=== PATIENT | male | born 1950 | race Caucasian/White ===

== ENCOUNTER 2024-05-03 15:00 | Emergency (ER) | payer OTHER, SELFPAY ==
[2024-05-03 15:08] VITALS: BP 155/96; PULSE 68; RESP 16; O2SAT 96
--- NOTE | 2024-05-03 15:15 | DI.RAD_ITS ---
Exam(s) XR WRIST LT COMP NAVICULAR EXAM: XR WRIST LT COMP NAVICULAR CLINICAL HISTORY: L wrist pain. TECHNIQUE: 2D digital imaging was performed. COMPARISON: No exams were available for comparison FINDINGS: Four views No evidence of fracture or dislocation nor significant ulnar variance. Scaphoid and scapholunate dis tance normal. Small round calcific density distal to the ulnar styloid does not have the appearance of an acute fracture fragment. No osseous lesions. IMPRESSION: No fractures evident. DATA REPOSITORY: RADIATION DOSE DELIVERED:
--- NOTE | 2024-05-03 15:29 | W.ED.GENAD ---
Discharge Plan Disposition Patient Disposition: Home Condition: Stable Discharge Details Clinical Impression: Left carpal tunnel syndrome Primary Care Provider: [place] ED Provider: Brendan Ho Home Meds and New Rx's Prescriptions: Continued acetaminophen 500 mg capsule 1,000 mg PO Q6H PRN amlodipine 10 mg tablet 10 mg PO DAILY ibuprofen [IBU] 800 mg tablet 800 mg PO Q8H PRN oxycodone-acetaminophen 5-325 mg tablet 1 tab PO Q6H atorvastatin 10 mg tablet 10 mg PO DAILY losartan 50 mg tablet 50 mg PO DAILY tizanidine 2 mg tablet 2 mg PO BID PRN tamsulosin 0.4 mg capsule 0.8 mg PO DAILY omeprazole 20 mg capsule,delayed release(DR/EC) 20 mg PO DAILY levothyroxine PO Discharge Instructions Instructions: Carpal tunnel syndrome Additional Instructions: You were seen in the emergency department for your left wrist pain and tingling, you have a physical exam that is suspicious for carpal tunnel syndrome. Please use the wrist brace to keep the wrist immobilized including during sleep to see if this improves symptoms, you may elevate and take Tylenol and ibuprofen as tolerated for pain, please seek a referral to orthopedics from your primary care provider, sometimes they perform surgery to release the carpal tunnel ligament but usually can get relief in 2 to 4 weeks of significant immobilization and [id number] pain and anti-inflammatory regimen. Referrals: [facility] [Primary Care Provider] - Discharge Data Discharge Date/Time-TO BE ENTERED AT DEPARTURE: 05/03/24 16:46 HPI General Date/Time Provider Initiated Documentation: 05/03/24 15:21. HPI Narrative: 73 year-old male presents to ED today by POV/ambulating with a chief complaint of L wrist/finger/hand pain, tingling, swelling without erythema with onset over the past few days. Quality described as tingling in fingers, pain traveling through the wrist, no radiation to injury, recent lacerations, redness, warmth to touch. Severity is described as moderate. Palliating factors include nothing specific attempted. Provoking factors include movement. Events leading up to the incident/Associated Symptoms: Patient denies history of clots, denies history of gout. Patient not anticoagulated. Related Data Home Medications ?Medication ?Instructions ?Recorded ?Confirmed acetaminophen 500 mg capsule 1,000 mg PO Q6H PRN 05/03/24 05/03/24 amlodipine 10 mg tablet 10 mg PO DAILY 05/03/24 05/03/24 atorvastatin 10 mg tablet 10 mg PO DAILY 05/03/24 05/03/24 ibuprofen 800 mg tablet (IBU) 800 mg PO Q8H PRN 05/03/24 05/03/24 levothyroxine PO 05/03/24 losartan 50 mg tablet 50 mg PO DAILY 05/03/24 05/03/24 omeprazole 20 mg capsule,delayed 20 mg PO DAILY 05/03/24 05/03/24 release oxycodone-acetaminophen 5 mg-325 1 tab PO Q6H 05/03/24 05/03/24 mg tablet tamsulosin 0.4 mg capsule 0.8 mg PO DAILY 05/03/24 05/03/24 tizanidine 2 mg tablet 2 mg PO BID PRN 05/03/24 05/03/24 Allergies Allergy/AdvReac Type Severity Reaction Status Date / Time No Known Allergies Allergy Verified 05/03/24 15:14 General Stated Complaint: Orthopedic JAYDE: 3 Review of Systems All systems reviewed & are unremarkable except as noted in HPI and below Exam Narrative Exam Narrative: GENERAL APPEARANCE: Well-nourished, non-toxic, awake and alert, atraumatic, no acute distress. SKIN: Warm, pink, dry, intact, without rashes/lesions/ulcerations. HEAD: Normocephalic, atraumatic, normal hair distribution for gender/age. EYES: Normal conjunctiva, no exudates on lids/lashes. ENT: Nares patent, no circumoral cyanosis, no facial swelling NECK: Supple, trachea midline, painless cervical ROM. LUNGS/CHEST: Non-labored respirations, normal A/P diameter, symmetrical expansion, no chest wall deformity HEART (CV/PV): Regular rate, L radial pulse 2+, no peripheral edema, no JVD. ABDOMEN: Soft, non-distended, no guarding. MSK: Normal ROM, no swelling/deformity to bilateral UEs or LEs, moving all extremities without weakness, no cyanosis, spine midline without tenderness, normal curvature, neurovascularly intact in left hand with mild swelling without any erythema or warmth to touch, left radial pulse 2+, limited range of motion to pain, Tinel's and Phalen's positive for carpal tunnel NEURO: Mental Status AAOx4 - alert to person, place, time, events No facial droop, no forehead involvement. Motor: No focal weakness - strength 5/5 in bilateral UEs and LEs, proximal and distal, symmetric. Sensory: sensation intact to light touch globally. Gait normal: patient ambulated without ataxia into ED room. PSYCH: euthymic, cooperative, pleasant, appropriate speech Course Vital Signs Vital signs: Vital Signs Pulse 68 05/03/24 15:08 Respiratory Rate 16 05/03/24 15:08 Blood Pressure 155/96 H 05/03/24 15:08 Pulse Oximetry 96 05/03/24 15:08 Temperature Source Temporal Artery Scan 05/03/24 15:08 Pulse 68 05/03/24 15:08 Respiratory Rate 16 05/03/24 15:08 Respiratory Effort Normal, Non-Labored 05/03/24 15:15 Blood Pressure 155/96 H 05/03/24 15:08 Blood Pressure Position Sitting 05/03/24 15:08 Pulse Oximetry 96 05/03/24 15:08 Oxygen Delivery Method Room Air 05/03/24 15:08 Oxygen Flow Rate 0 05/03/24 15:08 Pain Level 5 05/03/24 15:26 Comment Pt states pain = 7 or 8 w/ movement 05/03/24 15:08 Medical Decision Making This dictation utilizes [id number] dictation software and may contain unedited grammatical errors. 73 year-old male presents to ED today by POV/ambulating with a chief complaint of L wrist/finger/hand pain, tingling, swelling without erythema with onset over the past few days. Quality described as tingling in fingers, pain traveling through the wrist, no radiation to injury, recent lacerations, redness, warmth to touch. Severity is described as moderate. Palliating factors include nothing specific attempted. Provoking factors include movement. Events leading up to the incident/Associated Symptoms: Patient denies history of clots, denies history of gout. Patients' medical history: Hypertension, hyperlipidemia, arthritis. Family and social history: Noncontributory. Pertinent exam findings / vital signs include neurovascularly intact in left hand with mild swelling without any erythema or warmth to touch, left radial pulse 2+, limited range of motion to pain, Tinel's and Phalen's positive for carpal tunnel. Differential / pathologies of concern include carpal tunnel syndrome, inflammatory arthritis, gout. Diagnostic studies of: -CBC, CMP, CRP/ESR, Uric Acid, XR L wrist. -bloodwork benign, neg inflammatory markers, uric acid WNL -XR benign Interventions of: -thumb spica brace. ED Course/Assessment/Plan: 73-year-old male presents with intermittent swelling of his left fingers with numbness and tingling to the first 3 fingers, Tinel's and Phalen's are positive, laboratory workup is benign for any inflammatory markers or elevated uric acid level is x-rays negative I do believe he has carpal tunnel syndrome. He is a [place] patient and I recommend that he follow-up with [place] [facility], he was provided a thumb spica brace and recommended to perform RICE therapy and therapeutic dosing of Tylenol and ibuprofen with strict return criteria for any increasing redness, warmth to touch, signs of neurovascular compromise. Findings not consistent with fracture, inflammatory arthritis, gout, and infection. Disposition of Left Carpal Tunnel Syndorme. Patient verbalized understanding of the plan and return to ED criteria and engaged in shared decision making. Medical Records Medical records reviewed: Yes I reviewed the patient's medical records. Imaging Data Radiologic Study: Attestation: I personally reviewed and interpreted this imaging study as follows: Imaging: X-Ray Radiologist's impression: EXAM: XR WRIST LT COMP NAVICULAR CLINICAL HISTORY: L wrist pain. TECHNIQUE: 2D digital imaging was performed. COMPARISON: No exams were available for comparison FINDINGS: Four views No evidence of fracture or dislocation nor significant ulnar variance. Scaphoid and scapholunate distance normal. Small round calcific density distal to the ulnar styloid does not have the appearance of an acute fracture fragment. No osseous lesions. IMPRESSION: No fractures evident. Lab Data Lab results reviewed: Yes I reviewed the patient's lab results. Labs: Laboratory Tests Range/Units 05/03/ 15:40 WBC (4.4-10.8) 10^3/uL 6.20 RBC (4.36-5.78) 10^6/uL 4.41 Hgb (13.5-17.5) g/dL 14.1 Hct (40.0-50.0) % 40.2 MCV (80-95) fL 91 MCH (27.0-33.0) pg 32.0 MCHC (32.0-36.0) % 35.1 RDW (11.8-14.1) % 12.8 Plt Count (130-400) 10^3/uL 185 MPV (8.0-11.0) fL 9.3 Immature Gran % % 0.2 Neutrophils % % 68.7 Lymphocytes % % 22.4 Monocytes % % 5.5 Eosinophils % % 2.7 Basophils % % 0.5 Nucleated RBC % (0.0-0.3) % 0.0 Absolute Neutrophils (1.2-6.7) 10^3/uL 4.26 Absolute Lymphocytes (1.2-3.4) 10^3/uL 1.39 Absolute Monocytes (0.1-0.8) 10^3/uL 0.34 Absolute Eosinophils (0.0-0.7) 10^3/uL 0.17 Absolute Basophils (0.0-0.2) 10^3/uL 0.03 ESR (0-20) mm/hr 2 Sodium (136-145) mmol/L 141 Potassium (3.5-5.1) mmol/L 4.3 Chloride (98-107) mmol/L 105 Carbon Dioxide (21.0-32.0) mmol/L 28.6 Anion Gap (3-11) mmol/L 7.4 BUN (7-18) mg/dL 18 Creatinine (0.70-1.30) mg/dL 1.4 H Est GFR (CKD-EPI 2020) (mL/min/1.73m2) 52.41 Glucose (74-106) mg/dL 184 H Uric Acid (3.5-7.2) mg/dL 6.4 Calcium (8.5-10.1) mg/dL 8.7 Total Bilirubin (0.2-1.0) mg/dL 0.60 AST (15-37) U/L 20 ALT (16-63) U/L 25 Alkaline Phosphatase (46-116) U/L 107 C-Reactive Protein (<or=0.5) mg/dL 0.54 H Total Protein (6.4-8.2) g/dL 7.1 Albumin (3.4-5.0) g/dL 4.0 Quality:SDOH Health Related Social Needs: No Data to Display PFSH All Active Problems (Updated 05/03/24 @ 16:25 by CAMILLE Mckeon) Left carpal tunnel syndrome (Acute) Social History Smoking/Tobacco Use Status: Former Tobacco Use Quit Date: 07/18/11 Smoking risk assessment performed?: Yes Alcohol Intake: former Drug use: Never Substance use type: does not use Do you feel safe at home: Yes Do you feel safe in your relationship?: Yes
[2024-05-03 15:48] LABS: Abs Immature Grans 0.01 10^3/uL (0.0-0.06); Absolute Basophil Count 0.03 10^3/uL (0.0-0.2); Absolute Eosinophil Count 0.17 10^3/uL (0.0-0.7); Absolute Lymphocyte Count 1.39 10^3/uL (1.2-3.4); Absolute Monocyte Count 0.34 10^3/uL (0.1-0.8); Absolute Neutrophil Count 4.26 10^3/uL (1.2-6.7); Basophils % 0.5 %; Eosinophils % 2.7 %; HCT 40.2 % (40.0-50.0); HGB 14.1 g/dL (13.5-17.5); Immature Grans % 0.2 %; Lymphocytes % 22.4 %; MCHC 35.1 % (32.0-36.0); MCV 91 fL (80-95); MPV 9.3 fL (8.0-11.0); Monocytes % 5.5 %; Neutrophils % 68.7 %; Platelet Count 185 10^3/uL (130-400); RBC 4.41 10^6/uL (4.36-5.78); RDW 12.8 % (11.8-14.1); RDW-SD 42.7 fL
[2024-05-03 15:49] LABS: ESR 2 mm/hr (0-20)
[2024-05-03 16:06] LABS: C-Reactive Protein 0.54 mg/dL (<or=0.5); Uric Acid 6.4 mg/dL (3.5-7.2)
[2024-05-03 16:07] LABS: ALT 25 U/L (16-63); AST 20 U/L (15-37); Alkaline Phosphatase 107 U/L (46-116); Anion Gap 7.4 mmol/L (3-11); BUN 18 mg/dL (7-18); CO2 28.6 mmol/L (21.0-32.0); CREATININE 1.4 mg/dL (0.70-1.30); Calcium 8.7 mg/dL (8.5-10.1); Chloride 105 mmol/L (98-107); Estimated GFR 52.41 (mL/min/1.73m2); Glucose 184 mg/dL (74-106); Potassium 4.3 mmol/L (3.5-5.1); Sodium 141 mmol/L (136-145); Total Protein 7.1 g/dL (6.4-8.2)
--- OUTSIDE RECORDS SUMMARY | 2024-05-03 16:10 | XMS_ITS | Encounter Summary ---
Author Organization [facility] [place] [address] Care Team Providers Care Template Storage Clerk Name Role Phone Josué Huff MD Primary Care Provider [phone] Reason for Visit * Reason Comments Radiation Follow-up Encounter Details Date Type Department Care Team (Late st Contact Info) Description 11/06/2013 3:30 PM EDT Follow-Up Radiation Oncology at [address] [address] Jacoby Gaines MD [facility] [place] [address] Squamous cell carcinoma of tonsil (Primary Dx) Discharge Disposition: Home Social History Tobacco Use Types Packs/Day Years Used Date Smoking Tobacco: Former Cigarettes 2 40 0 07/18/1971 - 07/18/2011 Smokeless Tobacco: Never Comments:started smoking at age 16 Alcohol Use Standard Drinks/Week Comments No 0 (1 standard drink = 0.6 oz pur e alcohol) Quite in July 1998 Sex and Gender Information Value Date Recorded Sex Assigned at Not on file Gender Identity Not on file Sexual Orientation Not on file documented as of this encounter Last Filed Vital Signs Vital Sign Reading Time Taken Comments Blood Pressure 130/71 11/06/2013 1:46 PM EDT Pulse 49 11/06/2013 1:46 PM EDT Temperature - - Respiratory Rate 20 11/06/2013 1:46 PM EDT Oxygen Saturation 98% 11/06/2013 1:46 PM EDT Inhaled Oxygen Concentration - - Weight 101.6 kg (224 lb) 11/06/2013 1:46 PM EDT Height - - Body Mass Index 33.18 01/26/2013 12:53 PM EDT documented in this encounter Progress Notes * Jacoby Gaines MD - 11/06/2013 1:46 PM EDT Radiation Oncology Follow Up Note Primary MD: JOSUÉ HUFF MD Referring MD: Josué Huff Other Involved Physicians: Gorge Lee MD Focused Problem List: ?? Squamous cell carcinoma of the tonsil, [id number] ?? Presentation: ?? Onset neck stiffness 04/2011 which subsequently resolved, noted a lump on R neck which progressively increased in size ?? Staging: ?? 07/04/11 FNA of right neck mass ([place]): squamous cell carcinoma with basaloid features ?? 07/08/11 CT neck soft tissue with contrast ([place]): 2.8 x 2.3 cm heterogeneous node R level II. Adjacent node with low attenuation center @ 1.6 cm max. Abnormal thickening of the R tonsillar pillar with enlargement and loss of normal contours. Unerupted central incisor maxilla on left. ?? 07/19/11 EUA with bilateral tonsillectomy (and gross resection of the right tonsillar mass) and directed biopsy ([place]): ?? Findings: right base of tongue with small friable area, biopsied. R tonsil larger than the left.Right tonsillar mass extended through the capsule and adherent to underlying constrictors. Left tonsil small with some scarring. ?? Path: ?? R base of tongue: benign lymphoid hyperplasia/tonsillar tissue ?? L tonsil: no neoplasm identified ?? R tonsil: squamous cell carcinoma, basaloid type. Tumor infiltrates full thickness of tonsil, and focally invades underlying skeletal muscle. ?? 08/07/11 CT chest with contrast ([place]): 1.5 cm left pretracheal node at thoracic inlet. T9 sclerotic lesion concerning for metastatic disease. ?? Bronchoscopy with EBUS guided biopsy: ?? Findings: FNA of 1L lymph node x 5 passes ?? Path: The sample appears to consist essentially of respiratory epithelial cells and blood. Thereis no definite evidence of lymph node sampling. ?? Therapy: ?? Chemoradiotherapy completed 11/10/11, 70 Gy. Treatment was complicated by hospitalization secondary to difficulty tolerating tube feeds. Interval History: Oliverio E Salazar Jr. returns for routine follow up having completed PSYCHIATRIC ARNP approximately 2 years prior. Currently he notes the following symptoms: Symptom Description Ongoing Intervention Odynophagia Denies Dysphagia Difficulty with dry foods, unchanged Trismus Denies Otalgia/ Hearing changes Denies Xerostomia Still significant, drinking water a couple of times/hour. Water Skin changes Denies Neck fibrosis Denies. Dysgeusia Dysgeusia still significant, but can tolerate many foods. A few foods still taste good. Weight Loss Weight increasing he denies new onset DE LA O, n/v, unilateral changes in strength/sensation or cognitive changes. . Allergies Allergen Reactions ??? Tegaderm (Transparent Dressings) Current Outpatient Prescriptions on File Prior to Visit Medication Sig Dispense Refill ??? levothyroxine (SYNTHROID) 25 mcg tablet Take 25 mcg by mouth daily. ??? ibuprofen (ADVIL;MOTRIN) 800 mg tablet Take 800 mg by mouth every 8 hours as needed. ??? OXYcodone-acetaminophen (PERCOCET) 5-325 mg per tablet Take 1 tablet by mouth every 6 hours as needed. ??? omeprazole (PRILOSEC) 20 mg capsule Take 20 mg by mouth daily. ??? melatonin 3 mg Tab Take by mouth. ??? OXYBUTYNIN CHLORIDE ORAL Take 10 mg by mouth daily. ??? Terazosin 10 mg Tab Take 10 mg by mouth daily. Past Medical History Diagnosis Date ??? Cancer of head, face, and neck ??? Arthritis ??? Depression PTSD ??? Claustrophobia Past Surgical History Procedure Date ??? Spine surgery Disc ??? Tonsillectomy 2011 ??? Back surgery ??? Endobronchial u/s add-on 08/24/2011 ENDOBRONCHIAL ULTRASOUND (EBUS) performed by VERÓNICA KELLOGG at [facility] ENDOS[facility] Physical Examination: There were no vitals filed for this visit. Physical Exam Constitutional: He is oriented to person, place, and time and well-developed, well-nourished, and in no distress. HENT: Head: Normocephalic and atraumatic. Visual inspection of OC and OP revealed no evidence of suspicious masses or lesions. Palpation revealed no suspicious masses and no induration along the posterior tongue. Moisture modest. Extant teeth in good repair. Eyes: EOM are normal. Pupils are equal, round, and reactive to light. Neck: No tracheal deviation present. Palpation reveals mild significant fibrosis on the right and mild fibrosis on the left. He has a deep area in the right low neck, inferior to the larynx, that is rounded and firm, likely fibrosis butpossible deep adenopathy. No other suspicious adenopathy in cervical, SCLV, ICLV lashanda basins. Minimal submental edema/fibrosis. Neurological: He is alert and oriented to person, place, and time. No cranial nerve deficit. Skin: Skin is warm and dry. Psychiatric: Affect and judgment normal. Procedure: Not performed today as DL prior today with Dr. Robledo Interval Imaging: CT H&N and chest report available from [place], 10/27/13, demonstrating KAIDEN. Assessment: Oliverio Nava Martin García is now 2 years out from definitive PSYCHIATRIC ARNP: ?? Tonsillar Malignancy ?? Clinically: clinically he has no evidence of malignancy within the oropharynx, overall he is doing very well. ?? Radiographically: interval imaging 10/27/13 reveals KAIDEN. ?? Radiation toxicity: ?? Xerostomia: moderate, tolerating with water ?? Dysgeusia: still prominent, tolerating and weight increasing ?? Dysphagia: denies ?? Fibrosis/Edema: clinically insignificant ?? FU: follow up per NCC algorithm documented in this encounter Plan of Treatment Not on file documented as of this encounter Visit Diagnoses Diagnosis Squamous cell carcinoma of tonsil- Primary Malignant neoplasm of tonsil documented in this encounter Care Teams Template Storage Clerk Relationship Specialty Start Date End Date Josué Huff MD [address] [place] [id number] PCP - General 08/02/11 documented as of this encounter
--- OUTSIDE RECORDS SUMMARY | 2024-05-03 16:10 | XMS_ITS | Encounter Summary ---
Author Organization [facility] [address] Care Team Providers Care Scheduling Representative Name Role Phone Josué Huff MD Primary Care Provider [phone] Encounter Details Date Type Department Care Team (Late st Contact Info) Description 08/08/2012 Orders Only Hematology [place] [address] Trinity Chopra, FLAT SCREEN WORKER [address] [facility] [place] [address] Head and neck cancer (Primary Dx); Hypothyroidism Social History Tobacco Use Types Packs/Day Years [...] on file documented as of this encounter Plan of Treatment Not on file documented as of this encounter Visit Diagnoses Diagnosis Head and neck cancer- Primary Malignant neoplasm of head, face, and neck Hypothyroidism Unspecified hypothyroidism documented in this encounter Care Teams Scheduling Representative Relationship Specialty Start Date End Date Josué Huff MD [address] [place] [address] PCP - General 08/02/11 documented as of this encounter
--- OUTSIDE RECORDS SUMMARY | 2024-05-03 16:10 | XMS_ITS | Encounter Summary ---
Author Organization [facility] [place] [address] Care Team Providers Care Prepared Foods Associate Name Role Phone Josué Huff MD Primary Care Provider [phone] Encounter Details Date Type Department Care Team (Late st Contact Info) Description 09/12/2012 2:30 PM EDT Ancillary Appointment Hematology Oncology at [address] [phone] William Petit, JAYDEN [facility] [place] [address] Social History Tobacco Use Types Packs/Day Years [...] on file documented as of this encounter Progress Notes * William Petit, JAYDEN - 09/12/2012 12:22 PM EDT [facility] Dietitian Follow Up Assessment Patient and diagnosis: Oliverio Salazar is a 61 YO M with 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 Was hospitalized Saturday 10/28 - 10/31/11. Completed RT onOctober,. Returns to clinic for 10 mos follow up. Current Wt: 224 lbs on clinic scale on 09/12/12: increase BMI: Previous Wt: 204 lbs on 07/11/12, per pt 92.25 kg on 02/08/12; Increase 29604 kg on 02/06/12 90.26 k pablo 01/02/12; 1% DECREASE in < 1 week; Moderate Initial Wt: 104.781 kg in September 2011 Calorie needs: 25 -30 @ 80 k - 2400 kcals Protein needs: 1.5 @ 80 k kg Food Intake: Taste buds have changed and are changing. Able to taste some foods,but he doesn't carefor them now. Able to eat some broccoli and cauliflower with butter. Parsnips, which he loved, he doesn't care for now. Eating a lot of eggs. Togolese toast and maple syrup (but doesn't taste like either) . Can't do tomatoes in any form: soup, salsa, etc...Tries beef twice/wk. Ate a ham sandwich, wasn't able to eat it with mustard, vásquez, or ketchup but it didn't taste like ham. Ate it with buttered bread. Farnsworth Be Alex and Raphael's Ice cream tastes good. Is back to drinking milk. Chocolate tastes bad. Foods that are roasted (coffee, pb) taste burnt and like charcoal. Does make sure his mouth is clean before food trials. TF was pulled July 2012. Intake: AM: 2 pieces of japanese toast with scr. Eggs and milk. (Late in the morning) Noon: Typically the meal he tries a new food. 1/2 of ham sandwich with butter PM: Daja Lr- full pint - eats one pint/night for dinner. Fluid: Boost Plus - 3 or 4/d. Average kcal intake: < 2500 kcals/d. A/P: Denies pain with swallowing or in throat. Some thing will get stuck (i.e. toast and sometimes eggs,but will wash down). No cigarettes. No ETOH since 1998. Will wake up 1-2 times during the night to go to the bathroom. Xerostomia worse at night. We reviewed ACS' survivorship guidelines on how to reduce risk of recurrence which are: adopting a plant-based diet, obtaining and maintaining a healthy weight, and getting adequate (150 min/week, 2 days light strength training) physical activity. His current weight is up, but less than his initialweight and he feels comfortable at it. Suggested decreaseing kcal intake within the day. He was agreeable to decrease Boost Plus consumption. Will follow up as he returns to clinic per grid. documented in this encounter Plan of Treatment Not on file documented as of this encounter Visit Diagnoses Not on filedocumented in this encounter Care Teams Prepared Foods Associate Relationship Specialty Start Date End Date Josué Huff MD [address] [place] [id number] PCP - General 08/02/11 documented as of this encounter
--- OUTSIDE RECORDS SUMMARY | 2024-05-03 16:10 | XMS_ITS | Encounter Summary ---
Author Organization [facility] [place] [address] Care Team Providers Care Internet Programmer Name Role Phone Josué Huff MD Primary Care Provider [phone] Encounter Details Date Type Department Care Team (Late st Contact Info) Description 08/31/2013 Orders [place] [address] Jacoby Gaines MD [facility] DR [place] [address] Squamous cell carcinoma of tonsil (Primary Dx) Social History Tobacco Use Types Packs/Day Years [...] tonsil documented in this encounter Care Teams Internet Programmer Relationship Specialty Start Date End Date Josué Huff MD [address] [place] [address] PCP - General 08/02/11 documented as of this encounter
--- OUTSIDE RECORDS SUMMARY | 2024-05-03 16:10 | XMS_ITS | Encounter Summary ---
Author Organization [facility] [place] [address] Care Team Providers Care Frame Table Operator Name Role Phone Josué Huff MD Primary Care Provider [phone] Encounter Details Date Type Department Care Team (Latest Contact Info) Description 11/27/2013 10:44 AM EDT - 11/27/2013 11:59 PM EDT Hospital Encounter Hematology [place] [address] CLINIC, DR LOLY Lee, Gorge Scales MD [address] [place] [address] [place] [address] Squamous cell carcinoma of tongue; Hypothyroidism (acquired) Discharge Disposition: Home Social History Tobacco Use [...] on file documented as of this encounter Medications at Time of Discharge Medication Sig Dispensed Refills Start Date End Date levothyroxine (SYNTHROID) 25 mcg tablet Take 25 mcg by mouth daily. ibuprofen (ADVIL;MOTRIN) 800 mg tablet Take 800 mg by mouth every 8 hours as needed. OXYcodone-acetaminophen (PERCOCET) 5-325 mg per tablet Take 1 tablet by mouth every 6 hours as needed. omeprazole (PRILOSEC) 20 mg capsule Take 20 mg by mouth daily. melatonin 3 mg Tab Take by mouth. OXYBUTYNIN CHLORIDE ORAL Take 10 mg by mouth daily. Terazosin 10 mg Tab Take 10 mg by mouth daily. documented as of this encounter Plan of Treatment Not on file documented as of this encounter Procedures Procedure Name Priority Date/Time Associated Diagnosis Comments TSH STAT 11/27/2013 11:01 AM EDT Squamous cell carcinoma of tongue Hypothyroidism (acquired) documented in this encounter Results * (ABNORMAL) TSH (11/27/2013 11:01 AM EDT) Thyroid Stimulating Hormone 4.29(H) 0.27 - 4.20 mcIU/mL ARIELLA MILLENNIUM Blood specimen (specimen) 11/27/2013 11:01 AM EDT 11/27/2013 11:07 AM EDT Narrative Resulting Agency Comment Spec In Lab Gorge Lee MD CHEMISTRY ORDERABLES [employer] documented in this encounter Visit Diagnoses Diagnosis Squamous cell carcinoma of tongue Malignant neoplasm of tongue, unspecified site Hypothyroidism (acquired) Unspecified hypothyroidism documented in this encounter Care Teams Frame Table Operator Relationship Specialty Start Date End Date Josué Huff MD [address] [place] [id number] PCP - General 08/02/11 documented as of this encounter
--- OUTSIDE RECORDS SUMMARY | 2024-05-03 16:10 | XMS_ITS | Encounter Summary ---
Author Organization [facility] Address [facility] [place] [address] Care Team Providers Care Bunch Breaker Name Role Phone Josué Huff MD Primary Care Provider [phone] Encounter Details Date Type Department Care Team (Latest Contact Info) Description 02/27/2016 - 02/27/2016 11:59 PM EDT Hospital Encounter Radiology Library at [facility] [place] [id number] Maribell Smith MD [facility] [place] [address] Pain Discharge Disposition: Home Social History Tobacco Use [...] Procedure Name Priority Date/Time Associated Diagnosis Comments FILM LIBRARY STORAGE ONLY DX CHEST Routine 02/27/2016 12:00 AM EDT Pain documented in this encounter Results * Film Library- Storage Only DX Chest (02/27/2016 12:00 AM EDT) Narrative CLEMENT - 02/27/2016 7:44 PM EDT This exam is for storage only and is auto-finalizing. Maribell Smith MD IMG FILM LIBRARY ORD ERABLES [place], [place] documented in this encounter Visit Diagnoses Diagnosis Pain Generalized pain documented in this encounter Care Teams Bunch Breaker Relationship Specialty Start Date End Date Josué Huff MD [address] [place] [id number] PCP - General 08/02/11 documented as of this encounter
--- OUTSIDE RECORDS SUMMARY | 2024-05-03 16:10 | XMS_ITS | Encounter Summary ---
Author Organization [facility] [place] [address] Care Team Providers Care Command Post Craftsman Name Role Phone Josué Huff MD Primary Care Provider [phone] Reason for Visit * Reason Comments Tonsil Cancer Encounter Details Date Type Department Care Team (Late st Contact Info) Description 07/10/2012 2:30 PM EST Follow-Up Hematology Oncology at [address] [phone] Trinity Chopra, DRYING ROOM ATTENDANT [address] [facility] [place] [address] Rotator cuff tear; Squamous cell carcinoma of tonsil; S/P radiation therapy Discharge Disposition: Home Social History Tobacco Use [...] Sign Reading Time Taken Comments Blood Pressure 126/57 07/10/2012 2:11 PM EST Pulse 54 07/10/2012 2:11 PM EST Temperature 36.9 ??C (98.4 ??F) 07/10/2012 2:11 PM ES T Respiratory Rate 18 07/10/2012 2:11 PM EST Oxygen Saturation 98% 07/10/2012 2:11 PM EST Inhaled Oxygen Concentration - - Weight 93.4 kg (206 lb) 07/10/2012 2:11 PM EST Height 177 cm (5' 9.69) 07/10/2012 2:11 PM EST Body Mass Index 29.83 07/10/2012 2:11 PM EST documented in this encounter Progress Notes * Trinity Chopra, DRYING ROOM ATTENDANT - 07/10/2012 2:28 PM EST Subjective: Patient ID: Oliverio Salazar Jr. is a 62 y.o. male. HPI Patient Active Problem List Diagnoses ??? Rotator cuff tear ??? Squamous cell carcinoma of tonsil ?? Squamous cell carcinoma of the tonsil, [id number]; tobacco-associated ?? Presentation: ?? Onset neck stiffness 04/2011, noted a lump on R neck which [...] maxilla on left. ?? 07/19/11 EUA with biopsy ([facility]): ?? Findings: ?? Path: ?? R base of tongue: benign lymphoid hyperplasia/tonsillar tissue ?? L tonsil: no neoplasm identified ?? R tonsil: squamous cell carcinoma, basaloid type. Tumor infiltrates full thickness of tonsil, and focally invades underlying skeletal muscle. ?? Therapy: concurrent chemo/XRT: 70cGy completed 11/12/11 and 2 cycles of cisplat - 3rd held due tomyelosuppression. Dysphagia: none presently Odynophagia: none Weight loss/ nutrition: he is still transitioning from his G-tube to oral feeding due to the fact that his taste changes have been so severe ; they are very very slowly improving Xerostomia: moderate Diet modifications : He eats about 2-3 dozen eggs per week; Does oatmeal ; toast and butter , and can do limited other items Neck symptoms: none Pain: none (with respect to his cancer) Metastatic symptoms: none Functional problems: none Coping/emotional issues: he is doing exceptionally well at this time Dental care: he has gone to the dentist today; he has 2 fillings that are required for his lower teeth ; he continues to do fluoride trays Medical issues: none Neuropathy: none Hearing problems: none Geographic issues: none G-tube in place Mediport continues to have his MediPort; his surgeon would like to leave it in for one year before it is removed Speech-language pathology he is not under their care at this time Review of Systems Genitourinary: Positive for frequency ( usually at night related to increased fluid intake). [all other systems reviewed and are negative Filed Vitals: 07/10/12 1411 BP: 126/57 Pulse: 54 Temp: 36.9 ??C (98.4 ??F) Resp: 18 Current outpatient prescriptions:ibuprofen (ADVIL;MOTRIN) 800 mg tablet, Take 800 mg by mouth every8 hours as needed., Disp: , Rfl: ; OXYcodone-acetaminophen (PERCOCET) 5-325 mg per tablet, Take 1 tablet by mouth every 4 hours as needed., Disp: , Rfl: ; omeprazole (PRILOSEC) 20 mg capsule, Take 20mg by mouth daily., Disp: , Rfl: ; melatonin 3 mg Tab, Take by mouth., Disp: , Rfl: benzonatate (TESSALON) 100 mg capsule, Take 2 capsules by mouth 3 times daily as needed for Cough.,Disp: 30 tablet, Rfl: 0; OXYBUTYNIN CHLORIDE ORAL, Take 10 mg by mouth daily., Disp: , Rfl: ; Terazosin 10 mg Tab, Take 10 mg by mouth daily., Disp: , Rfl: labs for today: white blood cell count 3.88 hemoglobin 12.6 platelets 113 ; calcium 8.5 glucose 81 BUN 32 creatinine 1.0 total protein 7.1 albumin 3.8 sodium 139 potassium 4.2AST 20 ALT 37 Objective: Physical Exam Constitutional: He is oriented to person, place, and time. He appears well- developed and well-nourished. HENT: Mouth/Throat: Oropharynx is clear and moist. No oropharyngeal exudate. Eyes: Conjunctivae and EOM are normal. Pupils are equal, round, and reactive to light. No scleral icterus. Neck: Normal range of motion. Neck supple. Cardiovascular: Normal rate and regular rhythm. Pulmonary/Chest: Effort normal and breath sounds normal. Abdominal: He exhibits no distension. There is no tenderness. Musculoskeletal: He exhibits no edema. Lymphadenopathy: He has no cervical adenopathy. Neurological: He is alert and oriented to person, place, and time. He displays abnormal reflex ( this is not new for him). Skin: Skin is warm and dry. Psychiatric: He has a normal mood and affect. His behavior is normal. Judgment and thought content normal. Assessment and Plan: 1. Squamous cell carcinoma of the tonsil; he has no evidence of disease at this time. He is 8 months out from completion of his treatment. He should return to clinic to see Dr. Gaines for a scope when Dr. Gaines is next in [facility]. In the meantime he can see me in August , and should be set up at [facility] for his one-year evaluation in October/November, [facility] Athis one year followup he will need a CT of his neck and chest as well as his CBC CMP and TSH. 2. I have encouraged him to continue trying as many different foods as possible as I think that histaste will very slowly improve over time. documented in this encounter Plan of Treatment Not on file documented as of this encounter Visit Diagnoses Diagnosis Rotator cuff tear Complete rupture of rotator cuff Squamous cell carcinoma of tonsil Malignant neoplasm of tonsil S/P radiation therapy Convalescence following radiotherapy documented in this encounter Care Teams Command Post Craftsman Relationship Specialty Start Date End Date Josué Huff MD [address] [place] [id number] PCP - General 08/02/11 documented as of this encounter
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
--- OUTSIDE RECORDS SUMMARY | 2024-05-03 16:10 | XMS_ITS | Encounter Summary ---
Author Organization [facility] [place] [address] Care Team Providers Care Video Machines Mechanic Name Role Phone Josué Huff MD Primary Care Provider [phone] Encounter Details Date Type Department Care Team (Late st Contact Info) Description 04/23/2013 2:30 PM EST Ancillary Appointment Hematology Oncology at [address] [phone] Daphnie Jones, JAYDEN Social History Tobacco Use Types Packs/Day Years [...] on filedocumented in this encounter Care Teams Video Machines Mechanic Relationship Specialty Start Date End Date Josué Huff MD [address] [place] [id number] PCP - General 08/02/11 documented as of this encounter
--- OUTSIDE RECORDS SUMMARY | 2024-05-03 16:10 | XMS_ITS | Encounter Summary ---
Author Organization Formerly [facility] [place] [address] Care Team Providers Care Production Illustrator Name Role Phone Josué Huff MD Primary Care Provider [phone] Encounter Details Date Type Department Care Team (Late st Contact Info) Description 09/09/2012 Orders Only Hematology [place] [address] Trinity Chopra, ENTERPRISE INFRASTRUCTURE ARCHITECT [address] [facility] [place] [address] Social History Tobacco Use Types Packs/Day Years [...] Associated Diagnosis Comments FILM LIBRARY STORAGE ONLY CT CHEST Routine 09/09/2012 8:05 AM EDT documented in this encounter Results * Film Library- Storage only CT Chest (09/09/2012 8:05 AM EDT) 09/09/2012 8:05 AM EDT Narrative [facility] - 12/01/2013 10:37 AM EDT This is a non-reportable exam. Procedure Note Jesús Muñoz - 12/01/2013 This is a non-reportable exam. Trinity Chopra APRN [facility] FILM LIBRARY ORD ERABLES RAD [address] [employer] [place] [address] documented in this encounter Visit Diagnoses Not on filedocumented in this encounter Care Teams Production Illustrator Relationship Specialty Start Date End Date Josué Huff MD [address] [place] [address] PCP - General 08/02/11 documented as of this encounter
--- OUTSIDE RECORDS SUMMARY | 2024-05-03 16:10 | XMS_ITS | Encounter Summary ---
Author Organization Formerly [facility] [place] [address] Care Team Providers Care Cake Decorator Name Role Phone Josué Huff MD Primary Care Provider [phone] Encounter Details Date Type Department Care Team (Late st Contact Info) Description 11/24/2014 Orders Only Hematology [place] [address] Trinity Chopra, LOGGING CREW SUPERVISOR [address] [facility] [place] [address] Social History Tobacco Use Types Packs/Day Years [...] on filedocumented in this encounter Care Teams Cake Decorator Relationship Specialty Start Date End Date Josué Huff MD [address] [place] [address] PCP - General 08/02/11 documented as of this encounter
--- OUTSIDE RECORDS SUMMARY | 2024-05-03 16:10 | XMS_ITS | Encounter Summary ---
Author Organization [facility] [place] [address] Care Team Providers Care Home Agent Name Role Phone Josué Huff MD Primary Care Provider [phone] Encounter Details Date Type Department Care Team (Latest Contact Info) Description 01/26/2013 9:24 AM EDT - 01/26/2013 11:59 PM EDT Hospital Encounter Hematology [place] [address] CLINIC, DR LOLY Lee, Gorge Scales MD [address] [place] [address] [place] [address] Squamous cell carcinoma of tonsil; Hypothyroidism Discharge Disposition: Home Social History Tobacco Use [...] Sig Dispensed Refills Start Date End Date ibuprofen (ADVIL;MOTRIN) 800 mg tablet Take 800 [...] Tab Take 10 mg by mouth daily. levothyroxine (SYNTHROID) 50 mcg tabletIndications:Squamo us cell carcinoma of tonsil,Hypothyroidism (acquired) Take 1 tablet by mouth daily. 30 tablet 12 01/26/2013 08/07/2013 documented as of this encounter Plan of Treatment Not on file documented as of this encounter Procedures Procedure Name Priority Date/Time Associated Diagnosis Comments DIFFERENTIAL, AUTOMATED STAT 01/26/2013 9:32 AM EDT CBC (WITH DIFF) STAT 01/26/2013 9:32 AM EDT Squamous cell carcinoma of tonsil TSH STAT 01/26/2013 9:32 AM EDT Squamous cell carcinoma of tonsil Hypothyroidism COMPREHENSIVE METABOLIC PANEL Routine 01/26/2013 9:32 AM EDT Squamous cell carcinoma of tonsil documented in this encounter Results * Differential, Automated (01/26/2013 9:32 AM EDT) Neutrophil % 59.6 34.0 - 71.0 % CERNER MILLENNIUM Neutrophil Absolute 2.37 1.50 - 6.30 x10(3)/mcL CERNER MILLENNIUM Lymph % 30.0 19.0 - 53.0 % CERNER MILLENNIUM Lymphocytes Abs 1.2 1.0 - 3.6 x10(3)/mcL CERNER MILLENNIUM Monocyte % 7.6 4.0 - 13.0 % CERNER MILLENNIUM Monocyte Abs 0.3 0.2 - 1.0 x10(3)/mcL CERNER MILLENNIUM Eos % 2.5 0.0 - 7.0 % CERNER MILLENNIUM Eosinophils Abs 0.1 0.0 - 0.5 x10(3)/mcL CERNER MILLENNIUM Basophil % 0.3 0.0 - 2.0 % CERNER MILLENNIUM Baso Absolute 0.0 0.0 - 0.2 x10(3)/mcL CERNER MILLENNIUM Immature Gran % 0.00 0.00 - 0.66 % CERNER MILLENNIUM Comment: Immature granulocytes(IG's)percentage and absolute count will include metamyelocytes, myelocytes, and promyelocytes. Blood smears from CBCs yielding IG's will be scanned manually for concordance. If this scan disagrees with the automated IG or if promyelocytes are noted, a manual differential will be performed. Immature Gran Absolute 0.00 0.00 - 0.05 x10(3)/mcL CERNER MILLENNIUM Blood specimen (specimen) 01/26/2013 9:32 AM EDT 01/26/2013 9:43 AM EDT Gorge Lee MD HEMATOLOGY ORDERABLE S Performing Organization Address City/[facility]/ZIP Co de Phone Number ARIELLA FAROOQENNIUM * (ABNORMAL) TSH (01/26/2013 9:32 AM EDT) Thyroid Stimulating Hormone 6.17(H) 0.27 - 4.20 mcIU/mL CERNER MILLENNIUM Blood specimen (specimen) 01/26/2013 9:32 AM EDT 01/26/2013 9:43 AM EDT Narrative Resulting Agency Comment Spec In Lab Gorge Lee MD CHEMISTRY ORDERABLES Performing Organization Address [facility] Co de Phone Number CERLUKE GREENBERGIUM * (ABNORMAL) Comprehensive metabolic panel (non-fasting) (01/26/2013 9:32 AM EDT) Glucose 103 60 - 199 mg/dL CERNER MILLENNIUM Comment:Diabetes: >=200 mg/d L plus symptoms Blood Urea Nitrogen 21(H) 10 - 20 mg/dL CERNER MILLENNIUM Creatinine 1.01 0.80 - 1.50 mg/dL CERNER MILLENNIUM Comment: Please note that the pediatric reference intervals supplied above were not validated at [facility]. Results from pediatric patients should be interpreted in conjunction to the patient's age, height and muscle mass. Sodium 141 135 - 145 mmol/L CERNER MILLENNIUM Potassium 4.7 3.5 - 5.0 mmol/L CERNER MILLENNIUM Comment: Please note: ??Patients with WBC >100,000 may have falsely elevated Potassium levels. ??For accurate Potassium quantification in these patients send serum separator tube (gold top) for subsequent determinations. ??Contact the Clinical Chemistry Laboratory if there are any questions. Chloride 104 98 - 107 mmol/L CERNER MILLENNIUM Carbon Dioxide 26 22 - 31 mmol/L CERNER MILLENNIUM Anion Gap 11 5 - 15 mmol/L CERNER MILLENNIUM Calcium 9.6 8.5 - 10.5 mg/dL CERNER MILLENNIUM Protein, Total 6.6 6.4 - 8.3 gm/dL CERNER MILLENNIUM Albumin 4.3 3.2 - 5.2 gm/dL CERNER MILLENNIUM Aspartate Aminotransferase 22 0 - 39 unit/L CERNER MILLENNIUM Alanine Aminotransferase 21 0 - 55 unit/L CERNER MILLENNIUM Alkaline Phosphatase 74 40 - 120 unit/L CERNER MILLENNIUM Bilirubin, Total 0.3 0.2 - 1.3 mg/dL CERNER MILLENNIUM Bilirubin, Direct 0.1 0.0 - 0.3 mg/dL CERNER MILLENNIUM Est Glomerular Filtration Rate >60 >=60 CERNER MILLENNIUM Comment: This estimated GFR (eGFR) value was calculated using the MDRD equation which has been validated on patients between the ages of 18 and 70. The MDRD should not be used to assess kidney function in patients < 18 years of age or in patients with extremes of body mass, or in patients with acute kidney failure. This value should be multiplied by 1.2 for patients. For further information please copy and paste the following links into your internet browser. http://www.nkdep.nih.gov/lab-evaluation.shtml http://www.kidney.org/professionals/ Blood specimen (specimen) 01/26/2013 9:32 AM EDT 01/26/2013 9:43 AM EDT Narrative Resulting Agency Comment Spec In Lab Gorge Lee MD CHEMISTRY ORDERABLES CERLUKE GREENBERGIUM * (ABNORMAL) CBC (with Diff) (01/26/2013 9:32 AM EDT) White Blood Cell 4.0 4.0 - 10.0 x10(3)/mc L CERNER MILLENNIUM Red Blood Cell 4.08(L) 4.63 - 6.08 x10(6)/mc L CERNER MILLENNIUM Hemoglobin 13.2(L) 13.7 - 17.5 gm/dL CERNER MILLENNIUM Hematocrit 37.5(L) 40.0 - 51.0 % CERNER MILLENNIUM Mean Cell Volume 91.9 79.0 - 92.0 fL CERNER MILLENNIUM Mean Cell Hemoglobin 32.4(H) 25.6 - 32.2 pg CERNER MILLENNIUM Mean Cell Hemoglobin Concentration 35.2 32.0 - 36.5 gm/dL CERNER MILLENNIUM Platelet 126(L) 145 - 370 x10(3)/mc L CERNER MILLENNIUM RDW Standard Deviation 44.1 35.0 - 46.0 fL CERNER MILLENNIUM RDW coefficient of variation 13.3 10.9 - 14.4 % CERNER MILLENNIUM Mean Platelet Volume 9.7 9.0 - 12.0 fL CERNER MILLENNIUM Blood specimen (specimen) 01/26/2013 9:32 AM EDT 01/26/2013 9:43 AM EDT Narrative Resulting Agency Comment Spec In Lab Gorge Lee MD HEMATOLOGY ORDERABLE S CERLUKE GREENBERGIUM documented in this encounter Visit Diagnoses Diagnosis Squamous cell carcinoma of tonsil Malignant neoplasm of tonsil Hypothyroidism Unspecified hypothyroidism documented in this encounter Care Teams Home Agent Relationship Specialty Start Date End Date Josué Huff MD [address] [place] [address] PCP - General 08/02/11 documented as of this encounter
--- OUTSIDE RECORDS SUMMARY | 2024-05-03 16:10 | XMS_ITS | Encounter Summary ---
Author Organization [facility] [place] [address] Care Team Providers Care Rivet Passer Name Role Phone Josué Huff MD Primary Care Provider [phone] Encounter Details Date Type Department Care Team (Late st Contact Info) Description 03/06/2016 11:00 AM EDT Office Visit Hematology/Oncology at [address] [address] Lisa Gonzales APRN Tonsillar cancer Social History Tobacco Use Types Packs/Day Years [...] Sign Reading Time Taken Comments Blood Pressure 139/69 03/06/2016 10:52 AM EDT Pulse 53 03/06/2016 10:52 AM EDT Temperature 36.4 ??C (97.5 ??F) 03/06/2016 10:52 AM E DT Respiratory Rate 18 03/06/2016 10:52 AM EDT Oxygen Saturation 99% 03/06/2016 10:52 AM EDT Inhaled Oxygen Concentration - - Weight 105.2 kg (232 lb) 03/06/2016 10:52 AM EDT Height - - Body Mass Index 33.97 11/23/2015 11:38 AM EDT documented in this encounter Patient Instructions * Patient Instructions* Lisa Gonzales APRN - 03/06/2016 11:00 AM EDT He will return in one year with chest xray prior. documented in this encounter Progress Notes * Lisa Gonzales APRN - 03/06/2016 11:00 AM EDT Patient ID: Oliverio Salazar Jr. is a 65 y.o. 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 He completed treatment 11/12/2011 and is in clinic for scheduled followup. He was last seen by Dr Lee in November of this year. HPI Focused Problem List: ?? Squamous cell carcinoma of the tonsil, [id number] ? Presentation: ? Onset neck stiffness 04/2011 [...] ULTRASOUND (EBUS) performed by VERÓNICA KELLOGG at [facility] Allergies Allergen Reactions ??? Tegaderm [Transparent [...] No Other Topics Concern ??? Service [place] ??? Blood Transfusions No ??? Caffeine Concern [...] the area. He enjoys nature and the outdoors Advance Directive: not on file Interim History: Interval History: Mr Salazar is in clinic for scheduled followup. He reports that overall he is doing fairly well. He continues with regular follow up at the [facility] as well. Time from completion of treatment 3 years and 10 months Problems at primary site Occ cramps/tightness involving the right side of his neck otherwise doing well. Metastatic symptoms: none Pain [...] Has no top teeth--sees dentist here through [facility]-- needs to have all lower teeth pulled and dentures No jaw pain. ROM restriction none Skin changes none Diet restriction Limited by taste and need to keep bolus small No weight loss Functional status No change Smoking no ETOH use No Misc TSH checked at [facility]-- No cough, no SOB, no chest wall [...] followup with local dentist and will have lower teeth pulled. Respiratory: Negative. Negative for cough, chest tightness and shortness of breath. Cardiovascular: Negative. Negative for chest pain and leg swelling. Gastrointestinal: Negative. Negative for abdominal pain and abdominal distention. Had screening colonoscopy last year Genitourinary: Negative. PSA is monitored at [facility] Nocturia --twice a night Musculoskeletal: Positive for [...] to leg pain or to go to [place] Mood positive Temp: [36.4 ??C (97.5 ??F)] Heart Rate: [53] Resp: [18] BP: (139)/(69) SpO2: [99 %] Heart Rate from SPO2: -- Objective: Physical Exam Constitutional: He is oriented [...] time. He exhibits normal muscle tone. Coordination abnormal. Skin: Skin is warm and dry. No rash noted. He is not diaphoretic. No erythema. No pallor. Psychiatric: He has a normal mood and affect. His behavior is normal. Judgment and thought content normal. Vitals reviewed. Imaging: Chest xray done No evidence of acute disease. 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 He completed treatment with 70 Gy of radiation therapy 11/12/2011. He is more than 4 yrs from the completion of treatment. ?? Tonsillar Malignancy ?? Clinically: clinically he has no evidence of malignancy within the oropharynx, overall he is doing very well. ? Radiographically: He is to have a repeat chest XR 02/2017 ?? Radiation toxicity: ? Xerostomia: moderate, tolerating with water/biotene ?? Dysgeusia: still prominent, tolerating and weight increasing ?? Dysphagia: denies ?? Dental caries- he will have all his lower teeth removed next week and then be fitted for dentures. ?? Fibrosis/Edema: clinically tolerable, intermediate fibrosis of right neck. ?? Hypothy[facility]--[facility] and he continues on levothyroxine 25 mcg a day. His level is 4.41. [facility]. ? FU: follow up per NCC algorithm documented in this encounter Plan of Treatment Not on file documented as of this encounter Visit Diagnoses Diagnosis Tonsillar cancer Malignant neoplasm of tonsil documented in this encounter Care Teams Rivet Passer Relationship Specialty Start Date End Date Josué Huff MD [address] [place] [address] PCP - General 08/02/11 documented as of this encounter
--- OUTSIDE RECORDS SUMMARY | 2024-05-03 16:10 | XMS_ITS | Encounter Summary ---
Author Organization [facility] [place] [address] Care Team Providers Care Delivery Sales Worker Name Role Phone Josué Huff MD Primary Care Provider [phone] Reason for Visit * Reason Onset Date Comments Nutrition Counseling 07/11/2012 Encounter Details Date Type Department Care Team (Late st Contact Info) Description 07/11/2012 Telephone Hematology Oncology at [address] [address] [facility] [place] [address] Nutrition Counseling Social History Tobacco Use Types Packs/Day Years [...] on file documented as of this encounter Miscellaneous Notes * Telephone Encounter - William Petit RD - 07/11/2012 9:09 AM EST TC to Dionisio Salazar for nutrition follow up. He is now ~ 8 mos out of RT. States he is dealing with what I got. PO: Eating 2-3 dozen eggs/wk. Can have them scrambled with onions, mushrooms, and potatoes. Eating toast with butter, oatmeal, honey nut cheeiros. Trying other foods, but claim they still taste bad. Everyday I try something different. I've got things I can tolerate and get down, but I haven't found anything that tastes 'good'. No tomato products; horrible taste. Has found less seasoning food has, the better he tolerates. Drinking 4 Vanilla Boost/d with one scoop of protein powder, TID. He spoke with Guanako Garrido RD at [facility]. Started PEG-tube weaning. Currently drinking 4 Boost p.o. And running one can Jevity 1.5 via pump, nocturnally. Plan is staring Saturday, 07/13 to consume 5 Boost p.o. And no longer running Jevity 1.5 via pump at night. Wt is stable:204 lbs on home scale. This is a 4-8 lbs increase. Last recorded wt: 93.441 kg on 07/10/12 ; increase Per [facility] RD if wt is maintained at next appointment (07/30), tube may be pulled. Will request follow up in August. documented in this encounter Plan of Treatment Not on file documented as of this encounter Visit Diagnoses Not on filedocumented in this encounter Care Teams Delivery Sales Worker Relationship Specialty Start Date End Date Josué Huff MD [address] [place] [id number] PCP - General 08/02/11 documented as of this encounter
--- OUTSIDE RECORDS SUMMARY | 2024-05-03 16:10 | XMS_ITS | Encounter Summary ---
Author Organization [facility] [place] [address] Care Team Providers Care Data Reporting Analyst Name Role Phone Josué Huff MD Primary Care Provider [phone] Reason for Visit * Reason Comments Tonsil Cancer Encounter Details Date Type Department Care Team (Late st Contact Info) Description 04/23/2013 1:45 PM EST Follow-Up Hematology Oncology at [address] [address] Trinity Chopra, HANDBAG FRAMER [address] [facility] [place] [address] Squamous cell carcinoma of tonsil; Claustrophobia; Hypothyroidism (acquired); Hypothyroidism Discharge Disposition: Home Social History Tobacco [...] Sign Reading Time Taken Comments Blood Pressure 123/65 04/23/2013 1:37 PM EST Pulse 60 04/23/2013 1:37 PM EST Temperature 36.7 ??C (98 ??F) 04/23/2013 1:37 PM EST Respiratory Rate 22 04/23/2013 1:37 PM EST Oxygen Saturation 98% 04/23/2013 1:37 PM EST Inhaled Oxygen Concentration - - Weight 98.9 kg (218 lb) 04/23/2013 1:37 PM EST Height - - Body Mass Index 32.29 01/26/2013 12:53 PM EDT documented in this encounter Progress Notes * ErickaTrintiy conrad, HANDBAG FRAMER - 04/23/2013 1:49 PM EST Subjective: Patient ID: Oliverio Salazar Jr. is a 62 y.o. male. HPI Patient Active Problem List Diagnosis ??? Hypothyroidism (acquired) Elevated TSH 01/26/2013; thyroid replacement Rx ??? Claustrophobia ??? Rotator cuff tear ??? Squamous cell carcinoma of tonsil ?? Squamous cell carcinoma of the tonsil, [id number]; tobacco-associated ?? Presentation: ?? Onset neck stiffness [...] of cisplat - 3rd held due tomyelosuppression. ?? Residual thickening R neck, ametabolic, confirmed by followup PET/CT 01/2013 Dysphagia: none presently Odynophagia: none Weight loss/ nutrition: none Xerostomia: moderate Diet modifications : none Neck symptoms: none Pain: none Metastatic symptoms: none Functional problems: none Coping/emotional issues: he is doing exceptionally well at this time Dental care: he continues to do fluoride trays Medical issues: none Neuropathy: none Hearing problems: none Geographic issues: none G-tube in place Mediport removed Speech-language pathology he is not under their care at this time Review of Systems Constitutional: Negative. HENT: Positive for hearing loss (decreased hearing in the right ear which is normal for him and unchanged). Eyes: Negative. Respiratory: Negative. Cardiovascular: Negative. Gastrointestinal: Negative. Genitourinary: Positive for frequency ( usually at night related to increased fluid intake). Musculoskeletal: Negative. Skin: Negative. Neurological: Negative. Psychiatric/Behavioral: Negative. All other systems reviewed and are negative. Filed Vitals: 04/23/13 1337 BP: 123/65 Pulse: 60 Temp: 36.7 ??C (98 ??F) Resp: 22 Current outpatient prescriptions:levothyroxine (SYNTHROID) 50 mcg tablet, Take 1 tablet by mouth daily., Disp: 30 tablet, Rfl: 12; ibuprofen (ADVIL;MOTRIN) 800 mg tablet, Take 800 mg by mouth every 8hours as needed., Disp: , Rfl: ; OXYcodone-acetaminophen (PERCOCET) 5-325 mg per tablet, Take 1 tablet by mouth every 6 hours as needed., Disp: , Rfl: ; omeprazole (PRILOSEC) 20 mg capsule, Take 20 mg by mouth daily., Disp: , Rfl: melatonin 3 mg Tab, Take by mouth., Disp: , Rfl: ; OXYBUTYNIN CHLORIDE ORAL, Take 10 mg by mouth daily., Disp: , Rfl: ; Terazosin 10 mg Tab, Take 10 mg by mouth daily., Disp: , Rfl: Objective: Physical Exam Constitutional: He is oriented to person, place, and time. He appears well- developed and well-nourished. HENT: Mouth/Throat: Oropharynx is clear and moist. No oropharyngeal exudate. Eyes: Conjunctivae normal and EOM are normal. Pupils are equal, [...] reflex ( this is not new for him; Hypoactive). Skin: Skin is warm and dry. Psychiatric: He has a normal mood and affect. His behavior is normal. Judgment and thought content normal. Assessment and Plan: 1. Squamous cell carcinoma of the tonsil; he has no evidence of disease at this time. I have encouraged him to continue trying as many different foods as possible as I think that his taste will very slowly improve over time. Overall he is satisfied with his quality of life and is active at home. Celio an appointment scheduled with Dr. Lee on January 26 the PET scan for one-year followup. Darienwill be scheduled according to the grid following that visit. Therefore I will plan to see him in 6months with a TSH- he should see Dr. Gianes with a scope in 3mo in [facility]. Trinity Chopra, MSN, QC MANAGER, AOCN Hematology/Oncology Nurse Practitioner [place], [place] [phone] documented in this encounter Plan of Treatment Not on file documented as of this encounter Visit Diagnoses Diagnosis Squamous cell carcinoma of tonsil Malignant neoplasm of tonsil Claustrophobia Other isolated or specific phobias Hypothyroidism (acquired) Unspecified hypothyroidism Hypothyroidism Unspecified hypothyroidism documented in this encounter Care Teams Data Reporting Analyst Relationship Specialty Start Date End Date Josué Huff MD [address] [place] [address] PCP - General 08/02/11 documented as of this encounter
--- OUTSIDE RECORDS SUMMARY | 2024-05-03 16:10 | XMS_ITS | Encounter Summary ---
[place] [address] Care Team Providers Care Architectural Sales Consultant Name Role Phone Josué Huff MD Primary Care Provider [phone] Encounter Details Date Type Department Care Team (Latest Contact Info) Description 01/26/2013 9:38 AM EDT - 01/26/2013 11:59 PM EDT Hospital Encounter [place] [id number] Squamous cell carcinoma of tonsil Social History Tobacco Use Types Packs/Day Years [...] Procedure Name Priority Date/Time Associated Diagnosis Comments NM PET CT SKULL BASE TO MID-THIGH ([facility]) Routine 01/26/2013 11:54 AM EDT Squamous cell carcinoma of tonsil documented in this encounter Results * PET/CT STANDARD (Skull base to Mid-thigh) (01/26/2013 11:54 AM EDT) Anatomical Region Laterality Modality Other 01/26/2013 11:5 4 AM EDT Narrative 01/26/2013 12:51 PM EDT Examination PET/CT STANDARD (Skull base to Mid-thigh) Technique Procedure: Following IV injection of 52-irqopm-6-deoxyglucose (FDG) and a standard uptake period, a non-contrast CT scan followed by a PET scan were acquired from the top of head to mid-thighs. The non-contrast CT was used for anatomic localization and photon attenuation correction of the PET scan. Blood Glucose Level (mg/dL):104 FDG Dose(mCi):13.5(0.15 mCi/kg to maximum of 18 mCi). Pre-medication: Alprazolam 0.5 mg PO Clinical History Neoplasm of tonsil Patient has completed XRT and chemo for H&N cancer; clinical abnormality found in the right cervical chain, One year post treatment Comparison January 31, 2012 Head/Neck No abnormal FDG activity is seen. Chest No abnormal FDG activity is seen. The central venous catheter is present and extends to the right atrium. There is calcification of the coronary arteries. A calcified granuloma is present at the base of the right lung. ?? Abdomen/Pelvis No abnormal FDG activity is seen. The previously seen gastrostomy tube has been removed. Right-sided nonobstructing renal stones are unchanged. ?? Skeleton/Extremities No abnormal FDG activity is seen. Incidental toward the small metallic focus at the posterior aspect of the upper sacrum ?? Impression No evidence of recurrent or metastatic malignancy. Thank you for referring this patient to the [facility] Procedure Note Rikc Russell MD - 01/26/2013 Examination PET/CT STANDARD (Skull base to Mid-thigh) Technique Procedure: Following IV injection of 42-ieennz-5-deoxyglucose (FDG) and a standard uptake period, a non-contrast CT scan followed by a PET scan were acquired from the top of head to mid-thighs. The non-contrast CT was usedfor anatomic localization and photon attenuation correction of the PET scan. Blood Glucose Level (mg/dL):104 FDG Dose(mCi):13.5(0.15 mCi/kg to maximum of 18 mCi). Pre-medication: Alprazolam 0.5 mg PO Clinical History Neoplasm of tonsil Patient has completed XRT and chemo for H&N cancer; clinical abnormalityfound in the right cervical chain, One year post treatment Comparison January 31, 2012 Head/Neck No abnormal FDG activity is seen. Chest No abnormal FDG activity is seen. The central venous catheter is present and extends to the right atrium.There is calcification of the coronary arteries. A calcified granuloma ispresent at the base of the right lung. Abdomen/Pelvis No abnormal FDG activity is seen. The previously seen gastrostomy tube has been removed. Right-sided nonobstructing renal stones are unchanged. Skeleton/Extremities No abnormal FDG activity is seen. Incidental toward the small metallic focus at the posterior aspect of theupper sacrum Impression No evidence of recurrent or metastatic malignancy. Thank you for referring this patient to the [facility] Gorge Lee MD IMG PET ORDERABLES documented in this encounter Visit Diagnoses Diagnosis Squamous cell carcinoma of tonsil Malignant neoplasm of tonsil documented in this encounter Administered Medications Inactive Administered Medications - up to 3 most recent administrations Medication Order MAR Action Action Date Dose Rate Site ALPRAZolam (XANAX) 0.25 mg tablet 1 dose, Starting on Sat01/26/13 at 1030, Until Sat01/26/13 at 1039, YENIFER SCHUMACHER: cabinet override ALPRAZolam (XANAX) tablet 0.5 mg 0.5 mg, Oral, ONCE, 1 dose, On Sat01/26/13 at 0845, Routine Given 01/26/2013 10:39 AM EDT 0.5 mg documented in this encounter Care Teams Architectural Sales Consultant Relationship Specialty Start Date End Date Josué Huff MD [address] [place] [address] PCP - General 08/02/11 documented as of this encounter
--- OUTSIDE RECORDS SUMMARY | 2024-05-03 16:10 | XMS_ITS | Encounter Summary ---
Author Organization [facility] Address [facility] [place] [address] Care Team Providers Care Hydro Excavation Operator Name Role Phone Josué Huff MD Primary Care Provider [phone] Encounter Details Date Type Department Care Team (Latest Contact Info) Description 11/17/2014 12:15 PM EDT - 11/17/2014 11:59 PM EDT Hospital Encounter XRay at [address] [place] [address] Squamous cell carcinoma of tonsil; Lung nodule, solitary Social History Tobacco Use Types Packs/Day Years [...] Procedure Name Priority Date/Time Associated Diagnosis Comments XR CHEST PA AND LATERAL Routine 11/17/2014 12:37 PM EDT Squamous cell carcinoma of tonsil Lung nodule, solitary documented in this encounter Results * XR chest routine PA & lateral (11/17/2014 12:37 PM EDT) Anatomical Region Laterality Modality Chest N/A Radiographic [place] 11/17/2014 12:3 7 PM EDT Impressions 11/17/2014 2:04 PM EDT IMPRESSION: 1. ??No radiographic evidence of pulmonary metastasis. 2. ??Stable 9 mm calcified granuloma at the right lung base. This report was reviewed by Edgardo Powell at 11/17/2014 1:59 PM Film and interpretation reviewed by the attending Narrative 11/17/2014 2:04 PM EDT EXAMINATION: CHEST ROUTINE PA+LAT CLINICAL HISTORY: History of h/n cancer, eval for lung mets or new lung primary TECHNIQUE: PA and lateral chest radiographs, standing upright. COMPARISON: Chest radiographs on 11/27/[address] 01/31/2012. FINDINGS: There is a stable 9 mm right lower lung calcified granuloma. Otherwise, the lungs are clear. The cardiomediastinal and pulmonary vessel markings are within normal limits. There is no pneumothorax or pleural effusion. Degenerative changes seen in the bilateral shoulders. Procedure Note Edgardo Powell MD - 11/17/2014 EXAMINATION: CHEST ROUTINE PA+LAT CLINICAL HISTORY: History of h/n cancer, eval for lung mets or new lungprimary TECHNIQUE: PA and lateral chest radiographs, standing upright. COMPARISON: Chest radiographs on 11/27/[address] 01/31/2012. FINDINGS: There is a stable 9 mm right lower lung calcified granuloma. Otherwise,the lungs are clear. The cardiomediastinal and pulmonary vessel markings arewithin normal limits. There is no pneumothorax or pleural effusion.Degenerative changes seen in the bilateral shoulders. IMPRESSION IMPRESSION: 1. No radiographic evidence of pulmonary metastasis. 2. Stable 9 mm calcified granuloma at the right lung base. This report was reviewed by Edgardo Powell at 11/17/2014 1:59 PM Film and interpretation reviewed by the attending Gorge Lee MD IMG DX ORDERABLES documented in this encounter Visit Diagnoses Diagnosis Squamous cell carcinoma of tonsil Malignant neoplasm of tonsil Lung nodule, solitary Solitary pulmonary nodule documented in this encounter Care Teams Hydro Excavation Operator Relationship Specialty Start Date End Date Josué Huff MD [address] [place] [id number] PCP - General 08/02/11 documented as of this encounter
--- OUTSIDE RECORDS SUMMARY | 2024-05-03 16:10 | XMS_ITS | Encounter Summary ---
Author Organization [facility] [place] [address] Care Team Providers Care Manager Welding Name Role Phone Josué Huff MD Primary Care Provider [phone] Reason for Visit * Reason Comments Radiation Follow-up Encounter Details Date Type Department Care Team (Late st Contact Info) Description 08/07/2013 2:00 PM EDT Follow-Up Radiation Oncology at [address] [phone] [facility] [place] [address] Squamous cell carcinoma of tonsil (Primary Dx) [...] Sign Reading Time Taken Comments Blood Pressure 126/65 08/07/2013 2:08 PM EDT Pulse 52 08/07/2013 2:08 PM EDT Temperature 36.6 ??C (97.8 ??F) 08/07/2013 2:08 PM ED T Respiratory Rate 20 08/07/2013 2:08 PM EDT Oxygen Saturation 98% 08/07/2013 2:08 PM EDT Inhaled Oxygen Concentration - - Weight 105.5 kg (232 lb 8 oz) 08/07/2013 2:08 PM EDT Height - - Body Mass Index 34.44 01/26/2013 12:53 PM EDT documented in this encounter Progress Notes * Jacoby Gaines MD - 08/07/2013 2:16 PM EDT Radiation Oncology Follow Up Note Primary MD: JOSUÉ HUFF MD Referring MD: Josué Huff Other Involved Physicians: Gorge Lee MD Focused Problem List: ?? Squamous cell carcinoma of the tonsil, [id number] ?? Presentation: ?? Onset neck stiffness 04/2011 [...] right tonsillar mass) and directed biopsy (Meena): ?? Findings: right base of tongue with [...] difficulty tolerating tube feeds. Interval History: Oliverio Salazar Jr. 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 Currently he notes the following symptoms: Symptom Description Ongoing Intervention Odynophagia Denies Dysphagia Difficulty with dry foods Trismus Denies Otalgia/ Hearing changes Denies Xerostomia Still significant, drinking water a couple of times/hour. Water Skin changes Denies Neck fibrosis Denies. Dysgeusia Dysgeusia still significant, but can tolerate many foods. Weight Loss Weight increasing he denies new onset DE LA O, n/v, unilateral changes in strength/sensation or cognitive changes. . Allergies Allergen Reactions ??? Tegaderm (Transparent Dressings) Current Outpatient Prescriptions on File Prior to Visit Medication Sig Dispense Refill ??? ibuprofen (ADVIL;MOTRIN) 800 mg tablet Take [...] facility-administered medications on file prior to visit. Past Medical History Diagnosis Date ??? Cancer of head, face, and neck ??? Arthritis ??? Depression PTSD ??? Claustrophobia Past Surgical History Procedure Date ??? Spine surgery Disc ??? Tonsillectomy 2011 ??? Back surgery ??? Endobronchial u/s add-on 08/24/2011 ENDOBRONCHIAL ULTRASOUND (EBUS) performed by VERÓNICA KELLOGG at [facility] Physical Examination: Filed Vitals: 08/07/13 1408 BP: 126/65 Pulse: 52 Temp: 36.6 ??C (97.8 ??F) TempSrc: Oral Resp: 20 Weight: 105.461 kg (232 lb 8 oz) SpO2: 98% Physical Exam Constitutional: He is oriented to [...] dry. Psychiatric: Affect and judgment normal. Procedure: Flexible laryngoscopy: Flexible laryngoscopy was performed. The LEFT naris was anesthetized with aerosolized lidocaine, and the laryngoscope was passed without difficulty. The nasopharynx was visualized and was without masses or lesions. The oropharynx, larynx, and piriform sinuses were visualized and were without masses or lesions. The vocal cords apposed without difficulty. Minimal overall edema. Interval Imagin01/26/13 PET/CT STANDARD (Skull base to Mid-thigh) Technique Procedure: Following IV injection of 48-ereajy-4-deoxyglucose (FDG) and a standard uptake period, a [...] the posterior aspect of the upper sacrum Impression No evidence of recurrent or metastatic malignancy. Assessment: Oliverio Salazar Jr. is now 1 year 9 months out from definitive GLOBAL PROGRAM MANAGER: ?? Tonsillar Malignancy ?? Clinically: clinically he has no evidence of malignancy within the oropharynx, overall he is doing very well. He does have a firm, rounded area in the deep right supraclavicular area, not very discrete, that is likely fibrosis but has the possibility of being adenopathy. His recent PET-CT shows no evidence of FDG-avidity in that area and no evidence of even small lymph nodes in that area; these findings are very reassuring. We will get another CT H&N at his 2 year follow up. ?? Radiographically: interval imaging 01/26/13 reveals KAIDEN. ?? Radiation toxicity: ?? Xerostomia: moderate, tolerating with water ?? Dysgeusia: still prominent, slightly improved, tolerating and weight increasing ?? Dysphagia: denies ?? Fibrosis/Edema: clinically insignificant ?? FU: follow up per NCC algorithm documented in this encounter Miscellaneous Notes * Miscellaneous - Provider, Scanning - 08/07/2013 5:17 PM EDT documented in this encounter Plan of Treatment Not on file documented as of this encounter Visit Diagnoses Diagnosis Squamous cell carcinoma of tonsil- Primary Malignant neoplasm of tonsil documented in this encounter Care Teams Manager Welding Relationship Specialty Start Date End Date Josué Huff MD [address] [place] [id number] PCP - General 08/02/11 documented as of this encounter
--- OUTSIDE RECORDS SUMMARY | 2024-05-03 16:10 | XMS_ITS | Encounter Summary ---
[place] [address] Care Team Providers Care Front Desk Lead Name Role Phone Josué Huff MD Primary Care Provider [phone] Reason for Visit * Reason Comments Head And Neck Cancer Encounter Details Date Type Department Care Team (Late st Contact Info) Description 11/17/2014 1:00 PM EDT Follow-Up Hematology [place] [address] Trinity Chopra, AUTO DISMANTLER [address] [facility] [place] [address] Squamous cell carcinoma of tonsil; Hypothyroidism (acquired) Discharge Disposition: Home Social History [...] Sign Reading Time Taken Comments Blood Pressure 125/64 11/17/2014 12:44 PM EDT Pulse 54 11/17/2014 12:44 PM EDT Temperature 36.6 ??C (97.9 ??F) 11/17/2014 1 2:44 PM EDT Respiratory Rate 18 11/17/2014 12:4 4 PM EDT Oxygen Saturation 98% 11/17/2014 12: 44 PM EDT Inhaled Oxygen Concentration - - Weight 102.6 kg (226 lb 3.1 oz) 11/17/2014 12:44 PM EDT with shoes on Height 176 cm (5' 9.29) 11/17/2014 12: 44 PM EDT reported Body Mass Index 33.12 11/17/2014 12:44 PM EDT documented in this encounter Progress Notes * Trinity Chopra, AUTO DISMANTLER - 11/17/2014 1:09 PM EDT Subjective: Patient ID: Oliverio Salazar Jr. is a 64 y.o. male. HPI Comments: Here for followup now 3yrs out from completion of treatment. Patient Active Problem List Diagnosis ??? Hypothyroidism (acquired) Elevated TSH 01/26/2013; thyroid replacement Rx ??? Claustrophobia ??? Rotator cuff tear ??? Squamous cell carcinoma of tonsil ?? Squamous cell carcinoma of the tonsil, [id number]; tobacco-associated ?? Presentation: ?? Onset neck stiffness [...] none presently Odynophagia: none Weight loss/ nutrition: None - no issues with weight but still with loss of taste making eating a chore. Xerostomia: moderate Diet modifications : none Neck symptoms: none Pain: none Metastatic symptoms: none Functional problems: none Coping/emotional issues: he is doing exceptionally well at this time Dental care: he continues to do fluoride trays Medical issues: none Neuropathy: none Hearing problems: none Geographic issues: none G-tube removed Mediport removed Speech-language pathology he is not [...] systems reviewed and are negative. Filed Vitals: 11/17/14 1244 BP: 125/64 Pulse: 54 Temp: 36.6 ??C (97.9 ??F) Resp: 18 Current outpatient prescriptions:levothyroxine (SYNTHROID) 25 mcg tablet, Take 25 mcg by mouth daily., Disp: , Rfl: ; ibuprofen (ADVIL;MOTRIN) 800 mg tablet, Take 800 mg by mouth every 8 hours as needed., Disp: , Rfl: ; OXYcodone- acetaminophen (PERCOCET) 5-325 mg per tablet, Take 1 [...] is clear and moist. No oropharyngeal exudate. ? Thrush to tongue Eyes: Conjunctivae and EOM are normal. Pupils [...] is normal. Judgment and thought content normal. Labs done last month at [facility] as well as scope were normal according to patient. CXR: IMPRESSION: 1. No radiographic evidence of pulmonary metastasis. 2. Stable 9 mm calcified granuloma at the right lung base. Assessment and Plan: 1. Squamous cell carcinoma of the tonsil; he has no evidence of disease at this time and is now 3 years out from completion of treatment. Overall he is satisfied with his quality of life and is active at home. I will plan to see him according to the H/N fwup grid. He is being followed also at the [facility] and will continue to have labs done there. 2. ? Thrush- culture done today. Will treat if positive. Trinity Chopra, MSN, HARVEST WORKER [employer]UIT, AOCN Hematology/Oncology Nurse Practitioner [place], [place] [phone] documented in this encounter Plan of Treatment Not on file documented as of this encounter Procedures Procedure Name Priority Date/Time Associated Diagnosis Comments YEAST CULTURE Routine 11/17/2014 1:40 PM EDT Squamous cell carcinoma of tonsil documented in this encounter Results * (ABNORMAL) Yeast culture Mouth (11/17/2014 1:40 PM EDT) Yeast Culture Moderate Erin (Torulopsis) glabrata Few Erin parapsilosis (A) CERNER MILLENNIUM Organism Erin (Torulopsis) glabrata(A) CERNER MILLENNIUM Organism Erin parapsilosis(A) CERNER MILLENNIUM Oral tissue specimen (specimen) 11/17/2014 1:40 PM EDT 11/18/2014 9:31 AM EDT Narrative Resulting Agency Comment Spec In Lab Gorge Lee MD MICROBIOLOGY - GENER AL ORDERABLES [facility] documented in this encounter Visit Diagnoses Diagnosis Squamous cell carcinoma of tonsil Malignant neoplasm of tonsil Hypothyroidism (acquired) Unspecified hypothyroidism documented in this encounter Care Teams Front Desk Lead Relationship Specialty Start Date End Date Josué Huff MD [address] [place] [id number] PCP - General 08/02/11 documented as of this encounter
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
--- OUTSIDE RECORDS SUMMARY | 2024-05-03 16:10 | XMS_ITS | Encounter Summary ---
Author Organization [facility] Address [facility] [place] [address] Care Team Providers Care Assessment Nurse Practitioner Name Role Phone Josué Huff MD Primary Care Provider [phone] Encounter Details Date Type Department Care Team (Late st Contact Info) Description 02/21/2015 - 02/21/2015 11:59 PM EDT Hospital Encounter Radiology Library at [facility] [place] [place] [phone] Jacoby Gaines MD [facility] [place] [address] Pain Social History Tobacco Use Types Packs/Day Years [...] FILM LIBRARY STORAGE ONLY DX CHEST Routine 02/21/2015 12:00 AM EDT Pain documented in this encounter Results * Film Library- Storage only DX Chest (02/21/2015 12:00 AM EDT) Narrative [facility] - 02/22/2015 12:54 AM EDT See PACS for result report. Procedure Note Matthew Lema - 02/22/2015 See PACS for result report. Jacoby Gaines MD IMG FILM LIBRARY ORD ERABLES [place], [place] documented in this encounter Visit Diagnoses Diagnosis Pain Generalized pain documented in this encounter Care Teams Assessment Nurse Practitioner Relationship Specialty Start Date End Date Josué Huff MD [address] [place] [address] PCP - General 08/02/11 documented as of this encounter
--- OUTSIDE RECORDS SUMMARY | 2024-05-03 16:10 | XMS_ITS | Encounter Summary ---
Author Organization [facility] [place] [address] Care Team Providers Care Shank Burnisher Name Role Phone Josué Huff MD Primary Care Provider [phone] Reason for Visit * Reason Comments Radiation Follow-up Encounter Details Date Type Department Care Team (Late st Contact Info) Description 10/24/2012 10:00 AM EDT Follow-Up Radiation Oncology at [address] [phone] Jacoby Gaines MD [facility] [place] [address] Squamous cell carcinoma of tonsil (Primary Dx) [...] Sign Reading Time Taken Comments Blood Pressure 128/60 10/24/2012 9:48 AM EDT Pulse 57 10/24/2012 9:48 AM EDT Temperature 36.8 ??C (98.2 ??F) 10/24/2012 9:48 AM ED T Respiratory Rate 18 10/24/2012 9:48 AM EDT Oxygen Saturation 97% 10/24/2012 9:48 AM EDT Inhaled Oxygen Concentration - - Weight 99.3 kg (219 lb) 10/24/2012 9:48 AM EDT Height - - Body Mass Index 31.71 07/10/2012 2:11 PM EST documented in this encounter Progress Notes * Jacoby Gaines MD - 10/24/2012 10:24 AM EDT Radiation Oncology Follow Up Note Primary MD: JOSUÉ HUFF MD Referring MD: Josué Huff Other Involved Physicians: Gorge Lee MD Focused Problem List: ?? Squamous cell carcinoma of the tonsil, [id number] ?? Presentation: ?? Onset neck stiffness 04/2011 [...] and directed biopsy ([place]): ?? Findings: right rosina of tongue with small friable area, biopsied. 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 Currently he notes the following symptoms: Symptom Description Ongoing Intervention Odynophagia Denies Dysphagia Occasional coughing with dry foods. Trismus Denies Otalgia/ Hearing changes Denies Xerostomia Still significant, drinking water a couple of times/hour. Water Skin changes Denies Neck fibrosis Denies. Dysgeusia Dysgeusia prominent, but improved some. Still quite limited in terms of enjoyable foods. Weight Loss Weight stable he denies new onset DE [place] O, [...] tablet Take 1 tablet by mouth every 4 hours as needed. ??? omeprazole (PRILOSEC) 20 [...] ULTRASOUND (EBUS) performed by VERÓNICA KELLOGG at [facility] Physical Examination: Filed Vitals: 10/24/12 0948 BP: 128/60 Pulse: 57 Temp: 36.8 ??C (98.2 ??F) TempSrc: Oral Resp: 18 Weight: 99.338 kg (219 lb) SpO2: 97% Physical Exam Constitutional: He is oriented to [...] No tracheal deviation present. Palpation reveals mild fibrosis bilaterally. No suspicious adenopathy in cervical, SCLV, ICLV nodalbasins. Minimal submental edema/fibrosis. Neurological: He is alert [...] apposed without difficulty. Minimal overall edema. 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 Tonsillar Malignancy ?? Clinically: clinically he has no evidence of malignancy within the oropharynx or neck, overall he is doing very well. ?? Radiographically: no interval imaging ?? Radiation toxicity: ?? Xerostomia: moderate, tolerating with water ?? Dysgeusia: still prominent, slightly improved, tolerating and weight increasing ?? Dysphagia: denies ?? Fibrosis/Edema: clinically insignificant Plan: ?? FU: follow up per NCC algorithm documented in this encounter Plan of Treatment Not on file documented as of this encounter Visit Diagnoses Diagnosis Squamous cell carcinoma of tonsil- Primary Malignant neoplasm of tonsil documented in this encounter Care Teams Shank Burnisher Relationship Specialty Start Date End Date Josué Huff MD [address] [place] [address] PCP - General 08/02/11 documented as of this encounter
--- OUTSIDE RECORDS SUMMARY | 2024-05-03 16:10 | XMS_ITS | Encounter Summary ---
Author Organization [facility] [place] [address] Care Team Providers Care Cold Storage Supervisor Name Role Phone Josué Huff MD Primary Care Provider [phone] Reason for Visit * Reason Comments Follow-up Encounter Details Date Type Department Care Team (Late st Contact Info) Description 09/12/2012 2:30 PM EDT Follow-Up Hematology Oncology at [address] [phone] Trinity Chopra, SYSTEM MANAGER 67 [facility] INTERNAL MEDICINE [place] [id number] Squamous cell carcinoma of tonsil (Primary Dx) [...] Sign Reading Time Taken Comments Blood Pressure 124/69 09/12/2012 3:23 PM EDT Pulse 54 09/12/2012 3:23 PM EDT Temperature 36.7 ??C (98.1 ??F) 09/12/2012 3:23 PM ED T Respiratory Rate 18 09/12/2012 3:23 PM EDT Oxygen Saturation 98% 09/12/2012 3:23 PM EDT Inhaled Oxygen Concentration - - Weight 101.6 kg (224 lb) 09/12/2012 3:23 PM EDT Height - - Body Mass Index 32.43 07/10/2012 2:11 PM EST documented in this encounter Progress Notes * ErickaTrinity conrad, SYSTEM MANAGER - 09/12/2012 3:43 PM EDT Subjective: Patient ID: Oliverio Salazar Jr. is a 62 y.o. male. HPI Patient Active Problem List Diagnoses ??? Rotator cuff tear ??? Squamous cell carcinoma of tonsil ?? Squamous cell carcinoma of the tonsil, [id number]; tobacco-associated ?? Presentation: ?? Onset neck stiffness [...] Odynophagia: none Weight loss/ nutrition: he is actually gaining too much weight and today he has been counseled to decrease his caloric intake; his taste changes still remain his major challenge Xerostomia: moderate Diet modifications : He eats about 2-3 dozen eggs per week; Does oatmeal ; toast and butter , and can do limited other items Neck symptoms: he is concerned about a new lump on the right side of his neck Pain: the lump on the side of his neck is mildly tender to palpation Metastatic symptoms: concern for cervical node Functional problems: none Coping/emotional issues: he is [...] care at this time Review of Systems HENT: Positive for hearing loss (decreased hearing in the right ear which is normal for him and unchanged). Genitourinary: Positive for frequency ( usually at night related to increased fluid intake). [all other systems reviewed and are negative Filed Vitals: 09/12/12 1523 BP: 124/69 Pulse: 54 Temp: 36.7 ??C (98.1 ??F) Resp: 18 Current outpatient prescriptions:ibuprofen (ADVIL;MOTRIN) [...] Tab, Take by mouth., Disp: , Rfl: OXYBUTYNIN CHLORIDE ORAL, Take 10 mg by mouth daily., Disp: , Rfl: ; Terazosin 10 mg Tab, Take 10 mg by mouth daily., Disp: , Rfl: Today's labs: 09/08/12 WBC 3.99 hemoglobin 12.9 platelets 94 CMP: Calcium 8.4 glucose 133 BUN 25 creatinine 1.0 total protein 6.8 albumin 3.7 on phosphatase 101sodium 138 potassium 4.0 AST 30 ALT 47 Objective: Physical Exam Constitutional: He is oriented [...] He exhibits no edema. Lymphadenopathy: He has cervical adenopathy (he has a right level III cervical node approximately 1.5 cm in diameter). Neurological: He is alert and oriented to person, place, and time. He displays abnormal reflex ( this is not new for him; Hypoactive). Skin: Skin is warm and dry. Psychiatric: He has a normal mood and affect. His behavior is normal. Judgment and thought content normal. CT evaluation is pending Assessment and Plan: 1. Squamous cell carcinoma of the tonsil; he has no evidence of disease at this time. He is 10 months out from completion of his treatment. He has a new ? Right neck node and he has undergone CT evaluation. The final report is pending due to trying to get records from the [place] to compare his current CT with his past CTs. He is not quite one year out at this point, and should there be any questions he will be sent back to [facility] for evaluation. I will continue to pursue a final result on Saturday. With respect to his long-term issues, I am hopeful that his taste sensation will continue to improve although it is likely that he will not regain his previous normal. I have encouraged him to continuetrying as many different foods as possible as I think that his taste will very slowly improve over time. Overall he is satisfied with his quality of life and is active at home. His followup appointments will be scheduled as follows: [facility] Gaines [facility] October. Pending today's CT results, we may need to make this appointment sooner. At that time he will have a CBC, CMP and TSH. Since a CT was done early, we will need to evaluate whether or not this needs to be repeated. documented in this encounter Plan of Treatment Not on file documented as of this encounter Visit Diagnoses Diagnosis Squamous cell carcinoma of tonsil- Primary Malignant neoplasm of tonsil documented in this encounter Care Teams Cold Storage Supervisor Relationship Specialty Start Date End Date Josué Huff MD [address] [place] [id number] PCP - General 08/02/11 documented as of this encounter
--- OUTSIDE RECORDS SUMMARY | 2024-05-03 16:10 | XMS_ITS | Encounter Summary ---
Author Organization [facility] Address [facility] [place] [address] Care Team Providers Care Air Director Name Role Phone Josué Huff MD Primary Care Provider [phone] Encounter Details Date Type Department Care Team (Latest Contact Info) Description 01/14/2017 - 01/14/2017 11:59 PM EDT Hospital Encounter Radiology Library at [facility] [place] [phone] Trinity Chopra, COMMISSIONER PUBLIC WORKS [address] [place] [address] Pain Discharge Disposition: Home Social History Tobacco [...] FILM LIBRARY STORAGE ONLY DX CHEST Routine 01/14/2017 12:00 AM EDT Pain documented in this encounter Results * Film Library- Storage Only DX Chest (01/14/2017 12:00 AM EDT) Narrative [facility] - 01/15/2017 10:37 AM EDT This exam is for storage only and is auto-finalizing. Trinity Chopar APRN IMG FILM LIBRARY ORD ERABLES [place], [place] documented in this encounter Visit Diagnoses Diagnosis Pain Generalized pain documented in this encounter Care Teams Air Director Relationship Specialty Start Date End Date Josué Huff MD [address] [place] [id number] PCP - General 08/02/11 documented as of this encounter
--- OUTSIDE RECORDS SUMMARY | 2024-05-03 16:10 | XMS_ITS | Encounter Summary ---
Author Organization [facility] [place] [address] Care Team Providers Care Plasterer Rough Name Role Phone Josué Huff MD Primary Care Provider Encounter Details Date Type Department Care Team (Late st Contact Info) Description 12/12/2012 Orders Only Hematology Oncology at [address] [phone] Trinity Chopra, PIANO MAKER [address] [facility] [place] [address] Social History Tobacco Use Types Packs/Day Years [...] on filedocumented in this encounter Care Teams Plasterer Rough Relationship Specialty Start Date End Date Josué Huff MD [address] [place] [address] PCP - General 08/02/11 documented as of this encounter
--- OUTSIDE RECORDS SUMMARY | 2024-05-03 16:10 | XMS_ITS | Encounter Summary ---
Author Organization [facility] [place] [address] Care Team Providers Care Oven Technician Name Role Phone Josué Huff MD Primary Care Provider [phone] Reason for Visit * Reason Comments Follow-up Encounter Details Date Type Department Care Team (Late st Contact Info) Description 01/09/2013 1:45 PM EDT Follow-Up Hematology Oncology at [address] [phone] Trinity Chopra, OCEAN EXPORT COORDINATOR 67 [facility] INTERNAL MEDICINE [place] [id number] Squamous cell carcinoma of tonsil (Primary Dx) [...] Sign Reading Time Taken Comments Blood Pressure 113/52 01/09/2013 1:47 PM EDT Pulse 53 01/09/2013 1:47 PM EDT Temperature 36.5 ??C (97.7 ??F) 01/09/2013 1:47 PM ED T Respiratory Rate 20 01/09/2013 1:47 PM EDT Oxygen Saturation 97% 01/09/2013 1:47 PM EDT Inhaled Oxygen Concentration - - Weight 98.4 kg (217 lb) 01/09/2013 1:47 PM EDT Height - - Body Mass Index 31.42 07/10/2012 2:11 PM EST documented in this encounter Progress Notes * Trinity Chopra, OCEAN EXPORT COORDINATOR - 01/09/2013 1:58 PM EDT Subjective: Patient ID: Oliverio Salazar Jr. is a 62 y.o. male. HPI Patient Active Problem List Diagnosis ??? Claustrophobia ??? Rotator cuff tear ??? Squamous cell carcinoma of tonsil ?? Squamous cell carcinoma of the tonsil, [id number]; tobacco-associated ?? Presentation: ?? Onset neck stiffness [...] systems reviewed and are negative. Filed Vitals: 01/09/13 1347 BP: 113/52 Pulse: 53 Temp: 36.5 ??C (97.7 ??F) Resp: 20 Current outpatient prescriptions:ibuprofen (ADVIL;MOTRIN) 800 mg tablet, Active, Take 800 mg by mouth every 8 hours as needed., Disp: , Rfl: ; OXYcodone- acetaminophen (PERCOCET) 5-325 mg per tablet, Active, Take 1 tablet by mouth every 4 hours as needed., Disp: , Rfl: ; omeprazole (PRILOSEC) 20 mg capsule, Active, Take 20 mg by mouth daily., Disp: , Rfl: ; melatonin 3 mg Tab, Active, Take by mouth., Disp: , Rfl: OXYBUTYNIN CHLORIDE ORAL, Active, Take 10 mg by mouth daily., Disp: , Rfl: ; Terazosin 10 mg Tab, Active, Take 10 mg by mouth daily., Disp: [...] of life and is active at home. Hehas an appointment scheduled with Dr. Lee on January 26 the PET scan for one-year followup. Hewill be scheduled according to the grid following that visit. Therefore I will plan to see him in 9months; No labs needed. Trinity Chopra, MSN, GEOTHERMAL POWERPLANT MECHANIC, AOCN Hematology/Oncology Nurse Practitioner [place], [place] [phone] documented in this encounter Plan of Treatment Not on file documented as of this encounter Visit Diagnoses Diagnosis Squamous cell carcinoma of tonsil- Primary Malignant neoplasm of tonsil documented in this encounter Care Teams Oven Technician Relationship Specialty Start Date End Date Josué Huff MD [address] [place] [id number] PCP - General 08/02/11 documented as of this encounter
--- OUTSIDE RECORDS SUMMARY | 2024-05-03 16:10 | XMS_ITS | Encounter Summary ---
Author Organization [facility] [place] [address] Care Team Providers Care Ticket Manager Name Role Phone Josué Huff MD Primary Care Provider [phone] Encounter Details Date Type Department Care Team (Late st Contact Info) Description 07/09/2014 10:00 AM EST Follow-Up Radiation Oncology at [address] [phone] Jacoby Gaines MD [facility] [place] [address] Squamous cell carcinoma of tonsil Discharge Disposition: Home Social History Tobacco Use [...] Sign Reading Time Taken Comments Blood Pressure 113/75 07/09/2014 9:51 AM EST Pulse 54 07/09/2014 9:51 AM EST Temperature 36.6 ??C (97.9 ??F) 07/09/2014 9:51 AM ES T Respiratory Rate 16 07/09/2014 9:51 AM EST Oxygen Saturation 97% 07/09/2014 9:51 AM EST Inhaled Oxygen Concentration - - Weight 103 kg (227 lb) 07/09/2014 9:51 AM EST Height 175.5 cm (5' 9.09) 07/09/2014 9:51 AM ES T Body Mass Index 33.43 07/09/2014 9:51 AM EST documented in this encounter Progress Notes * Jacoby Gaines MD - 07/09/2014 10:09 AM EST Radiation Oncology Follow Up Note Primary MD: JOSUÉ HUFF MD Referring MD: Josué Huff Other Involved Physicians: Gorge Lee MD Focused Problem List: ?? Squamous cell carcinoma of the tonsil, [id number] ?? Presentation: ?? 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 Currently he notes the following symptoms: Symptom Description Ongoing Intervention Odynophagia Denies Dysphagia Difficulty with dry foods, unchanged Trismus Denies Otalgia/ Hearing changes Denies Xerostomia Still significant, stable Water Skin changes Denies Neck fibrosis He notes stable cramps when he is resting, occurs intermittently. Responds to physical exercises. Stretching exercises Dysgeusia Dysgeusia still significant, but can tolerate many foods. A few foods still taste good. Most foods bland. Weight Loss Weight stable he denies new onset DE LA O, n/v, unilateral changes in strength/sensation or cognitive changes. . Allergies Allergen Reactions ??? Tegaderm [Transparent Dressings] [...] PTSD ??? Claustrophobia Past Surgical History Procedure Laterality Date ??? Spine surgery Disc ??? Tonsillectomy 2011 ??? Back surgery ??? Endobronchial u/s add-on 08/24/2011 ENDOBRONCHIAL ULTRASOUND (EBUS) performed by VERÓNICA KELLOGG at [facility] ENDOSCOPY Physical Examination: Filed Vitals: 07/09/14 0951 BP: 113/75 Pulse: 54 Temp: 36.6 ??C (97.9 ??F) TempSrc: Oral Resp: 16 Height: 175.5 cm (5' 9.09) Weight: 102.967 kg (227 lb) SpO2: 97% Physical Exam Constitutional: He [...] the larynx, that is rounded and firm, stable. Overall no suspicious adenopathy in cervical, SCLV, ICLV lashanda basins. Minimal submental edema/fibrosis. Neurological: He is alert and oriented to person, place, and time. No cranial nerve deficit. Skin: Skin is warm and dry. Psychiatric: Affect and judgment normal. Procedure: Flexible laryngoscopy was performed. The right naris was anesthetized with aerosolized lidocaine, and the laryngoscope was passed without difficulty. The nasopharynx was visualized and was without masses or lesions. The oropharynx, larynx, and piriform sinuses were visualized and were without masses or lesions. Mild edema of the epiglottis. The vocal cords apposed without difficulty. 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 Tonsillar Malignancy ?? Clinically: clinically he has no evidence of malignancy within the oropharynx, overall he is doing very well. ?? Radiographically: no interval imaging ?? Radiation toxicity: ?? Xerostomia: moderate, tolerating with water ?? Dysgeusia: still prominent, tolerating and weight increasing ?? Dysphagia: denies ?? Fibrosis/Edema: clinically tolerable, intermediate fibrosis of right neck. ?? FU: follow up per NCC algorithm documented in this encounter Plan of Treatment Not on file documented as of this encounter Visit Diagnoses Diagnosis Squamous cell carcinoma of tonsil Malignant neoplasm of tonsil documented in this encounter Care Teams Ticket Manager Relationship Specialty Start Date End Date Josué Huff MD [address] [place] [id number] PCP - General 08/02/11 documented as of this encounter
--- OUTSIDE RECORDS SUMMARY | 2024-05-03 16:10 | XMS_ITS | Encounter Summary ---
Author Organization [facility] [place] [address] Care Team Providers Care Lime Kiln Tender Name Role Phone Josué Huff MD Primary Care Provider [phone] Reason for Visit * Reason Comments Radiation Follow-up head and neck cancer Encounter Details Date Type Department Care Team (Late st Contact Info) Description 09/08/2015 9:45 AM EDT Office Visit Radiation Oncology at [address] [phone] [place] [address] Tonsil cancer; Acquired hypothyroidism Social History Tobacco Use Types Packs/Day Years [...] Sign Reading Time Taken Comments Blood Pressure 139/68 09/08/2015 9:00 AM EDT Pulse 64 09/08/2015 9:00 AM EDT Temperature 36.5 ??C (97.7 ??F) 09/08/2015 9 :00 AM EDT Respiratory Rate 18 09/08/2015 9:00 AM EDT Oxygen Saturation 100% 09/08/2015 9:0 0 AM EDT Inhaled Oxygen Concentration - - Weight 109.5 kg (241 lb 8 oz) 09/08/2015 9:00 AM EDT with shoes & coat Height - - Body Mass Index 35.36 11/17/2014 12:44 PM EDT documented in this encounter Progress Notes * Aylin Minaya, WIND TUNNEL TECHNICIAN - 09/08/2015 8:59 AM EDT Patient ID: Oliverio Salazar Jr. is a 65 y.o. 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 He completed treatment 11/12/2011 and is in clinic for scheduled followup. HPI Focused Problem List: ?? Squamous cell carcinoma of the tonsil, [id number] ? Presentation: ? Onset neck stiffness 04/2011 [...] ??? Claustrophobia F40.240 ??? Hypothyroidism (acquired) E03.9 Past Surgical History Procedure Laterality Date ??? Spine surgery Disc ??? Tonsillectomy 2011 ??? Back surgery ??? Pro endobronchial u/s add-on 08/24/2011 ENDOBRONCHIAL ULTRASOUND (EBUS) performed by VERÓNICA KELLOGG at [facility] ENDOSCOPY Allergies Allergen Reactions ??? Tegaderm [Transparent [...] facility-administered medications on file prior to visit. History Social History ??? Marital Status: Spouse Name: N/A Number of Children: 2 ??? 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 Smoking status: Former Smoker -- 2.00 packs/day for 40 years Types: Cigarettes Quit date: 07/18/2011 ??? Smokeless tobacco: Never Used Comment: started smoking at age 16 ??? Alcohol Use: No Comment: Quite in July 1998 ??? Drug Use: No ??? Sexual Activity: No Other Topics Concern ??? Service Yes [place] ??? Blood Transfusions No ??? Caffeine Concern [...] continues with regular follow up at the [facility] as well. Time from completion of treatment 3 years and 10 months Problems at primary site Occ cramps/tightness involving the right side of his neck otherwise doing well. Metastatic symptoms: none Pain Pain involving his legs--this is chronic and is due to [place] injuries Swallowing difficulty Trouble only if he is [...] Has no top teeth--sees dentist here through [facility]-- needs to have may fillings No jaw pain. ROM restriction none Skin changes none Diet restriction Limited by taste and need to keep bolus small No weight loss Functional status No change Smoking no ETOH use No Misc TSH checked at [facility]-- No cough, no SOB, no chest wall [...] teeth Has followup with local dentist and needs several cavities repaired Respiratory: Negative. Negative for cough, chest tightness and shortness of breath. Cardiovascular: Negative. Negative for chest pain and leg swelling. Gastrointestinal: Negative. Negative for abdominal pain and abdominal distention. Had screening colonoscopy last year Genitourinary: Negative. PSA is monitored at [facility] --twice a night Musculoskeletal: Positive for back [...] or to go to [place] Mood positive Vitals Office Visit from 09/08/2015 in [facility] Radiation Oncology Weight - Scale (!) 109.544 kg (241 lb 8 oz) [with shoes & coat] Temp 36.5 ??C (97.7 ??F) Temp Source Oral Heart Rate 64 Heart Rate Source NIBP Resp 18 BP 139/68 mmHg BP Location Left arm SpO2 100 % Objective: Physical Exam Constitutional: He is oriented to person, place, and time. He appears well- developed and well-nourished. No distress. HENT: Head: Normocephalic and atraumatic. Mouth/Throat: No oropharyngeal exudate. Mucus membranes dry No upper teeth Many missing teeth lower jaw Tongue midline, OP with no lesions, no masses-mild radiation changes No trismus Eyes: Conjunctivae and EOM are normal. Right eye exhibits no discharge. Left eye exhibits no discharge. No scleral icterus. Neck: Neck supple. Tissue fibrosis of right [...] Judgment and thought content normal. Vitals reviewed. Assessment and Plan: Oliverio Salazar Jr. is a 65 y.o. 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 He completed treatment with 70 Gy of radiation therapy 11/12/2011. ?? Tonsillar Malignancy ?? Clinically: clinically he has no evidence of malignancy within the oropharynx, overall he is doing very well. ? Radiographically: He is to have a repeat chest XR 02/2016 ?? Radiation toxicity: ? Xerostomia: moderate, tolerating with water ?? Dysgeusia: still prominent, tolerating and weight increasing ?? Dysphagia: denies ?? Fibrosis/Edema: clinically tolerable, intermediate fibrosis of right neck. ?? Hypothyroidism--[facility] is [facility] T[facility] and he continues on levothyroxine 25 mcg a day. ? FU: follow up per NCC algorithm documented in this encounter Plan of Treatment Not on file documented as of this encounter Procedures Procedure Name Priority Date/Time Associated Diagnosis Comments DIAGNOSTIC RADIOLOGY SCAN 02/27/2016 12:00 AM EDT documented in this encounter Results * SCAN DOC: DIAGNOSTIC RADIOLOGY (02/27/2016 12:00 AM EDT) Anatomical Region Laterality Modality Other Scanning Provider MEDIA MGR SCAN EXT O RDR/RSLT documented in this encounter Visit Diagnoses Diagnosis Tonsil cancer Malignant neoplasm of tonsil Acquired hypothyroidism Unspecified hypothyroidism documented in this encounter Care Teams Lime Kiln Tender Relationship Specialty Start Date End Date Josué Huff MD [address] [place] [address] PCP - General 08/02/11 documented as of this encounter
--- OUTSIDE RECORDS SUMMARY | 2024-05-03 16:10 | XMS_ITS | Encounter Summary ---
Author Organization [facility] [place] [address] Care Team Providers Care Car Carder Name Role Phone Josué Huff MD Primary Care Provider [phone] Reason for Visit * Reason Comments Radiation Follow-up Encounter Details Date Type Department Care Team (Late st Contact Info) Description 03/05/2014 10:00 AM EDT Follow-Up Radiation Oncology at [address] [phone] Jacoby Gaines MD [facility] [place] [address] Squamous cell carcinoma of tonsil (Primary Dx) [...] Sign Reading Time Taken Comments Blood Pressure 145/81 03/05/2014 10:19 AM EDT Pulse 56 03/05/2014 10:19 AM EDT Temperature 36.8 ??C (98.2 ??F) 03/05/2014 10:19 AM E DT Respiratory Rate 20 03/05/2014 10:19 AM EDT Oxygen Saturation 97% 03/05/2014 10:19 AM EDT Inhaled Oxygen Concentration - - Weight 103 kg (227 lb) 03/05/2014 10:19 AM EDT Height - - Body Mass Index 33.39 11/27/2013 11:55 AM EDT documented in this encounter Progress Notes * Jacoby Gaines MD - 03/05/2014 10:18 AM EDT Radiation Oncology Follow Up Note Primary MD: JOSUÉ HUFF MD Referring MD: Josué Huff Other Involved Physicians: Gorge Lee MD Focused Problem List: ?? Squamous cell carcinoma of the tonsil, [id number] ?? Presentation: ?? Onset neck stiffness 04/2011 [...] node sampling. ?? Therapy: ?? Chemoradiotherapy completed 6/23/12, 70 Gy. Treatment was complicated by hospitalization secondary to difficulty tolerating tube feeds. Interval History: Oliverio Salazar Jr. 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 Currently he notes the following symptoms: Symptom Description Ongoing Intervention Odynophagia Denies Dysphagia Difficulty with dry foods, unchanged Trismus Denies Otalgia/ Hearing changes Denies Xerostomia Still significant, perhaps slightly improved Water Skin changes Denies Neck fibrosis He notes cramps when he is resting, occurs intermittently. [...] ULTRASOUND (EBUS) performed by VERÓNICA KELLOGG at [facility] ENDOSCOPY Physical Examination: There were no vitals [...] vocal cords apposed without difficulty. Interval Imaging: CXR 11/2013: CHEST ROUTINE PA+LAT Clinical History History of h/n cancer, eval for lung mets or new lung primary Technique PA and lateral radiographs of the chest. Comparison No prior chest radiograph. 01/26/2013 PET-CT reviewed. Findings Calcified granuloma at the right lung base, as on PET-CT. Otherwise, the lungs appear clear. The cardiomediastinal silhouette, roosevelt, pulmonary vasculature, and pleura appear within normal limits. Moderate cervical and thoracic spine degenerative changes are present. Impression No pulmonary metastases identified. Right lung base granuloma as on 01/26/2013 PET-CT. Assessment: Oliverio Brandy Salazar Jr. 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 Tonsillar Malignancy ?? Clinically: clinically he has no evidence of malignancy within the oropharynx, overall he is doing very well. ?? Radiographically: CXR 11/2013 reveals KAIDEN ?? Radiation toxicity: ?? Xerostomia: moderate, tolerating with water ?? Dysgeusia: still prominent, tolerating and weight increasing ?? Dysphagia: denies ?? Fibrosis/Edema: clinically tolerable, intermediate fibrosis of right neck. ?? FU: follow up per NCC algorithm documented in this encounter Miscellaneous Notes * Miscellaneous - Provider, Scanning - 03/05/2014 11:57 AM EDT documented in this encounter Plan of Treatment Not on file documented as of this encounter Visit Diagnoses Diagnosis Squamous cell carcinoma of tonsil- Primary Malignant neoplasm of tonsil documented in this encounter Administered Medications Inactive Administered Medications - up to 3 most recent administrations Medication Order MAR Action Action Date Dose Rate Site lidocaine (XYLOCAINE) 2 % jelly Topical, ONCE, On Sat03/05/14 at 0930, 1 dose, Prior to flexible nasopharyngoscopy Given 03/05/2014 10:45 AM EDT lidocaine (XYLOCAINE) 4 % (40 mg/mL) external solution Topical, ONCE, On Sat03/05/14 at 0930, 1 dose, Prior to flexible nasopharyngoscopy Given 03/05/2014 10:45 AM EDT documented in this encounter Care Teams Car Carder Relationship Specialty Start Date End Date Josué Huff MD [address] [place] [address] PCP - General 08/02/11 documented as of this encounter
--- OUTSIDE RECORDS SUMMARY | 2024-05-03 16:10 | XMS_ITS | Encounter Summary ---
[facility] [place] [address] Care Team Providers Care Computer Publisher Name Role Phone Josué Huff MD Primary Care Provider [phone] Reason for Visit * Reason Comments Follow-up Head And Neck Cancer Encounter Details Date Type Department Care Team (Late st Contact Info) Description 11/23/2015 11:30 AM EDT Office Visit Hematology [place] [phone] Gorge Lee MD [address] [place] [address] [place] [address] Pain in both knees, unspecified chronicity; Squamous cell carcinoma of tonsil Social History [...] Sign Reading Time Taken Comments Blood Pressure 130/70 11/23/2015 11:38 AM EDT Pulse 55 11/23/2015 11:38 AM EDT Temperature 37 ??C (98.6 ??F) 11/23/2015 11: 38 AM EDT Respiratory Rate 18 11/23/2015 11:3 8 AM EDT Oxygen Saturation 97% 11/23/2015 11: 38 AM EDT Inhaled Oxygen Concentration - - Weight 105.8 kg (233 lb 3.2 oz) 016 11:38 AM EDT Height 176 cm (5' 9.29) 11/23/2015 11: 38 AM EDT Body Mass Index 34.15 11/23/2015 11:38 AM EDT documented in this encounter Progress Notes * Gorge Lee MD - 11/23/2015 11:42 AM EDT Head and Neck Cancer Medical Oncology Follow-Up Note Patient Active Problem List Diagnosis ??? Hypothyroidism (acquired) Elevated TSH 01/26/2013; thyroid replacement Rx ??? Claustrophobia ??? Rotator cuff tear ??? Squamous cell carcinoma of tonsil ?? Squamous cell carcinoma of the tonsil, [id number]; tobacco-associated ?? Presentation: ?? Onset neck stiffness [...] neck, ametabolic, confirmed by followup PET/CT 01/2013 Chief complaint: followup for head/neck cancer. Interval History: Time from treatment: 4 years from chemotherapy/RT Head/neck symptoms: none save chronic xerostomia Nutrition issues: Foods have no flavor, so food variety is limited. Rickey to eat eggs, taiwanese fries,but meats are unappealing. Alex [employer]hael[employer] ice cream is his mainstay. Functional status: arthritis in knees bilaterally and chronic back pain limit his mobility Coping/emotional issues: upbeat Dental issues: Having some fillings were placed. Using fluoride treatments daily. Checkups up-to-date. New medical issues:none new. PCP from [place], Dr. Huff, monitors labs and medications. Last chest x-rayat [facility] February,. Ongoing knee problems, bilat; effusion tapped from L without long-term control. Metastatic review: Negative in bone, GI, lung, skin, lashanda, SUMMER INTERN organ systems Outpatient Prescriptions Marked as Taking for the 11/23/15 encounter (Office Visit) with Gorge Lee MD Medication Sig Dispense Refill ??? levothyroxine (SYNTHROID) 25 mcg tablet Take 25 mcg by mouth daily. ??? OXYcodone-acetaminophen (PERCOCET) 5-325 mg per tablet Take 1 tablet by mouth every 6 hours as needed. ??? omeprazole (PRILOSEC) 20 mg capsule Take 20 mg by mouth daily. ??? melatonin 3 mg Tab Take by mouth. ??? OXYBUTYNIN CHLORIDE ORAL Take 10 mg by mouth daily. ??? Terazosin 10 mg Tab Take 10 mg by mouth daily. Social History: reviewed, no changes from last visit. Family History: reviewed; no new developments. Review of Systems: Review of systems is negative for other SUMMER INTERN, bone, pulmonary, cardiac, GI, , extremity, neurologic, endocrine, skin, constitutional, emotional, or functional problems. Vitals Office Visit from 11/23/2015 in [facility] Weight - Scale (!) 105.8 kg (233 lb 3.2 oz) Height 176 cm (5' 9.29) BSA (Calculated - sq m) 2.27 sq meters BMI (Calculated) 34.2 Temp 37 ??C (98.6 ??F) Temp Source Temporal Heart Rate 55 Heart Rate Source Right Resp 18 BP 130/70 BP Location Left arm Patient Position Sitting SpO2 97 % Exam: General: NAD Skin: Tanned, no worrisome lesions over the head and neck, arms, legs Oral: Postradiation changes in the mucosa of the palate, scarring in the left tonsil bed. Tongue mobile. No palpable masses in the tongue or floor of mouth. Edentulous; remaining teeth in the mandible are in good repair, no exposed bone. Mirror exam: Base of tongue, vallecula, epiglottis clear. No supraglottic masses. Vocal cords are not clearly seen due to gagging. Ear: Clear TMs bilaterally Neck: No lymphedema. Deep firm scarlike tissue in the right posterior zone 3 Chest: Clear to auscultation and percussion Heart: Regular rate and rhythm, normal heart tones Abdomen: Benign, no hepatosplenomegaly or masses. Mildly obese. Former G-tube site healed completely. Extremities: No clubbing cyanosis or edema. Extensive degenerative changes with subtle signs of joint effusions bilateral knees Neuro general: Normal Cranial nerves: Normal Reflexes: 1+ No results found for this or any previous visit (from the past 72 hour(s)). Radiographic images personally reviewed: Chest x-ray from the [facility] from February 2015: No signs of metastatic disease or new primary. 1 cm smooth and rounded nodule at the right base, unchangedover several years. Impression and Plans: 1. Squamous cell carcinoma of tonsil: Clinically KAIDEN at 4 years. Excellent functional recovery, with persistent taste changes and xerostomia. Treatment- related hypothyroidism, clinically euthyroid; his primary care team at the [facility] is managing this. Plan: ?? Continue surveillance; follow-up in 6 months with radiation oncology (in [facility]), and again with me in one year. We will then move to annual coordinated visits. ?? Given his smoking history, we should continue annual chest x-ray. Gorge Lee MD, FACP photo producer Hematology/[place] [address] documented in this encounter Plan of Treatment Not on file documented as of this encounter Visit Diagnoses Diagnosis Pain in both knees, unspecified chronicity Squamous cell carcinoma of tonsil Malignant neoplasm of tonsil documented in this encounter Care Teams Computer Publisher Relationship Specialty Start Date End Date Josué Huff MD [address] [place] [id number] PCP - General 08/02/11 documented as of this encounter
--- OUTSIDE RECORDS SUMMARY | 2024-05-03 16:10 | XMS_ITS | Encounter Summary ---
Author Organization [facility] [address] Care Team Providers Care Design Printing Machine Setter Name Role Phone Josué Huff MD Primary Care Provider [phone] Reason for Visit * Reason Comments Head And Neck Cancer Encounter Details Date Type Department Care Team (Late st Contact Info) Description 01/26/2013 1:00 PM EDT Follow-Up Hematology [place] [address] Gorge Lee MD [address] [place] [address] [place] [address] Squamous cell carcinoma of tonsil (Primary Dx); Hypothyroidism (acquired) Discharge Disposition: Home Social History [...] Sign Reading Time Taken Comments Blood Pressure 112/52 01/26/2013 12:53 PM EDT Pulse 50 01/26/2013 12:53 PM EDT Temperature 36.4 ??C (97.5 ??F) 01/26/2013 12:53 PM E DT Respiratory Rate 18 01/26/2013 12:53 PM EDT Oxygen Saturation 98% 01/26/2013 12:53 PM EDT Inhaled Oxygen Concentration - - Weight 94.4 kg (208 lb 1.8 oz) 01/26/2013 12:53 PM EDT Height 175 cm (5' 8.9) 01/26/2013 12:53 PM EDT Body Mass Index 30.82 01/26/2013 12:53 PM EDT documented in this encounter Patient Instructions * Patient Instructions* Guanako Lee RN - 01/26/2013 1:[address] Lee is going to have you start taking thyroid hormone. You may or may not notice a differencewith your energy level. Take on an empty stomach with water at least 1/2 hour before eating any food, or 2 hours after eating food. documented in this encounter Progress Notes * Gorge Lee MD - 01/26/2013 1:09 PM EDT Head and Neck Cancer Medical Oncology Patient Active Problem List Diagnosis ??? Claustrophobia ??? Rotator cuff tear ??? Squamous cell carcinoma of tonsil ?? Squamous cell carcinoma of the tonsil, [id number]; tobacco-associated ?? Presentation: ?? Onset neck stiffness [...] of cisplat - 3rd held due tomyelosuppression. Chief Complaint: scheduled followup, and repeat PET/CT Interval History: SYMPTOM STATUS ONGOING RX Therapy time point: 1 year, three months from concurrent chemo/RT for tonsillar cancer Tumor symptoms, treatment side effects, significant events and problems: Taste is still off, but improved over three months ago. Now can taste about 50 % of the food he eats. Needs to drinks water constantly, especially with food. Occasional post-swallow cough but no octavia aspiration Sx. Diet and Nutrition: Drinking 2 boosts a day, down from 5 a day. Weight down 4 kgs in past month Pain control: No pain related to head and neck treatment, using advil, percocet for long-standing back pain Functional problems: PFS 0 Psychosocial: Doing well Bowel function: normal Intercurrent medical events: Has noticed in the past three weeks, mild epigastric/lower chest wall pain that seems to be associated with coughing. Inconsistent, not predictable. Outpatient Prescriptions Marked as Taking for the 01/26/13 encounter (Follow-Up) with Gorge Lee MD Medication Status Sig Dispense Refill ??? ibuprofen (ADVIL;MOTRIN) 800 mg tablet Active Take 800 mg by mouth every 8 hours as needed. ??? OXYcodone-acetaminophen (PERCOCET) 5-325 mg per tablet Active Take 1 tablet by mouth every 6 hours as needed. ??? omeprazole (PRILOSEC) 20 mg capsule Active Take 20 mg by mouth daily. ??? melatonin 3 mg Tab Active Take by mouth. ??? OXYBUTYNIN CHLORIDE ORAL Active Take 10 mg by mouth daily. ??? Terazosin 10 mg Tab Active Take 10 mg by mouth daily. Social History: reviewed, no changes. Family History: reviewed, no changes. Review of Systems: Review of systems is negative for other [employer], bone, pulmonary, cardiac, GI, , extremity, neurologic, endocrine, skin, constitutional, emotional, or functional problems. Filed Vitals: 01/26/13 1253 BP: 112/52 Pulse: 50 Temp: 36.4 ??C (97.5 ??F) TempSrc: Oral Resp: 18 Height: 175 cm (5' 8.9) Weight: 94.4 kg (208 lb 1.8 oz) SpO2: 98% Body surface area is 2.14 meters squared. Wt Readings from Last 3 Encounters: 01/26/13 94.4 kg (208 lb 1.8 oz) 01/09/13 98.431 kg (217 lb) 10/24/12 99.338 kg (219 lb) Exam: General appearance: NAD Nutritional status: Stable Skin: clear Oral: Radiation scarring present oral cavity Mandible clear endentulous top, good dentition on bottom Neck: No lymphadema Right: Zone 2 thickening 2 cm ill defined area that feels like scar tissue Left: No palpable adenopathy Ears: clear Nose: clear Peripheral nodes: Nil Chest: Clear. No palpable sternal, rib, cartilage abnormalities; cannot elicit pain here. No cardiac or pleural rub, no crepitus. Mediport benign. Heart: RRR, normal tones Abdomen: Benign, no HSM Extremities: Normal, no clubbing or edema Neurologic: Cranial nerves: Normal Reflexes: trace + at patellae Recent Results (from the past 72 hour(s)) CBC (WITH DIFF) Component Value Range WBC 4.0 4.0 - 10.0 x10(3)/mcL RBC 4.08 (*) 4.63 - 6.08 x10(6)/mcL Hemoglobin 13.2 (*) 13.7 - 17.5 gm/dL Hematocrit 37.5 (*) 40.0 - 51.0 % MCV 91.9 79.0 - 92.0 fL MCH 32.4 (*) 25.6 - 32.2 pg MCHC 35.2 32.0 - 36.5 gm/dL Platelets 126 (*) 145 - 370 x10(3)/mcL RDWSD 44.1 35.0 - 46.0 fL RDWCV 13.3 10.9 - 14.4 % MPV 9.7 9.0 - 12.0 fL COMPREHENSIVE METABOLIC PANEL (NON-FASTING) Component Value Range Glucose Lvl 103 60 - 199 mg/dL BUN 21 (*) 10 - 20 mg/dL Creatinine 1.01 0.80 - 1.50 mg/dL Sodium 141 135 - 145 mmol/L Potassium 4.7 3.5 - 5.0 mmol/L Chloride 104 98 - 107 mmol/L CO2 26 22 - 31 mmol/L Anion Gap 11 5 - 15 mmol/L Calcium 9.6 8.5 - 10.5 mg/dL Total Protein 6.6 6.4 - 8.3 gm/dL Albumin 4.3 3.2 - 5.2 gm/dL AST 22 0 - 39 unit/L ALT 21 0 - 55 unit/L Alk Phos 74 40 - 120 unit/L Total Bilirubin 0.3 0.2 - 1.3 mg/dL Bili, Direct 0.1 0.0 - 0.3 mg/dL Estimated GFR >60 >=60 TSH Component Value Range TSH 6.17 (*) 0.27 - 4.20 mcIU/mL DIFFERENTIAL, AUTOMATED Component Value Range Neutrophils % 59.6 34.0 - 71.0 % Neutr Abs (ANC) 2.37 1.50 - 6.30 x10(3)/mcL Lymphocytes % 30.0 19.0 - 53.0 % Lymphocytes Abs 1.2 1.0 - 3.6 x10(3)/mcL Monocytes % 7.6 4.0 - 13.0 % Monocyte Abs 0.3 0.2 - 1.0 x10(3)/mcL Eosinophils % 2.5 0.0 - 7.0 % Eosinophils Abs 0.1 0.0 - 0.5 x10(3)/mcL Basophils % 0.3 0.0 - 2.0 % Basophils Abs 0.0 0.0 - 0.2 x10(3)/mcL Immature Gran % 0.00 0.00 - 0.66 % Promise Gran Abs 0.00 0.00 - 0.05 x10(3)/mcL POCT GLUCOSE Component Value Range POC Glucose 105 60 - 199 mg/dL Radiology: I personally reviewed images from today's PET/CT: no signs of persistent disease at primary, in neck, or in distant sites. Thickening of mid-R neck tissues c/w exam but no FDG-avid tissue here. I see no pathology in the anterior chest wall or ant abd wall to explain his local discomfort. Impression and Plans: 1. Squamous cell carcinoma of tonsil Clinically KAIDEN at 15 months from definitive chemoRT. Residual thickening at original lashanda disease but lack of FDG uptake strongly suggests that this is benign fibrosis. Excellent functional recovery. Plan: ?? Continue surveillance per [facility] standard. ?? [facility] 2. Hypothyroidism (acquired) Early serologic signs. This is common, seen in up to 50% of patients s/p neck irradiation. He does admit to some fatigue and cold intolerance, so he may have some slight hypothyroid Sx. Plan: ?? Recommend levothyroxine replacement to start at 50 mcg/day. Rx printed as a suggestion to his [facility], whom he'll contact for a [facility] Rx if they concur with my plan. ?? He was instructed in the proper administration of this medication by Guanako Lee RN, and he demonstrated good understanding. ?? Recheck TSH in ~2 months. Goal is a TSH within the normal limits. It would be very reasonable tohave his [facility] team manage this primarily. Gorge Lee MD, FACP plant tech Hematology/[place] [address] I assisted in today's visit. The physical examination and all medical decisions were performed by Dr. Jesus Lee RN, BSN Hematology/Oncology Section [facility] documented in this encounter Plan of Treatment Not on file documented as of this encounter Procedures Procedure Name Priority Date/Time Associated Diagnosis Comments POCT GLUCOSE Routine 01/26/2013 10:18 AM EDT Squamous cell carcinoma of tonsil Hypothyroidism (acquired) documented in this encounter Results * POCT Glucose (01/26/2013 10:18 AM EDT) Glucose, POC 105 60 - 199 mg/dL ARIELLA CHOU Comment: Supplemental ranges: <110 mg/dL before meals <200 mg/dL all other times of the day Blood specimen (specimen) 01/26/2013 10:18 AM EDT 01/26/2013 10:18 AM EDT Gorge Lee MD POINT OF CARE TEST O RDERABLES [facility] documented in this encounter Visit Diagnoses Diagnosis Squamous cell carcinoma of tonsil- Primary Malignant neoplasm of tonsil Hypothyroidism (acquired) Unspecified hypothyroidism documented in this encounter Care Teams Design Printing Machine Setter Relationship Specialty Start Date End Date Josué Huff MD [address] [place] [id number] PCP - General 08/02/11 documented as of this encounter
--- OUTSIDE RECORDS SUMMARY | 2024-05-03 16:10 | XMS_ITS | Encounter Summary ---
Author Organization [facility] [place] [address] Care Team Providers Care Jewelsmith Name Role Phone Josué Huff MD Primary Care Provider [phone] Reason for Visit * Reason Comments Radiation Follow-up Encounter Details Date Type Department Care Team (Late st Contact Info) Description 08/08/2012 11:30 AM EDT Follow-Up Radiation Oncology at [address] [address] Jacoby Gaines MD [facility] [place] [address] Squamous cell carcinoma of tonsil (Primary Dx) [...] Sign Reading Time Taken Comments Blood Pressure 125/68 08/08/2012 11:00 AM EDT Pulse 50 08/08/2012 11:00 AM EDT Temperature 37 ??C (98.6 ??F) 08/08/2012 11: 00 AM EDT Respiratory Rate 16 08/08/2012 11:0 0 AM EDT Oxygen Saturation 99% 08/08/2012 11: 00 AM EDT Inhaled Oxygen Concentration - - Weight 98 kg (216 lb) 08/08/2012 11:00 AM EDT with boots, did not ask him to remove due to back pain Height - - Body Mass Index 31.27 07/10/2012 2:11 PM EST documented in this encounter Progress Notes * Jacoby Gaines MD - 08/08/2012 11:52 AM EDT Radiation Oncology Follow Up Note Primary MD: JOSUÉ HUFF MD Referring MD: Josué Huff Other Involved Physicians: Gorge Lee MD Focused Problem List: ?? Squamous cell carcinoma of the tonsil, [id number] ?? Presentation: ?? Onset neck stiffness 04/2011 [...] returns for routine follow up having completed GEOCHEMIST approximately 9 months prior. In the interval since his last visit his G-tube has been pulled by Dr. Meena MCCOY. Direct laryngoscopy was performed by her two weeks prior and no evidence of malignancy was noted. Currently he notes the following symptoms: Symptom Description Ongoing Intervention Odynophagia Denies Dysphagia Occasional coughing with dry foods. Trismus Mild stiffness of jaw, notes diminishment of oral aperture. PT mouth exercises Otalgia/ Hearing changes Denies Xerostomia Still significant, drinking water a couple of times/hour. Skin changes Denies Neck fibrosis Very mild submental edema. Dysgeusia Still significant, only tasting a few things correctly. Weight Loss Denies he denies new onset DE LA O, n/v, unilateral changes in strength/sensation or cognitive changes. . Allergies Allergen Reactions ??? Tegaderm (Transparent Dressings) Patient's Medications New Prescriptions No medications on file Previous Medications BENZONATATE (TESSALON) 100 MG CAPSULE Take 2 capsules by mouth 3 times daily as needed for Cough. IBUPROFEN (ADVIL;MOTRIN) 100 MG/5 ML SUSPENSION Take 30 mLs by mouth every 6 hours as needed for Pain. MELATONIN 3 MG TAB Take by mouth. OXYBUTYNIN CHLORIDE ORAL Take 10 mg by mouth daily. OXYCODONE (ROXICODONE) 5 MG/5 ML SOLUTION Take 5-10 mLs by mouth every 4 hours as needed for Pain. TERAZOSIN 10 MG TAB Take 10 mg by mouth daily. Modified Medications No medications on file Discontinued Medications No medications on file Past Medical History Diagnosis Date ??? Cancer of head, face, and neck ??? Arthritis ??? Depression PTSD ??? Claustrophobia Past Surgical History Procedure Date ??? Spine surgery Disc ??? Tonsillectomy 2011 ??? Back surgery ??? Endobronchial u/s add-on 08/24/2011 ENDOBRONCHIAL ULTRASOUND (EBUS) performed by VERÓNICA KELLOGG at [facility] Physical Examination: Filed Vitals: 08/08/12 1100 BP: 125/68 Pulse: 50 Temp: 37 ??C (98.6 ??F) Resp: 16 Weight: 97.977 kg (216 lb) SpO2: 99% Physical Exam Constitutional: He is oriented to [...] Neck: No tracheal deviation present. Palpation reveals diffuse fibrosis bilaterally. There is fullness in the inferior aspect of right level V which has a rounded configuration. Otherwise no suspicion of adenopathy in cervical, SCLV, ICLV lashanda basins. Minimal submental edema/fibrosis. Neurological: He is alert and oriented to person, place, and time. No cranial nerve deficit. Procedure: Flexible laryngoscopy deferred today as it was performed two weeks prior by Dr. Robledo Interval Imaging: None Assessment: Oliverio Brandy Salazar Jr. is now 9 months out from definitive GEOCHEMIST: ?? Clinically: clinically he has no evidence of malignancy within the oropharynx. He has a deep area of fullness in the right posterior neck which is rounded in nature; it is difficult to tell if this is fibrosis or adenopathy. We discussed this finding and I would recommend proceeding with his planned CT of the H&N and chest in the near future. ?? Radiographically: no interval imaging ?? Radiation toxicity: ?? Xerostomia: moderate, tolerating with water ?? Dysgeusia: still very prominent. Now able to tolerate oral intake such that he can maintain his weight in the absence of a feeding tube, but he states that although he tolerates food nothing tastes good. We discussed returning to baking soda/salt rinses to see if that insists, and that it may beworthwhile to try an anti-fungal preparation as a sub-clinical fungal colonization may be playing a role in his significant and atypical continued severe dysgeusia. He was in agreement with this plan. Plan: ?? Dysgeusia: baking soda/salt x 1 week. We will have nursing re-assess by phone at that time, and if he has had no improvement try a course of nystatin. ?? Fullness in right neck, fibrosis vs adenopathy: CT-imaging at next follow up. ?? FU: follow up with radiation oncology per [facility] algorithm documented in this encounter Procedure Notes * Provider, Scanning - 09/08/2012 10:48 AM EDTAssociated Order(s): SCAN DOC: LAB documented in this encounter Plan of Treatment Not on file documented as of this encounter Procedures Procedure Name Priority Date/Time Associated Diagnosis Comments LAB SCAN 09/08/2012 10:48 AM EDT documented in this encounter Results * SCAN DOC: LAB (09/08/2012 10:48 AM EDT) Narrative 09/08/2012 10:48 AM EDT Procedure Note Provider, Scanning - 09/08/2012 10:48 AM EDT Scanning Provider MEDIA MGR SCAN EXT O RDR/RSLT documented in this encounter Visit Diagnoses Diagnosis Squamous cell carcinoma of tonsil- Primary Malignant neoplasm of tonsil documented in this encounter Care Teams Jewelsmith Relationship Specialty Start Date End Date Josué Huff MD [address] [place] [id number] PCP - General 08/02/11 documented as of this encounter
--- OUTSIDE RECORDS SUMMARY | 2024-05-03 16:10 | XMS_ITS | Encounter Summary ---
Author Organization [facility] [place] [address] Care Team Providers Care Director Of Archives Name Role Phone Josué Huff MD Primary Care Provider [phone] Encounter Details Date Type Department Care Team (Late st Contact Info) Description 10/12/2015 Orders Only Hematology and Oncology at [facility] [place] [address] Gorge Lee MD [address] [place] [address] [place] [address] Social History Tobacco Use Types Packs/Day Years [...] on filedocumented in this encounter Care Teams Director Of Archives Relationship Specialty Start Date End Date Josué Huff MD [address] [place] [id number] PCP - General 08/02/11 documented as of this encounter
--- OUTSIDE RECORDS SUMMARY | 2024-05-03 16:10 | XMS_ITS | Encounter Summary ---
Author Organization [facility] [place] [address] Care Team Providers Care Home Maker Name Role Phone Josué Huff MD Primary Care Provider + [phone] Encounter Details Date Type Department Care Team (Late st Contact Info) Description 05/06/2012 8:00 AM EST Ancillary Appointment Hematology Oncology at [address] [address] William Petit, JAYDEN [facility] [place] [address] Social History Tobacco Use Types Packs/Day Years [...] Progress Notes * William Petit, JAYDEN - 05/06/2012 8:21 AM EST TC to Dionisio Salazar for nutrition follow up. He is now 5+ mos out of RT. Asked him to di trials of baking soda/salt before p.o. And also during p.o. Trials to see if this helps tastes. He did do this and it did not help. He is having no issues with swallowing pain; however, tastes of foods ok at first bite then transitions to horrible. Sweet things tastes bad to him. He did talk to the RD at the [facility] and she suggested switching from hilda Boost to vanilla. He is scheduled to get more next week (05/12-16/05) Able to eat fried and poached eggs. Does eat p.o. Every day. Tolerates some, but the taste will eventually become off and he has to stop before he vomits. Late am: [place] and bowl of cereal Fluids: water and milk Continues to utilize PEG.3 cans Jevity 1.5 and 2 Boost Plus, via pump, nocturnally providin kcals, 73.5 g protein, 910 ccs free water. Flushing 60 ccs before and after feedings to provide an additional 120 ccs's free water. Also one scoop protein TID via syringe to provide and additional 18 gm protein and 75 kcals with 4 ounces of water. Total kcals: 1860. Total protein: 92. Total free water: ~ 1030 ccs. Wt is stable: ranges from 196 - [address] Robledo started him on ABX for ? Of infection in his nose which may help his sense of smell. This didn't help. His next [facility] appointments are in late May. A/P: We discussed options for trying to encourage TF weaning. He continues to have issues with hypoguesia/dysguesia after a couple of bites. He continues to meet with Guanako Garrido RD at [facility]. She also is hopeful to begin TF weaning soon. -- Try Vanilla Boost Plus p.o. (currently pushes hilda through tube, is not able to tolerate taste p.o.) -- Try [place] Instant B'fast via p.o. -- Protein powder, BID, p.o. Mixed with either milk or water Will follow up in 2-3 weeks via phone. documented in this encounter Plan of Treatment Not on file documented as of this encounter Visit Diagnoses Not on filedocumented in this encounter Care Teams Home Maker Relationship Specialty Start Date End Date Josué Huff MD [address] [place] [address] PCP - General 08/02/11 documented as of this encounter
--- OUTSIDE RECORDS SUMMARY | 2024-05-03 16:10 | XMS_ITS | Encounter Summary ---
Author Organization [facility] [place] [address] Care Team Providers Care Clay Mixer Name Role Phone Josué Huff MD Primary Care Provider + [phone] Encounter Details Date Type Department Care Team (Late st Contact Info) Description 06/06/2012 Telephone Hematology Oncology at [address] [address] [facility] [address] Social History Tobacco Use Types Packs/Day Years [...] Telephone Encounter - William Petit RD - 06/06/2012 9:55 AM EST TC to Dionisio Salazar for nutrition follow up. He is now ~ 6 mos out of RT. States he has given up on anything tasting good. PO: honey nut cheerios, Caodaism oats, and , eggs scrambled with home fries. These are tolerable. Notgood, but not bad tasting. Able to increase volume of p.o. Foods. No tomato products; horrible taste. Has found less seasoning food has, the better he tolerates. Continues to utilize PEG.3 cans Jevity 1.5 and 1-2 Boost Plus, via pump, nocturnally providin kcals, 73.5 g protein, 910 ccs free water. Flushing 60 ccs before and after feedings to provide anadditional 120 ccs's free water. Also one scoop protein TID via syringe to provide and additional 18 gm protein and 75 kcals with 4 ounces of water. Total kcals: 1860. Total protein: 92. Total free water: ~ 1030 ccs. If he is able to drink one can of Boost Plus, p.o. He decreases the volume of TF. Wt is stable: ranges from 196 - 200 lbs. Goals from previous visit: -- Try Vanilla Boost Plus p.o. (currently pushes hilda through tube, is not able to tolerate taste p.o.) Just received this on day of TC. Hasn't trialed it p.o. -- Try [place] Instant B'fast via p.o. This was unsuccessful. -- Protein powder, BID, p.o. Mixed with either milk or water. Tried this with milk and was able to tolerate this once/d. Goals for next visit: -- Continue with Vanilla Boost Plus p.o. (currently pushes hilda through tube, is not able to tolerate taste p.o.). Withdrawing the Boost from nocturnal feeding. -- Continue with protein powder mixed with milk via mouth. He will follow up with [facility] RD in 2 weeks. Will follow up via TC in June. documented in this encounter Plan of Treatment Not on file documented as of this encounter Visit Diagnoses Not on filedocumented in this encounter Care Teams Clay Mixer Relationship Specialty Start Date End Date Josué Huff MD [address] [place] [id number] PCP - General 08/02/11 documented as of this encounter
--- OUTSIDE RECORDS SUMMARY | 2024-05-03 16:10 | XMS_ITS | Encounter Summary ---
Author Organization [facility] [place] [address] Care Team Providers Care Lacquerer Name Role Phone Josué Huff MD Primary Care Provider + [phone] Encounter Details Date Type Department Care Team (Late st Contact Info) Description 11/24/2014 Telephone Hematology [place] [id number] Trinity Chopra APRN [address] [place] [address] [place] [address] Social History Tobacco Use Types Packs/Day Years [...] encounter Miscellaneous Notes * Telephone Encounter - Trinity Chopra APRN - 11/24/2014 3:49 PM EDT Called pt to let him know about thrush report- started fluconazole daily x 10d. Trinity Chopra, MSN, GEOPHYSICS SCIENTIST, AOCN Hematology/Oncology Nurse Practitioner [place], [place] [phone] documented in this encounter Plan of Treatment Not on file documented as of this encounter Visit Diagnoses Not on filedocumented in this encounter Care Teams Lacquerer Relationship Specialty Start Date End Date Josué Huff MD [address] [place] [address] PCP - General 08/02/11 documented as of this encounter
--- OUTSIDE RECORDS SUMMARY | 2024-05-03 16:10 | XMS_ITS | Encounter Summary ---
Author Organization [facility] [place] [address] Care Team Providers Care Java Designer Name Role Phone Josué Huff MD Primary Care Provider [phone] Encounter Details Date Type Department Care Team (Late st Contact Info) Description 09/09/2012 Orders Only Hematology [place] [address] Trinity Chopra, BOTTLE HOUSE QUALITY CONTROL TECHNICIAN [address] [facility] [place] [address] Social History Tobacco Use Types Packs/Day Years [...] Diagnosis Comments FILM LIBRARY STORAGE ONLY CT SPINE Routine 09/09/2012 8:10 AM EDT documented in this encounter Results * Film Library- Storage only CT Spine (09/09/2012 8:10 AM EDT) 09/09/2012 8:10 AM EDT Narrative [facility] - 12/01/2013 10:37 AM EDT This is a non-reportable exam. Procedure Note Jesús Muñoz - 12/01/2013 This is a non-reportable exam. Trinity Chopra APRN [facility] FILM LIBRARY ORD ERABLES RAD [address] [place] [address] documented in this encounter Visit Diagnoses Not on filedocumented in this encounter Care Teams Java Designer Relationship Specialty Start Date End Date Josué Huff MD [address] [place] [address] PCP - General 08/02/11 documented as of this encounter
--- OUTSIDE RECORDS SUMMARY | 2024-05-03 16:10 | XMS_ITS | Encounter Summary ---
Author Organization [facility] [place] [address] Care Team Providers Care Software Systems Engineer Name Role Phone Josué Huff MD Primary Care Provider [phone] Encounter Details Date Type Department Care Team (Late st Contact Info) Description 09/18/2012 Telephone Hematology [place] [phone] Trinity Chopra APRN [address] [place] [address] [place] [address] Social History Tobacco Use Types Packs/Day Years [...] Telephone Encounter - Trinity Chopra APRN - 09/18/2012 12:14 PM EDT I called the patient to let him know that no outer LE was identified on the CT scan. We talked about discontinuing and decided to redo a PET scan at his normal checkup in a role which would be in January. I will plan to repeat the PET scan at that time. documented in this encounter Plan of Treatment Not on file documented as of this encounter Visit Diagnoses Not on filedocumented in this encounter Care Teams Software Systems Engineer Relationship Specialty Start Date End Date Josué Huff MD [address] [place] [id number] PCP - General 08/02/11 documented as of this encounter
--- OUTSIDE RECORDS SUMMARY | 2024-05-03 16:10 | XMS_ITS | Clinical Summary ---
Author Organization [facility] Address [facility] [place] [address] Care Team Providers Care Media Consultant Name Role Phone Josué Huff MD Primary Care Provider [phone] Allergies Active Allergy Reactions Criticality Noted Date Comments Transparent Dressings 10/29/2011 Medications Medication Sig Dispensed Refills Start Date End Date Status Terazosin 10 mg Tab Take 10 mg by mouth daily. Active OXYBUTYNIN CHLORIDE ORAL Take 10 mg by mouth daily. Active melatonin 3 mg Tab Take by mouth. Ac tive ibuprofen (ADVIL;MOTRIN) 800 mg tablet Take 800 mg by mouth every 8 hours as needed. Active OXYcodone-acetaminophe n (PERCOCET) 5-325 mg per tablet Take 1 tablet by mouth every 6 hours as needed. Active omeprazole (PRILOSEC) 20 mg capsule Take 20 mg by mouth daily. Active levothyroxine (SYNTHROID) 25 mcg tablet Take 25 mcg by mouth daily. Active MULTIVIT-MIN/FA/LYCOPE N/LUTEIN (CENTRUM SILVER MEN ORAL) Take by mouth. Acti ve Active Problems Problem Noted Date Diagnosed Date Bilateral knee pain 11/23/2015 Overview (11/23/2015): Longstanding arthritic pain Hypothyroidism (acquired) 01/26/2013 Overview (01/26/2013): Elevated TSH 01/26/2013; thyroid replacement Rx Claustrophobia 09/18/2012 Rotator cuff tear 11/01/2011 Squamous cell carcinoma of tonsil 08/02/2011 Overview (01/26/2013): ?? Squamous cell carcinoma of the tonsil, [id number]; tobacco-associated ?? Presentation: ?? Onset neck stiffness [...] cycles of cisplat - 3rd held due to myelosuppression. ?? Residual thickening R neck, ametabolic, confirmed by followup PET/CT 01/2013 Resolved Problems Problem Noted Date Diagnosed Date Resolved Date Nausea with vomiting 10/29/2011 012 Immunizations Name Administration Dates Next Due Influenza Vaccine, Whole 03/27/2007 Family History Medical History Relation Comments Cancer Father Relation Status Comments Father Social History Tobacco Use Types Packs/Day Years [...] on file Sexual Orientation Not on file Last Filed Vital Signs Vital Sign Reading [...] 6.4 oz) 01/17/2017 11:06 AM EDT Height 176 cm (5' 9.29) 07/05/2016 12:54 PM EST Body Mass Index 31.4 07/05/2016 12:54 PM EST Plan of Treatment Health Maintenance Due Date Last Done Comments CT Colonography 1948 Colonoscopy 1948 Colorectal Cancer Screening 1948 FIT DNA 1948 FIT 1948 Sigmoidoscopy (10 year) with FIT yearly 1948 Sigmoidoscopy 1948 Hepatitis C Screening 1966 Lipid Screening 1966 Tetanus/Diphtheria/Pertussis Vaccines (1 - Tdap) 05/22 Zoster vaccine (1 of 2) 1998 Advance Directive 2003 AAA Screen 2013 Pneumoccocal Vaccine: 65+ (1 of 1 - PCV) 2013 RSV Vaccine (1 - 1-dose 75+ series) 2023 Covid-19 Vaccine (1 - 2023- season) 2024 Influenza (Flu) vaccine (1 o f 1 - Influenza standard series) 01/19/2024 03/27/2007 Advance Directives * Full Code (Latest Code Status on File) Date Activated Date Inactivated Comments 10/29/2011 7:28 PM 11/01/2011 3:16 PM Question Answer Comments Order Status: Initial Order Does patient have decision m aking capacity? Yes, Order is based on Patients wishes. Care Teams Media Consultant Relationship Specialty Start Date End Date Josué Huff MD [address] [place] [address] PCP - General 08/02/11
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
--- OUTSIDE RECORDS SUMMARY | 2024-05-03 16:10 | XMS_ITS | Encounter Summary ---
Author Organization [facility] [place] [address] Care Team Providers Care Pediatric Sports Medicine Specialist Name Role Phone Josué Huff MD Primary Care Provider [phone] Encounter Details Date Type Department Care Team (Late st Contact Info) Description 05/23/2012 Telephone Hematology Oncology at [address] [phone] [facility] [place] [address] Social History Tobacco Use Types Packs/Day Years [...] Telephone Encounter - William Petit RD - 05/23/2012 4:09 PM EST TC to Dionisio Salazar for nutrition follow up. He is now ~ 6 mos out of RT. Has gained a couple of pounds. Attempting to maintain p.o.; able to eat more varied things. Intake for weight stabilization/gain. PO: honey nut cheerios, corn chowder, eggs, baked shrimp. No tomato products; horrible taste. Has found less seasoning food has, the better he tolerates. He trailed a two nights with out nocturnal feeds and did lose weight. Has admitted to increasing poand finds he can graze throughout the course of the day. At that time weight had increased to over 200 lbs. Continues to utilize PEG.3 cans Jevity 1.5 [...] TC. Hasn't trialed it p.o. -- Try [place] Instant B'fast via p.o. This was unsuccessful. -- Protein powder, BID, p.o. Mixed with either milk or water. Tried this with milk and was able to tolerate this once/d. Goals for next visit: -- Try Vanilla Boost Plus p.o. (currently pushes hilda through tube, is not able to tolerate taste p.o.). Withdrawing the Boost from nocturnal feeding. -- Continue with protein powder via mouth. Will follow up via TC in 2 weeks. documented in this encounter Plan of Treatment Not on file documented as of this encounter Visit Diagnoses Not on filedocumented in this encounter Care Teams Pediatric Sports Medicine Specialist Relationship Specialty Start Date End Date Josué Huff MD [address] [place] [address] PCP - General 08/02/11 documented as of this encounter
--- OUTSIDE RECORDS SUMMARY | 2024-05-03 16:10 | XMS_ITS | Encounter Summary ---
Author Organization [facility] [place] [address] Care Team Providers Care Scallop Cutter Machine Name Role Phone Josué Huff MD Primary Care Provider [phone] Encounter Details Date Type Department Care Team (Late st Contact Info) Description 03/04/2015 9:30 AM EDT Office Visit Radiation Oncology at [address] [phone] Jacoby Gaines MD [facility] [place] [address] Squamous cell carcinoma of tonsil Social History [...] Sign Reading Time Taken Comments Blood Pressure 100/53 03/04/2015 9:31 AM EDT Pulse 61 03/04/2015 9:31 AM EDT Temperature 36.6 ??C (97.9 ??F) 03/04/2015 9:31 AM ED T Respiratory Rate 18 03/04/2015 9:31 AM EDT Oxygen Saturation 98% 03/04/2015 9:31 AM EDT Inhaled Oxygen Concentration - - Weight 101.4 kg (223 lb 8 oz) 03/04/2015 9:31 AM EDT Height - - Body Mass Index 32.73 11/17/2014 12:44 PM EDT documented in this encounter Progress Notes * Jacoby Gaines MD - 03/04/2015 9:41 AM EDT Radiation Oncology Follow Up Note Primary MD: JOSUÉ HUFF MD (General) Referring MD: Josué Huff Other Involved Physicians: Gorge Lee MD Focused Problem List: ?? Squamous cell carcinoma of the right tonsil, [id number] s/p definitive LPN CMA ?? Presentation: ?? Onset neck stiffness 04/2011 [...] returns for routine follow up having completed LPN CMA approximately 3 years 4 months prior. Currently he notes the following symptoms: Symptom Description Ongoing Intervention Odynophagia Denies Dysphagia Difficulty with dry foods, unchanged Trismus Denies Otalgia/ Hearing changes Denies Xerostomia Still significant xerostomia, stable. Water Skin changes Denies Neck fibrosis He [...] [facility] Physical Examination: Filed Vitals: 03/04/15 0931 BP: 100/53 Pulse: 61 Temp: 36.6 ??C (97.9 ??F) TempSrc: Oral Resp: 18 Weight: 101.379 kg (223 lb 8 oz) SpO2: 98% Physical Exam [...] cords apposed without difficulty. Interval Imaging: CXR was WNL Assessment: ?? Tonsillar Malignancy ?? Clinically: clinically he has no evidence of malignancy within the oropharynx, overall he is doing very well. ?? Radiographically: CXR WNL ?? Radiation toxicity: ?? Xerostomia: moderate, tolerating [...] Rate Site lidocaine (XYLOCAINE) 2 % jelly Topical (Top), ONCE, On Sat03/04/15 at 0930, 1 dose, Prior to flexible nasopharyngoscopy Given 03/04/2015 9:49 AM EDT lidocaine (XYLOCAINE) 4 % (40 mg/mL) external solution Nasal, ONCE, On Sat03/04/15 at 0930, 1 dose, INTRANASAL - Prior to flexible nasopharyngoscopy. Given 03/04/2015 9:48 AM EDT documented in this encounter Care Teams Scallop Cutter Machine Relationship Specialty Start Date End Date Josué Huff MD [address] [place] [id number] PCP - General 08/02/11 documented as of this encounter
--- OUTSIDE RECORDS SUMMARY | 2024-05-03 16:10 | XMS_ITS | Encounter Summary ---
Author Organization [facility] [place] [address] Care Team Providers Care Nuclear Powerplant Mechanic Name Role Phone Josué Huff MD Primary Care Provider [phone] Reason for Visit * Reason Comments Head And Neck Cancer port flush Encounter Details Date Type Department Care Team (Late st Contact Info) Description 05/09/2012 2:30 PM EST Office Visit Hematology Oncology at [address] [phone] Head and neck cancer (Primary Dx) Social History Tobacco Use Types [...] as of this encounter Progress Notes * Odalis Copeland RN - 05/09/2012 2:12 PM EST INFUSION THERAPY ADMINISTRATION NOTES TIME TREATMENT STARTED: 1355 TIME TREATMENT ENDED: 1410 DIAGNOSIS: head and neck cancer REASON FOR VISIT: MEDIPORT FLUSH ONLY IV ACCESS: Mediport GAUGE: 19G BLOOD RETURN: yes ANY S/S OF INFECTION/EXTRAVASATIONS: no signs of IV complications observed IV FLUSHED WITH: 20cc NS and 500 units Heparin IV DISCONTINUED: yes ASSESSMENT: Patient tolerated treatment well. PLAN: Return to clinic per routine. documented in this encounter Plan of Treatment Not on file documented as of this encounter Visit Diagnoses Diagnosis Head and neck cancer- Primary Malignant neoplasm of head, face, and neck documented in this encounter Care Teams Nuclear Powerplant Mechanic Relationship Specialty Start Date End Date Josué Huff MD [address] [place] [id number] PCP - General 08/02/11 documented as of this encounter
--- OUTSIDE RECORDS SUMMARY | 2024-05-03 16:10 | XMS_ITS | Encounter Summary ---
Author Organization [facility] [place] [address] Care Team Providers Care Technical Manager Name Role Phone Josué Huff MD Primary Care Provider Encounter Details Date Type Department Care Team (Late st Contact Info) Description 05/09/2012 1:30 PM EST Follow-Up Hematology Oncology at [address] [phone] Lisa Gonzales APRN Tonsillar cancer (Primary Dx) Discharge Disposition: Home Social History [...] Sign Reading Time Taken Comments Blood Pressure 136/54 05/09/2012 1:16 PM EST Pulse 58 05/09/2012 1:16 PM EST Temperature 36.6 ??C (97.9 ??F) 05/09/2012 1:16 PM ES T Respiratory Rate 18 05/09/2012 1:16 PM EST Oxygen Saturation 96% 05/09/2012 1:16 PM EST Inhaled Oxygen Concentration - - Weight 92.5 kg (204 lb) 05/09/2012 1:16 PM EST Height 177 cm (5' 9.69) 05/09/2012 1:16 PM EST Body Mass Index 29.54 05/09/2012 1:16 PM EST documented in this encounter Progress Notes * Lisa Gonzales P, BIOLOGICAL AIDE - 05/09/2012 3:20 PM [place] [address] FOLLOW-UP PATIENT EVALUATION CHIEF COMPLAINT: Oliverio Salazar Jr. is seen today for routine follow-up. He completed treatment the end of October. Patient Active Problem List Diagnoses ??? Rotator cuff tear ??? Squamous cell carcinoma of tonsil ?? Squamous cell carcinoma of the tonsil, [id number]; tobacco-associated ?? Presentation: ?? Onset neck stiffness [...] of cisplat - 3rd held due tomyelosuppression. INTERIM HISTORY: His main issue today is an altered sense of taste. He states that anything he puts in his mouth notonly doesn't taste normal, it actually tastes bad. He sometimes is able to get a few mouthfuls in however most things begin to taste bad shortly after ingestion. Dry mouth continues. He is taking very little by mouth.He was seen the end of March by Dr Boot[place] the [place]. He was started on an antibiotic for this bad taste in his mouth. He was also scoped and that was negative. Despite the antibiotics he has not been able to eat much by mouth.. Otherwise he is doing quite well and is completely asymptomatic at this time. Time from Rx completion: He is 6 months from completion of treatment. ROS Neuro: Denies dizziness, H/A, gait changes, numbness or tingling; vision or hearing changes Change in adenopathy or other masses: No C/V: Denies chest pain, palpitations or swelling of extremities Resp: No SOB, wheezing, or coughing GI: Bowels regular, denies abdominal pain Nutrition: [] oral [] feeding tube [x] combination Appetite: Stable on tube feeds. : Urinary pattern normal; denies pain, frequency, urgency, or incontinence Musculoskeletal complaints: None Skin: No changes, rashes, lumps INTERIM SOCIAL HISTORY Changes in job, home situation, tobacco or alcohol use: None Psychosocial/spiritual issues: CHANGES IN RELEVANT FAMILY HISTORY:None Filed Vitals: 05/09/12 1316 BP: 136/54 Pulse: 58 Temp: 36.6 ??C (97.9 ??F) Resp: 18 PHYSICAL EXAM General appearance: well-appearing in no acute distress Nutritional status: stable on tube feeds and some recreational eating Skin: Examination of the skin revealed no evidence of significant rashes, suspicious appearning nevi or other concerning lesions. Oral: oral mucosa with thick coating to the tongue which I believe is not hyperkeratosis; he also has evidence of thrush to the back of the soft palate Dentition: no changes Neck: neck is supple without clear adenopathy. He does however have a residual soft tissue swellingapproximately 2 cm to the right lateral portion of the scar line. It is fixed and immobile and I believe residual scarring from his tumor and treatment Peripheral nodes: no adenopathy Chest: Examination of the chest was unremarkable. There were no bony deformities, no asymmetry, or other abnormalities. Clear to auscultation bilaterally without wheezes or crackles. Heart: S1 S2 are normal without rubs or gallops. Regular rate and rhythm. Abdomen: Abdominal exam revealed normal bowel sounds. The abdomen was soft, non- tender, and withoutmasses or hepatosplenomegaly.PEG tube is in place without evidence of infection. Extremties: Examination of the extremities revealed no cyanosis, clubbing or edema. Neurologic: Neurologically, the patient was awake, alert, and oriented to person, place and time. There were no obvious focal neurologic abnormalities. Cranial nerves grossly intact. EOMs normal. Fiberoptic laryngoscopy: not performed today LABORATORY STUDIES Done at [place] CBC within limits CMP within limits. RADIOLOGY STUDIES REVIEWED: None today Impression: He has recovered well from his treatment and toxicities except for his taste changes. I believe this should have improved by now and suspect that he has thrush to his tongue and soft palate. He has had recurrent thrush over the course of his treatment; approximately 4-5 times. PLAN Thrush: No evidence of thrush seen. I've asked him to begin taking a multivitamin. Followup: per [facility] standard H/N followup schema. I will continue to work with him to wean him off the tube feedings. He will return in 2 months for followup. Lisa Gonzales MS, BIOLOGICAL AIDE, [facility] Hematology/Medical Oncology [phone] documented in this encounter Plan of Treatment Not on file documented as of this encounter Visit Diagnoses Diagnosis Tonsillar cancer- Primary Malignant neoplasm of tonsil documented in this encounter Care Teams Technical Manager Relationship Specialty Start Date End Date Josué Huff MD [address] [place] [address] PCP - General 08/02/11 documented as of this encounter
--- OUTSIDE RECORDS SUMMARY | 2024-05-03 16:10 | XMS_ITS | Encounter Summary ---
Author Organization [facility] [place] [address] Care Team Providers Care Epoxy Coatings Installer Name Role Phone Josué Huff MD Primary Care Provider [phone] Encounter Details Date Type Department Care Team (Late st Contact Info) Description 06/17/2012 Orders Only Hematology [place] [address] Trinity Chopra, MEDICAL SUPPLY TECHNICIAN [address] [facility] [place] [address] Tonsil cancer Social History Tobacco Use Types Packs/Day [...] as of this encounter Visit Diagnoses Diagnosis Tonsil cancer Malignant neoplasm of tonsil documented in this encounter Care Teams Epoxy Coatings Installer Relationship Specialty Start Date End Date Josué Huff MD [address] [place] [id number] PCP - General 08/02/11 documented as of this encounter
--- OUTSIDE RECORDS SUMMARY | 2024-05-03 16:10 | XMS_ITS | Encounter Summary ---
Author Organization [facility] [place] [address] Care Team Providers Care Auxiliary Operator Name Role Phone Josué Huff MD Primary Care Provider [phone] Encounter Details Date Type Department Care Team (Late st Contact Info) Description 11/27/2013 Orders Only Hematology [place] [id number] Gorge Lee MD [address] [place] [address] [place] [address] Squamous cell carcinoma of tongue (Primary Dx); Hypothyroidism (acquired) Social History Tobacco Use Types [...] documented as of this encounter Results * (ABNORMAL) TSH (11/27/2013 11:01 AM EDT) Thyroid Stimulating Hormone 4.29(H) 0.27 - 4.20 mcIU/mL [facility] Blood specimen (specimen) 11/27/2013 11:01 AM EDT 11/27/2013 11:07 AM EDT Narrative Resulting Agency Comment Spec In Lab Gorge Lee MD CHEMISTRY ORDERABLES [facility] documented in this encounter Visit Diagnoses Diagnosis Squamous cell carcinoma of tongue- Primary Malignant neoplasm of tongue, unspecified site Hypothyroidism (acquired) Unspecified hypothyroidism documented in this encounter Care Teams Auxiliary Operator Relationship Specialty Start Date End Date Josué Huff MD [address] [place] [id number] PCP - General 08/02/11 documented as of this encounter
--- OUTSIDE RECORDS SUMMARY | 2024-05-03 16:10 | XMS_ITS | Encounter Summary ---
Author Organization [facility] [place] [address] Care Team Providers Care Rip Sawyer Name Role Phone Josué Huff MD Primary Care Provider [phone] Encounter Details Date Type Department Care Team (Late st Contact Info) Description 09/18/2012 Orders Only Hematology [place] [address] Trinity Chopra, REINSURANCE CLAIM ANALYST [address] [facility] [place] [address] Squamous cell carcinoma of tonsil (Primary Dx); Hypothyroidism Social History Tobacco Use [...] documented as of this encounter Results * PET/CT STANDARD (Skull base to Mid-thigh) (01/26/2013 11:54 AM EDT) Anatomical Region Laterality Modality Other 01/26/2013 11:5 4 AM EDT Narrative 01/26/2013 12:51 PM EDT Examination PET/CT STANDARD (Skull base to Mid-thigh) Technique Procedure: Following IV injection of 53-ktplvp-0-deoxyglucose (FDG) and a standard uptake period, a [...] you for referring this patient to the [facility] Procedure Note Rick Russell MD - 01/26/2013 Examination PET/CT STANDARD (Skull base to Mid-thigh) Technique Procedure: Following IV injection of 70-eotphc-6-deoxyglucose (FDG) and a standard uptake period, a [...] you for referring this patient to the [facility] PET Center Gorge Lee MD IMG PET ORDERABLES * (ABNORMAL) TSH (01/26/2013 9:32 AM EDT) Thyroid Stimulating Hormone 6.17(H) 0.27 - 4.20 mcIU/mL CERNER MILLENNIUM Blood specimen (specimen) 01/26/2013 9:32 AM EDT 01/26/2013 9:43 AM EDT Narrative Resulting Agency Comment Spec In Lab Gorge Lee MD CHEMISTRY ORDERABLES CERNER MILLENNIUM * (ABNORMAL) Comprehensive metabolic panel (non-fasting) (01/26/2013 9:32 AM EDT) Glucose 103 60 - 199 mg/dL CERNER MILLENNIUM Comment:Diabetes: >=200 mg/d L plus symptoms Blood Urea Nitrogen 21(H) 10 - 20 mg/dL CERNER MILLENNIUM Creatinine 1.01 0.80 - 1.50 mg/dL CERNER MILLENNIUM Comment: Please note that the pediatric reference intervals supplied above were not validated at [facility]. Results from pediatric patients should be interpreted [...] In Lab Gorge Lee MD CHEMISTRY ORDERABLES CERNER MILLENNIUM * (ABNORMAL) CBC (with Diff) (01/26/2013 9:32 [...] Lab Gorge Lee MD HEMATOLOGY ORDERABLE S ARIELLA [facility] documented in this encounter Visit Diagnoses Diagnosis Squamous cell carcinoma of tonsil- Primary Malignant neoplasm of tonsil Hypothyroidism Unspecified hypothyroidism Squamous cell carcinoma of tonsil Malignant neoplasm of tonsil documented in this encounter Care Teams Rip Sawyer Relationship Specialty Start Date End Date Josué Huff MD [address] [place] [address] PCP - General 08/02/11 documented as of this encounter
--- OUTSIDE RECORDS SUMMARY | 2024-05-03 16:10 | XMS_ITS | Encounter Summary ---
Author Organization [facility] Address [facility] [place] [address] Care Team Providers Care Multi Purpose Machine Operator Name Role Phone Josué Huff MD Primary Care Provider [phone] Encounter Details Date Type Department Care Team (Latest Contact Info) Description 11/27/2013 11:23 AM EDT - 11/27/2013 11:59 PM EDT Hospital Encounter XRay at [address] [place] [address] Squamous cell carcinoma of tonsil Social History [...] Comments XR CHEST PA AND LATERAL Routine 11/27/2013 11:28 AM EDT Squamous cell carcinoma of tonsil documented in this encounter Results * XR [...] tonsil documented in this encounter Care Teams Multi Purpose Machine Operator Relationship Specialty Start Date End Date Josué Huff MD [address] [place] [address] PCP - General 08/02/11 documented as of this encounter
--- OUTSIDE RECORDS SUMMARY | 2024-05-03 16:11 | XMS_ITS | Encounter Summary ---
[facility] [place] [address] Care Team Providers Care Anesthesiologists' Assistant Name Role Phone Josué Huff MD Primary Care Provider [phone] Encounter Details Date Type Department Care Team (Latest Contact Info) Description 01/31/2012 8:53 AM EDT - 01/31/2012 11:28 AM EDT Hospital Encounter Nuclear [place] [address] Squamous cell carcinoma of tonsil Social History [...] Sig Dispensed Refills Start Date End Date melatonin 3 mg Tab Take by mouth. OXYBUTYNIN CHLORIDE ORAL Take 10 mg by mouth daily. Terazosin 10 mg Tab Take 10 mg by mouth daily. benzonatate (TESSALON) 100 mg capsule Take 2 capsules by mouth 3 times daily as needed for Cough. 30 tablet 0 10/12/2011 08/08/2012 documented as of this encounter Plan of Treatment Not on file documented as of this encounter Procedures Procedure Name Priority Date/Time Associated Diagnosis Comments NM PET CT SKULL BASE TO MID-THIGH ([facility]) Routine 01/31/2012 11:23 AM EDT Squamous cell carcinoma of tonsil POCT GLUCOSE Routine 01/31/2012 9:35 AM EDT documented in this encounter Results * PET-CT skull base to mid thigh (01/31/2012 11:23 AM EDT) Anatomical Region Laterality Modality Other 01/31/2012 11:2 3 AM EDT Narrative 02/11/2012 5:38 PM EDT PET/CT SCAN, 01/31/12 Procedure:Following IV injection of 97-octcaw-0-deoxyglucose (FDG) and a standard uptake period, a non-contrast CT scan followed by a PET scan were acquired along the length of the body from the top of the head to the mid thighs. The non-contrast CT was used for anatomic localization and photon attenuation correction of the PET scan. Blood glucose level (mg/dL): 97 FDG dose: 13.8 mCi (0.15 mCi/kg to maximum of 18 mCi) Pre-medication: Xanax 0.5 mg p.o. Clinical History Patient has completed XRT and chemo for H&N cancer; please restage, 3mo post treatment. Comparison Outside hospital CT of the chest August 07, 2011; and ??CT of the head and neck September 06, 2011. ?? Findings Head/neck: There is mild increased metabolic activity in the right floor of the mouth adjacent to the mandible. ??Small CT visualized right level 2 lymph nodes have decreased in anatomic size and do not have metabolic activity above and background. Chest Normal metabolic activity is present. ??There is a calcified right middle lobe pulmonary nodule seen on axial image 150 which is consistent with a granuloma. ?? A left anterior chest MediPort is in place with the distal tip terminating deep in the right atrium, not significantly changed from the 08/07/[address] ?? Abdomen/Pelvis: A gastrostomy tube is present which is associated with mildly increased metabolic activity. Normal metabolic activity in the remainder of the abdomen and pelvis. Incidental note made of multiple nonobstructing right renal calculi. ?? Skeleton: Decreased marrow activity is present in the cervical spine, consistent with post radiation therapy. Increased activity seen within both glenohumeral joints likely secondary to glenohumeral osteoarthritis. ??Normal marrow activity is present within the remainder of the axial and visualized appendicular skeleton. There is a CT-visualized metallic density structure within the thecal sac posterior to L5-S1 which may be a surgical clip. Impression Mild increased metabolic activity adjacent to the right mandible nearthe floor of the mouth favored to represent dental inflammatory disease. No specific evidence of residual/recurrent tumor or metastatic disease. Thank you for referring this patient to the [facility] PET Center. Film and interpretation reviewed by the attending Procedure Note Yolanda Izaugirre MD - 02/11/2012 PET/CT SCAN, 01/31/12 Procedure:Following IV injection of 89-jpiuxe-9-deoxyglucose (FDG) and a standard uptake period, a non-contrast CT scan followed by a PET scan were acquired along the length of the body from the top of the head to the mid thighs. The non-contrast CT was used for anatomic localization and photon attenuation correction of the PET scan. Blood glucose level (mg/dL): 97 FDG dose: 13.8 mCi (0.15 mCi/kg to maximum of 18 mCi) Pre-medication: Xanax 0.5 mg p.o. Clinical History Patient has completed XRT and chemo for H&N cancer; please restage, 3mopost treatment. Comparison Outside hospital CT of the chest August 07, 2011; and CT of the head andneck September 06, 2011. Findings Head/neck: There is mild increased metabolic activity in the right floor of the mouth adjacent to the mandible. Small CT visualized right level 2 lymph nodeshave decreased in anatomic size and do not have metabolic activity above and background. Chest Normal metabolic activity is present. 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 A left anterior chest MediPort is in place with the distal tip terminatingdeep in the right atrium, not significantly changed from the 08/07/11 [address]CT[address] Abdomen/Pelvis: A gastrostomy tube is present which is associated with mildly increased metabolic activity. Normal metabolic activity in the remainder of theabdomen and pelvis. Incidental note made of multiple nonobstructing right renal calculi. Skeleton: Decreased marrow activity is present in the cervical spine, consistentwith post radiation therapy. Increased activity seen within both glenohumeraljoints likely secondary to glenohumeral osteoarthritis. Normal marrow activityis present within the remainder of the axial and visualized appendicularskeleton. There is a CT-visualized metallic density structure within the thecal sac posterior to L5-S1 which may be a surgical clip. Impression Mild increased metabolic activity adjacent to the right mandible nearthefloor of the mouth favored to represent dental inflammatory disease. No specific evidence of residual/recurrent tumor or metastatic disease. Thank you for referring this patient to the [facility]. Film and interpretation reviewed by the attending Jacoby Gaines MD IMG PET ORDERABLES * POCT GLUCOSE (01/31/2012 9:35 AM EDT) [facility] Signature Glucose, POC 97 60 - 199 mg/dL ARIELLA [facility] Comment: Supplemental ranges: <110 mg/dL before meals <200 mg/dL all other times of the day Blood specimen (specimen) 01/31/2012 9:35 AM EDT 01/31/2012 9:35 AM EDT Jacoby Gaines MD POINT OF CARE TEST O RDERABLES ARI[facility]LLA [employer] documented in this encounter Visit Diagnoses Diagnosis Squamous cell carcinoma of tonsil Malignant neoplasm of tonsil documented in this encounter Administered Medications Inactive Administered Medications - up to 3 most recent administrations Medication Order MAR Action Action Date Dose Rate Site ALPRAZolam (XANAX) tablet 0.5 mg 0.5 mg, Oral, ONCE, 1 dose, On Maite 01/31/12 at 0830, Routine Given 01/31/2012 9:15 AM EDT 0.5 mg documented in this encounter Care Teams Anesthesiologists' Assistant Relationship Specialty Start Date End Date Josué Huff MD [address] [place] [address] PCP - General 08/02/11 documented as of this encounter
--- OUTSIDE RECORDS SUMMARY | 2024-05-03 16:11 | XMS_ITS | Encounter Summary ---
Author Organization [facility] [place] [address] Care Team Providers Care Liquefaction And Regasification Helper Name Role Phone Josué Huff MD Primary Care Provider [phone] Encounter Details Date Type Department Care Team (Late st Contact Info) Description 11/02/2011 11:00 AM EDT Ancillary Appointment Hematology Oncology at [address] [address] [facility] [place] [address] Social History Tobacco Use Types Packs/Day Years [...] of this encounter Progress Notes * William Petit RD - 11/02/2011 12:02 PM EDT [facility] Dietitian Follow Up Seen By: Monet Petit MS, RD, LD Referred by: H/N team, Guanako Garrido RD at [place] Reason for visit: Patient and diagnosis: 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 Recent in-pt from Saturday 10/28 - 10/31/11. Assessment: HPI: He is now completed the 4th week of 7 weeks of radiation. Weight continues to decrease. He hasnoted that his taste is off things taste metallic but he states that this started before he had radiation or chemotherapy, he attributes it to a yeast infection he had back in June. Currently on week 5 of chemo. Meds: reviewed Labs: NNL Ht: Oncology Vitals 09/20/2011 Height 177 cm Wt: 95.074 kg On 11/02/11 Previous Wt. : 96.3 kg on 10/25/11; 2.2% weight decrease in one week: Moderate Previous weight: 98.431 kg 1% weight decrease in one week, Minimal 99.38 kg Previous Wt: 223 lbs -> 227 lbs. Oncology Vitals 09/20/2011 Weight 103 kg Innitial Wt: 231 lbs Wt Hx: UBW: 220 lbs % UBW: IBW: 160 +/- 10 % ( 80 kg) % IBW: 128.75% BMI:32.9 ___ Edema ___ Ascites ___Muscle wasting Calorie needs: 25 -30 @ 80 k - 2400 kcals Protein needs: 1.5 @ 80 k kg Food Intake: Gags with every time he eats. Bringing up phlegm. PO: Water ~ 32 + ounces, sips water all day long. Meds, Attempted maypo and jello. G-tube: continues to flush daily with water, 7 cans Jevity 1.5/day to provide 2485 kcals, 106 gramsprotein and 1260 cc water. Flushing with 60 ccs before and after each feeding. Also one scoop protein TID with feedings. This makes total kcal at 2560 and protein at 124 g protein. Also hydrating with 1000 ccs BID. Has been supplementing [facility] up until a few days ago when he ran out. This provides 560 kcals and23 gm protein. Teas, vitamins, or other nutritional supplements: none Food allergies or avoidances: nkfa Appetite: 0/10 scale :no longer has appetite or urge to eat Nausea: denies Vomiting: denies Chewing: denies Dentition: upper dentures, bottom partial Swallowing: pain with swallowing, taking water P.O. Mouth sores: +, redness, Thrush, BML on board, that 's the only thing that doesn't gag me. Xerostomia: +, doin soda/salt rinses 10-12 times/day, has biotene and oasis spray on board Taste Changes: +, everything taste like krap Bowels: last BM on , 10/30. Food availability/purchasing, meal planning and preparation: Brother on board, Oliverio prepares meals. Says he won't eat brother's food. Social Support: Nathaniel, anjanaer is helping to take care of him during treatment cell [phone] Economic Issues: [place] Physical Activity: walks dog daily, gets out at least 3-4 times daily for walks, about 10-15 minutes/time. 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 Current g-tube intake is not meeting calorie demands as evidenced by continued weight loss, total of 8.3% of overall body weight. We've discussed adjusting his feeding routine for nocturnal, pump feedings. [facility] pump was received on11/01/11. [facility] services are expected later today (11/02/11) for pump orientation/med management. Recommended he purchase Benecal and have one/day. In lieu of this, suggested he add 1 tablespoon ofolive oil per feeding to substitute, as this should add an additional 300 kcals. Also, discussed these details with Nathaniel (brother). Also encouraged to increase his P.O. Water intake as he stated he is just taking sips throughout the day. This is a drastic decrease from what he was consuming before his inpatient stay. Isabella Garcia RN and I re-enforced importance of regularity with BMs and recommended starting OTC miralax, once/day in p.m. If no BM by noontime next day, take an additional dose. TF: 7 cans Jevity 1.5/day to provide 2485 kcals, 106 grams protein and 1260 cc water. Recommend 3 scoops protein powder a day to meet protein needs(one scoop provides 6 grams protein and 25 kcals). This regimen provides a total of 2560 and protein at 124 g protein. Recommend 1 Benecal/day to provide an additional 330 kcals and 7 gm protein. Total kcal: 2890 and protein 131 gm. He will need an additional 580 cc's of fluids either via tube or taken p.o. For Pump: 5 cans overnight via pump @ 100ml/hr x 12 hours (7pm-7am) And 2 cans at noon via gravity Provided pump bags until [facility] could provide them next week. Nutrition Intervention: Increase caloric And protein needs:see above. Increase frequency of meals and snacks: g-tube recommendations, as much p.o. 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 Educational Handouts provided: -- G-tube/J-tube feeding booklet Other Recommendations: None Monitoring and Evaluation: Will follow up with Mr. Salazar in on Saturday to check for pump feeding tolerance. Otherwise, follow up on Saturday. I have spent>45 minutes with him/her in discussion and nutrition counseling. I have provided himwith my card and contact information should he have any questions in the mean time. documented in this encounter Plan of Treatment Not on file documented as of this encounter Visit Diagnoses Not on filedocumented in this encounter Care Teams Liquefaction And Regasification Helper Relationship Specialty Start Date End Date Josué Huff MD [address] [place] [address] PCP - General 08/02/11 documented as of this encounter
--- OUTSIDE RECORDS SUMMARY | 2024-05-03 16:11 | XMS_ITS | Encounter Summary ---
Author Organization [facility] [place] [address] Care Team Providers Care Direct Marketing Executive Name Role Phone Josué Huff MD Primary Care Provider [phone] Reason for Visit * Reason Comments Follow-up Encounter Details Date Type Department Care Team (Late st Contact Info) Description 12/28/2011 10:00 AM EDT Follow-Up Hematology Oncology at [address] [phone] Trinity Chopra, RENEWALS MANAGER [address] [facility] [place] [address] Squamous cell carcinoma of tonsil (Primary Dx) [...] Sign Reading Time Taken Comments Blood Pressure 117/55 12/28/2011 10:00 AM EDT Pulse 59 12/28/2011 10:00 AM EDT Temperature 36.9 ??C (98.4 ??F) 12/28/2011 10:00 AM E DT Respiratory Rate 18 12/28/2011 10:00 AM EDT Oxygen Saturation 98% 12/28/2011 10:00 AM EDT Inhaled Oxygen Concentration - - Weight 91 kg (200 lb 9.9 oz) 12/28/2011 10:00 AM EDT Height 177 cm (5' 9.69) 12/28/2011 10:00 AM EDT Body Mass Index 29.05 12/28/2011 10:00 AM EDT documented in this encounter Progress Notes * Ce Fisher - 01/01/2012 4:02 PM EDT * Trinity Chopra APRN - 12/28/2011 10:28 AM EDT [place] [address] FOLLOW-UP PATIENT EVALUATION CHIEF COMPLAINT: Oliverio Salazar Jr. is seen today in the multidisciplinary clinic for Head and Neck Cancer follow-up. Patient Active Problem List Diagnoses ??? Rotator cuff tear ??? Squamous cell carcinoma of tonsil ?? Squamous cell carcinoma of the tonsil, [id number] ?? Presentation: ?? Onset neck stiffness 04/2011, [...] - 3rd held due tomyelosuppression. INTERIM HISTORY: Time from Rx completion: 8wks out. Top of mouth and throat continue to be painful but taking oxycodone 4x/d; before meals and at bedtime. neg pos comment Medical events: x none Major problems: x none Dysphagia: x Starting to eat more solids. Eating soft solids at this point. Odynophagia: x None Aspiration symptoms: x none Xerostomia: x Drinking water Taste sensation: x Limiting factor for eating. Diet restrictions: x still a soft diet; recovering taste and swallow ability. Functional status: x good Dental problems: x he has begun to use his dentures very carefully; he is aware that he needs to becareful not to get a sore in his mouth from rubbing ROS Neuro: Denies dizziness, H/A, gait changes, numbness or tingling; vision or hearing changes Change in adenopathy or other masses: No C/V: Denies chest pain, palpitations or swelling of extremities Resp: No SOB, wheezing, or coughing GI: Bowels regular, denies abdominal pain Nutrition: [] oral [] feeding tube [x] combination Appetite: Good; he is back of his tube feeds during the day so that he can eat orally instead : Urinary pattern normal; denies pain, frequency, urgency, or incontinence Musculoskeletal complaints: None Skin: No changes, rashes, lumps INTERIM SOCIAL HISTORY Changes in job, home situation, tobacco or alcohol use: None Psychosocial/spiritual issues: He has begun to spend time out in the garden and with friends. He ismuch more upbeat today and he is enjoying his warnings as he is more energy in the mornings than inthe afternoons. CHANGES IN RELEVANT FAMILY HISTORY:None Filed Vitals: 12/28/11 1000 BP: 117/55 Pulse: 59 Temp: 36.9 ??C (98.4 ??F) Resp: 18 PHYSICAL EXAM General appearance: well-appearing in no acute distress Nutritional status: good; he has been gaining weight Skin: skin the treatment area is nearly healed from his dry desquamation; he has some small areas of brown peeling skin otherwise completely normal Oral: oral mucosa is normal without evidence of infection; his tongue still appears with relativelysignificant hyperkeratosis however this is improved since I last saw him 2 weeks ago. Dentition: no changes Neck: The neck is supple without adenopathy noted bilaterally. Good ROM in all directions. Peripheral nodes: No lymphadenopathy noted. Chest: Examination of the chest was unremarkable. There were no bony deformities, no asymmetry, or other abnormalities. Clear to auscultation bilaterally without wheezes or crackles. Heart: S1 S2 are normal without rubs or gallops. Regular rate and rhythm. Abdomen: Abdominal exam revealed normal bowel sounds. The abdomen was soft, non- tender, and withoutmasses or hepatosplenomegaly.PEG tube is in place and functioning well without evidence of infection. Extremties: Examination of the extremities revealed no cyanosis, clubbing or edema. Neurologic: Neurologically, the patient was awake, alert, and oriented to person, place and time. There were no obvious focal neurologic abnormalities. Cranial nerves grossly intact. EOMs normal. Fiberoptic laryngoscopy: not performed today LABORATORY STUDIES Thrush culture done 3 weeks ago is negative RADIOLOGY STUDIES REVIEWED: None today Impression: Recovering well from treatment toxicities. Hyperkeratosis of the tongue PLAN - He has been brushing his tongue and the culture done 3 weeks ago has been negative so at this point I will not start Diflucan and assume that the remainder of the hyperkeratosis is indeed just thatand not thrush Followup: I will see him back in 2 weeks and at that time make a plan for removal of his PEG tube. Between now and then he is encouraged to increase his by mouth intake to the point where he could beindependent of his tube. He does not need any further pain prescriptions at this time. I believe by the time he runs out of his oxycodone liquid he will no longer need pain medications for his cancer pain. Therefore I will defer further pain medications to his primary care physician from this point onward as he has been onopioids for his back for quite a while, and prior to his cancer diagnosis. This note prepared with voice recognition software; minor business intelligence director errors may result. Trinity Chopra, MSN, RENEWALS MANAGER, [facility] Hematology/Medical Oncology [phone] documented in this encounter Procedure Notes * Provider, Scanning - 12/31/2011 10:49 AM EDTAssociated Order(s): SCAN DOC: LAB documented in this encounter Plan of Treatment Not on file documented as of this encounter Procedures Procedure Name Priority Date/Time Associated Diagnosis Comments LAB SCAN 12/31/2011 10:49 AM EDT documented in this encounter Results * (ABNORMAL) Comprehensive metabolic panel (non-fasting) (01/31/2012 11:50 AM EDT) Glucose 91 60 - 199 mg/dL CERNER MILLENNIUM Comment:Diabetes: >=200 mg/d L plus symptoms Blood Urea Nitrogen 24(H) 10 - 20 mg/dL CERNER MILLENNIUM Creatinine 0.93 0.80 - 1.50 mg/dL CERNER MILLENNIUM Comment: Please note that the pediatric reference intervals supplied above were not validated at [facility]. Results from pediatric patients should be interpreted in conjunction to the patient's age, height and muscle mass. Sodium 138 135 - 145 mmol/L CERNER MILLENNIUM Potassium 4.4 3.5 - 5.0 mmol/L CERNER MILLENNIUM Comment: Please note: ??Patients with WBC >100,000 may have falsely elevated Potassium levels. ??For accurate Potassium quantification in these patients send serum separator tube (gold top) for subsequent determinations. ??Contact the Clinical Chemistry Laboratory if there are any questions. Chloride 103 98 - 107 mmol/L CERNER MILLENNIUM Carbon Dioxide 26 22 - 31 mmol/L CERNER MILLENNIUM Anion Gap 9 5 - 15 mmol/L CERNER MILLENNIUM Calcium 9.3 8.5 - 10.5 mg/dL CERNER MILLENNIUM Protein, Total 7.0 6.4 - 8.3 gm/dL CERNER MILLENNIUM Albumin 4.3 3.2 - 5.2 gm/dL CERNER MILLENNIUM Aspartate Aminotransferase 19 0 - 39 unit/L CERNER MILLENNIUM Alanine Aminotransferase 26 0 - 55 unit/L CERNER MILLENNIUM Alkaline Phosphatase 82 40 - 120 unit/L CERNER MILLENNIUM Bilirubin, Total 0.3 0.2 - 1.3 mg/dL CERNER MILLENNIUM Bilirubin, Direct 0.1 0.0 - 0.3 mg/dL CERNER MILLENNIUM Est Glomerular Filtration Rate >60 >=60 CERNER MILLENNIUM Comment: The National Kidney Disease Education Program (NKDEP) has recommended all laboratories report estimated GFR (eGFR) along with plasma creatinine measurements to assist you with recognition of early kidney disease. Caveats: ??Plasma creatinine should be at steady-state (unchanged within the past week). For patients multiply eGFR by 1.2. The MDRD equation was developed using patients between the ages of 18 and 70 years. ?? The MDRD equation has not been validated for patients < 18 years of age and should not be used to assess renal function in the pediatric population. ??The MDRD eGFR equation will also overestimate the true GFR of patients above the age of 70. ??This overestimation is variable but increases with age. At present, NKDEP does NOT recommend using the MDRD equation for drug dosing purposes and pharmacists should continue to use their current dosing methods. In addition, numerical eGFR values greater than 60 ml/min/1.73 square meters should be treated as > 60, and not an exact number due to greater inaccuracies at these higher values. Per NKDEP, they classify normal renal function as any GFR >60ml/min/1.73 square meters; chronic kidney disease when GFR <60, and renal failure when GFR <15. ??This calculation may not be valid for patients with atypical muscle mass (very lean or obese), acute renal failure, and in patients with diabetic kidney disease. References: http://nkdep.nih.gov/resources/NKDEP_Suggestn4Labs_0606_508.pdf http://www.kidney.org/professionals/kls/pdf/faq_gfr.pdf Grace K, Stephanie NA, Ana M AK, Florencio TS, Lisa AD, Sharon ENID. Relative performance of the MDRD and CKD-EPI equations for estimating glomerular filtration rate among patients with varied clinical presentations. Clin J Am Soc Nephrol;6:1963-72. Blood specimen (specimen) 01/31/2012 11:50 AM EDT 01/31/2012 12:02 PM EDT Narrative Resulting Agency Comment Spec In Lab Jacoby Gaines MD CHEMISTRY ORDERABLES [facility] * TSH (01/31/2012 11:50 AM EDT) Thyroid Stimulating Hormone 1.56 0.27 - 4.20 mcIU/mL CERNER MILLENNIUM Blood specimen (specimen) 01/31/2012 11:50 AM EDT 01/31/2012 12:02 PM EDT Narrative Resulting Agency Comment Spec In Lab Jacoby Gaines MD CHEMISTRY ORDERABLES [facility] * (ABNORMAL) CBC (with Diff) (01/31/2012 11:50 AM EDT) White Blood Cell 3.4(L) 4.0 - 10.0 x10(3)/mc L CERNER MILLENNIUM Red Blood Cell 3.77(L) 4.63 - 6.08 x10(6)/mc L CERNER MILLENNIUM Hemoglobin 13.0(L) 13.7 - 17.5 gm/dL CERNER MILLENNIUM Hematocrit 35.9(L) 40.0 - 51.0 % CERNER MILLENNIUM Mean Cell Volume 95.2(H) 79.0 - 92.0 fL CERNER MILLENNIUM Mean Cell Hemoglobin 34.5(H) 25.6 - 32.2 pg CERNER MILLENNIUM Mean Cell Hemoglobin Concentration 36.2 32.0 - 36.5 gm/dL CERNER MILLENNIUM Platelet 148 145 - 370 x10(3)/mc L CERNER MILLENNIUM RDW Standard Deviation 42.8 35.0 - 46.0 fL CERNER MILLENNIUM RDW coefficient of variation 12.4 10.9 - 14.4 % CERNER MILLENNIUM Mean Platelet Volume 10.1 9.0 - 12.0 fL CERNER MILLENNIUM Blood specimen (specimen) 01/31/2012 11:50 AM EDT 01/31/2012 12:02 PM EDT Narrative Resulting Agency Comment Spec In Lab Jacoby Gaines MD HEMATOLOGY ORDERABLE S [facility] * PET-CT skull base to mid thigh (01/31/2012 11:23 AM EDT) Anatomical Region Laterality Modality Other 01/31/2012 11:2 3 AM EDT Narrative 02/11/2012 5:38 PM EDT PET/CT SCAN, 01/31/12 Procedure:Following IV injection of 08-sghqnf-6-deoxyglucose (FDG) and a standard uptake period, a [...] you for referring this patient to the [facility]. Film and interpretation reviewed by the attending Procedure Note Yolanda Izaguirre MD - 02/11/2012 PET/CT SCAN, 01/31/12 Procedure:Following IV injection of 64-laqmva-0-deoxyglucose (FDG) and a standard uptake period, a [...] you for referring this patient to the [facility]. Film and interpretation reviewed by the attending Jacoby Gaines MD IMG PET ORDERABLES * SCAN DOC: LAB (12/31/2011 10:49 AM EDT) Narrative 12/31/2011 10:49 AM EDT Procedure Note Provider, Scanning - 12/31/2011 10:49 AM EDT Scanning Provider MEDIA MGR SCAN EXT O RDR/RSLT documented in this encounter Visit Diagnoses Diagnosis Squamous cell carcinoma of tonsil- Primary Malignant neoplasm of tonsil Squamous cell carcinoma of tonsil Malignant neoplasm of tonsil documented in this encounter Care Teams Direct Marketing Executive Relationship Specialty Start Date End Date Josué Huff MD [address] [place] [address] PCP - General 08/02/11 documented as of this encounter
--- OUTSIDE RECORDS SUMMARY | 2024-05-03 16:11 | XMS_ITS | Encounter Summary ---
Author Organization [facility] [place] [address] Care Team Providers Care Socket Welder Helper Name Role Phone Josué Huff MD Primary Care Provider [phone] Reason for Visit * Reason Comments Follow-up Encounter Details Date Type Department Care Team (Late st Contact Info) Description 03/27/2012 2:00 PM EST Follow-Up Hematology Oncology at [address] [phone] Trinity Chopra, SENIOR LIBRARIAN [address] [facility] [place] [address] Squamous cell carcinoma of tonsil; Rotator cuff tear Discharge Disposition: Home Social History Tobacco Use [...] Sign Reading Time Taken Comments Blood Pressure 122/87 03/27/2012 1:53 PM EST Pulse 56 03/27/2012 1:53 PM EST Temperature 36.5 ??C (97.7 ??F) 03/27/2012 1:53 PM ES T Respiratory Rate 18 03/27/2012 1:53 PM EST Oxygen Saturation 96% 03/27/2012 1:53 PM EST Inhaled Oxygen Concentration - - Weight 90.6 kg (199 lb 11.8 oz) 03/27/2012 1:53 PM EST Height - - Body Mass Index 28.92 02/06/2012 12:53 PM EDT documented in this encounter Progress Notes * Trinity Chopra, SENIOR LIBRARIAN - 03/27/2012 3:01 PM EST Oncology Clinic [place] [phone] FOLLOW-UP PATIENT EVALUATION CHIEF COMPLAINT: Oliverio Nava Martin García is seen today in the multidisciplinary clinic for Head and Neck Cancer follow-up. Patient Active Problem List Diagnoses ??? Rotator cuff tear ??? Squamous cell carcinoma of tonsil ?? Squamous cell carcinoma of the tonsil, [id number]; tobacco-associated ?? Presentation: ?? Onset neck stiffness [...] bad shortly after ingestion. Dry mouth continues. The only foods at this time that he can eat R. noodles, post aches, oatmeal, and mashed potatoes with nothing on them. Sometimes corn is okay. No [place] or will go down. Foods which are spicy, sweet- meats or any other vegetables make him nauseated. Otherwise he is doing quite well and is completely asymptomatic at this time. Time from Rx completion: He is 5 months from completion of treatment. ROS Neuro: [...] CHANGES IN RELEVANT FAMILY HISTORY:None Filed Vitals: 03/27/12 1353 BP: 122/87 Pulse: 56 Temp: 36.5 ??C (97.7 ??F) Resp: 18 PHYSICAL EXAM General appearance: [...] Fiberoptic laryngoscopy: not performed today LABORATORY STUDIES None today RADIOLOGY STUDIES REVIEWED: None today Impression: He has recovered well from his treatment and toxicities except for his taste changes. I believe this should have improved by now and suspect that he has thrush to his tongue and soft palate. He has had recurrent thrush over the course of his treatment; approximately 4-5 times. PLAN Thrush: I have given him a prescription for fluconazole, to take for 21 days. This will cover him until he sees Dr. Robledo at the OR. At that time I last Dr. Robledo to get a culture to make sure thathe does not have residual resistant thrush, as I have seen some cases lately of thrush strains which have been resistant to fluconazole. I've asked him to begin taking a multivitamin. Followup: per [facility] standard H/N followup schema. He is seeing Dr. Robledo at the end of this month. So I will plan to see him back in April. I am very hopeful that during this time we can begin to aggressively get him off of his tube feeds. I think if we can fix his taste issue he will come off quite quickly, as his swallow seems entirely functional. This note prepared with voice recognition software; minor information security architect errors may result. Trinity Chopra, MSN, SENIOR LIBRARIAN, [facility] Hematology/Medical Oncology [phone] documented in this encounter Plan of Treatment Not on file documented as of this encounter Visit Diagnoses Diagnosis Squamous cell carcinoma of tonsil Malignant neoplasm of tonsil Rotator cuff tear Complete rupture of rotator cuff documented in this encounter Care Teams Socket Welder Helper Relationship Specialty Start Date End Date Josué Huff MD [address] [place] [id number] PCP - General 08/02/11 documented as of this encounter
--- OUTSIDE RECORDS SUMMARY | 2024-05-03 16:11 | XMS_ITS | Encounter Summary ---
Author Organization [facility] [place] [address] Care Team Providers Care Staff Auditor Name Role Phone Josué Huff MD Primary Care Provider [phone] Reason for Visit * Reason Comments Other Mediport deaccess - chemotherapy cancelled Injections B12 injection Injections Aranesp injection Encounter Details Date Type Department Care Team (Late st Contact Info) Description 11/07/2011 11:05 AM EDT Office Visit Hematology Oncology at [address] [phone] Squamous cell carcinoma of tonsil Social History [...] as of this encounter Progress Notes * Aster Hathaway, ANGELO - 11/07/2011 11:22 AM EDT Treatment Started:1045 Treatment Ended:1115 Diagnosis: Head and Neck Cancer Treatment: Deaccess medport - chemotherapy cancelled/B12 injection and aranesp injection for hgb 9.2 today documented in this encounter Plan of Treatment Not on file documented as of this encounter Visit Diagnoses Diagnosis Squamous cell carcinoma of tonsil Malignant neoplasm of tonsil documented in this encounter Administered Medications Inactive Administered Medications - up to 3 most recent administrations Medication Order MAR Action Action Date Dose Rate Site cyanocobalamin (vitamin B-12) injection 1,000 mcg 1,000 mcg, Intramuscular, ONCE, 1 dose, On Sat11/07/11 at 1100, Routine Given 11/07/2011 11:10 AM EDT 1,000 mcg Right Arm darbepoetin camila-polysorbate (ARANESP) injection Syrg 200 mcg 200 mcg, Subcutaneous, ONCE, 1 dose, On Sat11/07/11 at 1100, Routine, What is the indication of use? Chemotherapy-induced anemia / HgB = 9.2 Given 11/07/2011 11:05 AM EDT 200 mcg 20-Other (document in comment section) documented in this encounter Care Teams Staff Auditor Relationship Specialty Start Date End Date Josué Huff MD [address] [place] [address] PCP - General 08/02/11 documented as of this encounter
--- OUTSIDE RECORDS SUMMARY | 2024-05-03 16:11 | XMS_ITS | Encounter Summary ---
Author Organization [facility] [place] [address] Care Team Providers Care Production Cell Leader Name Role Phone Josué Huff MD Primary Care Provider [phone] Encounter Details Date Type Department Care Team (Late st Contact Info) Description 11/12/2011 11:45 AM EDT Ancillary Appointment Hematology Oncology at [address] [phone] [facility] [place] [address] Social History Tobacco Use Types Packs/Day Years [...] Progress Notes * William Petit RD - 11/12/2011 12:20 PM EDT [facility] Dietitian Follow Up Seen By: Monet Petit MS, RD, LD Referred by: H/N team, Guanako Garrido RD at [place] Reason for visit: Patient and diagnosis: 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 Recent in-pt from Saturday 10/28 - 10/31/11. Completed RT on October,. Assessment: HPI: Saturday11/12/11 is final day of RT. Weight continues to decrease. He has noted that his taste is off things taste metallic but he states that this started before he had radiation or chemotherapy,he attributes it to a yeast infection he had back in June. Completed week 5 of chemo. Returns on final day with c/o N/V loss of 1 kg over the weekend. Meds: reviewed Labs: reviewed Ht: Oncology Vitals 09/20/2011 Height 177 cm Wt: 92 kg on 11/09/11 Previous Wts: 93 kg on 11/09/11; 2.2% decrease in one week: moderate 95.074 kg On 11/02/11 96.3 kg on 10/25/11; 2.2% weight decrease in one week: Moderate 98.431 kg 1% weight decrease in one week, Minimal Innitial Wt: 231 lbs / 105 kg Wt Hx: UBW: 220 lbs % UBW: IBW: 160 +/- 10 % ( 80 kg) % IBW: 128.75% BMI:32.9 ___ Edema ___ Ascites ___Muscle wasting Calorie needs: 25 -30 @ 80 k - 2400 kcals Protein needs: 1.5 @ 80 k kg Food Intake: PO: Sips 2-3 pints of water/day. Takes compazine and another med p.o. G-tube: See below Teas, vitamins, or other nutritional supplements: none Food allergies or avoidances: nkfa Appetite: 0/10 scale :no longer has appetite or urge to eat Nausea: + Vomitin- 3 times on Saturday p.m, but says he spent the whole weekend trying not to vomit. Heartburn: + Mucositis: +, stringy and gacky phlegm. Uses BMX to perform baking soda/salt rinses Chewing: denies Dentition: upper dentures, bottom partial Swallowing: pain with swallowing, taking water P.O. Mouth sores: +, redness, Xerostomia: +, doin soda/salt rinses 10-12 times/day, has biotene and oasis spray on board Taste Changes: +, everything taste like krap and smells off Bowels: yesterday am, more regular than when he first was d/c'd. Taking miralax daily in pm. Food availability/purchasing, meal planning and preparation: Brother on board, Oliverio prepares meals. Says he won't eat brother's food. Social Support: Nathaniel brother is helping to take care of him during treatment cell [phone] Economic Issues: [place] Physical Activity: walks dog daily, gets out at least 3-4 times daily for walks, about 10-15 minutes/time. 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 Current g-tube intake is not meeting calorie demands as evidenced by continued weight loss, total of 8.3% of overall body weight. We've discussed adjusting his feeding routine for nocturnal, pump feedings. [facility]. [facility] services are expected later today (11/02/11) for pump orientation/med management. TF: 8 cans of Jevity 1.5 via pump (6 nocturnal, 2 at noon time) providin kcals, 83 g protein, 1440 ccs free water. Flushing 60 ccs before and after feedings to provide an additional 240 ccs's free water. Also one scoop protein TID via syringe to provide and additional 18 gm protein and 75 kcals. With at least 8 ounces water per time. Hydration via gravity bag BID with 1000 mls. Total kcals: 2915. Total protein: 101. Total free water: ~5140 ccs Recommend 2 Benecal/day to provide an additional 660 kcals and 14 gm protein to stabilize weight. Re - faxed orders into [facility] for script on 11/09/11. Suspect that Dionisio has been taking in too much liquid and this has led to his c/o nausea and vomitting. Recommended he reduce his free water consumption, as he could possibly be taking in up to 6000 mls/day through his tube and p.o. Re- iterated the beneprotein requires only 1/2 cup of liquid and benecalorie can be mixed into this amount, too. Also, the BID gravity bag hydration could be reduced toonce/day, as he is still very concerned with preventing dehydration. He does return to clinic on , 11/14/11 to see Monica Naranjo. If he is still experiencing N/V, re-iterated to make sure she's awareand if needed, an additional antinausea med can be added. Nutrition Intervention: Increase caloric And protein needs:see above. Increase frequency of meals and snacks: g-tube recommendations, as much p.o. As tolerable Need for supplements: Benecalorie BID Nutrition Goals: Weight maintenance and LBM preservation for MANIFOLD OPERATOR. Educational Handouts provided: -- G-tube/J-tube feeding booklet Other Recommendations: None Monitoring and Evaluation: Will follow up with Mr. Salazar. documented in this encounter Plan of Treatment Not on file documented as of this encounter Visit Diagnoses Not on filedocumented in this encounter Care Teams Production Cell Leader Relationship Specialty Start Date End Date Josué Huff MD [address] [place] [id number] PCP - General 08/02/11 documented as of this encounter
--- OUTSIDE RECORDS SUMMARY | 2024-05-03 16:11 | XMS_ITS | Encounter Summary ---
Author Organization [facility] [place] [address] Care Team Providers Care Poultry Picker Name Role Phone Josué Huff MD Primary Care Provider [phone] Encounter Details Date Type Department Care Team (Late st Contact Info) Description 04/22/2012 8:00 AM EST Ancillary Appointment Hematology Oncology at [address] [phone] William Petit, JAYDEN [facility] [place] [address] Social History Tobacco Use Types Packs/Day Years [...] this encounter Progress Notes * William Petit, RD - 04/22/2012 8:35 AM EST TC to Dionisio Salazar for nutrition follow up. He is now 5+ mos out of RT. Left message. Dionisio returned the marlen later in the day. Eating cold cereal, mac and cheese, poached eggs, mashed pots, oatmeal. Some days will taste good, some days will taste foul. Meats taste terrible. Able to drink milk, but not a large volume at a time. Unable to tolerate sweets. Continues to utilize PEG.3 cans Jevity 1.5 [...] 92. Total free water: ~ 1030 ccs. Does eat p.o. Every day. Late am: [place] and 2 poached eggs Afternoon: cereal He should have completed 21 day cycle of fluconazole for thrush at this point, which didn't improvehis tastes. Stated Dr. Robledo started him on ABX for ? Of infection in his nose which may help his sense of smell. Wt is stable: ranges from 196 - 200 lbs. Encouraged him to cleanse mouth before eating p.o. Also encouraged him to rinse with baking soda/salt when p.o. Foods start to become foul tasting. Will continue to follow. documented in this encounter Plan of Treatment Not on file documented as of this encounter Visit Diagnoses Not on filedocumented in this encounter Care Teams Poultry Picker Relationship Specialty Start Date End Date Josué Huff MD [address] [place] [id number] PCP - General 08/02/11 documented as of this encounter
--- OUTSIDE RECORDS SUMMARY | 2024-05-03 16:11 | XMS_ITS | Encounter Summary ---
Author Organization [facility] [address] Care Team Providers Care Musical Instrument Maker Name Role Phone Josué Huff MD Primary Care Provider [phone] Reason for Visit * Reason Comments Follow-up Encounter Details Date Type Department Care Team (Late st Contact Info) Description 11/09/2011 3:00 PM EDT Follow-Up Radiation Oncology at [address] [phone] Jacoby Gaines MD [facility] [place] [address] Squamous cell carcinoma of tonsil (Primary Dx) [...] Sign Reading Time Taken Comments Blood Pressure 125/79 11/09/2011 3:09 PM EDT Pulse 74 11/09/2011 3:09 PM EDT Temperature - - Respiratory Rate 16 11/09/2011 3:09 PM EDT Oxygen Saturation 94% 11/09/2011 3:09 PM EDT Inhaled Oxygen Concentration - - Weight 93 kg (205 lb 0.4 oz) 11/09/2011 3:09 PM EDT Height - - Body Mass Index 29.68 11/07/2011 9:56 AM EDT documented in this encounter Progress Notes * Jacoby Gaines MD - 11/09/2011 3:26 PM EDT ON TREATMENT VISIT NOTE Primary MD: JOSUÉ HUFF MD Referring MD: Mick Other Involved Physicians: Venkatesh Boothe MD Focused Problem List: ?? Squamous cell carcinoma of the tonsil, [id number] ?? Presentation: ?? Onset neck stiffness 04/2011 [...] and directed biopsy (Robledo): ?? Findings: right rosina of tongue with [...] no definite evidence of lymph node sampling. Identification: Oliverio Nava Martin García is currently undergoing radiation therapy at [facility]. Current treatment dose: 68 Gy in 34 fractions. Anticipated total dose: 70 Gy in 35 fractions. Evaluation of Port Verification Films: done Changes in medical condition: Skin: Comments: Moderate erythema noted with dry desquamation Current Regimen: Jeans cream/Aquaphor BID 0 1 2 3 4 No change from baseline Follicular, faint or dull erythema/ epilation/dry desquamation/ decreased sweating Tender or bright erythema, patchy moist desquamation/ moderate edema Confluent, moist desquamatiom other than skin folds, pitting edema Ulceration, hemorrhage, necrosis Xerostomia: Comments: Dysgeusia, thick/sticky secretions 0 1 2 3 4 No change from baseline Sx without dietary alteration Moderate to complete dryness; thick, sticky saliva; markedly altered taste Inability to aliment orally, TPN or PEG indicated NA Mucositis: Comments: Pain increased, primarily with swallowing, now 11/26 Physical Exam: Patchy mucositis posterior oral cavity. No thrush evident. Current Pain Regimen: oxycodone prn (using 4x/day) and Fentanyl patch 0 1 2 3 4 No change from baseline Injection/ may experience mild pain not requiring analgesic Patchy mucositis & analgesia indicated, altered po intake Confluent mucosits; severe pain, unable to adequatelytake nutrition po Life threatening consequences Dysphagia: Alimentation: 1. By mouth: sips water, taking medicine. Unable to take anything by mouth because of taste, pain and difficulty with gagging 2. via PE-8 cans/day 0 1 2 3 4 No change from baseline Sx without dietary alteration Moderate sx, altered oral intake Inability toaliment orally, TPN or PEG indicated NA Weight : 231 lbs initial Change: 212 => 205 Larynx: Comments: 0 1 2 3 4 No change from baseline Mild or intermittent voice change; fully understandable, self- resolves Moderate or persistent voice change, able to vocalize; otalgia/ sore throat not requiring narcotic Whispered speech, throat pain/otalgia requiring narcotic Marked dyspnea, stridor or hemoptysis with trach or intubation necessary Other: ?? Impression: ?? Significant toxicity, dysgeusia, pain limiting oral intake complicated by gagging. Now on nystatin with no thrush. Diminished oral intake has led to consistent weight loss, now s/p hospitalizationwith modification of his feeding regimen. VNA is following and he states that he is following his dietary regimen except for one night this week when the bag failed. Telecommunications Technician working with him extensively. Skin toxicity moderate. Plan: ?? Continue RT per prescription ?? Pain control: ?? Oxycodone prn, using every 5-6 hrs ?? Fentanyl patch ?? Skin: Jeans cream BID ?? Mucositis: ?? Pain control: see above ?? Oral hygiene consisting of baking soda/salt rinse at least 8 times daily ?? BMX prn ?? Alimentation: pipeline dispatch operator following ?? Weight decreased, primarily due to dysgeusia and dysphagia related to gagging. Telecommunications Technician making cont'd modifications to caloric and protein intake via PEG. ?? FU: follow up next week. documented in this encounter Plan of Treatment Not on file documented as of this encounter Visit Diagnoses Diagnosis Squamous cell carcinoma of tonsil- Primary Malignant neoplasm of tonsil documented in this encounter Care Teams Musical Instrument Maker Relationship Specialty Start Date End Date Josué Huff MD [address] [place] [id number] PCP - General 08/02/11 documented as of this encounter
--- OUTSIDE RECORDS SUMMARY | 2024-05-03 16:11 | XMS_ITS | Encounter Summary ---
Author Organization [facility] [place] [address] Care Team Providers Care Drop Crew Laborer Name Role Phone Josué Huff MD Primary Care Provider [phone] Encounter Details Date Type Department Care Team (Late st Contact Info) Description 11/09/2011 11:00 AM EDT Ancillary Appointment Hematology Oncology at [address] [phone] [facility] [place] [address] Social History Tobacco Use Types Packs/Day Years [...] Progress Notes * William Petit RD - 11/09/2011 3:57 PM EDT [facility] Dietitian Follow Up Seen By: Monet Petit MS, RD, LD Referred by: H/N team, Guanako Garrido RD at [place] Reason for visit: Patient and diagnosis: 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 Recent in-pt from Saturday 10/28 - 10/31/11. Assessment: HPI: Saturday11/12/11 is final day of RT. Weight continues to decrease. He has noted that his taste is off things taste metallic but he states that this started before he had radiation or chemotherapy,he attributes it to a yeast infection he had back in June. Currently on week 5 of chemo. Meds: reviewed Labs: reviewed Ht: Oncology Vitals 09/20/2011 Height 177 cm Wt: 93 kg on 11/09/11; 2.2% decrease in one week: moderate Previous Wt: 95.074 kg On 11/02/11 Previous Wt. [...] @ 80 k kg Food Intake: PO: Water ~ 32 + ounces, sips water all day long. Takes compazine and another med p.o. G-tube: See below Teas, vitamins, or other nutritional supplements: none Food allergies or avoidances: nkfa Appetite: 0/10 scale :no longer has appetite or urge to eat Nausea: + Heartburn: + Mucositis: + Vomiting: denies Chewing: denies Dentition: upper dentures, bottom partial Swallowing: pain with swallowing, taking water P.O. Mouth sores: +, redness, Thrush, BML on board, that 's the only thing that doesn't gag me. Xerostomia: +, doin soda/salt rinses 10-12 times/day, has biotene and oasis spray on board Taste Changes: +, everything taste like krap Bowels: yesterday am, more regular than when he first was d/c'd. Taking miralax daily in pm. Food availability/purchasing, meal planning and preparation: Brother on board, Oliverio prepares meals. Says he won't eat brother's food. Social Support: anjana Armstronger is helping to take care of him during treatment cell [phone] Economic Issues: [place] Physical Activity: walks dog daily, gets out at least 3-4 times daily for walks, about 10-15 minutes/time. 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 TF: 8 cans of Jevity 1.5 via pump (6 nocturnal, 2 at noon time) providin kcals, 83 g protein, 1440 ccs free water. Flushing 60 ccs before and after feedings to provide an additional 240 ccs's free water. Also one scoop protein TID via syringe to provide and additional 18 gm protein and 75 kcals. With about 8 ounces water per time. Hydration via gravity bag BID with 1000 mls. Total kcals: 2915. Total protein: 101. Total free water: ~5140 ccs . Recommend 2 Benecal/day to provide an additional 660 kcals and 14 gm protein to stabilize weight. [facility] Nutrition Intervention: Increase caloric And protein needs:see above. Increase frequency of meals and snacks: g-tube recommendations, as much p.o. 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 Educational Handouts provided: -- G-tube/J-tube feeding booklet Other Recommendations: None Monitoring and Evaluation: Will follow up with Mr. Salazar in on Saturday to check for weight. Otherwise, follow up on Saturday. I have spent>45 minutes with him/her in discussion and nutrition counseling. I have provided himwith my card and contact information should he have any questions in the mean time. documented in this encounter Plan of Treatment Not on file documented as of this encounter Visit Diagnoses Not on filedocumented in this encounter Care Teams Drop Crew Laborer Relationship Specialty Start Date End Date Josué Huff MD [address] [place] [id number] PCP - General 08/02/11 documented as of this encounter
--- OUTSIDE RECORDS SUMMARY | 2024-05-03 16:11 | XMS_ITS | Encounter Summary ---
Author Organization [facility] [place] [address] Care Team Providers Care Director Pharmaceutical Name Role Phone Josué Huff MD Primary Care Provider + [phone] Encounter Details Date Type Department Care Team (Late st Contact Info) Description 03/07/2012 8:30 AM EDT Ancillary Appointment Hematology Oncology at [address] [phone] William Petit, JAYDEN [facility] [place] [address] Social History Tobacco Use Types Packs/Day Years [...] Progress Notes * William Petit, JAYDEN - 03/07/2012 10:21 AM EDT TC call to pt for dietitian follow up assessment. Spoke with Dionisio. States he is feeling a lot better. Energy is getting better every day. Lost his mom on Saturday and her is Saturday. Last recorded wt: 203 lbs on his home scale this morning. Previous Wt: 91.173 kg on 02/04/12 Appetite: Mashed pots with mixed veggies, still unable to eat meats or tomato products. He eats something everyday. Has had mac and cheese Intake: B: poached eggs L: D: mashed potatoes with canned corn Supplements: GT: 3 cans Jevity 1.5 and 2 Boost Plus, [...] 92. Total free water: ~ 1030 ccs. . No longer taking the two cans at noon. Ttrying to get these kcals/pro via p.o. N/V: denies Chewing/Swallowing: denies Taste Changes: still experiencing dysguesia Bowels: regular, going daily, not needing stool softeners Activity/Fatigue: Feels this is returning slowly, but it doesn't take much to wipe him out. A/P: Dionisio's weight is steady and he knows his energy limits. He continues to try different p.o. Foods and will return to those that tasted off. He continues to receive the bulk of his kcals and pro via nocturnal feeds from his g-tube. Otherwise, he offers no complaints. He returns to the [facility] At the end of March. I will follow up with him after that. documented in this encounter Plan of Treatment Not on file documented as of this encounter Visit Diagnoses Not on filedocumented in this encounter Care Teams Director Pharmaceutical Relationship Specialty Start Date End Date Josué Huff MD [address] [place] [id number] PCP - General 08/02/11 documented as of this encounter
--- OUTSIDE RECORDS SUMMARY | 2024-05-03 16:11 | XMS_ITS | Encounter Summary ---
Author Organization [facility] [place] [address] Care Team Providers Care Baking Powder Mixer Name Role Phone Josué Huff MD Primary Care Provider + [phone] Encounter Details Date Type Department Care Team (Late st Contact Info) Description 12/11/2011 10:00 AM EDT Ancillary Appointment Hematology Oncology at [address] [phone] William Petit, JAYDEN [facility] [place] [address] Social History Tobacco Use Types Packs/Day Years [...] Progress Notes * William Petit, JAYDEN - 12/11/2011 8:50 AM EDT TC call to Dionisio. States everyday is a little bit better, but does still have mouth sores. Taste buds are still nothing, trying to eat something daily, but throat is just too, too raw. And Idon't want to vomit. Tries oatmeal, CoW, scr. Eggs, hilda milk. Can get first bite/swallow down and the second one ott something wicked. States he does oral care and meds before attempting food trials. Everything tastes spoiled. States phlegm in the back of the throat is more saliva- like, it isn't that dark brown that stuckto the roof of the mouth. I still have a bit of that, though. When I cough from way down below, it still has color to it. States phlegm is more yellowish, may have some tinge of brown. Feels better in the am. Then at night, his mouth sores seem to act up. Throughout the day, does soda/salt rinses and lidocaine which helps. Also brushes teeth. Will relay information to Trinity Chopra APRN and also Isabella Garcia RN [facility]. Follow up in 1.5 weeks. documented in this encounter Plan of Treatment Not on file documented as of this encounter Visit Diagnoses Not on filedocumented in this encounter Care Teams Baking Powder Mixer Relationship Specialty Start Date End Date Josué Huff MD [address] [place] [address] PCP - General 08/02/11 documented as of this encounter
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
--- OUTSIDE RECORDS SUMMARY | 2024-05-03 16:11 | XMS_ITS | Encounter Summary ---
Author Organization [facility] [place] [address] Care Team Providers Care Nanofabrication Specialist Name Role Phone Josué Huff MD Primary Care Provider [phone] Encounter Details Date Type Department Care Team (Late st Contact Info) Description 01/18/2012 8:00 AM EDT Ancillary Appointment Hematology Oncology at [address] [phone] William Petit, [facility] [place] [address] Social History Tobacco Use Types Packs/Day Years [...] Progress Notes * William Petit, RD - 01/18/2012 10:24 AM EDT TC placed to pt for dietitian follow up assessment. 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 Recent in-pt from Saturday 10/28 - 10/31/11. Completed RT on October,. Spoke with Dionisio. Everything is ok, I guess, except I was expectin' I'd be eatin' by now. I am still tryin' other stuff, but it tastes so bad when it makes me want to upchuck. Every day I try something different. Current Wt: about the same now for 2-3 weeks, not gaining any, but not losing any, either. Weighsdaily at home. 198.6 lbs on home scale. Previous Wt: 90.26 k pablo 01/02/12; 1% DECREASE in < 1 week; Moderate Calorie needs: 25 -30 @ 80 k - 2400 kcals Protein needs: 1.5 @ 80 k kg Food Intake: No longer eating oatmeal 2/2 tastes, can eat poached eggs, but not scramble or fried. Has eaten some tomatoes, and summer squash and zucchini from garden. These tastes vary from acceptable to not. Able to drink milk, but not chocolate. Anything sweet doesn't taste good. Taking all medsp.o. No c/o swallow pain. TF: 8 - 7 cans of Jevity 1.5 via pump (5-6 nocturnal, 2 at noon time) providin kcals, 83 g protein, 1440 ccs free water. Flushing 60 ccs before and after feedings to provide an additional 240 ccs's free water. Also one scoop protein TID via syringe to provide and additional 18 gm protein and75 kcals with 4 ounces of water. Hydration via gravity bag with 1000 mls. Total kcals: 2915. Total protein: 101. Total free water: ~ 3026 ccs. Two Benecal/day to provide an additional 660 kcals and 14 gm protein to stabilize weight. Current intake:Has stopped doing daytime feeds 2/2 increased P.o.(2 poached eggs 140 kcals, 14 g pro), instead. Currently doing 4 cans and 2 Boost (2140 kcls, 88 g pro, 1090 ml water) nocturnally viaPEG. Continues to do one scoop Beneprotein TID via syringe with 4 ounces water (75 kcals, 19 g pro,354 mlswater). Continues to use scoop (~ 1/4 cup) of polycose BID flushes with 4 oz water (95 alxvf129 ml water,). This combination provides him with 2450 kcals, 120 g pro, and 1680 ml free water. Encouraged him to continue with nocturnal feeds and food trials for p.o. During the day. Continues to use plastic cutlery, denies N/V, swallow and mouth pain. Bowels are regular. Went to dentist for teeth cleaning this week (01/13-18/05). [facility] Said he had hairy tongue at one point during treatment. Dentist encouraged to continue with p.o. As much as possible to help this. Has started lifting light weights for arm/upper body strength. Walks daily to keep moving. He continues to feel weak, which is understandable. Will follow up with Mr. Salazar in 2-3 weeks after he see's the H/N team for his 3 mos. Follow up. documented in this encounter Plan of Treatment Not on file documented as of this encounter Visit Diagnoses Not on filedocumented in this encounter Care Teams Nanofabrication Specialist Relationship Specialty Start Date End Date Josué Huff MD [address] [place] [id number] PCP - General 08/02/11 documented as of this encounter
--- OUTSIDE RECORDS SUMMARY | 2024-05-03 16:11 | XMS_ITS | Encounter Summary ---
Author Organization [facility] [place] [address] Care Team Providers Care Court Bailiff Name Role Phone Josué Huff MD Primary Care Provider [phone] Reason for Visit * Reason Comments Radiation Treatment Encounter Details Date Type Department Care Team (Late st Contact Info) Description 11/02/2011 10:30 AM EDT Follow-Up Radiation Oncology at [address] [phone] Rick Ball MD Squamous cell carcinoma of tonsil (Primary Dx) [...] Sign Reading Time Taken Comments Blood Pressure 125/6 11/02/2011 11:00 AM EDT Pulse 75 11/02/2011 11:00 AM EDT Temperature 36.3 ??C (97.3 ??F) 11/02/2011 11:00 AM E DT Respiratory Rate 16 11/02/2011 11:00 AM EDT Oxygen Saturation 96% 11/02/2011 11:00 AM EDT Inhaled Oxygen Concentration - - Weight 95.1 kg (209 lb 9.6 oz) 11/02/2011 11:00 AM EDT Height - - Body Mass Index 32.51 10/29/2011 7:36 PM EDT documented in this encounter Patient Instructions * Patient Instructions* Rick Ball MD - 11/02/2011 11:57 AM EDT Pain and nausea are now better controlled on your current regimen. Continue with your current pain medication regimen. Continue with your tube feeds. To help with your potential mouth thrush, please stop Nystatin and begin Diflucan (200 mg first day, then 100 mg daily for next two weeks). To help with the regularity of your bowel movements, please start daily Miralax (one dose in the morning, then add a second dose at noon if no bowel movement). Overall you're doing very well. Keep up the good work! Please call with any questions or concerns. documented in this encounter Progress Notes * Rick Ball MD - 11/02/2011 11:37 AM EDT ON TREATMENT VISIT NOTE Primary MD: JOSUÉ HUFF MD Referring MD: Self Other Involved Physicians: Venkatesh Boothe MD Focused Problem List: ?? Squamous cell carcinoma of the tonsil, [id number] ?? Presentation: ?? Onset neck stiffness 04/2011 [...] evidence of lymph node sampling. Identification: Oliverio Salazar Jr. is currently undergoing radiation therapy at [facility]. Current treatment dose: 58 Gy in 29 fractions. Anticipated total dose: 70 Gy in 35 fractions. Evaluation of Port Verification Films: done Changes in medical condition: Was admitted to [facility] on Saturday with nausea/vomiting. He was discharged , having been hydrated with IVFs. Nutrition was addressed with the introduction of pump TF (which runs continuously overnight, and then supplemented with short bolus feeds during the day). Also, nausea medication was changed, now started on Reglan (and also continues on compazine). Zofran has been discontinued. Pain med ication was also changed, with 12.5 mcg/hr Fentanyl patch. Never started methadone. Currently, no nausea. No further episodes of vomiting since discharge. Ativan is available for nausea, and also for anxiety pre-treatment (which he is currently only taking once a day pre-treatment). Pain control is modestly improved. Has continuing pain in the right shoulder (8 on a 10 point scale) thought due to a torn rotator cuff. Pain in throat continues at a level of 5, which is significantly improved from last week. Also taking ibuprofen and 10 mg oxycodone q 4 hrs. Pain is better controlled, as compared to his status prior to the [facility] admission. Last BM was Saturday, two days ago. Currently not on a bowel regimen (other than his Reglan). Skin: Grade 2. Comments: Moderate erythema noted. Some desquamation. Current Regimen: Jeans cream BID 0 1 2 3 4 No change from baseline Follicular, faint or dull erythema/ epilation/dry desquamation/ decreased sweating Tender or bright erythema, patchy moist desquamation/ moderate edema Confluent, moist desquamatiom other than skin folds, pitting edema Ulceration, hemorrhage, necrosis Xerostomia: Grade 3. Comments: Dysgeusia, thick/sticky secretions 0 1 2 3 4 No change from baseline Sx without dietary alteration Moderate to complete dryness; thick, sticky saliva; markedly altered taste Inability to aliment orally, TPN or PEG indicated NA Mucositis: Grade 3. Comments: Pain improved, still with swallowing, currently 5 on 10-point scale. Is using Nystatin S+S, but only perhaps twice a day, because he finds this ott like hell when he tries to use it. Isrinsing about 12 times a day with soda-salt solution. Physical Exam: Confluent mucositis posterior oral cavity. Current Pain Regimen: oxycodone prn (using 4x/day), as well as ibuprofen. Also Fentanyl patch as above, 12.5 mcg/hr. 0 1 2 3 4 No change from baseline Injection/ may experience mild pain not requiring analgesic Patchy mucositis & analgesia indicated, altered po intake Confluent mucosits; severe pain, unable to adequatelytake nutrition po Life threatening consequences Dysphagia: Grade 3. Alimentation: 1. By mouth: sips water, taking medicine. Unable to take anything by mouth because of taste and increasing difficulty with gagging 2. via PE-8 cans/day as above 0 1 2 3 4 No change from baseline Sx without dietary alteration Moderate sx, altered oral intake Inability toaliment orally, TPN or PEG indicated NA Weight : 231 lbs initial Change: 212 last week down to 208 on Saturday, now 209. Larynx: Comments: 0 1 2 3 4 No change from baseline Mild or intermittent voice change; fully understandable, self- resolves Moderate or persistent voice change, able to vocalize; otalgia/ sore throat not requiring narcotic Whispered speech, throat pain/otalgia requiring narcotic Marked dyspnea, stridor or hemoptysis with trach or intubation necessary Other: ?? Impression/Plan: ?? Significant toxicity, dysgeusia limiting oral intake complicated by gagging and increasing pain likely 2/2 mucositis. Not comfortable taking nystatin S+S. Confluent mucositis along posterior pharyngeal wall. Will switch to Diflucan 100 mg daily for next two weeks. Continues BMX and salt-soda rinses. ?? Diminished oral intake has led to consistent weight loss, women's ministry director working with him extensively. Now on pump for TFs overnight. ?? Besides Reglan, will start daily Miralax for bowel function. ?? Skin toxicity Moderate. Advised to switch from dar's cream to Aquaphor. Will furnish samples. ?? Continue current pain regimen with addition of Fentanyl patch. If pain continues, to consider increasing patch dose. documented in this encounter Plan of Treatment Not on file documented as of this encounter Visit Diagnoses Diagnosis Squamous cell carcinoma of tonsil- Primary Malignant neoplasm of tonsil documented in this encounter Care Teams Court Bailiff Relationship Specialty Start Date End Date Josué Huff MD [address] [place] [id number] PCP - General 08/02/11 documented as of this encounter
--- OUTSIDE RECORDS SUMMARY | 2024-05-03 16:11 | XMS_ITS | Encounter Summary ---
Author Organization [facility] [place] [address] Care Team Providers Care Behavioral Assistant Name Role Phone Josué Huff MD Primary Care Provider [phone] Reason for Visit * Reason Comments Radiation Treatment Encounter Details Date Type Department Care Team (Late st Contact Info) Description 10/26/2011 10:30 AM EDT Follow-Up Radiation Oncology at [address] [phone] Jacoby Gaines MD [facility] [place] [address] Squamous cell carcinoma of tonsil (Primary Dx) [...] Sign Reading Time Taken Comments Blood Pressure 113/66 10/26/2011 10:59 AM EDT Pulse 78 10/26/2011 10:59 AM EDT Temperature 37.3 ??C (99.1 ??F) 10/26/2011 10:59 AM E DT Respiratory Rate 16 10/26/2011 10:59 AM EDT Oxygen Saturation 97% 10/26/2011 10:59 AM EDT Inhaled Oxygen Concentration - - Weight 96.4 kg (212 lb 8 oz) 10/26/2011 10:59 AM EDT Height - - Body Mass Index 30.77 10/24/2011 10:51 AM EDT documented in this encounter Progress Notes * Jacoby Gaines MD - 10/26/2011 11:39 AM EDT ON TREATMENT VISIT NOTE Primary MD: JOSUÉ HUFF MD Referring MD: Self Other Involved Physicians: Venkatesh Boothe MD Focused Problem List: ?? Squamous cell carcinoma of the tonsil, [id number] ?? Presentation: ?? Onset neck stiffness 04/2011 [...] Jr. is currently undergoing radiation therapy at [facility]. Current treatment dose: 52 Gy in 26 fractions. Anticipated total dose: 70 Gy in 35 fractions. Evaluation of Port Verification Films: done Changes in medical condition: Skin: Comments: Moderate erythema noted Current Regimen: Jeans cream/Aquaphor BID 0 1 [...] Comments: Pain increased, primarily with swallowing, now 710 Physical Exam: Patchy mucositis posterior oral cavity. No thrush evident. Current Pain Regimen: oxycodone prn (using 4x/day). 0 1 2 3 4 No change [...] NA Weight : 231 lbs initial Change: 217=> 212 Larynx: Comments: 0 1 2 3 4 No change from baseline Mild or intermittent voice change; fully understandable, self- resolves Moderate or persistent voice change, able to vocalize; otalgia/ sore throat not requiring narcotic Whispered speech, throat pain/otalgia requiring narcotic Marked dyspnea, stridor or hemoptysis with trach or intubation necessary Other: ?? Impression: ?? Significant toxicity, dysgeusia limiting oral intake complicated by gagging and increasing pain likely 2/2 mucositis. Now on nystatin with no thrush. Diminished oral intake has led to consistent weight loss, bacteriology research assistant working with him extensively.Adaptive planning ready, will start early next week. Skin toxicity moderate. Plan: ?? Continue RT per prescription ?? Pain control: ?? Oxycodone prn ?? ADD methadone 2.5 mg BID ?? Skin: Jeans cream BID ?? Mucositis: ?? Pain control: see above ?? Oral hygiene consisting of baking soda/salt rinse at least 8 times daily ?? BMX prn ?? Alimentation: bacteriology research assistant following ?? Weight decreased, primarily due to dysgeusia and dysphagia related to gagging. Head Nurse making cont'd modifications to caloric and protein intake via PEG. ?? Thrush: Nystatin QID documented in this encounter Plan of Treatment Not on file documented as of this encounter Visit Diagnoses Diagnosis Squamous cell carcinoma of tonsil- Primary Malignant neoplasm of tonsil documented in this encounter Care Teams Behavioral Assistant Relationship Specialty Start Date End Date Josué Huff MD [address] [place] [id number] PCP - General 08/02/11 documented as of this encounter
--- OUTSIDE RECORDS SUMMARY | 2024-05-03 16:11 | XMS_ITS | Encounter Summary ---
Author Organization Formerly [facility] [place] [address] Care Team Providers Care Sewing Inspector Name Role Phone Josué Huff MD Primary Care Provider [phone] Encounter Details Date Type Department Care Team (Late st Contact Info) Description 10/26/2011 11:30 AM EDT Ancillary Appointment Hematology Oncology at [address] [phone] [facility] [place] [address] Social History Tobacco Use Types Packs/Day Years [...] Progress Notes * William Petit RD - 10/26/2011 12:09 PM EDT [facility] Dietitian Follow Up Seen By: Monet Petit MS, RD, LD Referred by: H/N team, Guanako Garrido RD at [place] Reason for visit: Patient and diagnosis: 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 Assessment: HPI: He is now completed the [...] Oncology Vitals 09/20/2011 Height 177 cm Wt: 96.3 kg on 10/25/11; 2.2% weight decrease [...] with 1000 ccs BID. Has been supplementing [facility] up until a few days ago when he ran out. . This provides 560 kcals and 23 gm protein. Teas, vitamins, or other nutritional supplements: none Food allergies or avoidances: nkfa Appetite: 0/10 scale :no longer has appetite or urge to eat Nausea: denies Vomiting: gags with food Chewing: denies Dentition: upper dentures, bottom partial Swallowing: pain with swallowing, Mouth sores: +, redness, Thrush, BML on board, that 's the only thing that doesn't gag me. Xerostomia: +, doin soda/salt rinses 10-12 times/day, has biotene and oasis spray on board Taste Changes: +, everything taste like krap Bowels: regular every morning, has softeners on board Food availability/purchasing, meal planning and preparation: Brother on board, Oliverio prepares meals. Says he won't eat brother's food. Social Support: Nathaniel, brother is helping to take care of him during treatment cell [phone] Economic Issues: [place] Physical Activity: walks dog daily, gets out at least 3-4 times daily for walks, about 10-15 minutes/time. 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 Current g-tube intake is not meeting calorie demands as evidenced by continued weight loss, total of 8.3% of overall body weight. We've discussed adjusting his feeding routine for nocturnal, pump feedings. In the lag time where the [place] can provide a pump, recommended starting with 4 cans on the slowest drip of his gravity bag. During the day time, he can continue with three feedings of one can/feeding with protein powder. Recommended he purchase Benecal and have one/day. In lieu of this, suggested he add 1 tablespoon of olive oil per feeding to substitute, as this should add an additional 300 kcals. Also, discussed these details with Nathaniel (brother). Isabella Garcia RN and I re-enforced baking soda/salt rinses and encouraged him to gargle farther back in his throat to pull up gacky phlegm with the anticiaption of this helping him gag less and possibly encourage him to have p.o. TF: 7 cans Jevity 1.5/day to provide [...] Total kcal: 2890 and protein 131 gm. Recommend gravity feeding method: 2 cans per feeding, spaced every 2-3 hours, with 60 ccs flush before and after each feeding. He will need an additional 580 cc's of fluids either via tube or taken p.o. Nutrition Intervention: Increase caloric And protein needs:see above. Increase frequency of meals and snacks: g-tube recommendations, as much p.o. As tolerable Need for supplements: Nutrition Goals: Weight maintenance and LBM preservation for AIR DRIER. Educational Handouts provided: -- G-tube/J-tube feeding booklet Other Recommendations: None Monitoring and Evaluation: Will follow up with Mr. Salazar in on Saturday to check for weight stability. If continued wieght loss, will increase to Benecal BID. Otherwise, follow up on Saturday. I have spent>45 minutes with him/her in discussion and nutrition counseling. I have provided himwith my card and contact information should he have any questions in the mean time. documented in this encounter Plan of Treatment Not on file documented as of this encounter Visit Diagnoses Not on filedocumented in this encounter Care Teams Sewing Inspector Relationship Specialty Start Date End Date Josué Huff MD [address] [place] [id number] PCP - General 08/02/11 documented as of this encounter
--- OUTSIDE RECORDS SUMMARY | 2024-05-03 16:11 | XMS_ITS | Encounter Summary ---
Author Organization [facility] [place] [address] Care Team Providers Care Receiver Bulk System Name Role Phone Josué Huff MD Primary Care Provider [phone] Reason for Visit * Reason Comments Follow-up Encounter Details Date Type Department Care Team (Late st Contact Info) Description 11/14/2011 9:00 AM EDT Follow-Up Hematology Oncology at [address] [phone] Monica Naranjo APRN [address] [place] [phone] Head and neck cancer (Primary Dx) Discharge Disposition: Home Social [...] Sign Reading Time Taken Comments Blood Pressure 123/75 11/14/2011 8:36 AM EDT Pulse 96 11/14/2011 8:36 AM EDT Temperature 36.6 ??C (97.9 ??F) 11/14/2011 8:36 AM ED T Respiratory Rate 18 11/14/2011 8:36 AM EDT Oxygen Saturation 94% 11/14/2011 8:36 AM EDT Inhaled Oxygen Concentration - - Weight 91.2 kg (201 lb) 11/14/2011 8:36 AM EDT Height 177 cm (5' 9.69) 11/14/2011 8:36 AM EDT Body Mass Index 29.1 11/14/2011 8:36 AM EDT documented in this encounter Progress Notes * Monica Naranjo, WEB PROJECT MANAGER - 11/14/2011 9:28 AM EDT Hematology/Oncology Outreach Clinic [facility] ESTABLISHED PATIENT EVALUATION: #1 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 surgery July 2011 tonsils removed only lymph nodes left in place B staging studies show 2 lymph nodes at level II right side of the neck C. 1.5 cm pretracheal node a thoracic inlet biopsy negative D. Right tonsil squamous cell cancer, left tonsil benign -- Last Cisplatin 10/17/11 - stopped for neutropenia/anemia -- Last XRT 11/12/11 #2 traumatic back injury with chronic pain [place] INTERIM HISTORY OF PRESENT ILLNESS: Oliverio returns to the clinic today with head and neck cancer. He has undergone treatment w/concurrent XRT and cisplatin, following surgery. Node on his right neck has resolved during the course of chemo/xrt. He is feeling a bit better this week than last. Started fluconazole three days ago, thrush is improving. Using oral rinses and lidocaine orally as well. Secretions are thick copious secretions which he spits out. Taking pills and sips of water orally. Tube feedings - 8 cans most of the time. Extra water. Fentanyl patch 25, oxycodone liquid - x 4 times a day. Dysgeusia Sleeping well, and a lot. INTERIM SOCIAL/FAMILY HISTORY: No interval change. MEDS: Current outpatient prescriptions ordered prior to encounter Medication Sig Dispense Refill ??? fentaNYL (DURAGESIC) 12 mcg/hr patch Place 2 patches onto the skin every 72 hours. ??? fluconazole (DIFLUCAN) 10 mg/mL suspension Take 10 mLs by mouth daily. (on the first day, please take 20 mls). 200 mL 2 ??? ibuprofen (ADVIL;MOTRIN) 100 mg/5 mL suspension Take 30 mLs by mouth every 6 hours as needed for Pain. ??? OXYcodone (ROXICODONE) 5 mg/5 mL solution Take 5-10 mLs by mouth every 4 hours as needed for Pain. 480 mL 0 ??? LORazepam (ATIVAN) 1 mg tablet Take 2 mg by mouth every 6 hours as needed. Patient taking 1 mg before every radiation treatment or every 6 hours as needed for nausea. ??? benzonatate (TESSALON) 100 mg capsule Take 2 capsules by mouth 3 times daily as needed for Cough. 30 tablet 0 ??? OXYBUTYNIN CHLORIDE ORAL Take 10 mg by mouth daily. ??? prochlorperazine (COMPAZINE) 10 mg tablet Take 1 tablet by mouth every 6 hours as needed for Nausea (nausea related to chemotherapy). 30 tablet 2 ??? Terazosin 10 mg Tab Take 10 mg by mouth daily. ??? traZODone (DESYREL) 50 mg tablet Take 25 mg by mouth nightly. ??? nystatin (MYCOSTATIN) 100,000 unit/mL suspension Take 5 mLs by mouth 4 times daily. 180 mL 1 REVIEW OF SYSTEMS: Energy: stable Pain: no Appetite:good Fevers/chills/drenching sweats:No Bruising/bleeding/melena:No Recent infections:No HEENT: negative Nausea/vomiting/diarrhea/constipation:No Dysuria: No SOB/cough/chest pain:No Change in adenopathy or other masses:No Unexpected weight loss or gain:No Skin rashes or petechiae:No Musculoskeletal complaints:No Extremities: Negative upper and lower bilaterally Neurologic symptoms:No PHYSICAL EXAM: BP 123/75 Pulse 96 Temp(Src) 36.6 ??C (97.9 ??F) (Oral) Resp 18 Ht 177 cm (5' 9.69) Wt 91.173 kg (201 lb) BMI 29.10 kg/m2 SpO2 94% Appears nourished and hydrated. NAD, A & O x 3. HEENT: Sclera anicteric. Tongue w/white coating, no white patches, ulcerations, pseudomembrane confluent left palate, thick white sticky secretions. Skin: Without rash or petechia. Lymph: No cervical, supraclavicular, axillary lymphadenopathy. Lungs: Breath sounds throughout, coarse wheezes, no rales. Cardiac: Regular rate rhythm, S1, S2, no murmur, rub or gallop. Abdomen: Soft, non-tender, spleen and liver non palpable. GTube site clear. Extremities: No lower extremity edema. M/S: No sternal or spinal tenderness. Neurologic: Gait steady, speech clear, cognition intact, no focal neurologic deficit. RADIOLOGY: no new studies LABORATORY: WBC 5.20, Hg 10.6, PLT 352, ANC 3.98, ASSESSMENT/PLAN: Head and neck cancer of the tonsil - clinical response. Tolerating tx w/anticipated side effects. No change in management. Will continue to monitor him and support through as he recovers from toxicity of tx. Mucositis - grade 2 - continue rinses, Oral candidas - with improvement, continue fluconazole. Seeing Rad/Onc next week, rtc in two weeks, see Paul w/labs cbc, cmp. Patient was reminded to call in the interim should questions or concerns arise. documented in this encounter Plan of Treatment Not on file documented as of this encounter Visit Diagnoses Diagnosis Head and neck cancer- Primary Malignant neoplasm of head, face, and neck documented in this encounter Care Teams Receiver Bulk System Relationship Specialty Start Date End Date Josué Huff MD [address] [place] [id number] PCP - General 08/02/11 documented as of this encounter
--- OUTSIDE RECORDS SUMMARY | 2024-05-03 16:11 | XMS_ITS | Encounter Summary ---
Author Organization [facility] [place] [address] Care Team Providers Care Wort Extractor Name Role Phone Jw Tomas MD Primary Care Provider [phone] Reason for Visit * Reason Comments Nausea Encounter Details Date Type Department Care Team (Latest Contact Info) Description 10/29/2011 7:20 PM EDT - 11/01/2011 1:14 PM EDT Hospital Encounter [address] [place] [address] Karthikeyan Cruz MD [facility] [place] [address] Julius Yu MD [facility] [place] [address] Nathaniel Barbosa MD [facility] [address] HEMATOLOGY/[place] [address] Fahad Orta MD [facility] HEMATOLOGY/[place] [address] Thrush, oral; Tonsil cancer; Squamous cell carcinoma of tonsil Discharge Disposition: Home with VNA Social History Tobacco Use Types Packs/Day Years [...] Sign Reading Time Taken Comments Blood Pressure 114/68 11/01/2011 11:01 AM EDT Pulse 69 11/01/2011 11:01 AM EDT Temperature 36.8 ??C (98.2 ??F) 11/01/2011 1 1:01 AM EDT Respiratory Rate 18 11/01/2011 11:0 1 AM EDT Oxygen Saturation 96% 11/01/2011 11: 01 AM EDT Inhaled Oxygen Concentration - - Weight 96.5 kg (212 lb 11.9 oz) 11/01/2011 4:02 AM EDT Height 171 cm (5' 7.32) 10/29/2011 7:36 PM EDT Body Mass Index 33 10/29/2011 7:36 PM EDT documented in this encounter Discharge Instructions * Patient Instructions* Maribell Donovan - 11/01/2011 12:45 PM EDT Instruction after leaving the hospital Why you were hospitalized: nausea Call your doctor or seek medical attention if you develop the following: worsening nausea/vomiting,intractable pain, Activity level: as tolerated Diet: as previous Specific instructions related to your condition: - please go to your appointment for radiation this afternoon at 4 pm - please go to the [facility] to belt picker your prescriptions Follow-Up Appointments Please contact your PCP at the [facility] to set up an appointment with orthopedic surgery. Pleasetake images on the CD to your appointment. Your Inpatient Doctor(s) at [facility]: You Lee, [place], Ajith documented in this encounter Medications at Time of Discharge Medication Sig Dispensed Refills Start Date End Date OXYBUTYNIN CHLORIDE ORAL Take 10 mg by mouth daily. Terazosin 10 mg Tab Take 10 mg by mouth daily. fentaNYL (DURAGESIC) 12 mcg/hr patch Place 1 patch onto the skin. Replace every 72 hours 10 patch 0 10/30/2011 11/07/2011 nystatin (MYCOSTATIN) 100,000 unit/mL suspensionIndications: Thrush, oral Take 5 mLs by mouth 4 times daily. 180 mL 1 10/22/2011 11/23/2011 LORazepam (ATIVAN) 1 mg tablet Take 2 mg by mouth every 6 hours as needed. Patient taking 1 mg before every radiation treatment or every 6 hours as needed for nausea. 12/28/2011 benzonatate (TESSALON) 100 mg capsule Take 2 capsules by mouth 3 times daily as needed for Cough. 30 tablet 0 10/12/2011 08/08/2012 prochlorperazine (COMPAZINE) 10 mg tabletIndications:Tons il cancer Take 1 tablet by mouth every 6 hours as needed for Nausea (nausea related to chemotherapy). 30 tablet 2 09/12/2011 12/28/2011 traZODone (DESYREL) 50 mg tablet Take 25 mg by mouth nightly. 12/28/2011 melatonin 3 mg Tab Take by mouth. 012 documented as of this encounter Progress Notes * Maria Luz Benavidez RN - 11/01/2011 3:16 PM EDT RN shared After Visit Summary with patient. He denied questions or concerns & stated intention to attend follow-up appointment. RN heparin flushed & de-accessed mediport; dressing is clean, dry & intact at time of discharge. RN attempted to fax discharge summary to [facility] twice with no success; RN called [facility] and got an alternative number and attempted faxing to that number with no success; RN attempted to call discharge report to [facility] and was directed to someone's voice mail and left a message with no reply; RN called again and spoke with Jen the on-call RN; she said that the agency was having difficulty with their fax machine and that someone at the agency would call [facility] - Saturday morning to get the fax; Jen stated that the patient is scheduled to be seen by a visiting nurse tomorrow; RN left a phone voice mail message for Miles to expect [facility]'s call. Patient discharged to home with brother; patient reports that he'll have help from family during at-home recovery and anticipates visiting nurse session tomorrow. * Fahad Orta MD - 11/01/2011 9:40 AM EDT Date of Admission: 10/29/2011 Active problems: SCC of tonsil Pain in the left shoulder, slightly better today. Having increasing residual in post tube feeding Patient ID: 61 y.o. with SCC of tonsil undergoing chemo(with Cisplatin)/rad being admitted for 4 day history of intractable nausea and vomiting. This has resolved but the patient noted pain in the right shoulder yesterday and today he is unable to move his right arm without significant pain Overnight events: -Started on Peptamin 1.5 on pump, and doing well with this. Patient stated that he had to have somefeeding removed ROS: Constitutional: Denies fever, chills HEENT: Denies headache, nasal congestion Cardiovascular: Denies chest pain, pressure or palp Respiratory: Denies SOB GI: Denies dysphagia, abdominal pain, N/V/D/C : Denies dysuria Musculoskeletal: pain in right shoulder with frozen shoulder slightly better Skin: No skin complaints Neurological: No focal weakness, numbness or tingling Meds per chart BP 128/68 Pulse 70 Temp 36.9 ??C (98.4 ??F) Resp 18 Ht 171 cm (5' 7.32) Wt 96.5 kg (212 lb 11.9 oz) BMI 33.00 kg/m2 SpO2 95% General: NAD HEENT: MM moist, Abd: Soft, NT, ND, BS+ : Defer Extrem: No LE edema Neuro: Pt awake and alert, Rheum: Point tenderness in the rigth shoulder and unable to move his arm without pain. Subjective: -Nausea still resolved, received 3 doses Metoclopramide 10 mg, no PRN ativan or Zofran. - new pain in the left shoulder. Assessment: Plan: # Nausea and Vomiting - Scheduled Metoclopramide 10 mg solution per G-tube every 6 hours scheduled - Lorazepam 1 mg IV q4 hours PRN - Ondansetron elixir 4 mg q8 hours PRN - IVF maintenance 100cc/h for 1 L - Fall precautions, out of bed with assistance # Nutrition - Home regimen - Jevity 1.5 7 cans + 3 scoops Beneprotein daily # SCC of tonsil -Will continue radiation while in house, chemo on hold while in house # Pain Management - Cannot take oral medications - Oxycodone elixir 5 mg per G-tube q4 hours PRN--careful when Fentanyl starts working - Fentanyl patch 12 mcg/h - BMX oral suspension 5 mL BID for mouth and posterior OP pain # Prophylaxis - Enoxaparin 40 mg SQ daily # Right shoulder Pain MRI reviewed on the floor does not reveal any obvious pathology to my eye, official report is pending. Ortho consult to evaluate etiology and care. # Dispo -Appreciate [facility] coordination in this case ([facility]), possibly home tomorrow if all can be arranged with pump, pain control and nutrition. Recent Results (from the past 24 hour(s)) PREPARE RBC Component Value Range ??? Dispensed? Yes ABO/RH TYPING Component Value Range ??? ABORh Type B Pos ANTIBODY SCREEN Component Value Range ??? Ab Screen Interp Negative ??? Specimen OD [id number] HEMOGLOBIN AND HEMATOCRIT, BLOOD Component Value Range ??? Hemoglobin 10.9 (*) 13.7 - 17.5 (gm/dL) ??? Hematocrit 28.5 (*) 40.0 - 51.0 (%) CBC (WITH DIFF) Component Value Range ??? WBC 1.8 (*) 4.0 - 10.0 (x10(3)/mcL) ??? RBC 2.97 (*) 4.63 - 6.08 (x10(6)/mcL) ??? Hemoglobin 9.5 (*) 13.7 - 17.5 (gm/dL) ??? Hematocrit 25.2 (*) 40.0 - 51.0 (%) ??? MCV 84.8 79.0 - 92.0 (fL) ??? MCH 32.0 25.6 - 32.2 (pg) ??? MCHC 37.7 (*) 32.0 - 36.5 (gm/dL) ??? Platelets 135 (*) 145 - 370 (x10(3)/mcL) ??? RDWSD 42.0 35.0 - 46.0 (fL) ??? RDWCV 14.7 (*) 10.9 - 14.4 (%) ??? MPV 9.2 9.0 - 12.0 (fL) BASIC METABOLIC PANEL (NON-FASTING) Component Value Range ??? Glucose Lvl 164 60 - 199 (mg/dL) ??? BUN 16 10 - 20 (mg/dL) ??? Creatinine 0.77 (*) 0.80 - 1.50 (mg/dL) ??? Sodium 135 135 - 145 (mmol/L) ??? Potassium 3.0 (*) 3.5 - 5.0 (mmol/L) ??? Chloride 96 (*) 98 - 107 (mmol/L) ??? CO2 31 22 - 31 (mmol/L) ??? Anion Gap 8 5 - 15 (mmol/L) ??? Calcium 8.5 8.5 - 10.5 (mg/dL) ? ? Estimated GFR >60 >=60 DIFFERENTIAL, AUTOMATED Component Value Range ??? Neutrophils % 64.5 34.0 - 71.0 (%) ??? Neutr Abs (ANC) 1.13 (*) 1.50 - 6.30 (x10(3)/mcL) ??? Lymphocytes % 18.9 (*) 19.0 - 53.0 (%) ??? Lymphocytes Abs 0.3 (*) 1.0 - 3.6 (x10(3)/mcL) ??? Monocytes % 13.1 (*) 4.0 - 13.0 (%) ??? Monocyte Abs 0.2 0.2 - 1.0 (x10(3)/mcL) ??? Eosinophils % 2.9 0.0 - 7.0 (%) ??? Eosinophils Abs 0.0 0.0 - 0.5 (x10(3)/mcL) ??? Basophils % 0.0 0.0 - 2.0 (%) ??? Basophils Abs 0.0 0.0 - 0.2 (x10(3)/mcL) ??? Immature Gran % 0.60 0.00 - 0.66 (%) ??? Promise Gran Abs 0.01 0.00 - 0.05 (x10(3)/mcL) * Kiana Freire RN - 10/31/2011 1:27 PM EDT Office of Care Management Clinical Hop Sorter (CRC) Continued Hospitalization update/Discharge Planning update Reviewed record and discussed pt with oncology team and at interdisciplinary discharge rounds. Pt will probably be medically ready for discharge tomorrow, per MDs. Notified [facility] of planned discharge day via eDischarge; home health orders pended for MD review/sign and inclusion in discharge summary and AVS. Phone call to PERCY Aguero RD at the [facility] ([phone], ext [phone]); informed her of hospitalization and change in enteral feeding from gravity to continuous on pump.She confirmed information that pump had been ordered, with probable delivery to pt's home today. Informed her VN would be goingin for pump teaching. Faxed her copy of [facility] nutrition note per her request (fax [phone]). Attempted to confirm receipt/fill of fentanyl script faxed yesterday to [facility]. Phonecall to Ed [facility]ology pharmacist ([phone], ext [phone]), asking for callback about this. Received email from Isabella Garcia RN at [facility], asking for update on DC plans She stated pt could not have XRT here ([place]) unless mask delivered from [facility]. Stated his appointment tomorrow in [facility] is at 0945. Return email to Isabella, informing her that pt is not being discharged until tomorrow, and asking if appointment could be moved to later in day, since early-enough DC is unlikely. Waiting for her reply. ADDENDUM: Received email from Isabella that pt's XRT appointment tomorrow at [facility] has been changed to 4 p.m. I notified pt and team, Also received phonecall from Philipp Multani at [facility], covering today for Ed York, pharmacist. She confirmed that pt's fentanyl patch script has been filled and is ready for p/u at their pharmacy. PLAN: CRC will continue to follow for coordination of care and discharge planning. CRC will give pt original fentanyl script to take to [facility] for med p/u. Miles Freire RN Clinical Hop Sorter Office of Care Management pgr [phone], ext [phone] * Fahad Orta MD - 10/31/2011 9:18 AM EDT Date of Admission: 10/29/2011 ( Hospital Day 1 day ) Active problems: SCC of tonsil Pain in the left shoulder Patient ID: 61 y.o. with SCC of tonsil undergoing chemo(with Cisplatin)/rad being admitted for 4 day history of intractable nausea and vomiting. This has resolved but the patient noted pain in the right shoulder yesterday and today he is unable to move his right arm without significant pain Overnight events: -Started on Peptamin 1.5 on pump, and doing well with this. ROS: Constitutional: Denies fever, chills HEENT: Denies headache, nasal congestion Cardiovascular: Denies chest pain, pressure or palp Respiratory: Denies SOB GI: Denies dysphagia, abdominal pain, N/V/D/C : Denies dysuria Musculoskeletal: pain in right shoulder with frozen shoulder Skin: No skin complaints Neurological: No focal weakness, numbness or tingling Meds per chart BP 136/66 Pulse 62 Temp(Src) 36.8 ??C (98.2 ??F) (Oral) Resp 18 Ht 171 cm (5' 7.32) Wt 95.1 kg (209 lb 10.5 oz) BMI 32.52 kg/m2 SpO2 98% General: NAD HEENT: MM dry, yellow exudates on tongue and buccal mucosa, hard right para- trachial node with diffuse cervical chain tenderness noted Cardiovascular: RRR, no m/r/g, no S3 or S4 appreciated, 2+radial & pedal pulses Respiratory: Decreased breath sounds, no wheezing rales or rhonchi Abd: Soft, NT, ND, BS+ : Defer Extrem: No LE edema Neuro: Pt awake and alert, Rheum: Point tenderness in the rigth shoulder and unable to move his arm without pain. Subjective: -Nausea still resolved, received 3 doses Metoclopramide 10 mg, no PRN ativan or Zofran. - new pain in the left shoulder. Assessment: Plan: # Nausea and Vomiting - Scheduled Metoclopramide 10 mg solution per G-tube every 6 hours scheduled - Lorazepam 1 mg IV q4 hours PRN - Ondansetron elixir 4 mg q8 hours PRN - IVF maintenance 100cc/h for 1 L - Fall precautions, out of bed with assistance # Nutrition - Home regimen - Jevity 1.5 7 cans + 3 scoops Beneprotein daily - In house, since Jevity 1.5 isn't available using Peptamen 1.5--total vol 1,569 ml with pump - Will require a pump at home - Free water bolus 300 cc per G-tube QID - Appreciate nutrition assistance in this case # SCC of tonsil -Will continue radiation while in house, chemo on hold while in house # Pain Management - Cannot take oral medications - Oxycodone elixir 5 mg per G-tube q4 hours PRN--careful when Fentanyl starts working - Fentanyl patch 12 mcg/h - BMX oral suspension 5 mL BID for mouth and posterior OP pain # Prophylaxis - Enoxaparin 40 mg SQ daily # Right shoulder Pain Will need MRI or radiologic evaluation to determine the etiology of this pain prior to DC # Dispo -Appreciate [facility] coordination in this case ([facility]), possibly home tomorrow if all can be arranged with pump, pain control and nutrition. I spoke with and examined Mr. Salazar. Mr. Salazar was more comfortable overnight with the fentanyl patch on board and with the tube feeds being delivered on a pump. He has not had any nausea or vomiting and he is tolerating escalating doses of the tube feeds. His pain in the oropharynx and back is controlled. He has new pain in the right shoulder which will need to be evaluated further He has antineoplastic-induced pancytopenia, and cisplatin chemotherapy is on hold, but he may resume his radiotherapy at any time. Success of the discharge plan will depend on our ability to get him a fentanyl patch and a pump to deliver his tube feeds, and for his providers in [facility] to followup on our interventions and to evaluate his pain in the right shoulder. Recent Results (from the past 24 hour(s)) CBC (WITH DIFF) Component Value Range ??? WBC 1.9 (*) 4.0 - 10.0 (x10(3)/mcL) ??? RBC 2.70 (*) 4.63 - 6.08 (x10(6)/mcL) ??? Hemoglobin 8.7 (*) 13.7 - 17.5 (gm/dL) ??? Hematocrit 22.8 (*) 40.0 - 51.0 (%) ??? MCV 84.4 79.0 - 92.0 (fL) ??? MCH 32.2 25.6 - 32.2 (pg) ??? MCHC 38.2 (*) 32.0 - 36.5 (gm/dL) ??? Platelets 135 (*) 145 - 370 (x10(3)/mcL) ??? RDWSD 41.5 35.0 - 46.0 (fL) ??? RDWCV 14.8 (*) 10.9 - 14.4 (%) ??? MPV 9.3 9.0 - 12.0 (fL) BASIC METABOLIC PANEL (NON-FASTING) Component Value Range ??? Glucose Lvl 141 60 - 199 (mg/dL) ??? BUN 17 10 - 20 (mg/dL) ??? Creatinine 0.78 (*) 0.80 - 1.50 (mg/dL) ??? Sodium 139 135 - 145 (mmol/L) ??? Potassium 3.3 (*) 3.5 - 5.0 (mmol/L) ??? Chloride 101 98 - 107 (mmol/L) ??? CO2 29 22 - 31 (mmol/L) ??? Anion Gap 9 5 - 15 (mmol/L) ??? Calcium 8.3 (*) 8.5 - 10.5 (mg/dL) ? ? Estimated GFR >60 >=60 DIFFERENTIAL, AUTOMATED Component Value Range ??? Neutrophils % 53.8 34.0 - 71.0 (%) ??? Neutr Abs (ANC) 1.00 (*) 1.50 - 6.30 (x10(3)/mcL) ??? Lymphocytes % 31.2 19.0 - 53.0 (%) ??? Lymphocytes Abs 0.6 (*) 1.0 - 3.6 (x10(3)/mcL) ??? Monocytes % 11.8 4.0 - 13.0 (%) ??? Monocyte Abs 0.2 0.2 - 1.0 (x10(3)/mcL) ??? Eosinophils % 3.2 0.0 - 7.0 (%) ??? Eosinophils Abs 0.1 0.0 - 0.5 (x10(3)/mcL) ??? Basophils % 0.0 0.0 - 2.0 (%) ??? Basophils Abs 0.0 0.0 - 0.2 (x10(3)/mcL) ??? Immature Gran % 0.00 0.00 - 0.66 (%) ??? Promise Gran Abs 0.00 0.00 - 0.05 (x10(3)/mcL) * Beatriz Elise MD - 10/31/2011 7:08 AM EDT Hem/Onc Progress Note Patient info: Name: Oliverio Salazar Jr. : 1950 PCP: JW TOMAS MD PCP phone number: [phone] Date of Admission: 10/29/2011 ( Hospital Day 2 days ) Service: Hematology, Pager: [phone] Responsible Attending:Fahad Orta MD Active problems: SCC of tonsil OP discomfort Patient ID: 61 y.o. with SCC of tonsil undergoing chemo(with Cisplatin)/rad being admitted for 4 day history of intractable nausea and vomiting. Overnight events: -Given extra dose of Oxy for increased for msk shoulder strain per NF Subjective: -Nausea resolved, OP and back pain resolved with fentanyl patch. Patient now with severe right shoulder pain and is unable to move it. He denies trauma. ROS: Constitutional: Denies fever, chills HEENT: Denies headache, nasal congestion Cardiovascular: Denies chest pain, pressure or palp Respiratory: Denies SOB GI: Denies dysphagia, abdominal pain, N/V/D/C : Denies dysuria Skin: No skin complaints Neurological: No focal weakness, numbness or tingling In patient medications: ??? OXYcodone 5 mg Per G Tube Once ??? tube feeding diet 714 mL Per G Tube TID ??? BMX 5 mL Oral 4 Times Daily ??? traZODone 25 mg Oral Nightly ??? sodium chloride 0.9 % 5 mL Intravenous Q12H ??? enoxaparin 40 mg Subcutaneous Daily ??? polyethylene glycol 17 g Per G Tube Once ??? metoclopramide 10 mg Per G Tube Q6H ??? docusate sodium 50-200 mg Per G Tube BID ??? sennosides 8.8-35.2 mg Per G Tube BID ??? protein powder 1 scoop Per G Tube TID ??? tube feeding diet Per G Tube User Specified ??? free water bolus 300 mL Per G Tube 4 Times Daily ??? tube feeding diet Per G Tube User Specified ??? fentaNYL 1 patch Transdermal Q72H ??? fentaNYL 1 patch Transdermal Q72H ??? DISCONTD: BMX 5 mL Oral BID Continuous infusions: ??? tube feeding diet Stopped (10/31/11 05) ??? sodium chloride 0.9% Stopped (10/30/112105) PRN medications: ondansetron, ondansetron, OXYcodone, LORazepam, ondansetron, polyethylene glycol Physical exam: Last value Range last 24 hrs Temperature Temp: 36.6 ??C (97.9 ??F) Temp: [36.5 ??C (97.7 ??F)-36.9 ??C (98.4 ??F)] Heart rate Heart Rate: 63 Heart Rate: [57-72] Blood pressure BP: 106/60 mmHg BP: (100-138)/(58-70) Respiratory rate Resp: 18 Resp: [16-18] SpO2 SpO2: 96 % RA SpO2: [96 %-98 %] Intake/Output Summary (Last 24 hours) at 10/31/11 0708 Last data filed at 10/31/11 0514 Gross per 24 hour Intake 4619 ml Output 2750 ml Net 1869 ml Patient Weight in the past 168 hrs: Weight 10/31/11 0517 95.1 kg (209 lb 10.5 oz) 10/30/11 06 94.3 kg (207 lb 14.3 oz) 10/29/11 1936 94.3 kg (207 lb 14.3 oz) General: NAD HEENT: MM dry, yellow exudates on tongue and buccal mucosa Cardiovascular: PMI is tapping at mid-clavicular line, regular rate, normal rhythum, no m/r/g, no S3 or S4 appreciated, 2+radial & pedal pulses Respiratory: Decreased breath sounds, no wheezing rales or rhonchi Abd: Soft, NT, ND, BS+ : Defer Extrem: No LE edema, Right shoulder: No gross abnormalities noted, no edema or erythema, exquisite point tenderness over anterior femoral head, pain with active ROM, pain although not as severe with passive ROM Neuro: Pt awake and alert Skin: Warm and dry without lesions Labs: Recent Labs Basename 10/31/11 0515 10/30/11 0253 10/29/11 1545 ??? WBC 1.9* 1.7* 2.4* ??? HGB 8.7* 8.5* 9.5* ??? HCT 22.8* 22.8* 25.5* ??? PLATELET 135* 113* 126* Recent Labs Basename 10/31/11 0515 10/30/11 0253 10/29/11 1545 ??? NA 139 138 138 ??? K 3.3* 3.6 3.4* ??? CL 101 104 98 ??? CO2 29 27 27 ??? BUN 17 23* 31* ??? CREATININE 0.78* 0.91 1.13 ??? GLUCOSE 141 143 101 ??? CALCIUM 8.3* 8.2* -- ??? MAGNESIUM -- -- -- ??? PHOS -- -- -- No results found for this basename: PROT:3,ALBUMIN:3,BILITOT:3,BILIDIR:3,AST:3,ALT:3,ALKPHOS:3 in the last 168 hours Microbiology: None Pertinent Radiographic/Diagnostic Results: None Assessment: The patient is a 61 y.o. with SCC of tonsil undergoing chemo(with Cisplatin)/rad being admitted for4 day history of intractable nausea and vomiting, now resolved. Patient was doing well and ready for d/c today albeit is now has new, severe, sudden onset of right shoulder pain to the point where heis unable to move the shoulder. Given the hx and PE, this is most likely a rotator cuff injury, however given the possibility for mets, will obtain further imaging. XR obtained without gross bony abnormalities per my read, will obtain an MRI. Plan: # Nausea and Vomiting, now resolved - Scheduled Metoclopramide 10 mg solution per G-tube every 6 hours scheduled - Lorazepam 1 mg IV q4 hours PRN - Ondansetron elixir 4 mg q8 hours PRN # Right shoulder pain, likely rotator cuff injury - MRI today # Nutrition - Home regimen - Jevity 1.5 7 cans + 3 scoops Beneprotein daily - In house, since Jevity 1.5 isn't available using Peptamen 1.5--total vol 1,569 ml with pump - Will require a [facility] ([facility]) - Free water bolus 300 cc per G-tube QID - Appreciate nutrition assistance in this case # SCC of tonsil -Will continue radiation while in house, chemo on hold while in house -Will support with 1 unit PRBC to assist with effectiveness of radiation therapy # Pain Management - Cannot take oral medications - Oxycodone elixir 5 mg per G-tube q4 hours PRN - Fentanyl patch 12 mcg/h - BMX oral suspension 5 mL BID for mouth and posterior OP pain # Prophylaxis - Enoxaparin 40 mg SQ daily # Dispo -Appreciate CRC coordination in this case ([facility]) -Replace K Code Status: Full Code Beatriz Elise, PGY-1 Personal pager: [phone], Team: [phone] * Kiana Freire RN - 10/30/2011 12:59 PM EDT Office of Care Management Clinical Hop Sorter (CRC) Initial Note/DC Planning: Reviewed record and discussed pt with oncology team and at interdisciplinary discharge rounds. Met with pt; explained CRC role and services accepted. S:I think it would be good to have a Visiting Nurse help me with the [enteral feeding] pump when Iget home. I'm sure I'll get the hang of it pretty quick. Reason for admission:61 yo [place] ([place] with a history of SCC of the tonsil ([id number]) s/p bilateral tonsillectomy diagnosed in June 2011 who presents to the [facility] ED with 4 day history of intractable nausea and vomiting. (10/29/2011 Gaudencio ceballos) Functional status:independent Immediate support:; lives with brother Nathaniel in single-level home in [place], no steps at entry Insurance/prescription coverage:Medicare [place] and [employer] [place] supplement; [facility] Anticipated needs at DC:current plan is to do enteral feedings continuous on pump; pt has formula at home; phonecall to [facility], spoke to Dinorah Branham , cancer child care center assistant director (ph [phone], ext [phone] or pgr [phone]). Dinorah stated enteral pump had been ordered thru [facility] vendor, and would be shipped to pt's home, arriving Saturday or this week. She stated fentanyl patches are on [facility] pharmacy and prescription and supporting documentation were faxed to [facility], per Dinorah's request, fax # [phone]. Pt requested the Visiting Nurses from [facility] to support him in becoming independent with managing enteral feedings via pump, and referral sent via eDischarge to to [facility]. P:DC to home with VNA when medically ready. CRC is available to assist with any identified continuing care needs until discharge. CRC will call [facility] in a.m. And make sure fentanyl script is ready for p/u and give pt original to take to pharmacy. Miles Freire RN Clinical Hop Sorter Office of Care Management pgr [phone] and ext [phone] * Nathaniel Barbosa MD - 10/30/2011 8:45 AM EDT Hem/Onc Progress Note Patient info: Name: Oliverio Salazar Jr. 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 Overnight events: -Started on Peptamin 1.5 on pump, currently at 60 (goal 100), to get 2 more cans this AM and this afternoon Subjective: -Nausea still resolved, received 3 doses Metoclopramide 10 mg, no PRN ativan or Zofran. He does note continued significant OP discomfort. ROS: Constitutional: Denies fever, chills HEENT: Denies headache, nasal congestion Cardiovascular: Denies chest pain, pressure or palp Respiratory: Denies SOB GI: Denies dysphagia, abdominal pain, N/V/D/C : Denies dysuria Musculoskeletal: Denies myalgias or arthralgias Skin: No skin complaints Neurological: No focal weakness, numbness or tingling In patient medications: ??? bolus IV fluid 1 L Intravenous Once ??? granisetron 1 mg Intravenous Once ??? potassium chloride 20 mEq Intravenous Q1H ??? traZODone 25 mg Oral Nightly ??? sodium chloride 0.9 % 5 mL Intravenous Q12H ??? enoxaparin 40 mg Subcutaneous Daily ??? polyethylene glycol 17 g Per G Tube Once ??? bolus IV fluid Intravenous Once ??? metoclopramide 10 mg Per G Tube Q6H ??? BMX 5 mL Oral BID ??? docusate sodium 50-200 mg Per G Tube BID ??? sennosides 8.8-35.2 mg Per G Tube BID ??? protein powder 1 scoop Per G Tube TID ??? tube feeding diet Per G Tube User Specified ??? free water bolus 300 mL Per G Tube 4 Times Daily ??? tube feeding diet Per G Tube User Specified ??? fentaNYL 1 patch Transdermal Q72H ??? fentaNYL 1 patch Transdermal Q72H ??? DISCONTD: nystatin 500,000 Units Oral 4 Times Daily ??? DISCONTD: LORazepam 1 mg Oral Q4H ??? DISCONTD: ondansetron 4 mg Oral Q8H ADITI ??? DISCONTD: ondansetron 8 mg Oral Q12H ??? DISCONTD: metoclopramide 10 mg Oral Q6H ??? DISCONTD: tube feeding diet Per G Tube User Specified Continuous infusions: ??? sodium chloride 0.9% 1,000 mL (10/29/111950) PRN medications: ondansetron, ondansetron, OXYcodone, LORazepam, ondansetron, polyethylene glycol, DISCONTD: OXYcodone, DISCONTD: OXYcodone, DISCONTD: ondansetron Physical exam: Last value Range last 24 hrs Temperature Temp: 37 ??C (98.6 ??F) Temp: [36.9 ??C (98.4 ??F)-37.5 ??C (99.5 ??F)] Heart rate Heart Rate: 74 Heart Rate: [63-88] Blood pressure BP: 100/54 mmHg BP: (83-132)/(54-74) Respiratory rate Resp: 16 Resp: [16] SpO2 SpO2: 94 % RA SpO2: [94 %-98 %] Intake/Output Summary (Last 24 hours) at 10/30/11 0845 Last data filed at 10/30/11 0800 Gross per 24 hour Intake 1250 ml Output 875 ml Net 375 ml Patient Weight in the past 168 hrs: Weight 10/30/11 0606 94.3 kg (207 lb 14.3 oz) 10/29/11 1936 94.3 kg (207 lb 14.3 oz) General: NAD HEENT: MM dry, yellow exudates on tongue and buccal mucosa, hard right para- trachial node with diffuse cervical chain tenderness noted Cardiovascular: PMI is tapping at mid-clavicular line, regular rate, normal rhythum, no m/r/g, no S3 or S4 appreciated, 2+radial & pedal pulses Respiratory: Decreased breath sounds, no wheezing rales or rhonchi Abd: Soft, NT, ND, BS+ : Defer Extrem: No LE edema Neuro: Pt awake and alert, +2 reflexes in UE and LE, 5/5 strength UE and LE Skin: Warm and dry without lesions Labs: Recent Labs Basename 10/30/1125210/29/11 1545 ??? WBC 1.7* 2.4* ??? HGB 8.5* 9.5* ??? HCT 22.8* 25.5* ??? PLATELET 113* 126* Recent Labs Basename 10/30/11 0253 10/29/11 1545 ??? NA 138 138 ??? K 3.6 3.4* ??? CL 104 98 ??? CO2 27 27 ??? BUN 23* 31* ??? CREATININE 0.91 1.13 ??? GLUCOSE 143 101 ??? CALCIUM 8.2* -- ??? MAGNESIUM -- -- ??? PHOS -- -- No results found for this basename: PROT:3,ALBUMIN:3,BILITOT:3,BILIDIR:3,AST:3,ALT:3,ALKPHOS:3 in the last 168 hours Microbiology: None Pertinent Radiographic/Diagnostic Results: None Assessment: The patient is a 61 y.o. with SCC of tonsil undergoing chemo(with Cisplatin)/rad being admitted for4 day history of intractable nausea and vomiting. Will continue with fluid resuscitation, control of nausea and vomiting, nutrition and adequate pain control. The fentanyl patch was placed ~2200 yesterday and thus he will not feel some relief until tonight--meanwhile controlling pain with PRNs. Will obtain nutrition consult today. Plan: # Nausea and Vomiting - Scheduled Metoclopramide 10 mg solution per G-tube every 6 hours scheduled - Lorazepam 1 mg IV q4 hours PRN - Ondansetron elixir 4 mg q8 hours PRN - IVF maintenance 100cc/h for 1 L - Fall precautions, out of bed with assistance # Nutrition - Home regimen - Jevity 1.5 7 cans + 3 scoops Beneprotein daily - In house, since Jevity 1.5 isn't available using Peptamen 1.5--total vol 1,569 ml with pump - Will require a pump at home - Free water bolus 300 cc per G-tube QID - Appreciate nutrition assistance in this case # SCC of tonsil -Will continue radiation while in house (not today, possibly tomorrow if not d/c'd early), chemo onhold while in house # Pain Management - Cannot take oral medications - Oxycodone elixir 5 mg per G-tube q4 hours PRN--careful when Fentanyl starts working - Fentanyl patch 12 mcg/h - BMX oral suspension 5 mL BID for mouth and posterior OP pain # Prophylaxis - Enoxaparin 40 mg SQ daily # Dispo -Appreciate CRC coordination in this case ([facility]), possibly home tomorrow if all can be arranged with pump, pain control and nutrition. Code Status: Full Code Beatriz Elise, PGY-1 Personal pager: [phone], Team: [id number] Heme-Onc Staff I spoke with and examined Mr. Salazar, and I concur with Dr. Isaacs' assessment. Mr. Salazar was more comfortable overnight with the fentanyl patch on board and with the tube feeds being delivered on a pump. He has not had any nausea or vomiting and he is tolerating escalating doses of the tube feeds.He has not yet moved his bowels. He still has pain in the oropharynx, but his back pain is controlled. He has no other sites of pain, and he denies a cough, dyspnea, chest pain, headaches, or other sites of pain. On exam, he has erythema of the posterior tonsillar pillars and dry MM's, he has no cervical or supraclavicular adenopathy, his chest is clear to auscultation, cardiac exam shows a regular rate and rhythm, his abdomen is soft and nontender with active bowel sounds, and he has no pedal edema. Labs today show a WBC 1.7, Hgb 8.5, Hgb 22.8, platelets 113, ANC 1180, BUN 23, creatinine 0.91. Mr. Grajedas nausea, vomiting, and oral pain are better. It will take until tonight for the full effects of the fentanyl patch to kick in. He will continue to use oxycodone elixir for breakthrough pain, as well as scheduled reglan with zofran and lorazepam prn . He has antineoplastic-induced pancytopenia, and cisplatin chemotherapy is on hold, but he may resume his radiotherapy at any time. Success of the discharge plan will depend on our ability to get him a fentanyl patch and a pump to deliver his tube feeds, and for his providers in [facility] to followup on our interventions. Our production control planner is working with the [facility] to get him the fentanyl and the pump. Nathaniel Barbosa MD j2ee application developer in Hematology-Oncology documented in this encounter H&P Notes * Nathaniel Barbosa MD - 10/29/2011 4:46 PM EDT Oncology Admission Note Patient info: Name: Oliverio Salazar Jr. : 1950 PCP: JW TOMAS MD PCP phone number: [phone] Date of Admission: 10/29/2011 ( Hospital Day 1 day ) Service: Cardiology, Pager: [phone] Responsible Attending:Nathaniel Barbosa MD Patient ID: 61 yo with SCC of tonsil being admitted for intractable nausea and vomiting. History of present illness: Mr. Oliverio Salazar is a 61 yo [place] ([place]) with a history of SCC of the tonsil ([id number]) s/p bilateral tonsillectomy diagnosed in June 2011 who presents to the [facility] ED with 4 day history of intractable nausea and vomiting. Oliverio gets his oncologic care at [facility] and receives a combination of chemotherapy (low dose weekly cis-morongo for total dose of 88 mg) and radiation (final dose to be given on November 08) which was initiated on September 19, 2011. He has been receiving radiation on a daily basis for the last 5 weeks, with his last radiation treatment being this morning,prior to admission. His last scheduled dose of chemotherapy had been held due to neutropenia and mild LILIYA (pre-renal and hypovolemic). Oliverio reports that the nausea, blood-tinged emesis and dry heaves began on Saturday and has not relented, despite ativan and compazine administration. He was sent to the ED from radiation oncology in [facility] this morning. He was found to have orthostatic hypotension (SBP 110s->80s with symptoms) and a significant 6 lb weight loss was noted. Pt has PEG tube placed on 09/11/2011, and has been relying on tube feeds for nutrition for the past month. He denies diarrhea (no BM since Saturday) but does endorse some low-grade fevers of 99 to 100 max in addition to chills that accompany the nausea. In the Emergency Department, he received a dose of 1 mg IV Granisetron, IV K and 1 L of IVF with complete resolution of his nausea. He was also seen by nutrition who rec: Benecalorie BID for weight stabilization and promote weight gain, as Dionisio states he is unable to tolerate more formula volume. This will provide and additional 660 kcals and 14 gm protein. ROS: Gen: +low grade fevers/chills, decreased appetite, weight loss. Denies night sweats. HEENT: + headache. +pain in the mouth and throat. +dysgeusia. Cardiovascular: Denies chest pain, pressure or palpitations Respiratory: Denies SOB, cough, hemoptysis : Denies dysuria. Good urine output. Musculoskeletal: Denies myalgias or arthralgias Skin: No skin complaints Neurological: +general weakness and feels unsteady. +orthostasis. Past Medical History Diagnosis Date ??? Cancer of head, face, and neck ??? Arthritis ??? Depression PTSD ??? Claustrophobia From 10/25, Dr. Gaines: Squamous cell carcinoma of the tonsil, [id number] Presentation: Onset neck stiffness 04/2011 which subsequently resolved, noted a lump on R neck which progressively increased in size Stagin07/04/11 [facility] of right neck mass ([facility]): squamous cell carcinoma with basaloid features 07/08/11 CT neck soft tissue with contrast ([facility]): 2.8 x 2.3 cm heterogeneous node R level II. Adjacent node with low attenuation center @ 1.6 cm max. Abnormal thickening of the R tonsillar pillar with enlargement and loss of normal contours. Unerupted central incisor maxilla on left. 07/19/11 EUA with bilateral tonsillectomy (and gross resection of the right tonsillar mass) and directed biopsy ([facility]): Findings: right rosina of tongue with small friable area, biopsied. R tonsil larger than the left. Right tonsillar mass extended through the capsule and adherent to underlying constrictors. Left tonsilsmall with some scarring. Path: R base of tongue: benign lymphoid hyperplasia/tonsillar tissue L tonsil: no neoplasm identified R tonsil: squamous cell carcinoma, basaloid type. Tumor infiltrates full thickness of tonsil, and focally invades underlying skeletal muscle. 08/07/11 CT chest with contrast ([facility]): 1.5 cm left pretracheal node at thoracic inlet. T9 sclerotic lesion concerning for metastatic disease. Bronchoscopy with EBUS guided biopsy: Findings: FNA of 1L lymph node x 5 passes Path: The sample appears to consist essentially of respiratory epithelial cells and blood. There isno definite evidence of lymph node sampling. Past Surgical History Procedure Date ??? Spine surgery Disc ??? Tonsillectomy 2011 ??? Back surgery ??? Endobronchial u/s add-on 08/24/2011 ENDOBRONCHIAL ULTRASOUND (EBUS) performed by VERÓNICA KELLOGG at [facility] ENDOSCOPY Prescriptions prior to admission Medication Sig Dispense Refill ??? nystatin (MYCOSTATIN) 100,000 unit/mL suspension Take 5 mLs by mouth 4 times daily. 180 mL 1 ??? LORazepam (ATIVAN) 1 mg tablet Take 2 mg by mouth every 6 hours as needed. Patient taking 1 mg before every radiation treatment or every 6 hours as needed for nausea. ??? benzonatate (TESSALON) 100 mg capsule Take 2 capsules by mouth 3 times daily as needed for Cough. 30 tablet 0 ??? OXYcodone (ROXICODONE) 5 mg/5 mL solution Take 5 mLs by mouth every 4 hours as needed for Pain.480 mL 0 ??? OXYBUTYNIN CHLORIDE ORAL Take 10 mg by mouth daily. ??? prochlorperazine (COMPAZINE) 10 mg tablet Take 1 tablet by mouth every 6 hours as needed for Nausea (nausea related to chemotherapy). 30 tablet 2 ??? Terazosin 10 mg Tab Take 10 mg by mouth daily. ??? traZODone (DESYREL) 50 mg tablet Take 25 mg by mouth nightly. ??? melatonin 3 mg Tab Take by mouth. Allergies Allergen Reactions ??? Tegaderm (Transparent Dressings) Family History Problem Relation Age of Onset ??? Cancer Father Social history: [place] grew up in [place]. He is , his of non-Hodgkin's lymphoma in 2008 after 11 years since treatment at [facility]. Former long-time smoker (80 pack years), quit smoking in July, when he had his surgery. No EtOH or illicits He has 2 daughters one in [place] one in [place]. 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 Physical exam: Last value Range last 24 hrs Temperature Temp: 37 ??C (98.6 ??F) Temp: [36.9 ??C (98.4 ??F)-37.5 ??C (99.5 ??F)] Heart rate Heart Rate: 66 Heart Rate: [66-88] Blood pressure BP: 120/55 mmHg BP: (83-132)/(55-74) Respiratory rate Resp: 16 Resp: [16] SpO2 SpO2: 95 % on RA SpO2: [95 %-98 %] General: Elderly M, lying on stretcher in ED HEENT: PERRL, EOMI. Anicteric MM moist. OP with sloughing, yellow/clear exudates and necrosis. No plaques noted. Skin of neck and upper shoulders with erythema (appears consistent with radiation burn), NTTP. RRR. Nl S1, S2. No MRGs. CTAB, no wheezes, rales/rhonchi Soft abdomen, NTTP, ND. Diffusely hypoactive bowel sounds. No HSM. PEG tube in place, CDI. No LE edema, erythema or asymmetry Neuro: Pt awake and alert, +2 reflexes in UE and LE, 5/5 strength UE and LE Skin: Warm and dry without lesions Pertinent Labs: Leukopenia with WCC of 2.4 (ANC 1700), Hgb 9.5, Plt 126. BMP with mildly decreased K, otherwise wnl UA without leuks or nitrites, + hyaline casts. A&P: Oliverio Salazar is a 61 y.o. with SCC of tonsil undergoing chemo (with Cisplatin)/rad being admitted for 4 day history of intractable nausea, vomiting, dry heaves and low grade fevers. It is clear fromhis physical examination, presence of orthostatic hypotension and hyaline casts on UA that Mr. Salazar is hypovolemic likely secondary to intractable vomiting in the setting of oncologic treatment. Hehas a significiant amount of sloughing and swelling on examination of his mouth and posterior OP and this is likely contributing to his clinical demise. Plan to fluid resuscitate, manage his N/V, control his pain and focus on nutrition. Plan: # Nausea and Vomiting - Scheduled Metoclopramide 10 mg solution per G-tube every 6 hours scheduled - Lorazepam 1 mg IV q4 hours PRN - Ondansetron elixir 4 mg q8 hours PRN # Dehydration/Orthostatic Hypotension - 1 L NS IVF bolus x 2 - IVF maintenance 100cc/h for 1 L - Reassess in AM - Fall precautions, out of bed with assistance # Nutrition - Home regimen - Jevity 1.5 7 cans + 3 scoops Beneprotein daily - In house, since Jevity 1.5 isn't available will use Peptamen 1.5 - AM and NOON - 2 cans + 1 scoop of Beneprotein - QHS - 4 cans + 1 scoop of Beneprotein, administer by pump starting at 10 cc/hr and increasing by 20 cc/h every 2 hours as tolerated - Free water bolus 300 cc per G-tube QID # Pain Management - Cannot take ANY oral medications - Oxycodone elixir 5 mg per G-tube q4 hours PRN - Fentanyl patch 12 mcg/h, may increase as tolerated - BMX oral suspension 5 mL BID for mouth and posterior OP pain # Prophylaxis - Enoxaparin 40 mg SQ daily FULL CODE Rose Mane, PGY-2 10/29/2011 I spoke with and examined Mr. Salazar in the ED at 1800 on October 28, and I concur with Dr. Mane's assessment. Mr. 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 He has received five doses of weekly cisplatin at 40 mg/m2 weekly September 19-. He has pain in his throat and in his lower back. He is using oxycodone elixir 5 mg Q 4 hours around theclock without adequate pain control. He denies shortness of breath, chest pain, fevers, chills, headaches, abdominal pain, or any other sites of pain. The remainder of his review of systems is negative. His past medical history is significant for a chronic back injury and depression, he is a long-time smoker who quit in July, His recently and he does not drink alcohol. On exam, his MM's are dry, he has a dried crust over his hard palate, I couldn't see his tonsillar beds without making him gag but he has white patches over the mandibular retromolar trigone bilaterally, there is a 3cm hard right posterior cervical node and no other cervical or supraclavicular adenopathy, his chest is clear to auscultation, cardiac exam shows a regular rate and rhythm, his abdomen is soft and nontender, he has no erythema around his tube exit, he has no hepatomegaly, he has no pedal edema, andhe does have skin tenting. Labs show an ANC of 1700, Hgb 9.5, BUN 31, creatinine 1.13. Assessment: Dehydration with uncontrolled nausea and pain in a gentleman on his sixth week of concurrent chemoradiotherapy. No apparent thrush. Plan: IV hydration Nutrition consult, he may do better with continuous tube feeds Continue oxycodone elixir, start fentanyl patch at 12 mcg Scheduled reggeorge and shawanda. NBO's He will continue his radiotherapy down here. Chemotherapy is on hold while he remains hospitalized. Nathaniel Barbosa MD j2ee application developer in Hematology-Oncology documented in this encounter ED Notes * Noreen Farley RN - 10/29/2011 6:55 PM EDT Pain medication ordered though it is not in our acudose and per Pharm,acy it is in the acudose on the floor * Noreen Farley RN - 10/29/2011 6:22 PM EDT RN will call back for report * Noreen Farley RN - 10/29/2011 4:38 PM EDT Pt resting NAD IV infusing Meds ordered by C/o continued 7-8/10 back pain and 6-7 /10 mouth pain * Julius Yu MD - 10/29/2011 4:31 PM EDT Chief Complaint Patient presents with ??? Nausea HPI: 61 year old male with SCC of the tonsil, currently receiving radiation therapy. He has had severe nausea/vomiting for the past three days; he typically gets all his nutrition via tube feeds but has been unable to keep down any measurable amount of food since . He was worst 48 hours agoand is slowly improving, but still remains significantly nauseated. He feels dehydrated and has been dizzy upon standing. No BM since last Saturday, but he reports his urine output has been adequate. No abdominal pain, just + mild abdominal soreness due to vomiting. No fevers/chills, chest pain, dyspnea, diarrhea, headache. He was seen in [facility] for his rad onc appointment this morning; he was foundto have orthostatic hypotension (SBP 110s->80s with symptoms) and a significant weight loss was noted, so he was sent to the ED for evaluation. Patient Active Problem List Diagnoses Code ??? Squamous cell carcinoma of tonsil 146.0AG ??? Nausea with vomiting 787.01 No current facility-administered medications on file prior to encounter. Current outpatient prescriptions ordered prior to encounter Medication Sig Dispense Refill ??? nystatin (MYCOSTATIN) 100,000 unit/mL suspension Take 5 mLs by mouth 4 times daily. 180 mL 1 ??? LORazepam (ATIVAN) 1 mg tablet Take 2 mg by mouth every 6 hours as needed. Patient taking 1 mg before every radiation treatment or every 6 hours as needed for nausea. ??? benzonatate (TESSALON) 100 mg capsule Take 2 capsules by mouth 3 times daily as needed for Cough. 30 tablet 0 ??? OXYcodone (ROXICODONE) 5 mg/5 mL solution Take 5 mLs by mouth every 4 hours as needed for Pain.480 mL 0 ??? OXYBUTYNIN CHLORIDE ORAL Take 10 mg by mouth daily. ??? prochlorperazine (COMPAZINE) 10 mg tablet Take 1 tablet by mouth every 6 hours as needed for Nausea (nausea related to chemotherapy). 30 tablet 2 ??? Terazosin 10 mg Tab Take 10 mg by mouth daily. ??? traZODone (DESYREL) 50 mg tablet Take 25 mg by mouth nightly. ??? melatonin 3 mg Tab Take by mouth. ??? DOCUSATE CALCIUM (STOOL SOFTENER ORAL) Take 2 tablets by mouth 2 times daily. Allergies Allergen Reactions ??? Tegaderm (Transparent Dressings) Review of Systems: as per HPI; all other systems reviewed and negative Physical Exam Blood pressure 123/74, pulse 77, temperature 37.2 ??C (99 ??F), resp. rate 16, SpO2 98.00%. Gen: lying still on stretcher; alert, oriented x 3, NAD HEENT: ++ mucositis; MM dry CV; pulse regular, no murmurs noted Pulm: lungs CTA bilaterally Abd: G tube in place without surrounding erythema; abd soft, NT/ND, + BS, no masses noted Ext: warm/dry Recent Results (from the past 24 hour(s)) CBC (WITH DIFF) Component Value Range ??? WBC 2.4 (*) 4.0 - 10.0 (x10(3)/mcL) ??? RBC 2.99 (*) 4.63 - 6.08 (x10(6)/mcL) ??? Hemoglobin 9.5 (*) 13.7 - 17.5 (gm/dL) ??? Hematocrit 25.5 (*) 40.0 - 51.0 (%) ??? MCV 85.3 79.0 - 92.0 (fL) ??? MCH 31.8 25.6 - 32.2 (pg) ??? MCHC 37.3 (*) 32.0 - 36.5 (gm/dL) ??? Platelets 126 (*) 145 - 370 (x10(3)/mcL) ??? RDWSD 41.2 35.0 - 46.0 (fL) ??? RDWCV 14.3 10.9 - 14.4 (%) ??? MPV 9.5 9.0 - 12.0 (fL) ELECTROLYTES PANEL Component Value Range ??? Sodium 138 135 - 145 (mmol/L) ??? Potassium 3.4 (*) 3.5 - 5.0 (mmol/L) ??? Chloride 98 98 - 107 (mmol/L) ??? CO2 27 22 - 31 (mmol/L) ??? Anion Gap 13 5 - 15 (mmol/L) BUN Component Value Range ??? BUN 31 (*) 10 - 20 (mg/dL) CREATININE, SERUM Component Value Range ??? Creatinine 1.13 0.80 - 1.50 (mg/dL) ? ? Estimated GFR >60 >=60 GLUCOSE, RANDOM Component Value Range ??? Glucose Lvl 101 60 - 199 (mg/dL) BLUE TUBE HOLD Component Value Range ??? Blue Hold Sample in lab. DIFFERENTIAL, AUTOMATED Component Value Range ??? Neutrophils % 71.7 (*) 34.0 - 71.0 (%) ??? Neutr Abs (ANC) 1.70 1.50 - 6.30 (x10(3)/mcL) ??? Lymphocytes % 19.4 19.0 - 53.0 (%) ??? Lymphocytes Abs 0.5 (*) 1.0 - 3.6 (x10(3)/mcL) ??? Monocytes % 7.2 4.0 - 13.0 (%) ??? Monocyte Abs 0.2 0.2 - 1.0 (x10(3)/mcL) ??? Eosinophils % 1.7 0.0 - 7.0 (%) ??? Eosinophils Abs 0.0 0.0 - 0.5 (x10(3)/mcL) ??? Basophils % 0.0 0.0 - 2.0 (%) ??? Basophils Abs 0.0 0.0 - 0.2 (x10(3)/mcL) ??? Immature Gran % 0.00 0.00 - 0.66 (%) ??? Promise Gran Abs 0.00 0.00 - 0.05 (x10(3)/mcL) Procedures MDM 61 year old male with SCC of tonsil currently undergoing radiation therapy, here for nausea/vomiting x 3 days. Labs reveal hypokalemia plus expected pancytopenia. He has had a significant weight lossof 6# over the weekend and 25+# since starting therapy. We feel he needs admission for relief of nausea, IV fluids and improvement of nutritional status. He was given granisetron 1 mg IV, 1L of normal saline, and IV potassium was ordered. He has been accepted by Dr. Barbosa and will be admitted byoncology. López Rivas MD Resident 10/29/11 1717 ED ATTENDING NOTE: I reviewed Dr. Rivas's note and agree with the barrientos portions of the documented findings and plan of care. I was unable to perform the history or physical myself. The patient was already being seen by the admitting service when I went to meet him. I independently reviewed the labs. He is admitted to the hematology service for dehydration and pancytopenia. Julius Yu MD 10/29/11 8296 * Noreen Farley RN - 10/29/2011 3:57 PM EDT Care assumed. Pt with tonsilar Ca reports 3 days of N/V and 6 lb wt loss. He was eval @ [facility] today after radiation @ 1100 and found to be orthostatic. Per pt's brother, he was sent to [facility] to be admitted. Pt is A+O PWD NAD Lungs CTA except insp crackles RLL * Noreen Farley RN - 10/29/2011 7:45 AM EDT Pt being eval by admitting MD Who will address the fact that meds have been ordered in pill form instead of for the PEG documented in this encounter Miscellaneous Notes * Discharge Summary - Beatriz Elise MD - 11/01/2011 12:29 PM EDT Hem/Onc - Discharge Summary Patient Name: Oliverio Salazar Jr. Patient Age: 61 y.o. Birthdate: 1950 Admit date: 10/29/2011 Discharge date and time: 11/01/2011 Attending Physician: Fahad Orta MD Discharge Diagnoses (Hospital Problems) and Secondary Diagnoses (Chronic Problems): Active Hospital Problems Diagnoses ??? Rotator cuff tear Resolved Hospital Problems Diagnoses Date Resolved ??? Nausea with vomiting 11/01/2011 Operations/Major Procedures: None History of Presentation: Mr. Oliverio Salazar is a 61 yo [place] ([place]) with a history of SCC of the tonsil ([id number]) s/p bilateral tonsillectomy diagnosed in June 2011 who presents to the [facility] ED with 4 day history of intractable nausea and vomiting. Oliverio gets his oncologic care at [facility] and receives a combination of chemotherapy (low dose weekly cis-morongo for total dose of 88 mg) and radiation (final dose to be given on November 08) which was initiated on September 19, 2011. He has been receiving radiation on a daily basis for the last 5 weeks, with his last radiation treatment being this morning,prior to admission. His last scheduled dose of chemotherapy had been held due to neutropenia and mild LILIYA (pre-renal and hypovolemic). Oliverio reports that the nausea, blood-tinged emesis and dry heaves began on Saturday and has not relented, despite ativan and compazine administration. He was sent to the ED from radiation oncology in [facility] this morning. He was found to have orthostatic hypotension (SBP 110s->80s with symptoms) and a significant 6 lb weight loss was noted. Pt has PEG tube placed on 09/11/2011, and has been relying on tube feeds for nutrition for the past month. He denies diarrhea (no BM since Saturday) but does endorse some low-grade fevers of 99 to 100 max in addition to chills that accompany the nausea. In the Emergency Department, he received a dose of 1 mg IV Granisetron, IV K and 1 L of IVF with complete resolution of his nausea. He was also seen by nutrition who rec: Benecalorie BID for weight stabilization and promote weight gain, as Dionisio states he is unable to tolerate more formula volume. This will provide and additional 660 kcals and 14 gm protein. Hospital Course: # Nausea and Vomiting: On admission, 's nausea resolved with the dose of Kytril given in the ED. Additionally, he was was placed on Metoclopramide 10 gm Q6 per his Gtube and Ativan and Zofran PRN. He remained asymptomatic and nausea free while in house. # Nutrition: On admission, was given IVF and started on tube feeds, Peptamen 1.5 (as Jevity not available), with a pump. His home Beneprotein was continued as well. He was given a pump to [facility] at [facility] per [facility] (patient [facility]% service connected). # Pain management: For his oral and throat pain, was given a Fentanyl patch, 12 mcg/h, oxycodone PRN and BMX solution. His oral and throat pain where much improved on this regimen. These medications [facility] the [facility]. 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 He will go for radiation today, the day of discharge, at [facility] at 4 pm. # Right shoulder pain: On the morning of presumed discharge, developed severe right shoulder pain such that he was unable to move his shoulder. There was no apparent trauma. Physical exam was consistent with a rotator cuff injury. MRI was obtained showing subdeltoid/subacromial bursitis, rotator cuff tendinopathy, without tear or muscular atrophy and severe AC joint arthropathy. He willfollow up with orthopedics as an outpatient in this regard and his pain will be controlled with NSAIDS in addition to his pre-existing regimen. Important Studies and Lab Data: Recent Labs Basename 11/01/11 0355 10/31/115 10/31/11 0515 10/30/11 0253 10/29/11 1545 ??? WBC 1.8* -- 1.9* 1.7* 2.4* ??? HGB 9.5* 10.9* 8.7* 8.5* 9.5* ??? PLATELET 135* -- 135* 113* 126* Recent Labs Basename 11/01/11 0355 10/31/1115 10/30/11 0253 10/29/11 1545 ??? NA 135 139 138 138 ??? K 3.0* 3.3* 3.6 3.4* ??? CL 96* 101 104 98 ??? CO2 31 29 27 27 ??? BUN 16 17 23* 31* ??? CREATININE 0.77* 0.78* 0.91 1.13 ??? GLUCOSE 164 141 143 101 Recent Labs Basename 11/01/11 0355 10/31/1115 10/30/11 0253 ??? CALCIUM 8.5 8.3* 8.2* ??? MAGNESIUM -- -- -- ??? PHOS -- -- -- Studies: MRI right shoulder: Impression 1. Subdeltoid/subacromial bursitis. 2. Rotator cuff tendinopathy, without tear or muscular atrophy. 3. Severe AC joint arthropathy. 4. No osseous lesion/metastasis. Pending Studies and Lab Data: None Discharge Conditions/Prognosis: Good, stable. Filed Vitals: 11/01/11 1101 BP: 114/68 Pulse: 69 Temp: 36.8 ??C (98.2 ??F) Resp: 18 Discharge to: Home Discharge Medications: Current Discharge Medication List New Meds Dose Details ibuprofen (ADVIL;MOTRIN) 100 mg/5 mL suspension 600 mg Take 30 mLs by mouth every 6 hours as neededfor Pain. Qty: Refills: fentaNYL (DURAGESIC) 12 mcg/hr patch [address] 1 patch onto the skin. Replace every 72 hours Qty: 10 patch Refills: 0 Continued medications with revised dosing Dose Details OXYcodone (ROXICODONE) 5 mg/5 mL solution 5-10 mg Take 5-10 mLs by mouth every 4 hours as needed for Pain. Qty: 480 mL Refills: 0 Continued medications, unchanged Dose Details nystatin (MYCOSTATIN) 100,000 unit/mL suspension 500,000 Units Take 5 mLs by mouth 4 times daily. Qty: 180 mL Refills: 1 LORazepam (ATIVAN) 1 mg tablet 2 mg Take 2 mg by mouth every 6 hours as needed. Patient taking 1 mgbefore every radiation treatment or every 6 hours as needed for nausea. Qty: Refills: benzonatate (TESSALON) 100 mg capsule 200 mg Take 2 capsules by mouth 3 times daily as needed for Cough. Qty: 30 tablet Refills: 0 OXYBUTYNIN CHLORIDE ORAL 10 mg Take 10 mg by mouth daily. Qty: Refills: prochlorperazine (COMPAZINE) 10 mg tablet 10 mg Take 1 tablet by mouth every 6 hours as needed for Nausea (nausea related to chemotherapy). Qty: 30 tablet Refills: 2 Terazosin 10 mg Tab 10 mg Take 10 mg by mouth daily. Qty: Refills: traZODone (DESYREL) 50 mg tablet 25 mg Take 25 mg by mouth nightly. Qty: Refills: melatonin 3 mg Tab Take by mouth. Qty: Refills: Updated Allergies/ADRs: Allergies Allergen Reactions ??? Tegaderm (Transparent Dressings) Follow-up Recommendations for Providers: -Please note that the patient was not written for Metoclopramide and this may need to be added to his regimen if he continues to have trouble with nausea. -He will require close f/u with orthopedics as an outpatient with regards to his right shoulder (MRI results as above). Provider Instructions Instruction after leaving the hospital Why you were hospitalized: nausea Call your doctor or seek medical attention if you develop the following: worsening nausea/vomiting,intractable pain, Activity level: as tolerated Diet: as previous Specific instructions related to your condition: - please go to your appointment for radiation this afternoon at 4 pm - please go to the [facility] to belt picker your prescriptions Follow-Up Appointments Please contact your PCP at the [facility] to set up an appointment with orthopedic surgery. Pleasetake images on the CD to your appointment. Your Inpatient Doctor(s) at [facility]: You Lee, Ajith Donovan Future Appointments and Orders Future Appointments: Provider: Department: Dept Phone: Center: 11/01/2011 4:00 PM Treatment Stj Rad/Onc [facility] Radiation Oncology [phone] [facility] 11/02/2011 10:30 AM Jacoby Gaines MD [facility] Radiation Oncology [phone] [facility] 11/02/2011 10:30 [address] Treatment [facility]j Rad/Onc [facility] Radiation Oncology [phone] [facility] 11/02/2011 11:[address] [facility] Hem Onc [phone] [facility] 11/05/2011 10:15 AM Treatment Stj Rad/Onc [facility] Radiation Oncology [phone] [facility] 11/06/2011 10:15 AM Treatment Stj Rad/Onc j Radiation Oncology [phone] [facility] 11/07/2011 10:15 AM Treatment Stj Rad/Onc [facility] Radiation Oncology [phone] [facility] 11/08/2011 10:15 AM Treatment Stj Rad/Onc [facility] Radiation Oncology [phone] [facility] 11/09/2011 11:[address] [facility] Hem Onc [phone] [facility] Future Orders Please Complete By Expires Referral to Home Health [[id number] CPT(R)] Process Instructions: Scheduling Instructions: Comments: DOCUMENTATION FOR VNA SERVICES PATIENT'S LOCATION:home Name:Oliverio Salazar Address:[address] [place] [id number] (home) Caregiver: self In discussion with the attending physician, it is certified that this patient is under their care and that they, or a nurse practitioner, clinical nurse specialist or physician's retail event assistant who is working directly with them, had a face to face encounter that meets the physician face to face encounter requirements with this patient on 10/31/2011 The encounter with the patient was in whole, or in part, for the following medical condition, whichis the primary reason for home health care services: symptom management in the setting of SCC of tonsil In discussion with the provider, it is certified that, based on their findings, the following services are medically necessary for home health services. SERVICES REQUESTED: RN (x) To provide the following care/treatments with the clinical findings supporting the need for services as follows: HOME CARE ORDERS: Enroll in homecare program: RN: monitor vital signs, pain control, tolerance of enteral feeding, bowel and urinary function, and medication management; support pt in becoming independent with enteral feedings using pump; reviewall medications START OF CARE DATE: within 24-48 hours of discharge from hospital (when you have confirmed pt has received enteral pump, which was ordered by [facility] providers) FOR MEDICARE ONLY: In discussion with the attending physician, it is certified that the clinical findings support thatthis patient is homebound (i.e. absences from home require considerable and taxing effort and are for medical reasons or yazidism services of infrequently or of short duration when for other reasons) All VNA agencies which cover the area of patient's residence have been reviewed, either verbally steven writing, and patient/family have chosen the home health care agency as follows for home services: HOME HEALTH CARE AGENCY: Name: [facility] PHONE: [phone] FAX: [phone] Ordering Provider: Fahad Orta MD, oncology Ordering Provider Phone #: [phone] For additional orders, or with any concerns, contact pt's primary oncologist: Maribell Miller MD, ph [phone] [place] [phone] Questions: Responses: Agency name and contact information [facility] Patient location post discharge home What services are requested Registered Nurse Start date 11/01/2011 Responsible MD post discharge contact info maribell miller, oncology For questions regarding this document or issues relating to this hospitalization on the Medical Service, please contact your inpatient physician through the [facility] Instructional Technology Coordinator . Issues afterhours and on weekends will be handled by the Production Engine Repairer staff on-call. Signed: BEATRIZ ELISE MD * Plan of Care - Maria Luz Benavidez RN - 11/01/2011 11:56 AM EDT Problem: Pain, Acute (Adult, Obstetric) Goal: Acute Pain: Acceptable Pain Control/Comfort Level - Pain, Acute (Adult, Obstetric) Outcome: Unable to achieve outcome at discharge (see discharge plan) Date Met: 11/01/11 Patient reports that he feels fine if he doesn't move. RN administering scheduled and PRN pain medications as ordered and patient reports that his pain is better managed today than it was yesterday. RN spoke with MD and CRC regarding patient's pain related to discharge planning; MD agreed that hewill provide patient with prescriptions for oxycodone for at-home management of shoulder pain, and stated that he would be setting up a patient with an orthopedist for addressing shoulder issue. Problem: Trauma/Injury Risk (Adult, Obstetric) Goal: Trauma/Injury Risk: Absence of Trauma/Injury/Falls Outcome: Outcome achieved Date Met: 11/01/11 No fall or other trauma observed by or reported to RN this shift. See Adult Patient Care Summary doc flowsheet for assessment & interventions. Problem resolved. Problem: Nutrition, Imbalanced: Less than Body Requirements (Adult, Obstetric) Goal: Nutrition, Imbalanced: Less than Body Requirements: Improved Nutritional Status Outcome: Unable to achieve outcome at discharge (see discharge plan) Date Met: 11/01/11 Patient has exhibited high residuals with his tube feedings over the last 24 hours, which the RNs have reported to MDs. Patient reports that overall the current feeding program has been working better than his previous program, and reports that he has had no nausea or vomiting in the past 48 hours.Patient continues to exhibit oral lesions and discomfort; he performs oral care independently several times a day, and takes BMX solution to manage discomfort. Patient will continue to have nutritional management with his outpatient provider. * Plan of Care - Marylin Mike RN - 11/01/2011 2:34 AM EDT Problem: Pain, Acute (Adult, Obstetric) Goal: Acute Pain: Acceptable Pain Control/Comfort Level - Pain, Acute (Adult, Obstetric) Outcome: Present (see interventions, notes) Pt reports 8/10 pain right shoulder increased with movement given oxycodone 20 mg via g-tube at 2310 with some relief pt sleeping on recheck, pt reports pain does increase with movement . MRI done this pm. CSMP remains adequate RUE will continue to monitor. Problem: Trauma/Injury Risk (Adult, Obstetric) Goal: Trauma/Injury Risk: Absence of Trauma/Injury/Falls Outcome: Absent and monitoring Pt OOB with cane standby assist to Br took a shower this pm tolerated well ,gait is steady at present , ARTF precautions maintained, will continue to monitor. Problem: Nutrition, Imbalanced: Less than Body Requirements (Adult, Obstetric) Intervention: Bowel Function Promotion Pt abd remains soft BS present given senokot/ colace at 2300 via G-tube last bm 10/29, Will continueto monitor. Goal: Nutrition, Imbalanced: Less than Body Requirements: Improved Nutritional Status Outcome: Present (see interventions, notes) Pt denies n/v at present tube feeding started at 2300 after MRI per pt request 20cc resiudial notedprior to starting TF . Will continue to monitor * Plan of Care - Lizbet Antonio RN - 10/31/2011 2:22 AM EDT Problem: Pain, Acute (Adult, Obstetric) Goal: Acute Pain: Acceptable Pain Control/Comfort Level - Pain, Acute (Adult, Obstetric) Outcome: Present (see interventions, notes) Pt c/o mouth,throat & neck pain r/t esophagitis & mucositis. Fentanyl patch 12mcg with oxycodone prn for breakthrough pain. Pain rated 8/10 at beginning of shift. Medicated with oxycodone 5mgvia G-tube & pt reported improved pain levels. Also medicated with BMX after oral care completed. Pt also reported right shoulder pain @ hs. Per pt, pain is new & increases when he moves his arm. Pt does not remember hurting his arm. Pt woke up during night with c/o shoulder pain 12/27. Medicated with oxycodone 5mg per g-tube. Pt settled to sleep with no non-verbal s/s of pain noted. Heating pad ordered for shoulder. Will continue to monitor. Problem: Trauma/Injury Risk (Adult, Obstetric) Goal: Trauma/Injury Risk: Absence of Trauma/Injury/Falls Outcome: Absent and monitoring Pt is ARTF. Reinforced to pt to call for help if he needs assistance getting to BR. Pt stands at side of bed to void independently. Call light within reach & pt calling appropriately for needs. Problem: Nutrition, Imbalanced: Less than Body Requirements (Adult, Obstetric) Goal: Nutrition, Imbalanced: Less than Body Requirements: Improved Nutritional Status Outcome: Present (see interventions, notes) Patient NPO with cyclic tube feeds of peptamen 1.5 infusing @ 119cc/hr from [id number]. Pt tolerating TF well this shift. 30cc residual noted @ beginning of shift. No c/o nausea, vomiting or abd pain.Free water boluses as ordered. Continues on scheduled reglan given per PEG and protein powder givenas well, see MAR. Will continue to monitor pt for tolerance of tube feeding. * Initial Assessments - Jemima Montague LD - 10/30/2011 2:42 PM EDT Nutrition Initial Evalution Note: S: Per pt: Yeah, I weighed about 220 - 230# about 5 weeks ago. I can't swallow any thing, it ott like hell. I haven't been able to get in the 7 cans a day at home, even before the nausea and vomiting. Chewing/Swallowing: XRT resulting in burning sensation in esophagus. Pt is essentially NPO N/V: None at present or since admission. Pt reports vomiting BOBBIN DOFFER for about 3-4 days. O: Dx: SCC of tonsil, admitted with intractable nausea and vomiting PMH: s/p bilateral tonsillectomy, receiving chemo and XRT Diet: No diet order, Tube feeds of Peptamen 1.5 And 3 scoops of protein powder BID ordered Height: 171 cm Admit Weight: 94.3 kg BMI: 32.3 UBW: 100 - 104 kg about 5 weeks ago per pt * ~7.5% recent weight loss in less than 3 months = severe Est. Kcal needs: 2357 - 2829 kcal (25 - 30 kcal/kg) Est. Protein needs: 113 - 141 grams (1.2 - 1.5 grams/kg) Labs: BUN: 23, Ca: 8.2 Medications: Cisplatin, Reglan, BMX oral suspension, Colace, Senokot A: Pt seen for initial nutrition evaluation. Pt undergoing chemo and XRT for SCC of tonsils. He hasa G-tube for tube feedings and was admitted with 3-4 day hx of nausea and vomiting of his tube feed. Pt is receiving Cisplatin which is known to cause sever nausea and vomiting. He has undergone sever weight loss (7.5%) over the past five weeks and has had poor intake for > 3 days with vomiting of tube feeds. Severe weight loss and poor intake is consistent with signes of protein calorie malnutrition. At home, pt was receiving Jevity 1.5 (3 cans at night, 2 cans in the morning, and 2 cans in the afternoon) plus 3 scoop of protein powder providing 2563 kcal and 118 grams of protein. [facility] does not ellis Jevity 1.5 but, Peptamin 1.5 is very similar. Recommend cyclic feeds of Peptamin 1.5 at 119 ml/hr x 8 hours (over night) in addition to bolus feeds at 119 ml/hr x 2 hours TID. Once pt is at goal, provide 1 scoops of protein powder with each bolus feed. Tube feed plus protein powder will provide 2428 kcal, 124 gras of protein, 1209 ml of free water and 100% of RDI's for vitamins and minerals. Monitor electrolytes (K+, mag, and phos) carefullyas pt is at high risk for refeeding syndrome. Additional free water of 300 ml QID ordered and seemsreasonable. Once pt is able to tolerate bolus feeds during the day, provide 237 ml over 1 hour TID (instead of 119 ml over 2 hours TID). P: 1. Cyclic and bolus feeds of Peptamen 1.5 as described above. Will pend orders for physician to release. 2. Monitor jeremy. 3. Could check pt pre-albumin for additional nutrition indicator. 4. Monitor tolerance and residuals. 5. Nutrition to follow throughout hospital stay. * Miscellaneous - Provider, Scanning - 10/30/2011 1:33 PM EDT * Miscellaneous - Provider, Scanning - 10/30/2011 1:33 PM EDT * Plan of Care - Shira Multani RN - 10/30/2011 6:19 AM EDT Problem: Pain, Acute (Adult, Obstetric) Goal: Acute Pain: Acceptable Pain Control/Comfort Level - Pain, Acute (Adult, Obstetric) Outcome: Present (see interventions, notes) Patient continues with pain in throat, mouth, and neck related to radiation treatments. Liquid Oxycodone given through PEG tube x1 with good effect, see MAR. BMX given as ordered as well. Patient requested saline for rinsing which was provided. Will continue to monitor and treat pain as needed. Problem: Trauma/Injury Risk (Adult, Obstetric) Goal: Trauma/Injury Risk: Absence of Trauma/Injury/Falls Outcome: Absent and monitoring Patient called appropriately for needs. He uses cane for mobility and is a standby assist for ambulation. He remains high ARTF because of chronic dizziness and frequent falls at home. Will continue to monitor. Problem: Nutrition, Imbalanced: Less than Body Requirements (Adult, Obstetric) Goal: Nutrition, Imbalanced: Less than Body Requirements: Improved Nutritional Status Outcome: Present (see interventions, notes) Patient NPO and reportedly had nausea and vomiting all weekend. Tube feed started on pump with low rate and titrated up overnight to 100/hr, as patient previously used gravity method at home and has not used pump before. Patient tolerated well, no nausea and vomiting this shift. Scheduled Reglan given per PEG and protein powder given as well, see MAR. Water given for patient to sip on for comfort. IV fluids started NS @ 100/hr. Will continue to monitor. * ED Triage - Paty Hwang RN - 10/29/2011 2:07 PM EDT Pt presents for nausea, vomiting, s/p tonsil cancer on chemo and radiation, having oral pain in mouth, not feeling well, not able to tolerate po, referred to ED by his cancer doctor. A&Ox3. Skin pale, warm, dry. Brother w/ pt. Vomiting x 3 days, unable to tolerate po, 6 pd weight loss in 3 days. documented in this encounter Plan of Treatment Pending Results Name Type Priority Associated Diagnoses Date /Time Transfuse RBC Blood Bank Routine 10/31/2011 3:18 PM EDT documented as of this encounter Procedures Procedure Name Priority Date/Time Associated Diagnosis Comments DIFFERENTIAL, AUTOMATED Routine 11/01/2011 3:55 AM EDT CBC (WITH DIFF) Routine 11/01/2011 3:55 AM EDT BASIC METABOLIC PANEL Routine 11/01/2011 3:55 AM EDT MRI SHOULDER WO CONTRAST Routine 10/31/2011 10:55 PM EDT HEMOGLOBIN AND HEMATOCRIT, BLOOD Routine 10/31/2011 9:15 PM EDT ABO/RH TYPING STAT 10/31/2011 12:12 PM EDT ANTIBODY SCREEN STAT 10/31/2011 12:12 PM EDT TYPE AND SCREEN (MC/CGP/KUMAR) STAT 10/31/2011 11:29 AM EDT PREPARE RBC Routine 10/31/2011 11:10 AM EDT XR SHOULDER Routine 10/31/2011 9:35 AM EDT DIFFERENTIAL, AUTOMATED Routine 10/31/2011 5:15 AM EDT CBC (WITH DIFF) Routine 10/31/2011 5:15 AM EDT BASIC METABOLIC PANEL Routine 10/31/2011 5:15 AM EDT DIFFERENTIAL, AUTOMATED Routine 10/30/2011 2:53 AM EDT CBC (WITH DIFF) Routine 10/30/2011 2:53 AM EDT BASIC METABOLIC PANEL Routine 10/30/2011 2:53 AM EDT EKG 12-LEAD Routine 10/29/2011 9:57 PM EDT Tonsil cancer URINALYSIS WITH REFLEX CULTURE Routine 10/29/2011 7:57 PM EDT DIFFERENTIAL, AUTOMATED STAT 10/29/2011 3:45 PM EDT BLUE TUBE HOLD STAT 10/29/2011 3:45 PM EDT CREATININE STAT 10/29/2011 3:45 PM EDT CBC (WITH DIFF) STAT 10/29/2011 3:45 PM EDT BUN STAT 10/29/2011 3:45 PM EDT GLUCOSE STAT 10/29/2011 3:45 PM EDT ELECTROLYTES PANEL STAT 10/29/2011 3: 45 PM EDT documented in this encounter Results * (ABNORMAL) DIFFERENTIAL, AUTOMATED (11/01/2011 3:55 AM EDT) Neutrophil % 64.5 34.0 - 71.0 % CERNER MILLENNIUM Neutrophil Absolute 1.13(L) 1.50 - 6.30 x10(3)/mc L CERNER MILLENNIUM Lymph % 18.9(L) 19.0 - 53.0 % CERNER MILLENNIUM Lymphocytes Abs 0.3(L) 1.0 - 3.6 x10(3)/mc L CERNER MILLENNIUM Monocyte % 13.1(H) 4.0 - 13.0 % CERNER MILLENNIUM Monocyte Abs 0.2 0.2 - 1.0 x10(3)/mc L CERNER MILLENNIUM Eos % 2.9 0.0 - 7.0 % CERNER MILLENNIUM Eosinophils Abs 0.0 0.0 - 0.5 x10(3)/mc L CERNER MILLENNIUM Basophil % 0.0 0.0 - 2.0 % CERNER MILLENNIUM Baso Absolute 0.0 0.0 - 0.2 x10(3)/mc L CERNER MILLENNIUM Immature Gran % 0.60 0.00 - 0.66 % CERNER MILLENNIUM Comment: Immature granulocytes(IG's)percentage and absolute count will include metamyelocytes, myelocytes, and promyelocytes. Blood smears from CBCs yielding IG's will be scanned manually for concordance. If this scan disagrees with the automated IG or if promyelocytes are noted, a manual differential will be performed. Immature Gran Absolute 0.01 0.00 - 0.05 x10(3)/mc L CERNER MILLENNIUM Blood specimen (specimen) 11/01/2011 3:55 AM EDT 11/01/2011 4:07 AM EDT Julius Yu MD HEMATOLOGY ORDERABLE S CERNER MILLENNIUM * (ABNORMAL) Basic Metabolic Panel (non-fasting) (11/01/2011 3:55 AM EDT) Glucose 164 60 - 199 mg/dL CERNER MILLENNIUM Comment:Diabetes: >=200 mg/d L plus symptoms Blood Urea Nitrogen 16 10 - 20 mg/dL CERNER MILLENNIUM Creatinine 0.77(L) 0.80 - 1.50 mg/dL CERNER MILLENNIUM Comment: Please note that the pediatric reference intervals supplied above were not validated at [facility]. Results from pediatric patients should be interpreted in conjunction to the patient's age, height and muscle mass. Sodium 135 135 - 145 mmol/L CERNER MILLENNIUM Potassium 3.0(Criti marlen) 3.5 - 5.0 mmol/L CERNER MILLENNIUM Comment: Result rechecked.lr Called by: lr, Read back by: marylin hernandez, Date/Time:11/01/11 05:06. Please note: ??Patients with WBC >100,000 may have falsely elevated Potassium levels. ??For accurate Potassium quantification in these patients send serum separator tube (gold top) for subsequent determinations. ??Contact the Clinical Chemistry Laboratory if there are any questions. Chloride 96(L) 98 - 107 mmol/L CERNER MILLENNIUM Carbon Dioxide 31 22 - 31 mmol/L CERNER MILLENNIUM Anion Gap 8 5 - 15 mmol/L CERNER MILLENNIUM Calcium 8.5 8.5 - 10.5 mg/dL CERNER MILLENNIUM Est Glomerular Filtration Rate [...] diabetic kidney disease. References: http://nkdep.nih.gov/resources/NKDEP_Suggestn4Labs_0606_508.pdf http://www.kidney.org/professionals/kls/pdf/faq_gfr.pdf Grace Combs, Stephanie NA, Ana M BURNETTE, Florencio TS, Lisa AD, Sharon ENID. Relative performance of the MDRD and CKD-EPI equations for estimating glomerular filtration rate among patients with varied clinical presentations. Clin J Am Soc Nephrol;6:1963-72. Blood specimen (specimen) 11/01/2011 3:55 AM EDT 11/01/2011 4:07 AM EDT Narrative Resulting Agency Comment Spec In Lab Julius Yu MD CHEMISTRY ORDERABLES Performing Organization Address [facility]/ZIP Co de Phone Number CERNER MILLENNIUM * (ABNORMAL) CBC (with Diff) (11/01/2011 3:55 AM EDT) White Blood Cell 1.8(Criti marlen) 4.0 - 10.0 x10(3)/mc L CERNER MILLENNIUM Red Blood Cell 2.97(L) 4.63 - 6.08 x10(6)/mc L CERNER MILLENNIUM Hemoglobin 9.5(L) 13.7 - 17.5 gm/dL CERNER MILLENNIUM Hematocrit 25.2(L) 40.0 - 51.0 % CERNER MILLENNIUM Mean Cell Volume 84.8 79.0 - 92.0 fL CERNER MILLENNIUM Mean Cell Hemoglobin 32.0 25.6 - 32.2 pg CERNER MILLENNIUM Mean Cell Hemoglobin Concentration 37.7(H) 32.0 - 36.5 gm/dL CERNER MILLENNIUM Platelet 135(L) 145 - 370 x10(3)/mc L CERNER MILLENNIUM RDW Standard Deviation 42.0 35.0 - 46.0 fL CERNER MILLENNIUM RDW coefficient of variation 14.7(H) 10.9 - 14.4 % CERNER MILLENNIUM Mean Platelet Volume 9.2 9.0 - 12.0 fL CERNER MILLENNIUM Blood specimen (specimen) 11/01/2011 3:55 AM EDT 11/01/2011 4:07 AM EDT Narrative Resulting Agency Comment Spec In Lab Julius Yu MD HEMATOLOGY ORDERABLE S Performing Organization Address City/[facility]/ZIP Co de Phone Number ARIELLA OSEASENNIUM * MRI SHOULDER WO CONTRAST (10/31/2011 10:55 PM EDT) Anatomical Region Laterality Modality Shoulder Magnetic Resonan ce 10/31/2011 10:5 5 PM EDT Narrative 11/01/2011 12:56 PM EDT Examination MR Shoulder WO/RIGHT Clinical History New right shoulder pain, pt with tonsillar squamous cell cancer, on chemoRT; Comparison Right shoulder radiographs, 10/31/2011. Technique MRI of the right shoulder was acquired without contrast enhancement. Findings AC joint: ??There is severe proliferative AC joint arthropathy, which minimally narrows the rotator cuff outlet. ??The undersurface of the acromion is flat, without subacromial spur. ??There is large amount of fluid in the subacromial/subdeltoid bursa, with abnormal increased signal in the adjacent deltoid muscle on fluid sensitive sequences. The amount of fluid is greatest anteriorly, along the subscapularis muscle and tendon. Rotator cuff: ??There is heterogeneous increased signal within the rotator cuff tendon anteriorly and superiorly, without rotator cuff tear. ??No muscular atrophy. Glenohumeral joint: ??Normal marrow signal in the humeral head, aside from a tiny posterior subchondral cyst, of doubtful clinical significance. ??No labral tear. ??The glenoid fossa appears normal. Biceps: ??The biceps anchor and biceps tendon are intact. Impression ? 1. Subdeltoid/subacromial bursitis. ? 2. Rotator cuff tendinopathy, without tear or muscular atrophy. ? 3. Severe AC joint arthropathy. ? 4. No osseous lesion/metastasis. Film and interpretation reviewed by the attending Procedure Note Deborah Rodgers MD - 11/01/2011 Examination MR Shoulder WO/RIGHT Clinical History New right shoulder pain, pt with tonsillar squamous cell cancer, onchemoRT; Comparison Right shoulder radiographs, 10/31/2011. Technique MRI of the right shoulder was acquired without contrast enhancement. Findings AC joint: There is severe proliferative AC joint arthropathy, whichminimally narrows the rotator cuff outlet. The undersurface of the acromion isflat, without subacromial spur. There is large amount of fluid in the subacromial/subdeltoid bursa, with abnormal increased signal in theadjacent deltoid muscle on fluid sensitive sequences. The amount of fluid isgreatest anteriorly, along the subscapularis muscle and tendon. Rotator cuff: There is heterogeneous increased signal within the rotatorcuff tendon anteriorly and superiorly, without rotator cuff tear. No muscular atrophy. Glenohumeral joint: Normal marrow signal in the humeral head, aside froma tiny posterior subchondral cyst, of doubtful clinical significance. Nolabral tear. The glenoid fossa appears normal. Biceps: The biceps anchor and biceps tendon are intact. Impression 1. Subdeltoid/subacromial bursitis. 2. Rotator cuff tendinopathy, without tear or muscular atrophy. 3. Severe AC joint arthropathy. 4. No osseous lesion/metastasis. Film and interpretation reviewed by the attending Fahad Orta MD IMG MRI ORDERABLES * (ABNORMAL) Hemoglobin and Hematocrit, blood (10/31/2011 9:15 PM EDT) Hemoglobin 10.9(L) 13.7 - 17.5 gm/dL [facility] Comment:Patient Transfused Hematocrit 28.5(L) 40.0 - 51.0 % CERNER MILLENNIUM Blood specimen (specimen) 10/31/2011 9:15 PM EDT 10/31/2011 9:31 PM EDT Narrative Resulting Agency Comment Spec In Lab Fahad Orta MD HEMATOLOGY ORDERABLE S [facility] FreeppieENNIUM * ANTIBODY SCREEN (10/31/2011 12:12 PM EDT) Ab Screen Interp Negative CERNER MILLENNIUM Expires at [id number] on: [id number] CERNER MILLENNIUM Blood specimen (specimen) 10/31/2011 12:12 PM EDT 10/31/2011 12:26 PM EDT Narrative Resulting Agency Comment Spec In Lab Fahad Orta MD BLOOD BANK LAB ORDER LIN [facility]ppieMAGGYIUM * ABO/RH TYPING (10/31/2011 12:12 PM EDT) ABORH Type B Pos ARIELLA CHOU Blood specimen (specimen) 10/31/2011 12:12 PM EDT 10/31/2011 12:26 PM EDT Narrative Resulting Agency Comment Spec In Lab Fahad Orta MD BLOOD BANK LAB ORDER LIN Performing Organization Address [facility]/ZIP Co de Phone Number ARIELLA CHOU * Prepare RBC (10/31/2011 11:10 AM EDT) Dispensed? Yes ARIELLA CHOU Blood specimen (specimen) 10/31/2011 11:10 AM EDT 10/31/2011 11:22 AM EDT Fahad rOta MD BLOOD BANK PRODUCT O RDERABLES Performing Organization Address [facility] Co de Phone Number ARIELLA CHOU * XR SHOULDER (10/31/2011 9:35 AM EDT) Anatomical Region Laterality Modality Shoulder N/A Radiographic [place] ging 10/31/2011 9:35 AM EDT Narrative 10/31/2011 10:24 AM EDT Examination SHOULDER COMPLETE/RIGHT -4 views Clinical History Reason for exam and clinical history: new anterior shoulder pain, pt with tonsillar CA getting chemoRT; Comparison None. Technique Findings There is right AC joint arthropathy. ??The glenoid humeral alignment is normal and no periarticular calcifications, fracture or dislocation. ??the bone mineralization is decreased but no pathologic fracture or osteolytic lesion. Impression ? 1. AC joint arthropathy. ? 2. Decreased bone mineralization but no bone destruction or pathologic fracture. ? 3. No articular calcifications. Procedure Note Deborah Rodgers MD - 10/31/2011 Examination SHOULDER COMPLETE/RIGHT -4 views Clinical History Reason for exam and clinical history: new anterior shoulder pain, pt with tonsillar CA getting chemoRT; Comparison None. Technique Findings There is right AC joint arthropathy. The glenoid humeral alignment isnormal and no periarticular calcifications, fracture or dislocation. the bone mineralization is decreased but no pathologic fracture or osteolyticlesion. Impression 1. AC joint arthropathy. 2. Decreased bone mineralization but no bone destruction orpathologic fracture. 3. No articular calcifications. Fahad Orta MD IMG DX ORDERABLES * (ABNORMAL) DIFFERENTIAL, AUTOMATED (10/31/2011 5:15 AM EDT) Neutrophil % 53.8 34.0 - 71.0 % CERNER MILLENNIUM Neutrophil Absolute 1.00(L) 1.50 - 6.30 x10(3)/mc L CERNER MILLENNIUM Lymph % 31.2 19.0 - 53.0 % CERNER MILLENNIUM Lymphocytes Abs 0.6(L) 1.0 - 3.6 x10(3)/mc L CERNER MILLENNIUM Monocyte % 11.8 4.0 - 13.0 % CERNER MILLENNIUM Monocyte Abs 0.2 0.2 - 1.0 x10(3)/mc L CERNER MILLENNIUM Eos % 3.2 0.0 - 7.0 % CERNER MILLENNIUM Eosinophils Abs 0.1 0.0 - 0.5 x10(3)/mc L CERNER MILLENNIUM Basophil % 0.0 0.0 - 2.0 % CERNER MILLENNIUM Baso Absolute 0.0 0.0 - 0.2 x10(3)/mc L CERNER MILLENNIUM Immature Gran % 0.00 0.00 - 0.66 % CERNER MILLENNIUM Comment: Immature granulocytes(IG's)percentage and absolute count will include metamyelocytes, myelocytes, and promyelocytes. Blood smears from CBCs yielding IG's will be scanned manually for concordance. If this scan disagrees with the automated IG or if promyelocytes are noted, a manual differential will be performed. Immature Gran Absolute 0.00 0.00 - 0.05 x10(3)/mc L CERNER MILLENNIUM Blood specimen (specimen) 10/31/2011 5:15 AM EDT 10/31/2011 5:24 AM EDT Julius Yu MD HEMATOLOGY ORDERABLE S CERNER MILLENNIUM * (ABNORMAL) Basic Metabolic Panel (non-fasting) (10/31/2011 5:15 AM EDT) [facility] Glucose 141 60 - 199 mg/dL CERNER MILLENNIUM Comment:Diabetes: >=200 mg/d L plus symptoms Blood Urea Nitrogen 17 10 - 20 mg/dL CERNER MILLENNIUM Creatinine 0.78(L) 0.80 - 1.50 mg/dL CERNER MILLENNIUM Comment: Please note that the pediatric reference intervals supplied above were not validated at [facility]. Results from pediatric patients should be interpreted in conjunction to the patient's age, height and muscle mass. Sodium 139 135 - 145 mmol/L CERNER MILLENNIUM Potassium 3.3(L) 3.5 - 5.0 mmol/L CERNER MILLENNIUM Comment: Please note: ??Patients with WBC >100,000 may have falsely elevated Potassium levels. ??For accurate Potassium quantification in these patients send serum separator tube (gold top) for subsequent determinations. ??Contact the Clinical Chemistry Laboratory if there are any questions. Chloride 101 98 - 107 mmol/L CERNER MILLENNIUM Carbon Dioxide 29 22 - 31 mmol/L CERNER MILLENNIUM Anion Gap 9 5 - 15 mmol/L CERNER MILLENNIUM Calcium 8.3(L) 8.5 - 10.5 mg/dL CERNER MILLENNIUM Est Glomerular Filtration Rate [...] J Am Soc Nephrol;6:1963-72. Blood specimen (specimen) 10/31/2011 5:15 AM EDT 10/31/2011 5:24 AM EDT Narrative Resulting Agency Comment Spec In Lab Julius Yu MD CHEMISTRY ORDERABLES [facility] * (ABNORMAL) CBC (with Diff) (10/31/2011 5:15 AM EDT) White Blood Cell 1.9(Criti marlen) 4.0 - 10.0 x10(3)/mc L CERNER MILLENNIUM Comment: This result has been called to NOT REQUIRED PER SOP by DOMINIQUE CADENA on 10.31.11 at 05:54, and has not been read back (). Red Blood Cell 2.70(L) 4.63 - 6.08 x10(6)/mc L CERNER MILLENNIUM Hemoglobin 8.7(L) 13.7 - 17.5 gm/dL CERNER MILLENNIUM Hematocrit 22.8(L) 40.0 - 51.0 % CERNER MILLENNIUM Mean Cell Volume 84.4 79.0 - 92.0 fL CERNER MILLENNIUM Mean Cell Hemoglobin 32.2 25.6 - 32.2 pg CERNER MILLENNIUM Mean Cell Hemoglobin Concentration 38.2(H) 32.0 - 36.5 gm/dL CERNER MILLENNIUM Platelet 135(L) 145 - 370 x10(3)/mc L CERNER MILLENNIUM RDW Standard Deviation 41.5 35.0 - 46.0 fL CERNER MILLENNIUM RDW coefficient of variation 14.8(H) 10.9 - 14.4 % CERNER MILLENNIUM Mean Platelet Volume 9.3 9.0 - 12.0 fL CERNER MILLENNIUM Blood specimen (specimen) 10/31/2011 5:15 AM EDT 10/31/2011 5:24 AM EDT Narrative Resulting Agency Comment Spec In Lab Julius Yu MD HEMATOLOGY ORDERABLE S CERNER MILLENNIUM * (ABNORMAL) DIFFERENTIAL, AUTOMATED (10/30/2011 2:53 AM EDT) Neutrophil % 68.2 34.0 - 71.0 % CERNER MILLENNIUM Neutrophil Absolute 1.18(L) 1.50 - 6.30 x10(3)/mc L CERNER MILLENNIUM Lymph % 18.5(L) 19.0 - 53.0 % CERNER MILLENNIUM Lymphocytes Abs 0.3(L) 1.0 - 3.6 x10(3)/mc L CERNER MILLENNIUM Monocyte % 9.2 4.0 - 13.0 % CERNER MILLENNIUM Monocyte Abs 0.2 0.2 - 1.0 x10(3)/mc L CERNER MILLENNIUM Eos % 3.5 0.0 - 7.0 % CERNER MILLENNIUM Eosinophils Abs 0.1 0.0 - 0.5 x10(3)/mc L CERNER MILLENNIUM Basophil % 0.6 0.0 - 2.0 % CERNER MILLENNIUM Baso Absolute 0.0 0.0 - 0.2 x10(3)/mc L CERNER MILLENNIUM Immature Gran % 0.00 0.00 - 0.66 % CERNER MILLENNIUM Comment: Immature granulocytes(IG's)percentage and absolute count will include metamyelocytes, myelocytes, and promyelocytes. Blood smears from CBCs yielding IG's will be scanned manually for concordance. If this scan disagrees with the automated IG or if promyelocytes are noted, a manual differential will be performed. Immature Gran Absolute 0.00 0.00 - 0.05 x10(3)/mc L CERNER MILLENNIUM Blood specimen (specimen) 10/30/2011 2:53 AM EDT 10/30/2011 5:52 AM EDT Julius Yu MD HEMATOLOGY ORDERABLE S CERNER MILLENNIUM * (ABNORMAL) Basic Metabolic Panel (non-fasting) (10/30/2011 2:53 AM EDT) Glucose 143 60 - 199 mg/dL CERNER MILLENNIUM Comment:Diabetes: >=200 mg/d L plus symptoms Blood Urea Nitrogen 23(H) 10 - 20 mg/dL CERNER MILLENNIUM Creatinine 0.91 0.80 - 1.50 mg/dL CERNER MILLENNIUM Comment: Please note that the pediatric reference intervals supplied above were not validated at [facility]. Results from pediatric patients should be interpreted in conjunction to the patient's age, height and muscle mass. Sodium 138 135 - 145 mmol/L CERNER MILLENNIUM Potassium 3.6 3.5 - 5.0 mmol/L CERNER MILLENNIUM Comment: Please note: ??Patients with WBC >100,000 may have falsely elevated Potassium levels. ??For accurate Potassium quantification in these patients send serum separator tube (gold top) for subsequent determinations. ??Contact the Clinical Chemistry Laboratory if there are any questions. Chloride 104 98 - 107 mmol/L CERNER MILLENNIUM Carbon Dioxide 27 22 - 31 mmol/L CERNER MILLENNIUM Anion Gap 7 5 - 15 mmol/L CERNER MILLENNIUM Calcium 8.2(L) 8.5 - 10.5 mg/dL CERNER MILLENNIUM Est Glomerular Filtration Rate [...] J Am Soc Nephrol;6:1963-72. Blood specimen (specimen) 10/30/2011 2:53 AM EDT 10/30/2011 5:52 AM EDT Narrative Resulting Agency Comment Spec In Lab Julius Yu MD CHEMISTRY ORDERABLES [facility] * (ABNORMAL) CBC (with Diff) (10/30/2011 2:53 AM EDT) White Blood Cell 1.7(Criti marlen) 4.0 - 10.0 x10(3)/mc L CERNER MILLENNIUM Red Blood Cell 2.68(L) 4.63 - 6.08 x10(6)/mc L CERNER MILLENNIUM Hemoglobin 8.5(L) 13.7 - 17.5 gm/dL CERNER MILLENNIUM Hematocrit 22.8(L) 40.0 - 51.0 % CERNER MILLENNIUM Mean Cell Volume 85.1 79.0 - 92.0 fL CERNER MILLENNIUM Mean Cell Hemoglobin 31.7 25.6 - 32.2 pg CERNER MILLENNIUM Mean Cell Hemoglobin Concentration 37.3(H) 32.0 - 36.5 gm/dL CERNER MILLENNIUM Platelet 113(L) 145 - 370 x10(3)/mc L CERNER MILLENNIUM RDW Standard Deviation 41.7 35.0 - 46.0 fL CERNER MILLENNIUM RDW coefficient of variation 14.5(H) 10.9 - 14.4 % CERNER MILLENNIUM Mean Platelet Volume 8.9(L) 9.0 - 12.0 fL CERNER MILLENNIUM Blood specimen (specimen) 10/30/2011 2:53 AM EDT 10/30/2011 5:52 AM EDT Narrative Resulting Agency Comment Spec In Lab Julius Yu MD HEMATOLOGY ORDERABLE S ARIELLA CHOU * EKG 12 Lead (10/29/2011 9:57 PM EDT) Ventricular rate 79 BPM MUSE SYSTEM Atrial Rate 79 BPM MUSE SYSTEM P-R Interval 168 ms MUSE SYSTEM QRS Duration 76 ms MUSE SYSTEM Q-T Interval 396 ms MUSE SYSTEM QTC Calculated (Bezet) 454 ms MUSE SYSTEM Calculated P [place] 51 degrees MUSE SYSTEM Calculated R [place] 22 degrees MUSE SYSTEM Calculated T [place] 28 degrees MUSE SYSTEM INTERPRETATION Normal sinus rhythm Normal ECG No previous ECGs available Confirmed by MD YESSICA, ZHANNA (50) on 10/30/2011 7:58:14 AM MUSE SYSTEM 10/29/2011 9:57 PM EDT 10/30/2011 7:58 AM EDT Julius Yu MD ECG ORDERABLES MUSE SYSTEM * (ABNORMAL) Urinalysis with microscopic (10/29/2011 7:57 PM EDT) Glucose, Urine Dipstick Negative Negative mg/dL CERNER MILLENNIUM Protein, Urine Dipstick 30(A) Neg mg/dL CERNER MILLENNIUM Bilirubin, Urine Dipstick Negative Negative mg/dL CERNER MILLENNIUM Urobilinogen, Urine Dipstick Normal mg/dL CERNER MILLENNIUM pH, Urn (dipstick) 6.0 5.0 - 8.0 CERNER MILLENNIUM Blood, Urine Dipstick Negative mg/dL CERNER MILLENNIUM Ketone, Urine Dipstick Negative mg/dL CERNER MILLENNIUM Nitrite, Urine Dipstick Negative CERNER MILLENNIUM Leukocytes, Urine Dipstick Negative mcL CERNER MILLENNIUM Appearance, Urine Dipstick Clear Clear CERNER MILLENNIUM Specific [place] Urine Automated 1.018 1.002 - 1.030 CERNER MILLENNIUM Color, Urine Dipstick Yellow Yellow CERNER MILLENNIUM RBC, Urine <1 0 - 3 /HPF CERNER MILLENNIUM WBC, Urine 2 0 - 3 /HPF CERNER MILLENNIUM Bacteria, Urine Rare(A) None /HPF CERNER MILLENNIUM Hyaline Casts, Urine 13(H) 0 - 2 /LPF CERNER MILLENNIUM Urine specimen (specimen) 10/29/2011 7:57 PM EDT 10/29/2011 8:07 PM EDT Narrative Resulting Agency Comment Spec In Lab Julius Yu MD URINE ORDERABLES CERNER MILLENNIUM * (ABNORMAL) DIFFERENTIAL, AUTOMATED (10/29/2011 3:45 PM EDT) Neutrophil % 71.7(H) 34.0 - 71.0 % CERNER MILLENNIUM Neutrophil Absolute 1.70 1.50 - 6.30 x10(3)/mc L CERNER MILLENNIUM Lymph % 19.4 19.0 - 53.0 % CERNER MILLENNIUM Lymphocytes Abs 0.5(L) 1.0 - 3.6 x10(3)/mc L CERNER MILLENNIUM Monocyte % 7.2 4.0 - 13.0 % CERNER MILLENNIUM Monocyte Abs 0.2 0.2 - 1.0 x10(3)/mc L CERNER MILLENNIUM Eos % 1.7 0.0 - 7.0 % CERNER MILLENNIUM Eosinophils Abs 0.0 0.0 - 0.5 x10(3)/mc L CERNER MILLENNIUM Basophil % 0.0 0.0 - 2.0 % CERNER MILLENNIUM Baso Absolute 0.0 0.0 - 0.2 x10(3)/mc L CERNER MILLENNIUM Immature Gran % 0.00 0.00 - 0.66 % CERNER MILLENNIUM Comment: Immature granulocytes(IG's)percentage and absolute count will include metamyelocytes, myelocytes, and promyelocytes. Blood smears from CBCs yielding IG's will be scanned manually for concordance. If this scan disagrees with the automated IG or if promyelocytes are noted, a manual differential will be performed. Immature Gran Absolute 0.00 0.00 - 0.05 x10(3)/mc L ARIELLA GREENBERGIUM Blood specimen (specimen) 10/29/2011 3:45 PM EDT 10/29/2011 4:00 PM EDT Vicki Zhao MD HEMATOLOGY ORDERABLE S Performing Organization Address [facility] de Phone Number ARIELLA CHOU * Blue Tube HOLD (10/29/2011 3:45 PM EDT) Pathologist [facility] Blue Hold Sample in lab. ARIELLA CHOU Blood specimen (specimen) 10/29/2011 3:45 PM EDT 10/29/2011 4:00 PM EDT Vicki Zhao MD HEMATOLOGY ORDERABLE S Performing Organization Address [facility] Co de Phone Number ARIELLA GREENBERGIUM * Glucose, random (10/29/2011 3:45 PM EDT) Glucose 101 60 - 199 mg/dL [facility] Comment:Diabetes: >=200 mg/d L plus symptoms Blood specimen (specimen) 10/29/2011 3:45 PM EDT 10/29/2011 4:00 PM EDT Narrative Resulting Agency Comment Spec In Lab Vicki Zhao MD CHEMISTRY ORDERABLES ARIELLA CHOU * Creatinine, serum (10/29/2011 3:45 PM EDT) Creatinine 1.13 0.80 - 1.50 mg/dL ARIELLA CHOU Comment: Please note that the pediatric reference intervals supplied above were not validated at [facility]. Results from pediatric patients should be interpreted in conjunction to the patient's age, height and muscle mass. Est Glomerular Filtration Rate >60 >=60 [facility] Comment: The National Kidney Disease Education Program [...] J Am Soc Nephrol;6:1963-72. Blood specimen (specimen) 10/29/2011 3:45 PM EDT 10/29/2011 4:00 PM EDT Narrative Resulting Agency Comment Spec In Lab Vicki Zhao MD CHEMISTRY ORDERABLES Performing Organization Address [facility] Co de Phone Number CERNER MILLENNIUM * (ABNORMAL) BUN (10/29/2011 3:45 PM EDT) Blood Urea Nitrogen 31(H) 10 - 20 mg/dL CERNER MILLENNIUM Blood specimen (specimen) 10/29/2011 3:45 PM EDT 10/29/2011 4:00 PM EDT Narrative Resulting Agency Comment Spec In Lab Vicki Zhao MD CHEMISTRY ORDERABLES Performing Organization Address [facility] Co de Phone Number CERNER MILLENNIUM * (ABNORMAL) Electrolytes panel (10/29/2011 3:45 PM EDT) Sodium 138 135 - 145 mmol/L CERNER MILLENNIUM Potassium 3.4(L) 3.5 - 5.0 mmol/L CERNER MILLENNIUM Comment: Please note: ??Patients with WBC >100,000 may have falsely elevated Potassium levels. ??For accurate Potassium quantification in these patients send serum separator tube (gold top) for subsequent determinations. ??Contact the Clinical Chemistry Laboratory if there are any questions. Chloride 98 98 - 107 mmol/L CERNER MILLENNIUM Carbon Dioxide 27 22 - 31 mmol/L CERNER MILLENNIUM Anion Gap 13 5 - 15 mmol/L CERNER MILLENNIUM Blood specimen (specimen) 10/29/2011 3:45 PM EDT 10/29/2011 4:00 PM EDT Narrative Resulting Agency Comment Spec In Lab Vicki Zhao MD CHEMISTRY ORDERABLES Performing Organization Address [facility]/ZIP Co de Phone Number ARIELLA CHOU * (ABNORMAL) CBC (with Diff) (10/29/2011 3:45 PM EDT) White Blood Cell 2.4(L) 4.0 - 10.0 x10(3)/mc L CERNER MILLENNIUM Red Blood Cell 2.99(L) 4.63 - 6.08 x10(6)/mc L CERNER MILLENNIUM Hemoglobin 9.5(L) 13.7 - 17.5 gm/dL CERNER MILLENNIUM Hematocrit 25.5(L) 40.0 - 51.0 % CERNER MILLENNIUM Mean Cell Volume 85.3 79.0 - 92.0 fL CERNER MILLENNIUM Mean Cell Hemoglobin 31.8 25.6 - 32.2 pg CERNER MILLENNIUM Mean Cell Hemoglobin Concentration 37.3(H) 32.0 - 36.5 gm/dL CERNER MILLENNIUM Platelet 126(L) 145 - 370 x10(3)/mc L CERNER MILLENNIUM RDW Standard Deviation 41.2 35.0 - 46.0 fL CERNER MILLENNIUM RDW coefficient of variation 14.3 10.9 - 14.4 % CERNER MILLENNIUM Mean Platelet Volume 9.5 9.0 - 12.0 fL CERNER MILLENNIUM Blood specimen (specimen) 10/29/2011 3:45 PM EDT 10/29/2011 4:00 PM EDT Narrative Resulting Agency Comment Spec In Lab Vicki Zhao MD HEMATOLOGY ORDERABLE S Performing Organization Address [facility]/ZIP Co de Phone Number ARIELLA CHOU documented in this encounter Visit Diagnoses Diagnosis Nausea with vomiting- Primary Thrush, oral Candidiasis of mouth Tonsil cancer Malignant neoplasm of tonsil Squamous cell carcinoma of tonsil Malignant neoplasm of tonsil Rotator cuff tear Complete rupture of rotator cuff documented in this encounter Administered Medications Inactive Administered Medications - up to 3 most recent administrations Medication Order MAR Action Action Date Dose Rate Site BMX Oral Suspension 5 mL, Oral, 2 TIMES DAILY, First dose on Sat10/29/11 at 2100, Until Discontinued, Each 5mL contains equal parts of Maalox, Lidocaine, and Diphenhydramine Given 10/30/2011 8:50 AM EDT 5 mLs Given 10/29/2011 8:37 PM EDT 5 mLs BMX Oral Suspension 5 mL, Oral, 4 TIMES DAILY, First dose (after last modification) on Sat10/30/11 at 1700, Until Discontinued, Each 5mL contains equal parts of Maalox, Lidocaine, and Diphenhydramine Given 11/01/2011 8:56 AM EDT 5 mLs Given 10/31/2011 8:51 PM EDT 5 mLs Given 10/31/2011 6:00 PM EDT 5 mLs docusate sodium (COLACE) oral liquid 50-200 mg 50-200 mg, Per G Tube, 2 TIMES DAILY, First dose on Sat10/29/11 at 2100, Until Discontinued, Start with 1 tablet or liquid equivalent orally twice daily and titrate up to achieve: 1. one bowel movement at least every 48 hours, AND 2. without straining, Routine Given 10/31/2011 11:15 PM EDT 100 mg enoxaparin (LOVENOX) injection 40 mg 40 mg, Subcutaneous, DAILY, First dose on Sat10/29/11 at 1945, Until Discontinued, Routine Given 11/01/2011 8:56 AM EDT 40 mg Given 10/31/2011 10:16 AM EDT 40 mg Given 10/30/2011 8:50 AM EDT 40 mg fentaNYL (DURAGESIC) 12 mcg/hr patch 1 patch 1 patch, Transdermal, EVERY 72 HOURS, First dose on Sat10/29/11 at 2145, Until Discontinued, Routine Given 10/29/2011 9:45 PM EDT 1 patch free water bolus 300 mL 300 mL, Per G Tube, 4 TIMES DAILY, First dose on Sat10/29/11 at 2100, Until Discontinued, Routine Given 10/31/2011 9:00 PM EDT 300 mLs Given 10/31/2011 6:00 PM EDT 300 mLs Given 10/31/2011 8:11 AM EDT 300 mLs granisetron (KYTRIL) injection 1 mg 1 mg, Intravenous, ONCE, 1 dose, On Sat10/29/11 at 1700, Routine Given 10/29/2011 4:44 PM EDT 1 mg heparin, porcine 100 unit/mL flush 500 Units 500 Units (5 mL), Intravenous, ONCE PRN, 1 dose, Starting on Sat11/01/11 at 1234, Until Sat11/01/11 at 1245, Line Care, Routine Given 11/01/2011 12:45 PM EDT 500 Units heparin, porcine 100 unit/mL flush 1 dose, Starting on Sat11/01/11 at 1236, Until Sat11/01/11 at 1245, MARIA LUZ BENAVIDEZ: Cabinet Override ibuprofen (ADVIL;MOTRIN) 100 mg/5 mL suspension 600 mg 600 mg, Oral, EVERY 6 HOURS PRN, Starting on Sat10/31/11 at 1619, Until Sat11/01/11 at 1516, Pain, Routine Given 11/01/2011 1:07 PM EDT 600 mg Given 11/01/2011 3:56 AM EDT 600 mg Given 10/31/2011 6:49 PM EDT 600 mg LORazepam (ATIVAN) injection 1 mg 1 mg, Intravenous, EVERY 4 HOURS PRN, Starting on Sat10/29/11 at 1836, Until Sat11/01/11 at 1516, Nausea, Vomiting, Routine Given 10/31/2011 9:34 PM EDT 1 mg metoclopramide (REGLAN) 5 mg/5 mL oral solution 10 mg 10 mg, Per G Tube, EVERY 6 HOURS, First dose (after last modification) on Sat10/29/11 at 1945, Until Discontinued, Routine Given 11/01/2011 8:45 AM EDT 10 mg Given 11/01/2011 1:45 AM EDT 10 mg Given 10/31/2011 7:45 PM EDT 10 mg morphine 2 mg/mL carpuject 2 mg 2 mg, Intravenous, ONCE, 1 dose, On Sat10/31/11 at 1515, May give 2 mg in 30 minutes times 1 if pain not relieved., Routine Given 10/31/2011 3:16 PM EDT 2 mg ondansetron (ZOFRAN) tablet 8 mg 8 mg, Oral, EVERY 12 HOURS, First dose (after last modification) on Sat10/29/11 at 1800, Until Discontinued, Routine Given 10/29/2011 6:18 PM EDT 8 mg OXYcodone (ROXICODONE) 5 mg/5 mL solution 10-20 mg 10-20 mg, Per G Tube, EVERY 4 HOURS PRN, Starting on Sat10/31/11 at 2021, Until Sat11/01/11 at 1516, Pain, Routine Given 11/01/2011 1:07 PM EDT 5 mg Given 11/01/2011 8:50 AM EDT 20 mg Given 11/01/2011 3:55 AM EDT 20 mg OXYcodone (ROXICODONE) 5 mg/5 mL solution 5 mg 5 mg, Per G Tube, EVERY 4 HOURS PRN, Starting on Sat10/29/11 at 1834, Until Sat10/31/11 at 2022, Pain, Routine Given 10/31/2011 6:56 PM EDT 5 mg Given 10/31/2011 2:24 PM EDT 5 mg Given 10/31/2011 10:16 AM EDT 5 mg OXYcodone (ROXICODONE) 5 mg/5 mL solution 5 mg 5 mg, Per G Tube, ONCE, 1 dose, On Sat10/31/11 at 0300, Routine Given 10/31/2011 2:47 AM EDT 5 mg OXYcodone (ROXICODONE) 5 mg/5 mL solution 5 mg 5 mg, Oral, ONCE, 1 dose, On Sat10/31/11 at 1245, Routine Given 10/31/2011 1:01 PM EDT 5 mg potassium chloride 20 mEq in 100 mL 20 mEq, Intravenous, EVERY 2 HOURS, 3 doses, First dose on Sat11/01/11 at 0600, Last dose on Sat11/01/11 at 1000 Given 11/01/2011 10:19 AM EDT 20 mEq Given 11/01/2011 8:34 AM EDT 20 mEq Given 11/01/2011 5:40 AM EDT 20 mEq potassium chloride 20 mEq in 100 mL 20 mEq, Intravenous, EVERY HOUR, 2 doses, First dose on Sat10/29/11 at 1800, Last dose on Sat10/29/11 at 1900 Given 10/29/2011 6:46 PM EDT 20 mEq Given 10/29/2011 5:42 PM EDT 20 mEq potassium chloride SA (K-DUR;KLOR-CON) tablet 40 mEq 40 mEq, Oral, ONCE, 1 dose, On Sat10/31/11 at 0730, 20 mEq tablet may be dissolved in water for administration, Routine Given 10/31/2011 8:11 AM EDT 40 mEq protein powder (BENEPROTEIN) 1 scoop 1 scoop, Per G Tube, 3 TIMES DAILY, First dose on Sat10/29/11 at 2100, Until Discontinued, Routine Given 10/31/2011 11:17 PM EDT 1 scoop Given 10/31/2011 4:00 PM EDT 1 scoop Given 10/31/2011 10:16 AM EDT 1 scoop sennosides (SENOKOT) 8.8 mg/5 mL oral syrup 8.8-35.2 mg 8.8-35.2 mg, Per G Tube, 2 TIMES DAILY, First dose on Sat10/29/11 at 2100, Until Discontinued, Start with 1 tablet or liquid equivalent orally twice daily and titrate up to achieve: 1. One bowel movement at least every 48 hours, AND 2. Without straining, Routine Given 10/31/2011 11:16 PM EDT 8.8 mg Given 10/29/2011 9:00 PM EDT 8.8 mg sodium chloride 0.9 % flush 5 mL 5 mL, Intravenous, EVERY 12 HOURS, First dose on Sat10/29/11 at 1945, Until Discontinued Given 11/01/2011 7:45 AM EDT 5 mLs Given 10/31/2011 7:45 PM EDT 10 mLs Given 10/31/2011 8:11 AM EDT 5 mLs sodium chloride 0.9% 1,000 mL IV bolus 1 L, Intravenous, ONCE, 1 dose, On Sat10/29/11 at 1630 Given 10/29/2011 4:00 PM EDT 1 L sodium chloride 0.9% 1,000 mL IV bolus Intravenous, ONCE, 1 dose, On Sat10/29/11 at 1900 Given 10/29/2011 6:45 PM EDT sodium chloride 0.9% infusion 1,000 mL, at 100 mL/hr, Intravenous, CONTINUOUS, Starting on Sat10/29/11 at 1945, Until Maite 11/01/11 at 1516 New Bag 10/30/2011 5:53 PM EDT 1,000 mLs 100 m L/hr New Bag 10/29/2011 7:51 PM EDT 1,000 mLs 100 mL/hr traZODone (DESYREL) tablet 25 mg 25 mg, Oral, NIGHTLY, First dose on Sat10/29/11 at 2100, Until Discontinued, Routine Given 10/31/2011 11:1 7 PM EDT 25 mg Given 10/30/2011 9:04 PM EDT 25 mg Given 10/29/2011 9:00 PM EDT 25 mg tube feeding diet Per G Tube, USER SPECIFIED (Daily), First dose on Sat10/29/11 at 1945, Until Discontinued, Administer flushes and check residuals per policy, Which tube feed product? Peptamen 1.5, Strength: , Additional Information (if any): 4 Cans via [place] Feed overnight. Per patient. Given 10/29/2011 9:00 PM EDT 1,500 mLs tube feeding diet Per G Tube, USER SPECIFIED (2 times per day), First dose on Sat10/30/11 at 0700, Until Discontinued, Administer flushes and check residuals per policy, Which tube feed product? Peptamen 1.5, Strength: , Additional Information (if any): 2 Cans in AM and Noon-time, per patient. Given 10/31/2011 6:29 AM EDT 30 mLs Given 10/30/2011 12:00 PM EDT mL Given 10/30/2011 7:00 AM EDT mL tube feeding diet 952 mL, Per G Tube, at 119 mL/hr, CYCLIC, Starting on Sat10/30/11 at 2100, Until Sat11/01/11 at 1516, Administer flushes and check residuals per policy, Which tube feed product? Peptamen 1.5, Strength: , Initial Rate: (mL/hr): 119, Advance every: 119 ml x 8 hours (from 9pm - 5 am), Goal final rate: (mL/hr): 119, Additional Information (if any): 119 ml x 8 hours from 9pm - 5 am (Equivalent to 4 cans) New Bag 10/31/2011 11:19 PM EDT 952 mLs 119 mL/ hr New Bag 10/30/2011 9:05 PM EDT 952 mLs 119 mL/hr tube feeding diet 714 mL, Per G Tube, at 119 mL/hr, 3 TIMES DAILY, First dose on Sat10/30/11 at 1600, Until Discontinued, Administer flushes and check residuals per policy, Which tube feed product? Peptamen 1.5, Strength: , Initial Rate: (mL/hr): 119, Advance every: 119 ml x 2 hours TID, Goal final rate: (mL/hr): 119, Additional Information (if any): 119 ml x 2 hours TID Given 10/31/2011 4:00 PM EDT 714 mLs 119 mL/hr Given 10/31/2011 10:16 AM EDT 714 mLs 119 mL/hr Given 10/30/2011 4:00 PM EDT 714 mLs 119 mL/hr documented in this encounter Active and Recently Administered Medications Times are shown in EDT. Scheduled Medication Order 10/30/2011 10/31/2011 11/01/2011 BMX Oral Suspension (CANCELED) 5 mL, Oral, 2 TIMES DAILY, First dose on Sat10/29/11 at 2100, Until Discontinued, Each 5mL contains equal parts of Maalox, Lidocaine, and Diphenhydramine 0850 (Given - Provider: Kailyn Riddle RN) BMX Oral Suspension (CANCELED) 5 mL, Oral, 4 TIMES DAILY, First dose (after last modification) on Sat10/30/11 at 1700, Until Discontinued, Each 5mL contains equal parts of Maalox, Lidocaine, and Diphenhydramine 1700 (Given - Provider: Keiry Ledezma)2104 (Given - Provider: Lizbet Antonio RN) 0800 (Given - Provider: Maria Luz Benavidez RN)1300 (Given - Provider: Maria Luz Benavidez RN)1800 (Given - Provider: Maria Luz Benavidez RN)2051 (Given - Provider: Marylin Mike RN) 0856 (Given - Provider: Maria Luz Benavidez RN)1300 (Due) docusate sodium (COLACE) oral liquid 50-200 mg (CANCELED)(Linked Group 1) 50-200 mg, Per G Tube, 2 TIMES DAILY, First dose on Sat10/29/11 at 2100, Until Discontinued, Start with 1 tablet or liquid equivalent orally twice daily and titrate up to achieve: 1. one bowel movement at least every 48 hours, AND 2. without straining, Routine 0900 (Not Given - Provider: Kailyn Riddle RN - Reason: Patient/family refused)2100 (Not Given - Provider: Lizbet Antonio RN - Reason: Patient/family refused) 0811 (Not Given - Provider: Maria Luz Benavidez RN - Reason: Patient/family refused)2315 (Given - Provider: Marylin Mike, ANGELO) 0856 (Not Given - Provider: Maria Luz Benavidez RN - Reason: Patient/family refused) enoxaparin (LOVENOX) injection 40 mg (CANCELED) 40 mg, Subcutaneous, DAILY, First dose on Sat10/29/11 at 1945, Until Discontinued, Routine 0850 (Given - Provider: Kailyn Riddle RN) 1016 (Given - Provider: Maria Luz Benavidez RN - Comment: Pt at X-ray until this time.) 0856 (Given - Provider: Maria Luz Benavidez RN) fentaNYL (DURAGESIC) 12 mcg/hr patch 1 patch(Linked Group 2) 1 patch, Transdermal, EVERY 72 HOURS, First dose on Sat10/29/11 at 2145, Until Discontinued, Routine free water bolus 300 mL (CANCELED) 300 mL, Per G Tube, 4 TIMES DAILY, First dose on Sat10/29/11 at 2100, Until Discontinued, Routine 0850 (Given - Provider: Kailyn Riddle RN)1250 (Given - Provider: Brigette Martinez RN)1700 (Given - Provider: Keiry Ledezma)2104 (Given - Provider: Lizbet Antonio RN) 0811 (Given - Provider: Maria Luz Benavidez RN)1300 (Not Given - Provider: Maria Luz Benavidez RN - Reason: See comment - Comment: Pt had 200 mL residual, bolus held per discussion w/Dr Donovan)1800 (Given - Provider: Maria Luz Benavidez RN)2100 (Given - Provider: Marylin Mike, ANGELO) 0900 (Not Given - Provider: Maria Luz Benavidez RN - Reason: See comment - Comment: residual 500 mL, held per discussion w/Dr. Mervat Elise)1300 (Due) metoclopramide (REGLAN) 5 mg/5 mL oral solution 10 mg (CANCELED) 10 mg, Per G Tube, EVERY 6 HOURS, First dose (after last modification) on Sat10/29/11 at 1945, Until Discontinued, Routine 0145 (Given - Provider: Shira Multani RN)0745 (Given - Provider: Keiry Ledezma)1345 (Given - Provider: Keiry Ledezma)2104 (Given - Provider: Lizbet Antonio, ANGELO) 0243 (Given - Provider: Lizbet Antonio, ANGELO)0810 (Given - Provider: Maria Luz Benavidez, RN)1427 (Given - Provider: Maria Luz Benavidez, RN)1945 (Given - Provider: Marylin Mike, ANGELO) 0145 (Given - Provider: Marylin Mike, ANGELO)0845 (Given - Provider: Mraia Luz Benavidez, ANGELO) morphine 2 mg/mL carpuject 2 mg (COMPLETED) 2 mg, Intravenous, ONCE, 1 dose, On Sat10/31/11 at 1515, May give 2 mg in 30 minutes times 1 if pain not relieved., Routine 1516 (Given - Provider: Maria Luz Benavidez RN) OXYcodone (ROXICODONE) 5 mg/5 mL solution 5 mg (COMPLETED) 5 mg, Per G Tube, ONCE, 1 dose, On Sat10/31/11 at 0300, Routine 0247 (Given - Provider: Lizbet Antonio, ANGELO) OXYcodone (ROXICODONE) 5 mg/5 mL solution 5 mg (COMPLETED) 5 mg, Oral, ONCE, 1 dose, On Sat10/31/11 at 1245, Routine 1301 (Given - Provider: Maria Luz Benavidez RN) potassium chloride 20 mEq in 100 mL (COMPLETED) 20 mEq, Intravenous, EVERY 2 HOURS, 3 doses, First dose on Sat11/01/11 at 0600, Last dose on Sat11/01/11 at 1000 0540 (Given - Provider: Marylin Mike, ANGELO)0834 (Given - Provider: Maria Luz Benavidez, ANGELO)1019 (Given - Provider: Maria Luz Benavidez RN) potassium chloride SA (K-DUR;KLOR-CON) tablet 40 mEq (COMPLETED) 40 mEq, Oral, ONCE, 1 dose, On Sat10/31/11 at 0730, 20 mEq tablet may be dissolved in water for administration, Routine 0811 (Given - Provider: Maria Luz Benavidez RN) protein powder (BENEPROTEIN) 1 scoop (CANCELED) 1 scoop, Per G Tube, 3 TIMES DAILY, First dose on Sat10/29/11 at 2100, Until Discontinued, Routine 0850 (Given - Provider: Kailyn Riddle RN)1500 (Given - Provider: Keiry Ledezma)2105 (Given - Provider: Lizbet Antonio, ANGELO) 1016 (Given - Provider: Maria Luz Benavidez, ANGELO - Comment: Pt at X-ray until this time.)1600 (Given - Provider: Maria Luz Benavidez RN)2317 (Given - Provider: Marylin Mike, ANGELO) 0900 (Not Given - Provider: Maria Luz Benavidez RN - Reason: See comment - Comment: residual 500 mL, held per discussion w/Dr. Mervat Elise) sennosides (SENOKOT) 8.8 mg/5 mL oral syrup 8.8-35.2 mg (CANCELED)(Linked Group 1) 8.8-35.2 mg, Per G Tube, 2 TIMES DAILY, First dose on Sat10/29/11 at 2100, Until Discontinued, Start with 1 tablet or liquid equivalent orally twice daily and titrate up to achieve: 1. One bowel movement at least every 48 hours, AND 2. Without straining, Routine 0900 (Not Given - Provider: Kailyn Riddle RN - Reason: Patient/family refused)2100 (Not Given - Provider: Lizbet Antonio, ANGELO - Reason: Patient/family refused) 0811 (Not Given - Provider: Maria Luz Benavidez RN - Reason: Patient/family refused)2316 (Given - Provider: Marylin Mike, ANGELO) 0856 (Not Given - Provider: Maria Luz Benavidez RN - Reason: Patient/family refused) sodium chloride 0.9 % flush 5 mL (CANCELED) 5 mL, Intravenous, EVERY 12 HOURS, First dose on Sat10/29/11 at 1945, Until Discontinued 0745 (Given - Provider: Keiry Ledezma)210 (Given - Provider: Lizbet Antonio, ANGELO) 0811 (Given - Provider: Maria Luz Benavidez, ANGELO)1945 (Given - Provider: Marylin Mike, ANGELO) 0745 (Given - Provider: Maria Luz Benavidez RN) traZODone (DESYREL) tablet 25 mg (CANCELED) 25 mg, Oral, NIGHTLY, First dose on Sat10/29/11 at 2100, Until Discontinued, Routine 2103 (Given - Provider: Lizbet Antonio, RN) 2316 (Given - Provider: Marylin Mike, ANGELO) tube feeding diet (CANCELED) Per G Tube, USER SPECIFIED (2 times per day), First dose on Sat10/30/11 at 0700, Until Discontinued, Administer flushes and check residuals per policy, Which tube feed product? Peptamen 1.5, Strength: , Additional Information (if any): 2 Cans in AM and Noon-time, per patient. 0700 (Given - Provider: Keiry Ledezma)1200 (Given - Provider: Keiry Ledezma) 0629 (Given - Provider: Lizbet Antonio RN)1200 (Not Given - Provider: Maria Luz Benavidez RN - Reason: See comment - Comment: Alternative orders in place, verified per discussion w/Dr. Elise & combo welder.) 0700 (Not Given - Provider: Marylin Mike RN - Reason: See comment - Comment: md aware tf started at 2300 will hold 0700 TF)1200 (Not Given - Provider: Maria Luz Benavidez RN - Reason: See comment - Comment: Patient being discharged before feeding would complete.) tube feeding diet (CANCELED) 714 mL, Per G Tube, at 119 mL/hr, 3 TIMES DAILY, First dose on Sat10/30/11 at 1600, Until Discontinued, Administer flushes and check residuals per policy, Which tube feed product? Peptamen 1.5, Strength: , Initial Rate: (mL/hr): 119, Advance every: 119 ml x 2 hours TID, Goal final rate: (mL/hr): 119, Additional Information (if any): 119 ml x 2 hours TID 1600 (Given - Provider: Keiry Ledezma)2100 (Not Given - Provider: Lizbet Antonio RN - Reason: See comment - Comment: See other TF order) 1016 (Given - Provider: Maria Luz Benavidez RN - Comment: Pt at X-ray until this time.)1600 (Given - Provider: Maria Luz Benavidez RN)2318 (Not Given - Provider: Marylin Mike, ANGELO - Reason: Patient/family refused) 0900 (Not Given - Provider: Maria Luz Benavidez RN - Reason: See comment - Comment: residual 500 mL, held per discussion w/Dr. Mervat Elise) Continuous Medication Order 10/30/2011 10/31/2011 11/01/2011 sodium chloride 0.9% infusion (CANCELED) 1,000 mL, at 100 mL/hr, Intravenous, CONTINUOUS, Starting on Sat10/29/11 at 1945, Until Maite 11/01/11 at 1516 1753 (New Bag - Provider: Arlene Butcher, ANGELO)210 (Stopped - Provider: Lizbet Antonio, ANGELO) tube feeding diet (CANCELED) 952 mL, Per G Tube, at 119 mL/hr, CYCLIC, Starting on Sat10/30/11 at 2100, Until Maite 11/01/11 at 1516, Administer flushes and check residuals per policy, Which tube feed product? Peptamen 1.5, Strength: , Initial Rate: (mL/hr): 119, Advance every: 119 ml x 8 hours (from 9pm - 5 am), Goal final rate: (mL/hr): 119, Additional Information (if any): 119 ml x 8 hours from 9pm - 5 am (Equivalent to 4 cans) 2105 (New Bag - Provider: Lizbet Antonio, ANGELO) 0514 (Stopped - Provider: Lizbet Antonio, ANGELO)2312 (New Bag - Provider: Marylin Mike, ANGELO - Comment: pt wanted tf started after mri) PRN Medication Order 10/30/2011 10/31/2011 11/01/2011 heparin, porcine 100 unit/mL flush 500 Units (COMPLETED) 500 Units (5 mL), Intravenous, ONCE PRN, 1 dose, Starting on Sat11/01/11 at 1234, Until Maite 11/01/11 at 1245, Line Care, Routine 1245 (Given - Provider: Maria Luz Benavidez, ANGELO) ibuprofen (ADVIL;MOTRIN) 100 mg/5 mL suspension 600 mg 600 mg, Oral, EVERY 6 HOURS PRN, Starting on Sat10/31/11 at 1619, Until Sat11/01/11 at 1516, Pain, Routine 1849 (Given - Provider: Maria Luz Benavidez, ANGELO) 0356 (Given - Provider: Marylin Mike, ANGELO)1307 (Given - Provider: Angelina Smith, AGNELO) LORazepam (ATIVAN) injection 1 mg (CANCELED) 1 mg, Intravenous, EVERY 4 HOURS PRN, Starting on Sat10/29/11 at 1836, Until Sat11/01/11 at 1516, Nausea, Vomiting, Routine 2134 (Given - Provider: Marylin Mike, ANGELO) OXYcodone (ROXICODONE) 5 mg/5 mL solution 10-20 mg (CANCELED) 10-20 mg, Per G Tube, EVERY 4 HOURS PRN, Starting on Sat10/31/11 at 2021, Until Maite 11/01/11 at 1516, Pain, Routine 2315 (Given - Provider: Marylin Mike RN) 0355 (Given - Provider: Marylin Mike RN)0850 (Given - Provider: Maria Luz Benavidez RN)1307 (Given - Provider: Angelina Smith, ANGELO) OXYcodone (ROXICODONE) 5 mg/5 mL solution 5 mg (CANCELED) 5 mg, Per G Tube, EVERY 4 HOURS PRN, Starting on Sat10/29/11 at 1834, Until Sat10/31/11 at 2022, Pain, Routine 0416 (Given - Provider: Kay Smith RN)0818 (Given - Provider: Keiry Ledezma)1321 (Given - Provider: Brigette Martinez RN)2041 (Given - Provider: Lizbet Antonio, ANGELO) 0117 (Given - Provider: Lizbet Antonio, RN)1016 (Given - Provider: Maria Luz Benavidez RN)1424 (Given - Provider: Maria Luz Benavidez RN)1856 (Given - Provider: Maria Luz Benavidez RN) Linked Groups Order Group 1: docusate sodium (COLACE) oral liquid 50-200 mg (CANCELED)Jump to med 50-200 mg, Per G Tube, 2 TIMES DAILY, First dose on Sat10/29/11 at 2100, Until Discontinued, Start with 1 tablet or liquid equivalent orally twice daily and titrate up to achieve: 1. one bowel movement at least every 48 hours, AND 2. without straining, Routine And sennosides (SENOKOT) 8.8 mg/5 mL oral syrup 8.8-35.2 mg (CANCELED)Jump to med 8.8-35.2 mg, Per G Tube, 2 TIMES DAILY, First dose on Sat10/29/11 at 2100, Until Discontinued, Start with 1 tablet or liquid equivalent orally twice daily and titrate up to achieve: 1. One bowel movement at least every 48 hours, AND 2. Without straining, Routine Group 2: fentaNYL (DURAGESIC) 12 mcg/hr patch 1 patchJump to med 1 patch, Transdermal, EVERY 72 HOURS, First dose on Sat10/29/11 at 2145, Until Discontinued, Routine And fentaNYL (DURAGESIC) patch REMOVAL (CANCELED) Transdermal, EVERY 72 HOURS, First dose on Maite 11/01/11 at 2130, Until Discontinued, Remove Fentanyl Patch documented in this encounter Care Teams Wort Extractor Relationship Specialty Start Date End Date Jw Tomas MD [address] [place] [id number] PCP - General 08/02/11 documented as of this encounter
--- OUTSIDE RECORDS SUMMARY | 2024-05-03 16:11 | XMS_ITS | Encounter Summary ---
Author Organization [facility] [place] [address] Care Team Providers Care Clip Riveter Name Role Phone Josué Huff MD Primary Care Provider + [phone] Encounter Details Date Type Department Care Team (Late st Contact Info) Description 10/29/2011 11:00 AM EDT Ancillary Appointment Hematology Oncology at [address] [phone] William Petit, JAYDEN [facility] [place] [address] Social History Tobacco Use Types Packs/Day Years [...] Progress Notes * William Petit, JAYDEN - 10/29/2011 12:04 PM EDT S/O: Met briefly with pt and Nathaniel (brother) to follow-up regarding PM TF. Pt said he vomitted all weekend. According to Nathaniel, Dionisio did vomit, once, on Saturday. Isabella Garcia RN and I conferenced with Nathaniel to determine what meds Dionisio actually did take to helpwith nausea. Per Nathaniel, nocturnal feedings were successful . Per Dionisio, the first night worked well with gravity bags, Saturday night had some issues the drip plugged or shut off. Saturday was able to have 3 cans, nocturnally. Daytime feedings: 3 cans, TID Wt: 208 lbs/94.5 kg 2% body weight decrease in 4 days; significant Previous Wt: 96.389 on 10/26/11 Current intake: 7 cans Jevity 1.5 with 3 scoops beneprotein/day. To provide 2485 kcals, 124 g prot,and 1260 mls water. Fluid: 2, 1000 ml bags water through the day N: + V: Saturday p.m., Sat throughout the day, Saturday: during the day A/p: Pt likely will be admitted to [facility] today for rehydration, TF management, and to determine root of nausea. Recommended Benecalorie BID for weight stabilization and promote weight gain, as Dionisio states he is unable to tolerate more formula volume. This will provide and additional 660 kcals and 14 gm protein. As the [facility] does not cover Benecalorie, I recommended they purchase this, but also contacted [facility] to see if this would be covered via [employer]'s supplemental insurance. Fax sent to [facility] with rec's on 10/29/11. Guanako Garrido RD at [facility] has mailed out pump and bags and estimated them to be arrive to pt around of this week. She also noted that upon speaking with the [facility] Onc CM, they had received the faxed referral (from Leeann Garcia RN and Dr. Gaines) for [facility] services. This was on Wednesday, October 26, 2011. Will follow up on 11/02/11. documented in this encounter Plan of Treatment Not on file documented as of this encounter Visit Diagnoses Not on filedocumented in this encounter Care Teams Clip Riveter Relationship Specialty Start Date End Date Josué Huff MD [address] [place] [id number] PCP - General 08/02/11 documented as of this encounter
--- OUTSIDE RECORDS SUMMARY | 2024-05-03 16:11 | XMS_ITS | Encounter Summary ---
Author Organization [facility] [place] [address] Care Team Providers Care X Ray Service Technician Name Role Phone Josué Huff MD Primary Care Provider [phone] Encounter Details Date Type Department Care Team (Late st Contact Info) Description 12/07/2011 11:00 AM EDT Follow-Up Hematology Oncology at [address] [phone] Trinity Chopra, EXECUTIVE ASST [address] [facility] [place] [address] Squamous cell carcinoma of tonsil (Primary Dx) [...] Sign Reading Time Taken Comments Blood Pressure 115/71 12/07/2011 10:57 AM EDT Pulse 72 12/07/2011 10:57 AM EDT Temperature 37.2 ??C (98.9 ??F) 12/07/2011 1 0:57 AM EDT Respiratory Rate 16 12/07/2011 10:5 7 AM EDT Oxygen Saturation 98% 12/07/2011 10: 57 AM EDT Inhaled Oxygen Concentration - - Weight 89.3 kg (196 lb 12.8 oz) 012 10:57 AM EDT Height - - Body Mass Index 28.49 11/30/2011 1:55 PM EDT documented in this encounter Progress Notes * Trinity Chopra, EXECUTIVE ASST - 12/07/2011 11:48 AM EDT Oncology Clinic [place] [id number] FOLLOW-UP PATIENT EVALUATION CHIEF COMPLAINT: Oliverio Nava Martin García is seen today in the multidisciplinary clinic for Head and Neck Cancer follow-up. Patient Active Problem List Diagnoses ??? Rotator cuff tear ??? Squamous cell carcinoma of tonsil ?? Squamous cell carcinoma of the tonsil, [id number] ?? Presentation: ?? Onset neck stiffness 04/2011, [...] tomyelosuppression. INTERIM HISTORY: Time from Rx completion: 3wks out from completion of treatment neg pos comment Medical events: x Stopped fentanyl patch- doing 5mg oxycodone q4hrs now for pain. Major problems: x Chills yesterday and vomiting yesterday and early last night- just a one day issue. Dysphagia: x Still with pain and burning when swallowing PO with everything he has tried so far. Odynophagia: x Aspiration symptoms: x Xerostomia: x Taste sensation: x continues with very foul taste in his mouth Functional status: x Dental problems: x ROS Neuro: Denies dizziness, H/A, gait changes, numbness or tingling; vision or hearing changes Change in adenopathy or other masses: No C/V: Denies chest pain, palpitations or swelling of extremities Resp: No SOB, wheezing; does coughed up occasional phlegm which is described as either dark Brown or yellowish in color. GI: Bowels regular, denies abdominal pain Nutrition: [] oral [] feeding tube [x] combination Appetite: low appetite due to difficulties with swallowing and taste : Urinary pattern normal; denies pain, frequency, urgency, or incontinence Musculoskeletal complaints: None Skin: No changes, rashes, lumps- dry desquamation from radiation therapy is healing rapidly and he is feeling quite well INTERIM SOCIAL HISTORY Changes in job, home situation, tobacco or alcohol use: None Psychosocial/spiritual issues: He is feeling much better overall and is much brighter and affect and behavior. CHANGES IN RELEVANT FAMILY HISTORY:None Filed Vitals: 12/07/11 1057 BP: 115/71 Pulse: 72 Temp: 37.2 ??C (98.9 ??F) Resp: 16 PHYSICAL EXAM General appearance: well-appearing in no acute distress Nutritional status: Stable Skin: grade 2 radiation reaction healing well in the treatment site Oral: oral mucosa with a grade 3 healing mucositis to the back of the soft palate and pharynx Dentition: no changes Neck: The neck is [...] was soft, non- tender, and withoutmasses or hepatosplenomegaly. Extremties: Examination of the extremities revealed no cyanosis, clubbing or edema. Neurologic: Neurologically, the patient was awake, alert, and oriented to person, place and time. There were no obvious focal neurologic abnormalities. Cranial nerves grossly intact. EOMs normal.pupils more normal in size now he is off the fentanyl. LABORATORY STUDIES: fungal culture from last week is negative to date No results found for this or any previous visit (from the past 72 hour(s)). RADIOLOGY STUDIES REVIEWED: None today Impression: Continues to heal from his treatment side effects. Due to his disinclination earlier on 4 mouth care, I believe he might very well have an infection in his throat which is preventing him from rapidly healing. Discolored sputum is worrisome. Likely gram-positive infection. Weight relatively stable PLAN Will start script for amoxicillan - if this is not helpful by middle of next week, [facility]ID. he will receive a call from the dietitian early next week. Followup: 2 weeks. This note prepared with voice recognition software; minor rod puller and coiler errors may result. Trinity Chopra, MSN, EXECUTIVE ASST, [facility] Hematology/Medical Oncology [phone] documented in this encounter Plan of Treatment Not on file documented as of this encounter Visit Diagnoses Diagnosis Squamous cell carcinoma of tonsil- Primary Malignant neoplasm of tonsil documented in this encounter Care Teams X Ray Service Technician Relationship Specialty Start Date End Date Josué Huff MD [address] [place] [id number] PCP - General 08/02/11 documented as of this encounter
--- OUTSIDE RECORDS SUMMARY | 2024-05-03 16:11 | XMS_ITS | Encounter Summary ---
Author Organization [facility] [place] [address] Care Team Providers Care Supervisory Forester Name Role Phone Josué Huff MD Primary Care Provider [phone] Encounter Details Date Type Department Care Team (Late st Contact Info) Description 11/30/2011 2:00 PM EDT Follow-Up Hematology Oncology at [address] [phone] Trinity Chopra, FIELD INSTALLATION TECHNICIAN [address] [facility] [place] [address] Squamous cell carcinoma of tonsil (Primary Dx) [...] Sign Reading Time Taken Comments Blood Pressure 132/61 11/30/2011 1:55 PM EDT Pulse 66 11/30/2011 1:55 PM EDT Temperature 36.5 ??C (97.7 ??F) 11/30/2011 1:55 PM ED T Respiratory Rate 18 11/30/2011 1:55 PM EDT Oxygen Saturation 98% 11/30/2011 1:55 PM EDT Inhaled Oxygen Concentration - - Weight 90.9 kg (200 lb 6.4 oz) 11/30/2011 1:55 P M EDT Height 177 cm (5' 9.69) 11/30/2011 1:55 PM EDT Body Mass Index 29.01 11/30/2011 1:55 PM EDT documented in this encounter Progress Notes * Trinity Chopra, FIELD INSTALLATION TECHNICIAN - 11/30/2011 2:28 [place] [address] FOLLOW-UP PATIENT EVALUATION CHIEF COMPLAINT: Oliverio Salazar is seen today in the multidisciplinary clinic for Head and Neck Cancer follow-up. Patient Active Problem List Diagnoses ??? Rotator cuff tear ??? Squamous cell carcinoma of tonsil ?? Squamous cell carcinoma of the tonsil, [id number] ?? Presentation: ?? Onset neck stiffness 04/2011, [...] tomyelosuppression. INTERIM HISTORY: Time from Rx completion: Mr. Salazar is 3 weeks out from completing his treatment. neg pos comment Medical events: x Finished clindamycin Major problems: x Dysphagia: x tube feed dependent at this time Odynophagia: x Aspiration symptoms: x Taking small amts of water Xerostomia: x Taste sensation: x Major issue holding him back from eating Diet restrictions: x Functional status: x Dental problems: teeth removed ROS Neuro: Denies dizziness, H/A, gait changes, numbness or tingling; vision or hearing changes Change in adenopathy or other masses: No C/V: Denies chest pain, palpitations or swelling of extremities Resp: No SOB, wheezing, or coughing GI: Bowels regular, denies abdominal pain Nutrition: [] oral [x] feeding tube [] combination Appetite: He is anxious to go back to eating normal foods : Urinary pattern normal; denies pain, frequency, urgency, or incontinence Musculoskeletal complaints: None Skin: No changes, rashes, lumps He has been using the higher doses of fentanyl patches and 25 mcg although he has received a total microgram patches he was planning on starting the total microgram patches when he ran out of the 25 mcg patches on Saturday. His pain is generally well-controlled with the patches and with an occasionaloxycodone. INTERIM SOCIAL HISTORY Changes in job, home situation, tobacco or alcohol use: None Psychosocial/spiritual issues: He is much more alert today and his overall affect is very much improved. He is feeling much more hopeful now that he is feeling better. CHANGES IN RELEVANT FAMILY HISTORY:None Filed Vitals: 11/30/11 1355 BP: 132/61 Pulse: 66 Temp: 36.5 ??C (97.7 ??F) Resp: 18 PHYSICAL EXAM General appearance: well-appearing in no acute distress Nutritional status: he is now finally stable and has gained a small amount of weight this week Skin: radiation reaction has healed nicely and dry flaky skin remains Oral: oral mucosa appears normal however he has either thrush or very severe hyperkeratosis to his tongue Dentition: teeth removed Neck: 1 cm residual mass to his right neck level III node Peripheral nodes: no adenopathy noted Chest: Examination of the chest was unremarkable. There were no bony deformities, no asymmetry, or other abnormalities. Clear to auscultation bilaterally without wheezes or crackles. Heart: S1 S2 are normal without rubs or gallops. Regular rate and rhythm. Abdomen: Abdominal exam revealed normal bowel sounds. The abdomen was soft, non- tender, and withoutmasses or hepatosplenomegaly.PEG tube in place without evidence of infection. Extremties: Examination of the extremities revealed no cyanosis, clubbing or edema. Neurologic: Neurologically, the patient was awake, alert, and oriented to person, place and time. There were no obvious focal new neurologic abnormalities. Cranial nerves grossly intact. EOMs normal. LABORATORY STUDIES Of note his recent labs shows that he has had a doubling of his alk phosphatase and his ALT has nearly tripled in the past month. This may be due to the recent addition of clindamycin or other medication and we will repeat the labs to make sure that this is not something that we need to be concerned about. RADIOLOGY STUDIES REVIEWED: none today Impression: Recovering from side effects of treatment. Mouth greatly improved. Skin greatly improved. Pain Weight is leveling out. Still with severe taste changes. Elevated LFTs. PLAN I would like to see him back in clinic in one week's time to reassess his liver function tests as well as make sure that he continues to taper his pain medications. With respect to his pain medications today, I have asked him to go ahead and start the total microgram patches since he is doing so well at this time and I would expect him to be off of the fentanyl when I see him next week. He is much more alert and aware today I think the decrease in his pain medication has been of great benefit. You'll continue with the recommendations from the dietitian for his weight. Plan to recheck her LFTs next week. Oral culture done today for thrush that might be resistant to nystatin/fluconazole. This note prepared with voice recognition software; minor pharmacy technician inpatient errors may result. Trinity Chopra, NANCY, FIELD INSTALLATION TECHNICIAN, [facility] Hematology/Medical Oncology [phone] documented in this encounter Plan of Treatment Not on file documented as of this encounter Visit Diagnoses Diagnosis Squamous cell carcinoma of tonsil- Primary Malignant neoplasm of tonsil documented in this encounter Care Teams Supervisory Forester Relationship Specialty Start Date End Date Josué Huff MD [address] [place] [id number] PCP - General 08/02/11 documented as of this encounter
--- OUTSIDE RECORDS SUMMARY | 2024-05-03 16:11 | XMS_ITS | Encounter Summary ---
Author Organization [facility] Address [facility] [place] [address] Care Team Providers Care Recorder Gravity Prospecting Name Role Phone Josué Huff MD Primary Care Provider [phone] Encounter Details Date Type Department Care Team (Late st Contact Info) Description 01/31/2012 2:00 PM EDT Follow-Up [facility] [address] [place] [address] Gorge Lee MD [address] [place] [id number] Squamous cell carcinoma of tonsil (Primary Dx) [...] as of this encounter Progress Notes * Gorge Lee MD - 01/31/2012 2:38 PM EDT Head and Neck Cancer Medical Oncology Follow-Up Note Patient Active Problem List Diagnoses ??? Rotator cuff tear ??? Squamous cell carcinoma of tonsil ?? Squamous cell carcinoma of the tonsil, [id number]; tobacco-associated ?? Presentation: ?? Onset neck stiffness [...] of cisplat - 3rd held due tomyelosuppression. Interval History: Here for restaging visit. Time from treatment: 3 months Pain problems: minimal Dysphagia: minimal Xerostomia: moderate Taste sensation: Diminished, and with dysgeusia. This limits oral intake more than mechanical problems. Distasteful foods cause retching/vomiting. Dietary restrictions: Predominantly via PEG tube Neck problems: none Metastatic symptoms: none Functional problems: PFS 1, partly from chronic post-injury pain Coping/emotional issues: Glad to be done, recovering, optimistic Dental care/problems: Using fluoride Medical issues: Focal 'burning' parasthesias in focal area just proximal to L wrist on ulnar side. He reports sleeping in recliner; has occasional R elbow discomfort from this, but no other L forearm/elbow/hand symptoms. Outpatient prescriptions marked as taking for the 01/31/12 encounter (Follow-Up) with GORGE LEE Medication Sig Dispense Refill ??? ibuprofen (ADVIL;MOTRIN) 800 mg tablet Take 800 mg by mouth every 8 hours as needed. ??? OXYcodone-acetaminophen (PERCOCET) 5-325 mg per tablet Take 1 tablet by mouth every 4 hours as needed. ??? omeprazole (PRILOSEC) 20 mg capsule Take 20 mg by mouth daily. ??? melatonin 3 mg Tab Take by mouth. ??? benzonatate (TESSALON) 100 mg capsule Take 2 capsules by mouth 3 times daily as needed for Cough. 30 tablet 0 ??? OXYBUTYNIN CHLORIDE ORAL Take 10 mg by mouth daily. ??? Terazosin 10 mg Tab Take 10 mg by mouth daily. Review of Systems: Review of systems is negative for other FMD TEACHER, bone, pulmonary, cardiac, GI, , extremity, neurologic, endocrine, skin, constitutional, emotional, or functional problems. Recent Review Flowsheet Data View Complete Flowsheet Oncology Vitals 01/31/2012 Weight 91.627 kg Height - BSA (Calculated - sq m) - BMI (Calculated) - Temp 97.6 Temp src 1 Pulse 54 Heart Rate Source NIBP Resp 20 BP 110/60 BP Location Left arm Patient Position Sitting SpO2 98 Pain Level 0 FACES Pain Rating: Rest 0 - no hurt FACES Pain Rating: Activity 0 - no hurt Karnofsky Score 90 Oncology Vitals 01/31/2012 Height (cm) - Weight (kg) - BSA (m2) - Exam: General appearance: NAD, in good spirits Nutritional status: stable Skin: Clear, excellent cosmesis Oral: Post-RT changes; no visible tumor Dentition: In good repair Neck: Grade 1 fibrosis; No lymphedema Right: no adenopathy Left: no adenopathy Ear: Peripheral nodes: nil Chest: clear Heart: RRR, normal tones Abdomen: benign, no HSM; PEG tube healthy Extremties: normal, no clubbing or edema No ulnar tenderness or elicited parasthesias; no focal findings around L wrist. Neurologic: Cranial nerves: normal Reflexes: 1 + Laryngoscopy: Done with Dr. Gaines: no signs of tumor, minimal post-RT changes. Cords mobile. Recent Results (from the past 72 hour(s)) CBC (WITH DIFF) Component Value Range ??? WBC 3.4 (*) 4.0 - 10.0 (x10(3)/mcL) ??? RBC 3.77 (*) 4.63 - 6.08 (x10(6)/mcL) ??? Hemoglobin 13.0 (*) 13.7 - 17.5 (gm/dL) ??? Hematocrit 35.9 (*) 40.0 - 51.0 (%) ??? MCV 95.2 (*) 79.0 - 92.0 (fL) ??? MCH 34.5 (*) 25.6 - 32.2 (pg) ??? MCHC 36.2 32.0 - 36.5 (gm/dL) ??? Platelets 148 145 - 370 (x10(3)/mcL) ??? RDWSD 42.8 35.0 - 46.0 (fL) ??? RDWCV 12.4 10.9 - 14.4 (%) ??? MPV 10.1 9.0 - 12.0 (fL) TSH Component Value Range ??? TSH 1.56 0.27 - 4.20 (mcIU/mL) COMPREHENSIVE METABOLIC PANEL (NON-FASTING) Component Value Range ??? Glucose Lvl 91 60 - 199 (mg/dL) ??? BUN 24 (*) 10 - 20 (mg/dL) ??? Creatinine 0.93 0.80 - 1.50 (mg/dL) ??? Sodium 138 135 - 145 (mmol/L) ??? Potassium 4.4 3.5 - 5.0 (mmol/L) ??? Chloride 103 98 - 107 (mmol/L) ??? CO2 26 22 - 31 (mmol/L) ??? Anion Gap 9 5 - 15 (mmol/L) ??? Calcium 9.3 8.5 - 10.5 (mg/dL) ??? Total Protein 7.0 6.4 - 8.3 (gm/dL) ??? Albumin 4.3 3.2 - 5.2 (gm/dL) ??? AST 19 0 - 39 (unit/L) ??? ALT 26 0 - 55 (unit/L) ??? Alk Phos 82 40 - 120 (unit/L) ??? Total Bilirubin 0.3 0.2 - 1.3 (mg/dL) ??? Bili, Direct 0.1 0.0 - 0.3 (mg/dL) ? ? Estimated GFR >60 >=60 DIFFERENTIAL, AUTOMATED Component Value Range ??? Neutrophils % 59.3 34.0 - 71.0 (%) ??? Neutr Abs (ANC) 2.00 1.50 - 6.30 (x10(3)/mcL) ??? Lymphocytes % 31.8 19.0 - 53.0 (%) ??? Lymphocytes Abs 1.1 1.0 - 3.6 (x10(3)/mcL) ??? Monocytes % 6.5 4.0 - 13.0 (%) ??? Monocyte Abs 0.2 0.2 - 1.0 (x10(3)/mcL) ??? Eosinophils % 1.8 0.0 - 7.0 (%) ??? Eosinophils Abs 0.1 0.0 - 0.5 (x10(3)/mcL) ??? Basophils % 0.3 0.0 - 2.0 (%) ??? Basophils Abs 0.0 0.0 - 0.2 (x10(3)/mcL) ??? Immature Gran % 0.30 0.00 - 0.66 (%) ??? Promise Gran Abs 0.01 0.00 - 0.05 (x10(3)/mcL) Radiographs: I personally reviewed images from today's PET/CT: no clear signs of persistent disease: Findings Head/neck: There is mild increased metabolic activity in the right floor of the mouth adjacent to the mandible. The CT visualized right level 2 lymph nodes have decreased in size and do not have metabolic activity above and background. Chest Normal metabolic activity is present. There is a calcified right middle lobe pulmonary nodule seen on axial image 150 which is consistent with a granuloma. A MediPort is in place with the tip terminating within the right atrium. Abdomen/Pelvis: A gastrostomy tube is present which is associated with mild increased metabolic activity. There are multiple nonobstructing right renal calculi. Skeleton: Decreased metabolic activity is present in the cervical spine, likely secondary to prior radiation. Increased activity seen within both glenohumeral joints likely secondary to glenohumeral osteoarthritis. Normal metabolic activity is present within the remainder of the axial and visualized appendicular skeleton. There is a metallic density structure within the thecal sac posterior to L5-S1 which may be a surgical clip. Impression No evidence of local or metastatic disease. Mild increased metabolic activity adjacent to the right mandible in the floor of the mouth favored to be dental inflammatory disease. Impression: 1. Tonsil cancer, s/p chemoRT, clinically [place]. 2. Slow but steady recovery from Rx side effects. 3. Focal neuropathic symptoms L forearm. Curious distribution. Suspect focal peripheral nerve compression syndrome. No generalized symptoms to suggest chemo- induced neuropathy. 4. Mild leukopenia, from chemoRT. Plan: 1. Regular followup per [facility] standards. 2. Try to pad his armchair to see if L forearm symptoms resolve. Consider neuro consult if not. Consider lidoderm patch for symptomatic relief. 3. Regular dental care; daily fluoride. Gorge Lee MD, FACP hydroelectric plant electrician Hematology/Oncology Section [place] [phone] documented in this encounter Plan of Treatment Not on file documented as of this encounter Visit Diagnoses Diagnosis Squamous cell carcinoma of tonsil- Primary Malignant neoplasm of tonsil documented in this encounter Care Teams Recorder Gravity Prospecting Relationship Specialty Start Date End Date Josué Huff MD [address] [place] [id number] PCP - General 08/02/11 documented as of this encounter
--- OUTSIDE RECORDS SUMMARY | 2024-05-03 16:11 | XMS_ITS | Encounter Summary ---
Author Organization [facility] Address [facility] [place] [address] Care Team Providers Care Band Top Maker Name Role Phone Josué Huff MD Primary Care Provider [phone] Reason for Visit * Reason Comments Follow-up Encounter Details Date Type Department Care Team (Late st Contact Info) Description 11/28/2011 11:30 AM EDT Follow-Up Hematology Oncology at [address] [phone] [facility] HEMATOLOGY/[place] [address] Head and neck cancer (Primary Dx) Discharge [...] Sign Reading Time Taken Comments Blood Pressure 121/71 11/28/2011 11:42 AM EDT Pulse 65 11/28/2011 11:42 AM EDT Temperature 36.5 ??C (97.7 ??F) 11/28/2011 11:42 AM E DT Respiratory Rate 18 11/28/2011 11:42 AM EDT Oxygen Saturation 100% 11/28/2011 11:42 AM EDT Inhaled Oxygen Concentration - - Weight 90.5 kg (199 lb 8.3 oz) 11/28/2011 11:42 AM EDT Height 177 cm (5' 9.69) 11/28/2011 11:42 AM EDT Body Mass Index 28.89 11/28/2011 11:42 AM EDT documented in this encounter Progress Notes * Joel Miller MD - 11/28/2011 12:10 PM EDT Problem list #1 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 surgery July 2011 tonsils removed only lymph nodes left in place B staging studies show 2 lymph nodes at level II right side of the neck C. 1.5 cm pretracheal node a thoracic inlet biopsy negative D. Right tonsil squamous cell cancer, left tonsil benign E. chemoradiation completed November 10, 2011 Chemotherapy consisted of cisplatin 40 mg per square meter for total of 88 mg weekly. However this was stopped after the fourth dose on October 16 due to prolonged neutropenia and anemia. #2 traumatic back injury with chronic pain [address] Medication list #1 terazocin 10 mg at bedtime #2 oxybutynin #3 trazodone #4 melatonin #5 oxycodone History of present illness He is now about 2-1/2 weeks out from completing chemotherapy and radiation for head and neck cancer. History was complicated by poor nutrition, one hospitalization and very low counts. After October 16 he received no more cisplatin due to prolonged neutropenia, taking 4 weeks to recover, so he did not receive the last 3 doses of cis-[place]. He did complete all radiation. He is much improved since finishing. He still has a sore throat requires feeding through his PEG but he says is much better and overall he feels good. Review of systems Constitutional positive for poor taste and sore throat causing difficulty eating but improving; negative for fevers, weakness, unexplained weight change, [...] This left him to get hardly walk untilu back surgery 1973. He is now walking with a cane. 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 [...] treatment. He has 2 daughters one in [place] one in [place]. He was a [place] war grew up in [facility]. His father was computing systems mechanic. Labs White count 3.9 hemoglobin 9.8 platelets 241 MCV 94 Creatinine 1.1 BUN 24 albumin 3.4 total protein 7.2 Alkaline phosphatase elevated at 201 AST 29 ALT 95 Assessment 61 white male who was completed chemoradiation for head and neck cancer. Radiation was finished November 09. Last dose of cisplatin was october 16, his fourth and final dose. He missed his last 3 doses of cisplatin due to profile and prolonged neutropenia and anemia. His course was complicated by one hosp italization and problems with nutrition all of which seem to be improving. At this point his mouth is much better he's actually gaining some weight and his performance statusis improving and he states equal feels much better. He still has a sore throat making it difficultto eat but this is improving every day. Plan #1 see me back in one month with CBC and CMP he will call sooner if he has difficulty or he wants his PEG removed. I think I can remove the pain when he returns as is the Hickey catheter. This note was created using [employer] voice recognition software. It was reviewed for major content. However, there may be multiple small discrepancies and errors due to the voice recognition aspects of the software. I documented in this encounter Procedure Notes * Provider, Scanning - 11/28/2011 11:09 AM EDTAssociated Order(s): SCAN DOC: LAB documented in this encounter Plan of Treatment Not on file documented as of this encounter Procedures Procedure Name Priority Date/Time Associated Diagnosis Comments LAB SCAN 11/28/2011 11:09 AM EDT documented in this encounter Results * SCAN DOC: LAB (11/28/2011 11:09 AM EDT) Narrative 11/28/2011 11:09 AM EDT Procedure Note Provider, Scanning - 11/28/2011 11:09 AM EDT Scanning Provider MEDIA MGR SCAN EXT O RDR/RSLT documented in this encounter Visit Diagnoses Diagnosis Head and neck cancer- Primary Malignant neoplasm of head, face, and neck documented in this encounter Care Teams Band Top Maker Relationship Specialty Start Date End Date Josué Huff MD [address] [place] [address] PCP - General 08/02/11 documented as of this encounter
--- OUTSIDE RECORDS SUMMARY | 2024-05-03 16:11 | XMS_ITS | Encounter Summary ---
Author Organization [facility] [place] [address] Care Team Providers Care Turbine Room Attendant Name Role Phone Josué Huff MD Primary Care Provider [phone] Encounter Details Date Type Department Care Team (Late st Contact Info) Description 11/05/2011 10:45 AM EDT Ancillary Appointment Hematology Oncology at [address] [phone] William Petit, JAYDEN [facility] [place] [address] Social History Tobacco Use Types Packs/Day Years [...] Progress Notes * William Petit, JAYDEN - 11/05/2011 10:49 AM EDT Met briefly with pt after RT. Pump, nocturnal feeds started Saturday. 6 cans run through night, 2 cans during at 150 mls/hour over about 14 hours. Hydration via gravity bag BID with 1000 mls. Sips of water during the day; ~ 16 ounce bottle. Taking compazine and ativan p.o. He states, he feels more comfortable utilizing pump vs. [place]. Less nausea. Bowels have straightened out, over the weekend bouts of constipation and diarrhea. Weight is up 1 kg since Saturday to 96 kg. Will follow up on Saturday11/09/11. documented in this encounter Plan of Treatment Not on file documented as of this encounter Visit Diagnoses Not on filedocumented in this encounter Care Teams Turbine Room Attendant Relationship Specialty Start Date End Date Josué Huff MD [address] [place] [id number] PCP - General 08/02/11 documented as of this encounter
--- OUTSIDE RECORDS SUMMARY | 2024-05-03 16:11 | XMS_ITS | Encounter Summary ---
Author Organization [facility] [place] [address] Care Team Providers Care Comb Winder Name Role Phone Josué Huff MD Primary Care Provider [phone] Encounter Details Date Type Department Care Team (Late st Contact Info) Description 12/07/2011 11:00 AM EDT Ancillary Appointment Hematology Oncology at [address] [phone] [facility] [place] [address] Social History Tobacco Use Types Packs/Day Years [...] Progress Notes * William Petit RD - 12/07/2011 11:21 AM EDT [facility] Dietitian Follow Up Seen By: Monet Petit MS, RD, LD Referred by: H/N team, Guanako Garrido RD at MD Reason for visit: Patient and diagnosis: head [...] back in June. Completed week 5 of chemo on 10/17/11. Meds: reviewed Labs: reviewed Ht: Oncology Vitals 09/20/2011 Height 177 cm Wt: 89.2 kg on 12/07/11; 2% Decrease; 90. 9 kg on 11/30/11; INCREASE 89.6 kg on 11/23/11 90.26 kg; 2% weight loss in one week Previous Wts: 92 kg on 11/09/11 93 kg on 11/09/11; 2.2% decrease in [...] 1.5 @ 80 k kg Food Intake: states he has tried yogurt, oatmeal, scr. Egg PO: ~ 20 ounces of water. Takes compazine and another med p.o. Tried pudding, chocolate milk, milk shakes, can only get one bite/swallow, ott and feels like it wants to come up. PEG-tube: See below Teas, vitamins, or other nutritional supplements: none Food allergies or avoidances: nkfa Appetite: Other than in my mind, I don't have an appetite Nausea: denies, but had with vomiting Vomiting: +, yesterday and early today 3-4 episodes, reports some chills, too Heartburn: denies Chewing: denies Dentition: upper dentures, bottom partial, brushing teeth and tongue now Swallowing: pain with swallowing, taking sips of water P.O. Is able to swallow saliva. Mouth sores: +, redness. Two canker sores. Xerostomia: +, doing soda/salt rinses 10-15 times/day, has biotene and oasis spray on board. Taste Changes: +, everything taste like krap and smells off, but I want to eat. States Dr. Robledo told him that w/ the tonsils removed it could take longer for this to return. Using plastic cutlery. Bowels: Every day. Food availability/purchasing, meal planning and preparation: Brother on board, Oliverio prepares meals. Says he won't eat brother's food. Social Support: anjana Armstronger is helping to take care of him during treatment cell [phone] Economic Issues: MD Physical Activity: walks dog daily, gets out at least 3-4 times daily for walks, about 10-15 minutes/time. 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 Current g-tube intake is not meeting calorie demands as evidenced by continued weight loss, total of 8.3% of overall body weight. We've discussed adjusting his feeding routine for nocturnal, pump feedings. MD pump was received on11/01/11. VNA services are expected later today (11/02/11) for pump orientation/med management. Typically able to provide 6-8 cans/day and tolerate. TF: 8 - 7 cans of Jevity [...] 101. Total free water: ~ 3026 ccs. Recommend 2 Benecal/day to provide an additional 660 kcals and 14 gm protein to stabilize weight. Re - faxed orders into [facility] for script on 11/09/11. He received this on 12/05/11(?), itwas dropped at a door he doesn't use. He is unclear how long it has been there. Dionisio feels the decrease in fluid had certainly helped with nausea. Re-iterated the importance of using 4 ounces of fluid with benepro and benecalorie. He also feels using the chocolate supplement vs.Water has helped to decrease nausea. We discussed the possibility of receiving Stephen. Boost Plus through [facility]. Weight has decreased this week, suspect Dionisio caught a bug, as he had a 24-hr episode of chills and vomiting. He states he feels a lot better now. Dionisio's received the Boost Plus from [facility] and has beentrialing soft foods. He is eager to get back to eating, but states all foods he's trialed tastes horrible. However, the pain with swallowing has been manageable. Tongue culture hasn't grown thrush. Trinity Chopra, BALWINDER, is starting him on ABX in ? Of infection in back of throat which could also impair taste. He continues to do pain meds and BMX with food trials. Nutrition Intervention: Increase caloric and protein needs:see above. Increase frequency of meals and snacks: g-tube recommendations, as much p.o. 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 Educational Handouts provided: -- G-tube/J-tube feeding booklet Other Recommendations: None Monitoring and Evaluation: Will follow up with Mr. Salazar on Tu12/11/11 to touch base regarding ABX, throat pain, and tastes. documented in this encounter Plan of Treatment Not on file documented as of this encounter Visit Diagnoses Not on filedocumented in this encounter Care Teams Comb Winder Relationship Specialty Start Date End Date Josué Huff MD [address] [place] [id number] PCP - General 08/02/11 documented as of this encounter
--- OUTSIDE RECORDS SUMMARY | 2024-05-03 16:11 | XMS_ITS | Encounter Summary ---
Author Organization [facility] [place] [address] Care Team Providers Care Deaf Teacher Name Role Phone Josué Huff MD Primary Care Provider [phone] Encounter Details Date Type Department Care Team (Late st Contact Info) Description 11/16/2011 12:00 PM EDT Ancillary Appointment Hematology Oncology at [address] [phone] [facility] [place] [address] Social History Tobacco Use Types Packs/Day Years [...] Progress Notes * William Petit RD - 11/16/2011 1:08 PM EDT [facility] Dietitian Follow Up Seen By: Monet Petit MS, RD, LD Referred by: H/N team, Guanako Garrido RD at [place] Reason for visit: Patient and diagnosis: head [...] Oncology Vitals 09/20/2011 Height 177 cm Wt: 90.26 kg; 2% weight loss in one [...] appetite or urge to eat Nausea: + Vomiting:this am, phlegm and bile with little amount of nocturnal feed Heartburn: denies Mucositis: +, stringy and gacky phlegm. Uses BMX to perform baking soda/salt rinses, Chewing: denies Dentition: upper dentures, bottom partial Swallowing: pain with swallowing, taking water P.O. Mouth sores: +, redness, Xerostomia: +, doin soda/salt rinses 10-12 times/day, has biotene and oasis spray on board Taste Changes: +, everything taste like krap and smells off Bowels: Every other day, Taking miralax daily in prn when needed . Food availability/purchasing, meal planning and preparation: Brother on board, Oliverio prepares meals. Says he won't eat brother's food. Social Support: anjana Armstronger is helping to take care of him during treatment cell [phone] Economic Issues: [place] Physical Activity: walks dog daily, gets out at least 3-4 times daily for walks, about 10-15 minutes/time. 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 Current g-tube intake is not meeting calorie demands as evidenced by continued weight loss, total of 8.3% of overall body weight. We've discussed adjusting his feeding routine for nocturnal, pump feedings. NM pump was received on11/01/11. VNA services are expected later today (11/02/11) for pump orientation/med management. Typically able to provide 6-8 cans/day and tolerate. TF: 8 cans of Jevity 1.5 via [...] water per time. Hydration via gravity bag with 1000 mls. Total kcals: 2915. Total protein: 101. Total free water: ~4140 ccs Recommend 2 Benecal/day to provide an additional 660 kcals and 14 gm protein to stabilize weight. Re - faxed orders into [facility] for script on 11/09/11. Dionisio feels the decrease in fluid had certainly helped with nausea. Re-iterated the importance of using 4 ounces of fluid with benepro and benecalorie. He also feels using the chocolate supplement vs.Water has helped to decrease nausea. We discussed the possibility of receiving Stephen. Boost Plus through [facility]. Nutrition Intervention: Increase caloric And protein needs:see above. Increase frequency of meals and snacks: g-tube recommendations, as much p.o. 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 Educational Handouts provided: -- G-tube/J-tube feeding booklet Other Recommendations: None Monitoring and Evaluation: Will follow up with Mr. Salazar when he returns to clinic. documented in this encounter Plan of Treatment Not on file documented as of this encounter Visit Diagnoses Not on filedocumented in this encounter Care Teams Deaf Teacher Relationship Specialty Start Date End Date Josué Huff MD [address] [place] [id number] PCP - General 08/02/11 documented as of this encounter
--- OUTSIDE RECORDS SUMMARY | 2024-05-03 16:11 | XMS_ITS | Encounter Summary ---
Author Organization [facility] [place] [address] Care Team Providers Care Hydropulper Operator Name Role Phone Josué Huff MD Primary Care Provider [phone] Reason for Visit * Reason Comments Nausea Encounter Details Date Type Department Care Team (Latest Contact Info) Description 10/29/2011 Unscheduled Encounter Radiation Oncology at [address] [phone] Isabella Garcia RN Head and neck cancer (Primary Dx) Social [...] Sign Reading Time Taken Comments Blood Pressure 83/56 10/29/2011 11:[address] [facility]ing Pulse 88 10/29/2011 11:05 AM EDT Temperature 37.5 ??C (99.5 ??F) 10/29/2011 11:04 AM E DT Respiratory Rate 16 10/29/2011 11:04 AM EDT Oxygen Saturation 97% 10/29/2011 11:04 AM EDT Inhaled Oxygen Concentration - - Weight 94.3 kg (208 lb) 10/29/2011 11:04 AM EDT Height - - Body Mass Index 30.12 10/24/2011 10:51 AM EDT documented in this encounter Progress Notes * Isabella Garcia RN - 10/29/2011 11:22 AM EDT S: Patient verbalized that he vomitted all weekend. O: Patient seen as he was waiting to get his radiation treatment. He appeared pale and unsteady on his feet. When asked how he was doing he reported that he had not been doing well, he had vomitted all weekend. Patient reported that he had taken his nausea medication but when asked what medication and how often he was not able to identify the medication itself. He reported that he took the nausea medication three times per day. Patient also noted that he took his Ativan when the nausea medication did not work. Patient could not associate anything in particular with the onset of his nausea and reported that Saturday was the worse day, he only vomitted a couple of times on Saturday. He did not call anyone to report what was going on and he did not present at the local emergency room. Patient reports that he has not been able to get in the recommended nutritional supplement, but he does not attribute this to the nausea and vomitting. Patient reports that he stopped taking his nystatin because it caused him discomfort, restarted the vaginal suppositories. Patient was not able to provide me with a does for this medication. Patient weight is noted today to be 6 lb less that Saturday when he was seen by Dr Gaines, down to 208 lb. Patient was noted to have orthostatic hypotension, vital signs in flowsheet. A: Patient is likely dehydrated resulting from new onset nausea and vomitting. Question meeting nutritional requirements with significant weight loss over the last 4 days. Question patient medicationcompliance given he has changed his medication regimen without consulting a physician. P: Per Dr Gaines patient is to proceed to [facility] and present to the emergency room for evaluation and admission if indicated. Called and gave report to Chary STEPHENS in [facility] emergency room. documented in this encounter Plan of Treatment Not on file documented as of this encounter Visit Diagnoses Diagnosis Head and neck cancer- Primary Malignant neoplasm of head, face, and neck documented in this encounter Care Teams Hydropulper Operator Relationship Specialty Start Date End Date Josué Huff MD [address] [place] [address], [place] [address] PCP - General 08/02/11 documented as of this encounter
--- OUTSIDE RECORDS SUMMARY | 2024-05-03 16:11 | XMS_ITS | Encounter Summary ---
Author Organization [facility] [place] [address] Care Team Providers Care Night Clerk Auditor Name Role Phone Josué Huff MD Primary Care Provider [phone] Encounter Details Date Type Department Care Team (Late st Contact Info) Description 02/08/2012 8:00 AM EDT Ancillary Appointment Hematology Oncology at [address] [phone] William Petit, JAYDEN [facility] [place] [address] Social History Tobacco Use Types Packs/Day Years [...] Progress Notes * William Petit, RD - 02/08/2012 9:04 AM EDT [facility] Dietitian Follow Up Assessment Patient and diagnosis: Oliverio Salazar is a 61 YO M with 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 Was hospitalized Saturday 10/28 - 10/31/11. Completed RT onOctober,. Spoke with Dionisio. Everything is ok, I am still tryin' other stuff, but it tastes so bad when it makes me want to upchuck. Every day I try something different. Current Wt: 92.25 kg on 02/08/12; Increase Previous Wt: 39946 kg on 02/06/12 90.26 k pablo 01/02/12; 1% DECREASE in < 1 week; Moderate Calorie needs: 25 -30 @ 80 k - 2400 kcals Protein needs: 1.5 @ 80 k kg Food Intake: Not able to eat meat d/t off taste. Able to eat poached eggs, but not scramble or fried. Able to eat noodles with milk and butter. Has tried spaghetti sauce, but it tastes too foul. Was able to eat potato salad. Able to drink milk, but not flavored milk. Anything sweet doesn't taste good. Taking all meds p.o. No c/o swallow pain. Taking sips of water all day long. TF: 3 cans Jevity 1.5 and 2 Boost [...] Ttrying to get these kcals/pro via p.o. Current intake:Has stopped doing daytime feeds 2/2 increased P.o.(2 poached eggs 140 kcals, 14 g pro), instead. Encouraged him to continue with nocturnal feeds and food trials for p.o. During the day. Continues to use plastic cutlery, denies N/V, swallow and mouth pain. Bowels are regular. Went to dentist for teeth cleaning this week (01/13-18/05). DARIUS Cade Said he had hairy tongue at one point during treatment. Dentist encouraged to continue with p.o. As much as possible to help this. Herinses mouth before p.o. Trials and after. He continues to lift light weights for arm/upper body strength. Walks daily to keep moving, also has been more active around the house with preparing for winter (riding the tractor to help move wood,etc). He continues to feel weak, but does feel that he has started to gain some stamina. Will follow up with Mr. Salazar in 4 weeks. documented in this encounter Plan of Treatment Not on file documented as of this encounter Visit Diagnoses Not on filedocumented in this encounter Care Teams Night Clerk Auditor Relationship Specialty Start Date End Date Josué Huff MD [address] [place] [id number] PCP - General 08/02/11 documented as of this encounter
--- OUTSIDE RECORDS SUMMARY | 2024-05-03 16:11 | XMS_ITS | Encounter Summary ---
Author Organization [facility] Address [facility] [place] [address] Care Team Providers Care National Van Owner Operator Name Role Phone Josué Huff MD Primary Care Provider [phone] Encounter Details Date Type Department Care Team (Latest Contact Info) Description 01/31/2012 11:27 AM EDT - 01/31/2012 11:59 PM EDT Hospital Encounter [place]ology [place] [address] INFUSION THERAPY, MEDS None Ryland Blanchard MD [facility] HEMATOLOGY/[place] [address] Squamous cell carcinoma of tonsil Discharge Disposition: [...] Date/Time Associated Diagnosis Comments DIFFERENTIAL, AUTOMATED STAT 01/31/2012 11:50 AM EDT CBC (WITH DIFF) STAT 01/31/2012 11:50 AM EDT Squamous cell carcinoma of tonsil TSH STAT 01/31/2012 11:50 AM EDT Squamous cell carcinoma of tonsil COMPREHENSIVE METABOLIC PANEL Routine 01/31/2012 11:50 AM EDT Squamous cell carcinoma of tonsil documented in this encounter Results * DIFFERENTIAL, AUTOMATED (01/31/2012 11:50 AM EDT) Neutrophil % 59.3 34.0 - 71.0 % CERNER MILLENNIUM Neutrophil Absolute 2.00 1.50 - 6.30 x10(3)/mcL CERNER MILLENNIUM Lymph % 31.8 19.0 - 53.0 % CERNER MILLENNIUM Lymphocytes Abs 1.1 1.0 - 3.6 x10(3)/mcL CERNER MILLENNIUM Monocyte % 6.5 4.0 - 13.0 % CERNER MILLENNIUM Monocyte Abs 0.2 0.2 - 1.0 x10(3)/mcL CERNER MILLENNIUM Eos % 1.8 0.0 - 7.0 % CERNER MILLENNIUM Eosinophils Abs 0.1 0.0 - 0.5 x10(3)/mcL CERNER MILLENNIUM Basophil % 0.3 0.0 - 2.0 % CERNER MILLENNIUM Baso Absolute 0.0 0.0 - 0.2 x10(3)/mcL CERNER MILLENNIUM Immature Gran % 0.30 0.00 - 0.66 % CERNER MILLENNIUM Comment: Immature granulocytes(IG's)percentage and absolute count will include metamyelocytes, myelocytes, and promyelocytes. Blood smears from CBCs yielding IG's will be scanned manually for concordance. If this scan disagrees with the automated IG or if promyelocytes are noted, a manual differential will be performed. Immature Gran Absolute 0.01 0.00 - 0.05 x10(3)/mcL CERNER MILLENNIUM Blood specimen (specimen) 01/31/2012 11:50 AM EDT 01/31/2012 12:02 PM EDT Jacoby Gaines MD HEMATOLOGY ORDERABLE S CERNER MILLENNIUM * (ABNORMAL) Comprehensive metabolic panel (non-fasting) (01/31/2012 11:50 AM EDT) Glucose 91 60 - 199 mg/dL CERNER MILLENNIUM Comment:Diabetes: >=200 mg/d L plus symptoms Blood Urea Nitrogen 24(H) 10 - 20 mg/dL CERNER MILLENNIUM Creatinine 0.93 0.80 - 1.50 mg/dL CERNER MILLENNIUM Comment: Please note that the pediatric reference intervals supplied above were not validated at [facility]. Results from pediatric patients should be interpreted [...] In Lab Jacoby Gaines MD CHEMISTRY ORDERABLES Performing Organization Address City/[facility] Co de Phone Number ARIELLA GREENBERGIUM * TSH (01/31/2012 11:50 AM EDT) Thyroid Stimulating Hormone 1.56 0.27 - 4.20 mcIU/mL JORGENER OSEASENNIUM Blood specimen (specimen) 01/31/2012 11:50 AM EDT 01/31/2012 12:02 PM EDT Narrative Resulting Agency Comment Spec In Lab Jacoby Gaines MD CHEMISTRY ORDERABLES Performing Organization Address [facility] de Phone Number ARIELLA GREENBERGIUM * (ABNORMAL) CBC (with Diff) [...] Lab Jacoby Gaines MD HEMATOLOGY ORDERABLE S Performing Organization Address City/State/[facility] Co me Phone Number [facility] documented in this encounter Visit Diagnoses Diagnosis Squamous cell carcinoma of tonsil Malignant neoplasm of tonsil documented in this encounter Care Teams National Van Owner Operator Relationship Specialty Start Date End Date Josué Huff MD [address] [place] [id number] PCP - General 08/02/11 documented as of this encounter
--- OUTSIDE RECORDS SUMMARY | 2024-05-03 16:11 | XMS_ITS | Encounter Summary ---
Author Organization [facility] [place] [address] Care Team Providers Care Client Experience Consultant Name Role Phone Josué Huff MD Primary Care Provider [phone] Reason for Visit * Reason Comments Radiation Follow-up Encounter Details Date Type Department Care Team (Late st Contact Info) Description 01/31/2012 2:00 PM EDT Follow-Up [place] [address] CLINIC, Jacoby Carney MD [facility] [place] [address] Squamous cell carcinoma of tonsil (Primary Dx) [...] Sign Reading Time Taken Comments Blood Pressure 110/60 01/31/2012 1:56 PM EDT Pulse 54 01/31/2012 1:56 PM EDT Temperature 36.4 ??C (97.6 ??F) 01/31/2012 1:56 PM ED T Respiratory Rate 20 01/31/2012 1:56 PM EDT Oxygen Saturation 98% 01/31/2012 1:56 PM EDT Inhaled Oxygen Concentration - - Weight 91.6 kg (202 lb) 01/31/2012 1:56 PM EDT Height - - Body Mass Index 29.25 01/02/2012 10:49 AM EDT documented in this encounter Progress Notes * Jacoby Gaines MD - 01/31/2012 1:53 PM EDT Radiation Oncology Follow Up Note Primary MD: JOSUÉ HUFF MD Referring MD: Josué Huff Other Involved Physicians: Gorge Lee MD Focused Problem List: ?? Squamous cell carcinoma of the tonsil, [id number] ?? Presentation: ?? Onset neck stiffness 04/2011 [...] Jr. returns for routine follow up having last been seen ~2 monthsago. he completed radiotherapy approximately 3 months prior. Currently he notes the following symptoms: Symptom Description Ongoing Intervention Odynophagia Denies Dysphagia Denies. Only swallowing pills, but this is related to dysgeusia. All nutrition via TF. TFs Trismus Mild stiffness of jaw. Otalgia/ Hearing changes Denies Xerostomia Still significant, slightly improved. Skin changes Denies Neck fibrosis Very mild submental edema. Dysgeusia Still significant, only tasting a few things correctly. Weight Loss Denies he denies new onset DE LA O, n/v, unilateral changes in strength/sensation or cognitive changes. He notes bilateral shoulder pain since his hospitalization. He has some burning associated with his left wrist, on the ulnar aspect, started ~ 1 month prior. It is present constantly, has not changed since then. Allergies Allergen Reactions ??? Tegaderm (Transparent Dressings) [...] ULTRASOUND (EBUS) performed by VERÓNICA KELLOGG at [facility] ENDOSCOPY Physical Examination: Filed Vitals: 01/31/12 1356 BP: 110/60 Pulse: 54 Temp: 36.4 ??C (97.6 ??F) TempSrc: Oral Resp: 20 Weight: 91.627 kg (202 lb) SpO2: 98% Physical Exam Constitutional: He is oriented to person, place, and time and well-developed, well-nourished, and in no distress. HENT: Head: Normocephalic and atraumatic. Visual inspection of OC and OP revealed no evidence of suspicious masses or lesions. Palpation revealed no suspicious masses and no induration along the posterior tongue. Moisture modest. Extant teeth in good repair. Neck: No tracheal deviation present. Palpation reveals no adenopathy in cervical, SCLV, ICLV lashanda basins. Minimal submental edema/fibrosis. Neurological: He is alert and oriented to person, place, and time. No cranial nerve deficit. Procedure: Flexible laryngoscopy was performed. The right naris was anesthetized with aerosolized lidocaine, and the laryngoscope was passed without difficulty. The nasopharynx was visualized and was without masses or lesions. The oropharynx, larynx, and piriform sinuses were visualized and were without masses or lesions. The vocal cords apposed without difficulty. Interval Imaging: PET-CT 01/31/[address] of the chest August 07, 2011. CT of the head and neck September 06, 2011. Findings Head/neck: There is [...] mouth favored to be dental inflammatory disease. Assessment: Oliverio E Salazar Jr. 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 Clinically: clinically he has KAIDEN ?? Radiographically: interval imaging demonstrates KAIDEN ?? Radiation toxicity: ?? Xerostomia: moderate ?? Dysgeusia: severe, still limiting oral intake. Only tolerating poached eggs. All nutritional input effectively from TFs. Expect to see improvement in taste over next 3 months, and will hopefully be able to wean him from TFs. Plan: ?? FU: follow up with radiation oncology per NCC algorithm documented in this encounter Plan of Treatment Not on file documented as of this encounter Visit Diagnoses Diagnosis Squamous cell carcinoma of tonsil- Primary Malignant neoplasm of tonsil documented in this encounter Care Teams Client Experience Consultant Relationship Specialty Start Date End Date Josué Huff MD [address] [place] [id number] PCP - General 08/02/11 documented as of this encounter
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
--- OUTSIDE RECORDS SUMMARY | 2024-05-03 16:11 | XMS_ITS | Encounter Summary ---
Author Organization [facility] Address [facility] [place] [address] Care Team Providers Care Senior Ui Ux Designer Name Role Phone Josué Huff MD Primary Care Provider [phone] Reason for Visit * Reason Comments Radiation Follow-up Encounter Details Date Type Department Care Team (Late st Contact Info) Description 11/16/2011 11:30 AM EDT Follow-Up Radiation Oncology at [address] [phone] Jacoby Gaines MD [facility] [place] [address] Head and neck cancer (Primary Dx) Discharge [...] Sign Reading Time Taken Comments Blood Pressure 125/88 11/16/2011 12:05 PM EDT Pulse 98 11/16/2011 12:05 PM EDT Temperature - - Respiratory Rate 16 11/16/2011 12:05 PM EDT Oxygen Saturation 94% 11/16/2011 12:05 PM EDT Inhaled Oxygen Concentration - - Weight 90.3 kg (199 lb) 11/16/2011 12:05 PM EDT Height - - Body Mass Index 28.81 11/14/2011 8:36 AM EDT documented in this encounter Progress Notes * Jacoby Gaines MD - 11/16/2011 12:28 PM EDT FOLLOW UP VISIT NOTE Primary MD: JOSUÉ HUFF MD Referring MD: Mick Other Involved Physicians: Venkatesh Boothe MD Focused Problem List: ?? Squamous cell carcinoma of the tonsil, [id number] ?? Presentation: ?? Onset neck stiffness 04/2011 [...] hospitalization secondary to difficulty tolerating tube feeds. Identification: Oliverio Salazar Jr. has completed radiation therapy at [facility]. Changes in medical condition: Skin: Comments: Moderate erythema noted with dry desquamation, improving Current Regimen: Jeans cream/Aquaphor BID 0 1 [...] or PEG indicated NA Mucositis: Comments: Pain stable, primarily with swallowing, 4-11/26 Physical Exam: Patchy mucositis posterior oral cavity. [...] NA Weight : 231 lbs initial Change: 205 => 199 Larynx: Comments: 0 1 2 3 4 No change from baseline Mild or intermittent voice change; fully understandable, self- resolves Moderate or persistent voice change, able to vocalize; otalgia/ sore throat not requiring narcotic Whispered speech, throat pain/otalgia requiring narcotic Marked dyspnea, stridor or hemoptysis with trach or intubation necessary Other: ?? Impression: ?? Significant toxicity, dysgeusia, pain still limiting oral intake complicated by gagging. Still on nystatin with no thrush. Diminished oral intake continues to lead to weight loss, now s/p hospitalization with modification of his feeding regimen. [employer] working with him extensively. Skin toxicity improving. Plan: ?? Continue RT per prescription ?? Pain control: ?? Oxycodone prn, using every 5-6 hrs ?? Fentanyl patch ?? Skin: Jeans cream BID ?? Mucositis: ?? Pain control: see above ?? Oral hygiene consisting of baking soda/salt rinse at least 8 times daily ?? BMX prn ?? Alimentation: novelty candy maker following ?? Weight decreased, primarily due to dysgeusia and dysphagia related to gagging. [employer] making cont'd modifications to caloric and protein intake via PEG. ?? FU: follow up next week. ?? documented in this encounter Plan of Treatment Not on file documented as of this encounter Visit Diagnoses Diagnosis Head and neck cancer- Primary Malignant neoplasm of head, face, and neck documented in this encounter Care Teams Senior Ui Ux Designer Relationship Specialty Start Date End Date Josué Huff MD [address] [place] [id number] PCP - General 08/02/11 documented as of this encounter
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
--- OUTSIDE RECORDS SUMMARY | 2024-05-03 16:11 | XMS_ITS | Encounter Summary ---
Author Organization [facility] [place] [address] Care Team Providers Care Poultry Raiser Name Role Phone Josué Huff MD Primary Care Provider + [phone] Encounter Details Date Type Department Care Team (Late st Contact Info) Description 11/23/2011 2:00 PM EDT Ancillary Appointment Hematology Oncology at [address] [phone] [facility] [place] [address] Social History Tobacco Use Types Packs/Day Years [...] Progress Notes * William Petit RD - 11/23/2011 3:37 PM EDT [facility] Dietitian Follow Up Seen By: Monet Petit MS, RD, LD Referred by: H/N team, Guanako Garrido RD at [place] Reason for visit: Patient and diagnosis: head [...] Oncology Vitals 09/20/2011 Height 177 cm Wt: 89.6 kg on 11/23/11 90.26 kg; 2% [...] none Food allergies or avoidances: nkfa Appetite: I would love to eat, but I don't know if that would be called an appetite Nausea: + when trying to remove phlegm Vomiting: denies Heartburn: some, rests and makes it go away Mucositis: +, stringy and gacky phlegm. Uses BMX to perform baking soda/salt rinses. Chewing: denies Dentition: upper dentures, bottom partial Swallowing: pain with swallowing, taking sips of water P.O. Mouth sores: +, redness Xerostomia: +, doing soda/salt rinses 8-10 times/day, has biotene and oasis spray on board Taste Changes: +, everything taste like krap and smells off Bowels: Every day, Stopped taking miralax Food availability/purchasing, meal planning and preparation: Brother on board, Oliverio prepares meals. Says he won't eat brother's food. Social Support: Nathaniel brother is helping to take care of him during treatment cell [phone] Economic Issues: [place] Physical Activity: walks dog daily, gets out at least 3-4 times daily for walks, about 10-15 minutes/time. 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 Current g-tube intake is not meeting calorie demands as evidenced by continued weight loss, total of 8.3% of overall body weight. We've discussed adjusting his feeding routine for nocturnal, pump feedings. [place] pump was received on11/01/11. VNA services are [...] stabilize weight. Re - faxed orders into [facility] for script on 11/09/11. Dionisio feels the decrease in fluid had certainly helped with nausea. Re-iterated the importance of using 4 ounces of fluid with benepro and benecalorie. He also feels using the chocolate supplement vs.Water has helped to decrease nausea. We discussed the possibility of receiving Stephen. Boost Plus through [facility]. Isabella and I witnessed Dionisio's rinsing practices for oral care and coached him on ways he could be more effective with it. Encouraged him to be more vigorous when rinsing and perform them more often as he has evident caking of mucus deep within his mouth. Trinity Chopra APRN, encouraged and re-iterated the importance of oral care, also getting out and walking, and expectations of being able to swallow better/more p.o. Very soon. Discussed with Trinity the possibility of having him trial liquids and solids (after taking short acting pain meds) during his clinic visits to get the ball rolling, as we both question his motivation and ability to initiate at this time. Spoke with Duke Velarde at [facility] in [facility], pt should be receiving polycose (Agarwal) calorie supplement either today (11/23/11) or tomorrow (11/24/11). Per Marita Ng RD at [facility], pt will be receiving Boost Plus in the mail, as well. It was sent out on 11/22/11. Nutrition Intervention: Increase caloric and protein needs:see above. Increase frequency of meals and snacks: g-tube recommendations, as much p.o. 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 Educational Handouts provided: -- G-tube/J-tube feeding booklet Other Recommendations: None Monitoring and Evaluation: Will follow up with Mr. Salazar when he returns to clinic. documented in this encounter Plan of Treatment Not on file documented as of this encounter Visit Diagnoses Not on filedocumented in this encounter Care Teams Poultry Raiser Relationship Specialty Start Date End Date Josué Huff MD [address] [place] [id number] PCP - General 08/02/11 documented as of this encounter
--- OUTSIDE RECORDS SUMMARY | 2024-05-03 16:11 | XMS_ITS | Encounter Summary ---
Author Organization [facility] [place] [address] Care Team Providers Care Forensics Analyst Name Role Phone Josué Huff MD Primary Care Provider [phone] Reason for Visit * Reason Comments Tonsil Cancer Encounter Details Date Type Department Care Team (Late st Contact Info) Description 11/23/2011 2:00 PM EDT Follow-Up Hematology Oncology at [address] [phone] Trinity Chopra, QUOTATION CHECKER [address] [facility] [place] [address] Squamous cell carcinoma of tonsil [...] Sign Reading Time Taken Comments Blood Pressure 112/70 11/23/2011 1:59 PM EDT Pulse 82 11/23/2011 1:59 PM EDT Temperature 36.8 ??C (98.2 ??F) 11/23/2011 1:59 PM ED T Respiratory Rate 16 11/23/2011 1:59 PM EDT Oxygen Saturation 96% 11/23/2011 1:59 PM EDT Inhaled Oxygen Concentration - - Weight 89.8 kg (198 lb) 11/23/2011 1:59 PM EDT Height - - Body Mass Index 28.67 11/14/2011 8:36 AM EDT documented in this encounter Progress Notes * Trinity Chopra, QUOTATION CHECKER - 11/23/2011 2:32 [place] [address] FOLLOW-UP PATIENT EVALUATION CHIEF COMPLAINT: Oliverio Nava Martin García is seen today in the multidisciplinary clinic for Head and Neck Cancer follow-up. Patient Active Problem List Diagnoses ??? Rotator cuff tear ??? Squamous cell carcinoma of tonsil ?? Squamous cell carcinoma of the tonsil, [id number] ?? Presentation: ?? Onset neck stiffness 04/2011, [...] tomyelosuppression. INTERIM HISTORY: Time from Rx completion: 2wks out from completion of treatment neg pos comment Medical events: x Major problems: x Severe weight loss due to challenge of caring for self during treatment and following through with recommendations. Dysphagia: x TF dependent Odynophagia: x Still hurts to swallow Aspiration symptoms: x Xerostomia: x Taste sensation: x Diet restrictions: x Functional status: x Dental problems: x ROS Neuro: Denies dizziness, H/A, gait changes, numbness or tingling; vision or hearing changes Change in adenopathy or other masses: No C/V: Denies chest pain, palpitations or swelling of extremities Resp: No SOB, wheezing, or coughing GI: Bowels regular, denies abdominal pain Nutrition: [] oral x[] feeding tube [] combination Appetite: stable : Urinary pattern normal; denies pain, frequency, urgency, or incontinence Musculoskeletal complaints: None Skin: No changes, rashes, lumps INTERIM SOCIAL HISTORY Changes in job, home situation, tobacco or alcohol use: None Psychosocial/spiritual issues: Brother moved in with him and helping out. CHANGES IN RELEVANT FAMILY HISTORY:None Filed Vitals: 11/23/11 1359 BP: 112/70 Pulse: 82 Temp: 36.8 ??C (98.2 ??F) Resp: 16 PHYSICAL EXAM General appearance: Ill appearing in NAD Nutritional status: Continues to lose weight despite multiple attempts at increasing nutrition. Nowtolerating TF at night. Skin: Healing XRT field- skin shows no evidence of breakdown - healing dry desquamation. Oral: Oral mucosa with evidence of thrush as well as copious secretions after nurse-supervised mouth rinsing. Mild/moderate trismus Dentition: No changes Extremties: No edema noted Neurologic: Flat affect, pupils 2mm, somewhat delayed response time; EOMs intact; gait unsteady butfunctional with a cane LABORATORY STUDIES: none today RADIOLOGY STUDIES REVIEWED: none today 35 minutes of this 45 minute [id number] visit were spent in discussion of medication management and additional therapies as described below: Impression: 1. Recovering from treatment S/E. 2. Nutritional compromise- better but still losing weight 3. Pain: improving slowly but still pain with swallowing 4. Thrush PLAN 1. Followup: one week to see me in clinic with CBC, CMP, TSH, pre-albumin. 2. Long discussion regarding nutritional strategies and importance of following through with SA pain meds before meals. I suspect that he no longer necessarily needs the LA but given his history of being challenged by taking meds accurately as directed, will plan to decrease fentanyl to 12 mcg withbreakthrough oxycodone x 6 days [facility] and then D/C fentanyl altogether. 3. Fluconazole x10d for thrush as he doesn't tolerate Nystatin. This note prepared with voice recognition software; minor stock speculator errors may result. Trinity Chopra, MSN, QUOTATION CHECKER, [facility] Hematology/Medical Oncology [phone] documented in this encounter Plan of Treatment Not on file documented as of this encounter Visit Diagnoses Diagnosis Squamous cell carcinoma of tonsil- Primary Malignant neoplasm of tonsil documented in this encounter Care Teams Forensics Analyst Relationship Specialty Start Date End Date Josué Huff MD [address] [place] [address] PCP - General 08/02/11 documented as of this encounter
--- OUTSIDE RECORDS SUMMARY | 2024-05-03 16:11 | XMS_ITS | Encounter Summary ---
Author Organization [facility] [place] [address] Care Team Providers Care Retail Store Assistant Name Role Phone Josué Huff MD Primary Care Provider + [phone] Encounter Details Date Type Department Care Team (Late st Contact Info) Description 11/12/2011 Notes Only [place] [address] Jacoby Gaines MD [facility] [address] [place] [address] Social History Tobacco Use Types Packs/Day Years [...] as of this encounter Progress Notes * Jacoby Gaines MD - 03/02/2012 2:27 PM EDT RADIATION COMPLETION OF THERAPY NOTE Patient Name: Oliverio Salazar . Primary MD: JOSUÉ HUFF MD Referring MD: Other Involved Physicians: Focused Problem List: ?? Squamous cell carcinoma of the tonsil, [id number] ?? Presentation: ?? Onset neck stiffness 04/2011 which subsequently resolved, noted a lump on R neck which progressively increased in size ?? Staging: ?? 2/15/12 [facility] of right neck mass ([facility]): squamous [...] no definite evidence of lymph node sampling. TREATMENT PLAN: Treatment site: Radiotherapy to the H&N primary and at risk lymph node basins Beam arrangement: VMAT composed of 3 arcs Beam energy: 6 MV Start date: 09/20/11 End date: 11/12/11 Dose per fraction: High risk: 200 cGy Int Risk: 180 cGy Elective Dain: 160 cGy Number of fractions: 35 Total dose: High risk: 70 Gy Int Risk: 63 Gy Elective Dain: 56 Gy Concurrent chemo: Y SPECIAL TECHNICAL CONSIDERATIONS: Oliverio Salazar Jr. was simulated on a CT simulator with custom immobilization. VMAT using a simultaneous integrated boost technique was used to encompass the targetvolume and minimize normal tissue toxicity according to pre-defined constraints. Daily kV imaging with weekly CBCT was used to maximize treatment accuracy. Pt replanned during treatment to account for setup uncertainity TREATMENT TOLERANCE: Oliverio Salazar Jr. tolerated treatment with expected side effects. he developed Grade 3 skin erythema, 3 mucositis, 3 dysphagia and Grade 3 xerostomia. Symptoms were treated with BMX solution, narcotic analgesia, skin care, and aggressive oral hygiene. A PEG tube was placed prior to TAKE UP SUPERVISOR, and by the end of therapy the majority of nutritional input was via this tube. Oliverio Salazar Jr. was able to continue to take liquid po throughout therapy. A sales and marketing agent was involved throughout treatment to try to minimize weight loss. Oliverio Salazar Jr. knows to call this office or seek the help of the local emergency room if problems should arise. Follow-up with Dr. Gaines per protocol documented in this encounter Plan of Treatment Not on file documented as of this encounter Visit Diagnoses Not on filedocumented in this encounter Care Teams Retail Store Assistant Relationship Specialty Start Date End Date Josué Huff MD [address] [place] [id number] PCP - General 08/02/11 documented as of this encounter
--- OUTSIDE RECORDS SUMMARY | 2024-05-03 16:11 | XMS_ITS | Encounter Summary ---
Author Organization [facility] [place] [address] Care Team Providers Care Darkroom Technician Name Role Phone Josué Huff MD Primary Care Provider [phone] Reason for Visit * Reason Onset Date Comments Nausea 11/12/2011 Encounter Details Date Type Department Care Team (Late st Contact Info) Description 11/12/2011 Telephone Hematology Oncology at [address] [phone] Rosana Merino RN Nausea Social History Tobacco Use Types Packs/Day Years [...] encounter Miscellaneous Notes * Telephone Encounter - Rosana Merino RN - 11/12/2011 11:18 AM EDT Diagnosis: Head & Neck CA Reason for Call: Nausea/Vomiting Assessment: Received call from Doni at [facility] - States that Doni has had nausea and vomiting all weekend. States that he has been taking Compazine and Ativan but is still verynauseous. Doni states that he has decreased the number of tube feedings over the weekend due to the nausea. Recommendations/Plan: Patient is due for last XRT treatment today. Notified Noemi Ki, RN radiation/oncology and radiation oncology, as well as stair builder will see patient today when he is here for XRT. documented in this encounter Plan of Treatment Not on file documented as of this encounter Visit Diagnoses Not on filedocumented in this encounter Care Teams Darkroom Technician Relationship Specialty Start Date End Date Josué Huff MD [address] [place] [id number] PCP - General 08/02/11 documented as of this encounter
--- OUTSIDE RECORDS SUMMARY | 2024-05-03 16:11 | XMS_ITS | Encounter Summary ---
Author Organization [facility] [place] [address] Care Team Providers Care Music Cataloguer Name Role Phone Josué Huff MD Primary Care Provider [phone] Encounter Details Date Type Department Care Team (Latest Contact Info) Description 01/31/2012 1:00 PM EDT - 01/31/2012 11:59 PM EDT Hospital [facility] [place] [address] CL[facility], DR SALCIDO Discharge Disposition: Home Social History Tobacco Use [...] on filedocumented in this encounter Care Teams Music Cataloguer Relationship Specialty Start Date End Date Josué Huff MD [address] [place] [id number] PCP - General 08/02/11 documented as of this encounter
--- OUTSIDE RECORDS SUMMARY | 2024-05-03 16:11 | XMS_ITS | Encounter Summary ---
Author Organization [facility] [place] [address] Care Team Providers Care Metal Sponge Making Machine Operator Name Role Phone Josué Huff MD Primary Care Provider [phone] Encounter Details Date Type Department Care Team (Late st Contact Info) Description 11/30/2011 1:45 PM EDT Ancillary Appointment Hematology Oncology at [address] [phone] [facility] [place] [address] Social History Tobacco Use Types Packs/Day Years [...] Progress Notes * William Petit RD - 11/30/2011 2:30 PM EDT [facility] Dietitian Follow Up Seen By: Monet Petit MS, RD, LD Referred by: H/N team, Guanako Garrido RD at [place] Reason for visit: Patient and diagnosis: head [...] Oncology Vitals 09/20/2011 Height 177 cm Wt: 90. 9 kg on 11/30/11; INCREASE 89.6 [...] yogurt, oatmeal, scr. Egg PO: ~ 20 ounces. Takes compazine and another med p.o. PEG-tube: See below Teas, vitamins, or other nutritional supplements: none Food allergies or avoidances: nkfa Appetite: Other than in my mind, I don't have an appetite Nausea: denies Vomiting: denies Heartburn: some, rests and makes it go away, also takes acid reflux med Mucositis: +, stringy and gacky phlegm. Uses BMX to perform baking soda/salt rinses. Chewing: denies Dentition: upper dentures, bottom partial, brushing teeth and tongue now Swallowing: pain with swallowing, taking sips of water P.O. Mouth sores: +, redness Xerostomia: +, doing soda/salt rinses 10-15 times/day, has biotene and oasis spray on board Taste Changes: +, everything taste like krap and smells off Bowels: Every day, Stopped taking miralax Food availability/purchasing, meal planning and preparation: Brother on board, Oliverio prepares meals. Says he won't eat brother's food. Social Support: Nathaniel brother is helping to take care of him during treatment cell [phone] Economic Issues: [place] Physical Activity: walks dog daily, gets out at least 3-4 times daily for walks, about 10-15 minutes/time. 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 Re - faxed orders into [facility] for script on 11/09/11. Dionisio feels the decrease in fluid had certainly helped with nausea. Re-iterated the importance of using 4 ounces of fluid with benepro and benecalorie. He also feels using the chocolate supplement vs.Water has helped to decrease nausea. We discussed the possibility of receiving Stephen. Boost Plus through [facility]. Isabella and I witnessed Dionisio's rinsing [...] able to swallow better/more p.o. Very soon. Weight has increased this week, which is a first. Dionisio's received the Boost Plus from [facility] and has been trialing soft foods. He is eager to get back to eating, but states all foods he's trialed tastes horrible. However, the pain with swallowing has been manageable. Tongue culter sent off to determine if thrush, which could be helping with off tastes of foods. Re-iterated timing to pain meds/BMX and food trials. Nutrition Intervention: Increase caloric and protein needs:see above. Increase frequency of meals and snacks: g-tube recommendations, as much p.o. 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 Educational Handouts provided: -- G-tube/J-tube feeding booklet Other Recommendations: None Monitoring and Evaluation: Will follow up with Mr. Salazar when he returns to clinic. documented in this encounter Plan of Treatment Not on file documented as of this encounter Visit Diagnoses Not on filedocumented in this encounter Care Teams Metal Sponge Making Machine Operator Relationship Specialty Start Date End Date Josué Huff MD [address] [place] [address] PCP - General 08/02/11 documented as of this encounter
--- OUTSIDE RECORDS SUMMARY | 2024-05-03 16:11 | XMS_ITS | Encounter Summary ---
Author Organization [facility] [place] [address] Care Team Providers Care Environmental Services Coordinator Name Role Phone Josué Huff MD Primary Care Provider [phone] Encounter Details Date Type Department Care Team (Late st Contact Info) Description 12/28/2011 10:00 AM EDT Ancillary Appointment Hematology Oncology at [address] [address] [facility] [place] [address] Social History Tobacco Use Types Packs/Day Years [...] Progress Notes * William Petit RD - 12/28/2011 10:57 AM EDT [facility] Dietitian Follow Up Seen By: Monet Petit MS, RD, LD Referred by: H/N team, Guanako Garrido RD at [place] Reason for visit: follow up Patient and diagnosis: 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 Recent in-pt from Saturday 10/28 - 10/31/11. Completed RT on October,. Assessment: HPI: Saturday11/12/11 was final day of RT. Weight continues to decrease. He has noted that his taste is off things taste metallic but he states that this started before he had radiation or chemotherapy, he attributes it to a yeast infection he had back in June. Completed week 5 of chemo on 10/17/11. Meds: reviewed Labs: reviewed Ht: Oncology Vitals 09/20/2011 Height 177 cm Wt: 91 kg /200.2 lb on 12/28/11 89.2 kg on 12/07/11; 2% Decrease; 90. [...] needs: 1.5 @ 80 k kg Food Intake:Started eating a bit last week: oatmeal, CoW, Maypo, some summer squash out of garden -it didn't taste like it was supposed to, had to put teeth in and they didn't hurt his gums. PO: ~ 20 ounces of water. Takes compazine and another med p.o. Tried pudding, chocolate milk, milk shakes, can only get one bite/swallow, ott and feels like it wants to come up. PEG-tube: See below Teas, vitamins, or other nutritional supplements: none Food allergies or avoidances: nkfa Appetite: Does have one Nausea: denies, but had with vomiting Vomiting: denies, but can if food trials taste wrong Heartburn: denies Chewing: denies pain with chewing Dentition: upper dentures, bottom partial, brushing teeth and tongue now. Able to wear dentures fora little bit every day. Swallowing: pain with swallowing, taking sips of water P.O. Is able to swallow saliva, still utilizing Cele, Mouth sores: +, redness, sores healing well. Xerostomia: +, uses biotene before eats and water to help with eating. Taste Changes: +, Most things still taste bad or first 2 bites are ok and then it changes to rotten. Bowels: Every day. Food availability/purchasing, meal planning and preparation: Brother on board, Oliverio prepares meals. Says he won't eat brother's food. Social Support: Nathaniel brother is helping to take care of him during treatment cell [phone] Economic Issues: [place] Physical Activity: walks dog daily, gets out at least 3-4 times daily for walks, about 10-15 minutes/time. Has gotten out in the garden and done a little weeding. Level of Motivation/Readiness to Change: He's in the action stage and eager to try foods and regainweight. 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 Current g-tube intake is not meeting calorie demands as evidenced by continued weight loss, total of 8.3% of overall body weight. We've discussed adjusting his feeding routine for nocturnal, pump feedings. NV pump was received on11/01/11. VNA services are [...] stabilize weight. Re - faxed orders into [facility] for script on 11/09/11.He received this on 12/05/11(?), it was dropped at a door he doesn't use. He is unclear how long it has been there. Has stopped doing daytime feeds 2/2 increased P.O. Hot cereals are the most forgiving this week. Continues with 6 cans nocturnally and adds 1 can Boost . Continues to use scoop (~ 1/4 cup) of polycose BID. This combination provides him with 2635 kcals, 121 g pro, and 1281 ccs free water. His weightis up almost 2 kg since 12/07/11. Encouraged him to continue with nocturnal feeds and food trials for p.o. During the day. Fluconazole scripted has been scripted by Trinity Chopra APRN, to help clear up tongue in hopes to help recover tastes. Labs still pending on tongue culture. Nutrition Intervention: Increase caloric and protein needs:see above. Increase frequency of meals and snacks: g-tube recommendations, as much p.o. As tolerable Need for supplements: Polycose BID, Benepro TID, Boost once/day Nutrition Goals: Weight maintenance and LBM preservation for GAS CHARGER. Educational Handouts provided: -- G-tube/J-tube feeding booklet Other Recommendations: None Monitoring and Evaluation: Will follow up with Mr. Salazar in 2-3 weeks. documented in this encounter Plan of Treatment Not on file documented as of this encounter Visit Diagnoses Not on filedocumented in this encounter Care Teams Environmental Services Coordinator Relationship Specialty Start Date End Date Josué Huff MD [address] [place] [address] PCP - General 08/02/11 documented as of this encounter
--- OUTSIDE RECORDS SUMMARY | 2024-05-03 16:12 | XMS_ITS | Encounter Summary ---
Author Organization [facility] Address [facility] [address] Care Team Providers Care Carbide Grinder Name Role Phone Josué Huff MD Primary Care Provider [phone] Reason for Visit * Reason Comments Radiation Consult Encounter Details Date Type Department Care Team (Late st Contact Info) Description 08/02/2011 1:00 PM EDT Office Visit [place] [address] [facility] [place] [address] Squamous cell carcinoma of tonsil (Primary Dx) [...] Sign Reading Time Taken Comments Blood Pressure 117/64 08/02/2011 12:25 PM EDT Pulse 51 08/02/2011 12:25 PM EDT Temperature 36.6 ??C (97.9 ??F) 08/02/2011 12:25 PM E DT Respiratory Rate 18 08/02/2011 12:25 PM EDT Oxygen Saturation 97% 08/02/2011 12:25 PM EDT Inhaled Oxygen Concentration - - Weight 98.4 kg (217 lb) 08/02/2011 12:25 PM EDT Height 175.3 cm (5' 9) 08/02/2011 12:25 PM EDT Body Mass Index 32.05 08/02/2011 12:25 PM EDT documented in this encounter Progress Notes * Neda Moss, RN - 08/02/2011 1:07 PM EDT RADIATION ONCOLOGY NURSING INITIAL NURSING ASSESSMENT IDENTIFICATION: Oliverio Salazar Jr. is a 61 y.o. year-old male with tonsil cancer ADVANCE DIRECTIVES: In EDH ____ Has documents __yes___ Will bring in ____ IF NO: Advance Directive pamphlet provided ____ Referral to Care Management ____ PRESENTING SYSTEMS and PATHOLOGY: Complaints of a stiff neck in 04/29 Swelling in right neck no no redness no trouble swallowing REVIEW OF SYSTEMS:Review of Systems Constitutional: Positive for weight loss (8 lbs loss in one month) and malaise/fatigue. HENT: Positive for ear pain (nerve pain burning from right neck to right ear), sore throat and neckpain. Eyes: Positive for blurred vision (reading glasses). Respiratory: Negative. Cardiovascular: Negative. Gastrointestinal: Negative. Genitourinary: Positive for urgency and frequency. Musculoskeletal: Positive for back pain, joint pain and falls (at risk to fall). Neurological: Positive for tingling and weakness (use a cane). Endo/Heme/Allergies: Negative. Psychiatric/Behavioral: Positive for depression (PTSD). The patient is nervous/anxious. Prior Radiotherapy: _no__ Site Date Facility Prior Chemotherapy: _no__ Drug LastTreatment Facility____ Prior Hormone Therapy: no RADIATION SPECIFIC REVIEW: NO: YES: Hearing Aides no Claustrophobia or requires sedation for MRIs yes Allergy to CT or MRI contrast agent, iodine or shellfish/ hx asthma no Diabetic and on metformin no Metal in body, implanted device, worked with metal, body piercings,braces Unknown in back pt has had MRI's Dental health- loose, broken or chipped teeth ,dentures (no=intact) Upper Dentures Needs Pacemaker no Difficulty breathing/pain while lying flat yes Kidney problems/creatinine no SOCIAL ASSESSMENT: See ED social assessment information entered. Support Systems: Brothhugh Salazar Barriers to treatment: Referrals/Interventions: LEARNING STYLE: RADIATION SPECIFIC TEACHING: ___ [facility] Radiation Therapy and You and folder given ___ Site specific teaching : ___ Other: PLAN: * Jacoby Gaines MD - 08/02/2011 1:01 PM EDT Images from the original note were not included. Radiation Oncology Consultation Note Primary MD: JOSUÉ HUFF MD Referring MD: Self Other Involved Physicians: Venkatesh Boothe MD Focused Problem List: ?? Squamous cell carcinoma of the tonsil, [id number] ?? Presentation: ?? Onset neck stiffness 04/2011 [...] tonsil, and focally invades underlying skeletal muscle. History of Present Illness: Oliveriokeagan Salazar Jr. is a 61 y.o. male who is seen in consultation in the section of Radiation Oncology at [facility] regarding his squamous cell carcinoma of the tonsil.. The patient initially presented secondary to a progressive neck mass. Further work-up and evaluation is as per the problem list noted above. Currently, he has the following symptoms: Symptom Description Ongoing Intervention Dysphagia Denies Odynophagia Soreness associated with L tonsil, eating soft foods Using liquid morphine prn, q4 hrs,also lidocaine swish. Trismus Denies Weight Loss Lost a few pounds since operation Diet Modifications Eating soft foods, yogurt, pudding small volume Neck Symptoms Burning sensation R angle of the mandible, radiates to ear Dental Issues Sees dentist regularly, every three months. Otalgia/Referred Pain R otalgia associated with jaw pain Other Pain Chronic leg pain for many year. Oliverio Salazar Jr. denies new onset DE LA O, n/v, unilateral changes in strength or sensation, hearing,visual or cognitive changes. Allergies as of 08/02/2011 ??? (No Known Allergies) Past Medical History Diagnosis Date ??? Cancer of head, face, and neck ??? Arthritis ??? Depression PTSD ??? Claustrophobia Past Surgical History Procedure Date ??? Spine surgery Disc ??? Tonsillectomy 2011 ??? Back surgery History Social History ??? Marital Status: Spouse Name: N/A Number of Children: 2 ??? 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 Smoking status: Former Smoker -- 2.0 packs/day for 40 years Types: Cigarettes Quit date: 07/18/2011 ??? Smokeless tobacco: Never Used Comment: started smoking at age 16 ??? Alcohol Use: No Quite in July 1998 ??? Drug Use: No ??? Sexually Active: No Other Topics Concern ??? Service Yes Howard ??? Blood Transfusions No ??? Caffeine Concern No ??? Occupational Exposure No ??? Hobby Hazards No ??? Sleep Concern No ??? Stress Concern Yes ??? Weight Concern Yes 8 lbs loss in month ??? Back Care Yes ??? Exercise No ??? Seat Belt Yes ??? Self-exams No Social History Narrative ??? None Family History Problem Relation Age of Onset ??? Cancer Father Patient's Medications New Prescriptions No medications on file Previous Medications DOCUSATE CALCIUM (STOOL SOFTENER ORAL) Take 2 tablets by mouth 2 times daily. FLUCONAZOLE ORAL Take 1 tablet by mouth daily. MORPHINE 10 MG/5 ML SOLUTION Take 10 mg by mouth every 4 hours as needed. OXYCODONE-ACETAMINOPHEN (PERCOCET) 5-325 MG PER TABLET Take 1 tablet by mouth every 4 hours as needed. Modified Medications No medications on file Discontinued Medications No medications on file Physical Exam: Filed Vitals: 08/02/11 1225 BP: 117/64 Pulse: 51 Temp: 36.6 ??C (97.9 ??F) TempSrc: Oral Resp: 18 Height: 175.3 cm (5' 9) Weight: 98.431 kg (217 lb) SpO2: 97% Physical Exam Constitutional: He is oriented to person, place, and time and well-developed, well-nourished, and in no distress. HENT: Head: Edentulous superiorly, teeth in good repair inferiorly with evidence of periodontal disease. No suspicious masses or lesions in oral cavity or visualized oropharynx. Bilateral eschar evident in tonsillar fossae. Eyes: EOM are normal. Pupils are equal, round, and reactive to light. Neck: Normal range of motion. No tracheal deviation present. Lymphadenopathy: He has cervical adenopathy. Neurological: He is alert and oriented to person, place, and time. No cranial nerve deficit. Procedure: Direct Laryngoscopy Flexible laryngoscopy was performed. The right naris was anesthetized with aerosolized lidocaine, and the laryngoscope was passed with some difficulty. The nasopharynx was visualized and was without masses or lesions. The oropharynx, larynx, and piriform sinuses were visualized and were without masses or lesions. Bilateral tonsillar fossae demonstrated post operative changes with obvious masses or lesions. The vocal cords apposed without difficulty. Review of Systems: as documented per the nursing assessment, reviewed and I agree with the assessment as stated Imaging: See problem list for details, CT of H&N reviewed and I concur with the assessment as stated Contraindications to Radiotherapy: NO YES: Date, site, dose (women only) X Prior Radiotherapy X Collagen-Vascular dz X Assessment: Oliverio Salazar is a 61 y.o. 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 The patient's cancer is AJCC 7th stage as follows: T: cT2 N: cN2b M: cM0 Stage: IV-A ?? 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 Staging: his cancer has been staged with a CT of the H&N, EUA with endoscopy and pathologic evaluation of the primary. I do not see any evidence of chest imaging, which he needs to complete his staging evaluation. ?? Therapy: Oliverio Salazar Jr. has been evaluated by surgery and is not felt to be a good candidate for oncologic resection. The patient's case has been reviewed at the [place] tumor board and it was felt that definitive chemoradiotherapy would be the best option for potential cure of his locally advanced malignancy. These recommendations are in line with NCCN recommendations. We discussed the rationale, logistics (including simulation, planning, and treatment) and efficacy of definitive chemoradiotherapy. We discussed the risks of therapy, including but not limited to short term sequelae (fatigue, skin erythema, mucositis, dysphagia, ageusia, xerostomia, weight loss) and assisted sequelae (skin fibrosis, assisted dysphagia potentially requiring a permanent feeding tube, xerostomia, osteoradionecrosis, esophageal stricture, and the low probability of significant damage to soft tissue, bone or skin requiring surgical or medical intervention). Mr. Salazar expressed an understanding of these risks and wished to proceed with therapy. The patient and his family had a number of questions regarding optimal therapy, the utility of surgery in conjunction with chemoradiotherapy, and potential side effects. These questions were answered to their satisfaction. Plan: ?? Further Staging: chest imaging ?? Dental Issues: he saw his dentist recently, and states that he discussed XRT with him. Will obtain records and ensure that he's clear for RT. He will need [place] clearance to make fluoride trays. ?? Enteral Nutrition: prophylactic PEG tube discussed with pt, he is amenable. ?? Treatment: Definitive chemoradiotherapy: ?? Simulation using IV contrast ?? Radiation therapy at standard fractionation to 70 Gy w/ concurrent chemotherapy per medical oncology ?? Referral to Speech/Swallow Pathology ?? Referral to Reporting Consultant documented in this encounter Plan of Treatment Not on file documented as of this encounter Visit Diagnoses Diagnosis Squamous cell carcinoma of tonsil- Primary Malignant neoplasm of tonsil documented in this encounter Care Teams Carbide Grinder Relationship Specialty Start Date End Date Josué Huff MD [address] [place] [address] PCP - General 08/02/11 documented as of this encounter
--- OUTSIDE RECORDS SUMMARY | 2024-05-03 16:12 | XMS_ITS | Encounter Summary ---
Author Organization [facility] Address [facility] [place] [address] Care Team Providers Care Snow Removal Supervisor Name Role Phone Josué Huff MD Primary Care Provider [phone] Encounter Details Date Type Department Care Team (Late st Contact Info) Description 08/07/2011 Orders [place] [address] Fish Champagne MD [facility] CRITICAL C[place] [address] Social History Tobacco Use Types Packs/Day Years [...] FILM LIBRARY STORAGE ONLY CT CHEST Routine 08/07/2011 11:01 PM EDT documented in this encounter Results * FILM LIBRARY- STORAGE ONLY CT CHEST (08/07/2011 11:01 PM EDT) 08/07/2011 11:0 1 PM EDT Narrative RAD - 10/28/2013 2:55 PM EDT This is a non-reportable exam. Procedure Note Alex Muñoz - 10/28/2013 This is a non-reportable exam. Fish Champagne MD IM FILM LIBRARY ORD ERABLES RAD [address] [place] [address] documented in this encounter Visit Diagnoses Not on filedocumented in this encounter Care Teams Snow Removal Supervisor Relationship Specialty Start Date End Date Josué Huff MD [address] [place] [id number] PCP - General 08/02/11 documented as of this encounter
--- OUTSIDE RECORDS SUMMARY | 2024-05-03 16:12 | XMS_ITS | Encounter Summary ---
[place] [address] Care Team Providers Care Inspector And Tester Name Role Phone Josué Huff MD Primary Care Provider [phone] Encounter Details Date Type Department Care Team (Late st Contact Info) Description 09/06/2011 3:00 PM EDT Follow-Up [place] [phone] Social History Tobacco Use Types Packs/Day Years [...] on filedocumented in this encounter Care Teams Inspector And Tester Relationship Specialty Start Date End Date Josué Huff MD [address] [place] [id number] PCP - General 08/02/11 documented as of this encounter
--- OUTSIDE RECORDS SUMMARY | 2024-05-03 16:12 | XMS_ITS | Encounter Summary ---
Author Organization [facility] [address] Care Team Providers Care Asset Protection Specialist Name Role Phone Josué Huff MD Primary Care Provider [phone] Reason for Visit * Reason Comments Radiation Treatment Encounter Details Date Type Department Care Team (Late st Contact Info) Description 09/21/2011 10:45 AM EDT Follow-Up Radiation Oncology at [address] [address] Joel Crowell MD Tonsillar cancer (Primary Dx) Discharge Disposition: Home [...] Sign Reading Time Taken Comments Blood Pressure 122/68 09/21/2011 11:07 AM EDT Pulse 48 09/21/2011 11:07 AM EDT Temperature 36.5 ??C (97.7 ??F) 09/21/2011 11:07 AM E DT Respiratory Rate 16 09/21/2011 11:07 AM EDT Oxygen Saturation 95% 09/21/2011 11:07 AM EDT Inhaled Oxygen Concentration - - Weight 104.8 kg (231 lb) 09/21/2011 11:07 AM EDT Height - - Body Mass Index 33.45 09/20/2011 8:50 AM EDT documented in this encounter Progress Notes * Joel Crowell MD - 09/22/2011 10:10 AM EDT 09/21/2011 ON TREATMENT VISIT: DATE:09/21/2011 PATIENT STATUS: Squamous cell carcinoma of the tonsil, [id number] . TREATMENT PLAN: RADIATION: Site Technique Dose/ Fraction Fraction Number MeV p e TOTAL DOSE Treatment Dates PTV 56 VMAT 160 35 p 5600 0/03 to PTV 63 180 35 p 6300 PTV 70 200 35 p 7000 DOSE to DATE: 400 cGy in 2 FX RADIATION TREATMENT IMAGING: matches original approved images ON TREATMENT EVALUATION: MEDICAL: no change PHYSICAL: no change AIDS: LABS: TOXICITY:0 REFER TO NURSES UPDATED NOTES RESPONSE TO TREATMENT:early MANAGEMENT PLAN: CONTINUE TREATMENT PLANNED: XX CHANGE TREATMENT HOLD TREATMENT STOP TREATMENT Discussion time with patient (face to face) 5 min. documented in this encounter Plan of Treatment Not on file documented as of this encounter Visit Diagnoses Diagnosis Tonsillar cancer- Primary Malignant neoplasm of tonsil documented in this encounter Care Teams Asset Protection Specialist Relationship Specialty Start Date End Date Josué Huff MD [address] [place] [id number] PCP - General 08/02/11 documented as of this encounter
--- OUTSIDE RECORDS SUMMARY | 2024-05-03 16:12 | XMS_ITS | Encounter Summary ---
Author Organization [facility] Address [facility] [place] [address] Care Team Providers Care Accounts Executive Name Role Phone Josué Huff MD Primary Care Provider [phone] Encounter Details Date Type Department Care Team (Late st Contact Info) Description 08/29/2011 Telephone [place] [address] Fish Champagne MD [facility] CRITICAL CARE-[place] [address] Social History Tobacco Use Types Packs/Day Years [...] encounter Miscellaneous Notes * Telephone Encounter - Fish Champagne MD - 08/29/2011 11:31 AM EDT CONCRETE MIXING PLANT SUPERINTENDENT TELEPHONE NOTE Called patient to let him know that EBUS-TBNA was non-diagnostic. He will need a biopsy of his vertebral lesion. I will call Drs. Boothe and Angélica. Fish Champagne MD Fellow, Pulmonary & Critical Care documented in this encounter Plan of Treatment Not on file documented as of this encounter Visit Diagnoses Not on filedocumented in this encounter Care Teams Accounts Executive Relationship Specialty Start Date End Date Josué Huff MD [address] [place] [address] PCP - General 08/02/11 documented as of this encounter
--- OUTSIDE RECORDS SUMMARY | 2024-05-03 16:12 | XMS_ITS | Encounter Summary ---
Author Organization [facility] [place] [address] Care Team Providers Care Director Of Outreach Name Role Phone Josué Huff MD Primary Care Provider [phone] Encounter Details Date Type Department Care Team (Late st Contact Info) Description 09/21/2011 11:00 AM EDT Ancillary Appointment Hematology Oncology at [address] [phone] [facility] [place] [address] Social History Tobacco Use Types Packs/Day Years [...] Progress Notes * William Petit RD - 09/21/2011 12:35 PM EDT [facility] Initial Dietitian Assessment Seen By: Monet Petit MS, RD, LD Referred by: H/N team, Guanako Awad RD at [place] Reason for visit: Patient and diagnosis: 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 Assessment: HPI: Meds: reviewed Labs: [facility].6, hemoglobin 14, MCV 86, platelets 207, creatinine 0.8, BUN 14, potassium 4.1, glucose 104, calcium 8.8, albumin 3.2, magnesium 1.6, phosphorus 2.5 Ht: Oncology Vitals 09/20/2011 Height 177 cm Wt: Oncology Vitals 09/20/2011 Weight 103 kg Wt Hx: UBW: 220 lbs % UBW: IBW: 160 +/- 10 % ( 80 kg) % IBW: 128.75% BMI:32.9 ___ Edema ___ Ascites ___Muscle wasting Calorie needs: 25 -30 @ 80 k - 2400 kcals Protein needs: 1.5 @ 80 k kg Food Intake: Nothing tastes like it should, but Shukla's shakes go down pretty well right now. Eating a lot of Alex and Rpahael's. Has already switched to plastic silverware. Am: late in the day, Noon: tuvaluan muffin, pb, rice pudding Pm: pizza, salad, relish Snacks: pears Supplements/Frequency: None ___ Ensure/Plus ___ Boost/Plus ___ CIB ___ Other: G-tube: flushing BID Teas, vitamins, or other nutritional supplements: none Food allergies or avoidances: nkfa Appetite: low/10 scale : I want to eat, but it isn't because I feel hungry. Nausea: +, over night, s/e from chemo Vomiting: denies, but had some regurgitation Chewing: denies Dentition: upper dentures, bottom partial Swallowing: denies Mouth sores: denies Xerostomia: denies Taste Changes: +, metallic tastes Bowels: regular, every morning Food availability/purchasing, meal planning and preparation: Brother on board, Oliverio prepares meals. Says he won't eat brother's food. Social Support: Nathaniel brother is helping to take care of him during treatment cell [phone] Economic Issues: [place] Physical Activity: walks dog daily, gets out at least 3-4 times daily for walks, about 10-15 minutes/time. 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 We discussed calorie and protein needs for tx at length. Offered suggestions for increasing proteinneeds. Also discussed taste changes. Recommended he start baking soda/salt rinses, brush teeth before meals to cleanse palette, and as he is not yet doing these. Also encouraged him to eat a well-balanced diet (5-6 small meals) of fruit and vegetables, protein-rich foods to meet needs and not relying so heavily on ice creams. Currently not eating until late in the day. Recommended he start his day with one supplement. Spoke with Guanako Awad RD at [place] regarding TF and supplement recommendations. Will need to submit recommendations to her once p.o is compromised. Will recommend 7 cans Jevity 1.5/day to provide 2485 kcals, 106 grams protein and 1260 cc water. Recommend 3 scoops protein powder a day to meet protein needs(one scoop provides 6 grams protein and 25 kcals). Recommend gravity feeding method: 2 cans per feeding, spaced every 2-3 hours, with 60 ccs flush before and after each feeding. He will need an additional 580 cc's of fluids either via tube or taken p.o. Nutrition Intervention: Increase caloric And protein needs:see above Increase frequency of meals and snacks: 5-6 small, calorically dense, protein- rich meals Need for supplements: one/day Nutrition Goals: Weight maintenance and LBM preservation for MARINE STEAM FITTER. Educational Handouts provided: -- Nutrition for Well-being -- Taste and Smell Changes -- Protein needs and sources Other Recommendations: none Monitoring and Evaluation: Will follow up with Mr. Salazar in one week (s) to re-evaluate. I have spent> 60 minutes with him/her in discussion and nutrition counseling. I have provided him with my card and contact information should he have any questions in the mean time. Thank you for this consult. documented in this encounter Plan of Treatment Not on file documented as of this encounter Visit Diagnoses Not on filedocumented in this encounter Care Teams Director Of Outreach Relationship Specialty Start Date End Date Josué Huff MD [address] [place] [address] PCP - General 08/02/11 documented as of this encounter
--- OUTSIDE RECORDS SUMMARY | 2024-05-03 16:12 | XMS_ITS | Encounter Summary ---
Author Organization [facility] [place] [address] Care Team Providers Care Cardiac Technologist Name Role Phone Josué Huff MD Primary Care Provider [phone] Encounter Details Date Type Department Care Team (Late st Contact Info) Description 10/09/2011 Orders Only Radiation Oncology at [address] [phone] Isabella Garcia RN Head and [...] neck documented in this encounter Care Teams Cardiac Technologist Relationship Specialty Start Date End Date Josué Huff MD [address] [place] [address] PCP - General 08/02/11 documented as of this encounter
--- OUTSIDE RECORDS SUMMARY | 2024-05-03 16:12 | XMS_ITS | Encounter Summary ---
Author Organization [facility] Address [facility] [place] [address] Care Team Providers Care Electro Mechanic Name Role Phone Josué Hfuf MD Primary Care Provider [phone] Reason for Visit * Reason Comments Tonsil Cancer due for cisplat Encounter Details Date Type Department Care Team (Late st Contact Info) Description 10/17/2011 11:30 AM EDT Follow-Up Hematology Oncology at [address] [phone] Som Gama MD [facility] [place]AT[place] [address] Head and neck cancer (Primary Dx) Discharge [...] Sign Reading Time Taken Comments Blood Pressure 96/56 10/17/2011 11:17 AM EDT Pulse 62 10/17/2011 11:17 AM EDT Temperature 36.7 ??C (98.1 ??F) 10/17/2011 1 1:17 AM EDT Respiratory Rate 18 10/17/2011 11:1 7 AM EDT Oxygen Saturation 95% 10/17/2011 11: 17 AM EDT Inhaled Oxygen Concentration - - Weight 97.5 kg (214 lb 15.2 oz) 012 11:17 AM EDT Height 177 cm (5' 9.69) 10/17/2011 11: 17 AM EDT Body Mass Index 31.12 10/17/2011 11:17 AM EDT documented in this encounter Progress Notes * Som Gama MD - 10/17/2011 4:16 PM EDTAddended by: SOM GAMA on: 10/17/2011 Modules accepted: Orders * Som Gama MD - 10/17/2011 11:57 AM EDT Problem list #1 head and [...] traumatic back injury with chronic pain [place] 1960[place] Medication list #1 terazocin 10 mg at bedtime #2 oxybutynin #3 trazodone #4 melatonin #5 oxycodone History of present illness He is here today for his cisplatin this will be dose #5, his first dose was given September 19, 2011. He will complete radiation November 08. He's been doing okay his biggest problem this week was diarrhea, had couple of episodes of vomitingwhich he attributes to coughing and gagging not actual nausea. He's also developed another yeast infection and [facility] Dr[facility] Quezada [facility] but [facility]. Overall he thinks he is doing pretty well and doesn't really have much to complain about. Review of systems Constitutional positive for poor taste causing nausea but still swallowing without difficulty negative for fevers, weakness, unexplained weight change, [...] or clubbing Physical exam Vital signs reviewed Mouth white exudate consistent with thrush some skin breakdown on the roof of his mouth with a bit of encrusted blood. Worse than last week Mental status oriented x3 in no apparent [...] cane. 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 [...] treatment. He has 2 daughters one in [place] one in [place]. He was a [place] war grew up in [facility]. His father was television inspector. Labs None today Assessment This is a 61-year-old white male who has completed 4-1/2 weeks of radiation for head and neck cancer, along with low-dose weekly cis-zuni total dose 88 mg. Final dose of radiation to be given November 08 Overall is doing well but he is having more problems. A bit more pain in the throat, he now has a yeast infection in the mouth, and had an episode of diarrhea for several days which has now resolved.It is not clear what the cause of the diarrhea was, but it may be from his stool softeners. I suspect is from the chemotherapy and needs to stop the stool softeners. I've asked him to try him nystatin vaginal suppository while he is waiting for the medication the [place] to treat the yeast infection. The diarrhea seems are gone away he can stop the stool softeners. I don't think his vomiting from cis- zuni I think is just from gagging. Plan #1 continue low-dose weekly cis-zuni 88 mg #2 see me next week with CBC and CMP #3 try vaginal suppositories for the yeast infection This note was created using [employer] voice recognition software. It was reviewed for [...] neck documented in this encounter Care Teams Electro Mechanic Relationship Specialty Start Date End Date Josué Huff MD [address] [place] [address] PCP - General 08/02/11 documented as of this encounter
--- OUTSIDE RECORDS SUMMARY | 2024-05-03 16:12 | XMS_ITS | Encounter Summary ---
Author Organization [facility] [place] [address] Care Team Providers Care Retail Salesman Name Role Phone Josué Huff MD Primary Care Provider [phone] Encounter Details Date Type Department Care Team (Late st Contact Info) Description 09/06/2011 4:00 PM EDT Initial consult [place] [phone] Social History Tobacco Use Types Packs/Day Years [...] filedocumented in this encounter Care Teams Retail Salesman Relationship Specialty Start Date End Date Josué Huff MD [address] [place] [address] PCP - General 08/02/11 documented as of this encounter
--- OUTSIDE RECORDS SUMMARY | 2024-05-03 16:12 | XMS_ITS | Encounter Summary ---
Author Organization [facility] [place] [address] Care Team Providers Care Physical Geographer Name Role Phone Josué Huff MD Primary Care Provider [phone] Reason for Visit * Reason Comments IV Medication Hydration with Mg & K Chemotherapy Cisplatin Held today Encounter Details Date Type Department Care Team (Late st Contact Info) Description 10/24/2011 12:00 PM EDT Office Visit Hematology Oncology at [address] [phone] CLINIC, DR MOLINA HEM/ONC Tonsillar cancer (Primary Dx) Social History Tobacco Use [...] as of this encounter Progress Notes * Lora Joshua RN - 10/24/2011 12:55 PM EDT INFUSION THERAPY ADMINISTRATION NOTES REASON FOR VISIT: Hydration/Cisplatin Held today. SUBJECTIVE Oliverio offers no complaints. OBJECTIVE IV ACCESS: Mediport accessed at [facility] REACTIONS (DESCRIPTION, TIME, INTERVENTION AND EFFECTIVENESS) none ASSESSMENT Oliverio was awake, alert and he tolerated treatment well. PLAN Return to clinic per routine. documented in this encounter Plan of Treatment Not on file documented as of this encounter Visit Diagnoses Diagnosis Tonsillar cancer- Primary Malignant neoplasm of tonsil documented in this encounter Administered Medications Inactive Administered Medications - up to 3 most recent administrations Medication Order MAR Action Action Date Dose Rate Site dextrose 5% and sodium chloride 0.9% 1,000 mL with potassium chloride 20 mEq, magnesium sulfate 4 g infusion at 1,000 mL/hr, Intravenous, ONCE, 1 dose, On Sat10/24/11 at 1200 New Bag 10/24/2011 12:20 PM EDT 1000 mL/hr documented in this encounter Care Teams Physical Geographer Relationship Specialty Start Date End Date Josué Huff MD [address] [place] [address] PCP - General 08/02/11 documented as of this encounter
--- OUTSIDE RECORDS SUMMARY | 2024-05-03 16:12 | XMS_ITS | Encounter Summary ---
Author Organization [facility] Address [facility] [place] [address] Care Team Providers Care Airbrush Artist Name Role Phone Josué Huff MD Primary Care Provider [phone] Encounter Details Date Type Department Care Team ([facility] Contact Info) Description 08/20/2011 External Results [place] [phone] Tavares Lindsay MD [facility] DR [place]EMATOLOGY/[place] [address] Social History Tobacco Use Types Packs/Day Years [...] Procedure Name Priority Date/Time Associated Diagnosis Comments CT SCAN (SCAN) Routine 08/07/2011 documented in this encounter Results * Scan Doc: CT Scan (08/07/2011) Anatomical Region Laterality Modality Other Tavares Lindsay MD [facility] SCAN EXT O RDR/RSLT documented in this encounter Visit Diagnoses Not on filedocumented in this encounter Care Teams Airbrush Artist Relationship Specialty Start Date End Date Josué Huff MD [address] [place] [address] PCP - General 08/02/11 documented as of this encounter
--- OUTSIDE RECORDS SUMMARY | 2024-05-03 16:12 | XMS_ITS | Encounter Summary ---
Author Organization [facility] [place] [address] Care Team Providers Care Compressor Stations Superintendent Name Role Phone Josué Huff MD Primary Care Provider [phone] Reason for Visit * Reason Onset Date Comments Other 08/08/2011 Encounter Details Date Type Department Care Team (Late st Contact Info) Description 08/08/2011 Telephone [place] [address] Jacoby Gaines MD [facility] [place] [address] Other Social History Tobacco Use Types Packs/Day Years [...] encounter Miscellaneous Notes * Telephone Encounter - Neda Moss RN - 08/08/2011 4:54 PM EDT Return / Follow up phone call to patient to discuss dental evaluation. Called and faxed form for dental evaluation pre radiation. Dr Jackson in [facility] documented in this encounter Plan of Treatment Not on file documented as of this encounter Visit Diagnoses Not on filedocumented in this encounter Care Teams Compressor Stations Superintendent Relationship Specialty Start Date End Date Josué Huff MD [address] [place] [address] PCP - General 08/02/11 documented as of this encounter
--- OUTSIDE RECORDS SUMMARY | 2024-05-03 16:12 | XMS_ITS | Encounter Summary ---
Author Organization [facility] [place] [address] Care Team Providers Care Cat Scan Tech Name Role Phone Josué Huff MD Primary Care Provider [phone] Encounter Details Date Type Department Care Team (Late st Contact Info) Description 10/12/2011 11:30 AM EDT Ancillary Appointment Hematology Oncology at [address] [phone] [facility] [place] [address] Social History Tobacco Use Types Packs/Day Years [...] Progress Notes * William Petit RD - 10/12/2011 12:05 PM EDT [facility] Dietitian Follow Up Seen By: Monet Petit MS, RD, LD Referred by: H/N team, Guanako Garrido RD at [place] Reason for visit: Patient and diagnosis: 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 Assessment: HPI: He is now completed the 3rd week of 7 weeks of radiation. Weight continues to decrease. He hasnoted that his taste is off things taste metallic but he states that this started before he had radiation or chemotherapy, he attributes it to a yeast infection he had back in June. Currently on week 4 of chemo. Meds: reviewed Labs: NNL Ht: Oncology Vitals 09/20/2011 Height 177 cm Wt: 218 lbs /99.38 kg 2.3 % weight decrease in one Week: Moderate Previous Wt: 223 lbs -> 227 lbs. Oncology Vitals 09/20/2011 Weight 103 kg Wt Hx: UBW: 220 lbs % UBW: IBW: 160 +/- 10 % ( 80 kg) % IBW: 128.75% BMI:32.9 ___ Edema ___ Ascites ___Muscle wasting Calorie needs: 25 -30 @ 80 k - 2400 kcals Protein needs: 1.5 @ 80 k kg Food Intake: Gags with every time he eats. PO: Water ~ 32 ounces, sips water all day long. Tried eggs, made him vomit, G-tube: continues to flush daily with water, 7 cans Jevity 1.5/day to provide 2485 kcals, 106 gramsprotein and 1260 cc water. Flushing with 60 ccs before and after each feeding. Also one scoop protein TID with feedings. Supplements/Frequency: None ___ Ensure/Plus ___ Boost/Plus ___ CIB ___ Other: G-tube: flushing BID Teas, vitamins, or other nutritional supplements: none Food allergies or avoidances: nkfa Appetite: low/10 scale :no longer has appetite or urge to eat Nausea:- Vomiting: gags with food Chewing: denies Dentition: upper dentures, bottom partial Swallowing: pain with swallowing, Mouth sores: +, redness, ? thrush Xerostomia: +, doin soda/salt rinses at least 8 times/day, has biotene and oasis spray on board Taste Changes: +, metallic tastes Bowels: regular every morning, has softeners on board Food availability/purchasing, meal planning and preparation: Brother on board, Oliverio prepares meals. Says he won't eat brother's food. Social Support: Nathaniel, brother is helping to take care of him during treatment cell [phone] [place] Issues: [place] Physical Activity: walks dog daily, gets out at least 3-4 times daily for walks, about 10-15 minutes/time. 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 Current TF: 7 cans Jevity 1.5/day to provide [...] fluids either via tube or taken p.o. He is weaker this weak and dehydrated despite running and additional 2 qts of water through his tube BID. His [facility] supplies were received at the end of last week and he's currently on the Jevity 1.5 regimen. I suggested he add in an additional can of Fibersource H/N (still has some of these) in between meals in hopes to maintain weight. If he continues to lose weight we may need to incorporate morecans or benecalorie. Nutrition Intervention: Increase caloric And protein needs:see above Increase frequency of meals and snacks: g-tube recommendations, as much p.o. 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 Educational Handouts provided: -- G-tube/J-tube feeding booklet Other Recommendations: None Monitoring and Evaluation: Will follow up with Mr. Salazar in one week (s) to re-evaluate. I have spent>45 minutes with him/her in discussion and nutrition counseling. I have provided himwith my card and contact information should he have any questions in the mean time. documented in this encounter Plan of Treatment Not on file documented as of this encounter Visit Diagnoses Not on filedocumented in this encounter Care Teams Cat Scan Tech Relationship Specialty Start Date End Date Josué Huff MD [address] [place] [address] PCP - General 08/02/11 documented as of this encounter
--- OUTSIDE RECORDS SUMMARY | 2024-05-03 16:12 | XMS_ITS | Encounter Summary ---
Author Organization [facility] [place] [address] Care Team Providers Care Operations Research Director Name Role Phone Josué Huff MD Primary Care Provider [phone] Encounter Details Date Type Department Care Team (Late st Contact Info) Description 09/06/2011 Orders Only [place] [address] Jacoby Gaines MD [facility] [place] [address] Tonsil cancer (Primary Dx) Social History Tobacco Use [...] of this encounter Visit Diagnoses Diagnosis Tonsil cancer- Primary Malignant neoplasm of tonsil documented in this encounter Care Teams Operations Research Director Relationship Specialty Start Date End Date Josué Huff MD [address] [place] [address] PCP - General 08/02/11 documented as of this encounter
--- OUTSIDE RECORDS SUMMARY | 2024-05-03 16:12 | XMS_ITS | Encounter Summary ---
Author Organization [facility] Address [facility] [place] [address] Care Team Providers Care Table Hand Name Role Phone Josué Huff MD Primary Care Provider [phone] Encounter Details Date Type Department Care Team (Late st Contact Info) Description 09/28/2011 Telephone Hematology Oncology at [address] [phone] [facility] [place] [address] Social History Tobacco Use Types Packs/Day Years [...] Telephone Encounter - William Petit RD - 09/28/2011 2:01 PM EDT TC to Guanako Garrido RD at [place] to discuss G-tube formula recommendations. She's placing order for Oliverio with an initially 3 cans Jevity 1.5/day with eventual goal of 7 cans/day with 3 scoops protein powder. Also ordering gravity bags and pole. ETA is later in the week of 09/28/11. documented in this encounter Plan of Treatment Not on file documented as of this encounter Visit Diagnoses Not on filedocumented in this encounter Care Teams Table Hand Relationship Specialty Start Date End Date Josué Huff MD [address] [place] [address] PCP - General 08/02/11 documented as of this encounter
--- OUTSIDE RECORDS SUMMARY | 2024-05-03 16:12 | XMS_ITS | Encounter Summary ---
Author Organization [facility] [place] [address] Care Team Providers Care Mold Worker Name Role Phone Josué Huff MD Primary Care Provider [phone] Encounter Details Date Type Department Care Team (Late st Contact Info) Description 08/24/2011 3:00 PM EDT Anesthesia [place] [address] Joann Wong MD [facility] [place] [address] Yady Day CRNA [facility] [place] [address] Anesthesia Record Procedure Summary Procedure Name Responsible Anesthesiologist Anesthesia Start Time Anesthesia Stop Time ENDOBRONCHIAL ULTRASOUND (EBUS) (Chest) Joann Wong MD 08/24/11 1500 08/24/11 1655 Events Date Time Event Comment 08/24/2011 1443 1500 Start 1655 Stop Meds * Agents No agents on file. * Blood No blood administrations on file. Lines, Drains, and Airways Type Details Placement Removal (RETIRED) Peripheral IV Line - Single Lumen 08/24/11; 1457; 08/24/11; 1823 08/24/11 1457 by Helena Choudhury RN 08/24/11 1823 by Raquel Price RN documented in this encounter Social History Tobacco Use Types Packs/Day Years [...] on file documented as of this encounter OR Notes * Anesthesia Preprocedure Evaluation - Joann Wong MD - 08/24/2011 2:42 PM EDT Anesthesia Evaluation Patient summary reviewed and Nursing notes reviewed No hx of anesthetic complications Airway Mallampati: II Dental Pulmonary Cardiovascular Neuro/Psych GI/Hepatic/Renal Endo/Other Abdominal Anesthesia Plan ASA 3 General with intravenous induction Anesthetic plan and risks discussed with patient. Plan discussed with SENIOR JAVA ENGINEER. . Patient Active Problem List Diagnoses Code ??? 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 Cancer of head, face, and neck ??? Arthritis ??? Depression PTSD ??? Claustrophobia History reviewed - see eDH for details. documented in this encounter Plan of Treatment Not on file documented as of this encounter Visit Diagnoses Not on filedocumented in this encounter Care Teams Mold Worker Relationship Specialty Start Date End Date Josué Huff MD [address] [place] [address] PCP - General 08/02/11 documented as of this encounter
--- OUTSIDE RECORDS SUMMARY | 2024-05-03 16:12 | XMS_ITS | Encounter Summary ---
Author Organization [facility] Address [facility] [place] [address] Care Team Providers Care Ager Operator Name Role Phone Josué Huff MD Primary Care Provider [phone] Encounter Details Date Type Department Care Team (Latest Contact Info) Description 08/24/2011 1:18 PM EDT - 08/24/2011 6:49 PM EDT Hospital [place] [address] Verónica Harden MD [facility] [place] [address] Discharge Disposition: Home Social History Tobacco Use [...] Sign Reading Time Taken Comments Blood Pressure 114/64 08/24/2011 5:00 PM EDT Pulse 79 08/24/2011 5:00 PM EDT Temperature - - Respiratory Rate 16 08/24/2011 5:00 PM EDT Oxygen Saturation 96% 08/24/2011 5:00 PM EDT Inhaled Oxygen Concentration - - Weight - - Height - - Body Mass Index - - documented in this encounter Discharge Instructions * Discharge Instructions* Raquel Price RN - 08/24/2011 5:01 PM EDT You may have received medications before and/or during your procedure which effects judgement and reaction time. Do not drive, operate machinery, drink alcoholic beverages or make important decisions for 24 hours. Be careful on stairs as you may be unsteady on your feet. You may eat a regular diet as tolerated. Do not smoke if you are alone. IV site-- slight redness or tenderness is normal. You may use a warm compress. If tenderness and redness increases or foul drainage occurs, please contact your MD. You can reach your doctor by calling the Pulmonary office, Saturday -Saturday, 8:00am to 5:00pm, . The secretary office clerk will need your name, medical problem, and date of bronchoscopy. All other hours call [phone] and ask to speak to the pulmonary doctor government relations analyst. * Attachments The following attachments cannot be sent through Care Everywhere. * BRONCHOSCOPY: WHAT TO EXPECT AT HOME (PERSIAN) documented in this encounter Medications at Time of Discharge Medication Sig Dispensed Refills Start Date End Date Terazosin 10 mg Tab Take 10 mg by mouth daily. ibuprofen (ADVIL;MOTRIN) 800 mg tablet Take 800 mg by mouth every 6 hours as needed. 10/17/2011 traZODone (DESYREL) 50 mg tablet Take 25 mg by mouth nightly. 12/28/2011 melatonin 3 mg Tab Take by mouth. 012 morphine 10 mg/5 mL solution Take 10 mg by mouth every 4 hours as needed. 09/12/2011 OXYcodone-acetaminophen (PERCOCET) 5-325 mg per tablet Take 1 tablet by mouth every 4 hours as needed. 10/24/2011 FLUCONAZOLE ORAL Take 1 tablet by mouth daily. 09/12/2011 DOCUSATE CALCIUM (STOOL SOFTENER ORAL) Take 2 tablets by mouth 2 times daily. 10/29/2011 documented as of this encounter Miscellaneous Notes * Miscellaneous - Provider, Scanning - 08/25/2011 6:29 AM EDT * Miscellaneous - Provider, Scanning - 08/24/2011 2:19 PM EDT documented in this encounter Plan of Treatment Not on file documented as of this encounter Procedures Procedure Name Priority Date/Time Associated Diagnosis Comments NON-FINISHER [employer] FINAL REPORT Routine 08/24/2011 5:49 PM EDT CYTOPATHOLOGY NON-GYNECOLOGICAL Routine 08/24/2011 4:40 PM EDT ENDOBRONCHIAL ULTRASOUND (EBUS) 08/24/2011 3:12 PM EDT Squamous cell carcinoma ENDOBRONCHIAL ULTRASOUND (EBUS) Routine 08/24/2011 2:26 PM EDT documented in this encounter Results * NON-FINISHER [employer] FINAL REPORT (08/24/2011 5:49 PM EDT) Non-Salesman/Owner Final Report ? [facility] ? Provider: ?? VERÓNICA HARDEN ? Pt. Name: ?? COREY MONTE, OLIVERIO Nava ? Acc #: ?[id number] ?Pt. ? Col Date: ?? 08/24/2011 ?/Sex: ?1950,(61 years),Male ? Rec Date: ?? 08/24/2011 ?LOC: ?4T ? CYTOPATHOLOGY: ??NGYN ? ---Adequacy--- ? Specimen submitted is less than optimal. ??See Comment. ? ---Cytopathologic Diagnosis--- ? See Comment ? 08/27/11 ?Screened by: ? LMY ? Rescreened by: ?? FCL,EJG ? 08/29/11 ?Verified by: ? Lora KATE, Greg Valera ?Cytopathologist ?(Electronic Signature) ? ---Comment--- ? Lymph node: left pretracheal (EBUS-guided FNA) - ? The sample appears to consist essentially of respiratory epithelial cells ? and blood. There is no definite evidence of lymph node sampling. ? ---Clinical Information--- ? Specimen Source: ?Lymph node: left pretracheal (EBUS-guided FNA - assisted) ? Pertinent Clinical Data and Significant Therapy: ?Cancer. ? Clinical Impression: ?Cancer. ? Pertinent Radiologic Findings: ?(none provided) ? Gross Description: ? Received in Cytorich Red, approximately 20 ml total volume of clear, ? red fluid with clots. ?Total Preparation: Diff-Quik 5; Pap Stain 2; Cell Block 1. ? Fine Needle Aspiration Intraoperative Consultation: ? Total number of passes: ??5 ? [facility] ? Provider: ?? VERÓNICA HARDEN ? Pt. Name: ?? OLIVERIO NICOLE JR ? Acc #: ?[id number] ?Pt. ? Col Date: ?? 08/24/2011 ?/Sex: ?1950,(61 years),Male ? Rec Date: ?? 08/24/2011 ?LOC: ?4T ? CYTOPATHOLOGY: ??NGYN ? Evaluation Episode #1 - ? Passes #1-5: ? Inadequate for final diagnosis. ? Predominantly respiratory epithelial cells and blood. ? Intraoperative Consultation by: Mervat Paulino MD. ? Note:.Intraoperat ed Consultation results are preliminary assessments of ? adequacy and diagnosis. See final diagnostic comments for completed ? interpretation. ARIELLA CHOU 08/24/2011 5:49 PM EDT Verónica Harden MD PATHOLOGY/CYTOLOGY O ROBERTO Performing Organization Address [facility] Co de Phone Number [facility] * Cytopathology Non-Gynecological (08/24/2011 4:40 PM EDT) AP Specimen 08/24/2011 4:40 PM EDT 08/24/2011 4:40 PM EDT Narrative [facility] - 08/24/2011 4:40 PM EDT Specimen requisition ordered. ??Separate Pathology report to follow Verónica Harden MD PATHOLOGY/CYTOLOGY O ROBERTO Performing Organization Address [facility] Co de Phone Number [facility] * ENDOBRONCHIAL ULTRASOUND (EBUS) (08/24/2011 2:26 PM EDT) EBUS [facility] Bronchoscopy Patient Name: Oliverio Nicole ? Procedure Date: 08/24/2011 2:26 PM ? Age: 61 ? Procedure: ?Ebus Indications: ?Pretracheal adenopathy Providers: ?Verónica Harden MD, Fish Alba ?MD Mahi (Fellow), Mary Tellez, ?RN, Ilene Alvarez RN Referring MD: ? Josué Huff MD Requesting Physician: Venkatesh Boothe MD (Requesting ?Physician), Verónica Lindsay MD ?(Requesting Physician) Medicines: ?General anesthesia (propofol) Complications: ?None. Procedure: ?After obtaining informed consent, ?and performing a timeout during ?which the patient's identity ?was confirmed, the lack of need for ?antibiotics was confirmed, and the ?procedure to be performed was ?confirmed, the endosonoscope was ?placed through the laryngeal mask ?airway and inspection was ?undertaken. The left vocal cord ?appears paralyzed. The trachea is of ?normal caliber. The hardeep is sharp. ?The tracheobronchial tree was not ?otherwise inspected. Using ?endobronchial ultrasound, fine ?needle aspirates of the 1L ?(pretracheal) node were obtained and ?examined in realtime by the ?cytopathologist. There were five ?passes. Lymphoid tissue was not ?identified. Material was sent for ?cell block. The procedure was ?accomplished without difficulty. Findings: ? As above. Impression: ? As above. Recommendation: ? Await test results. Verónica Harden MD 08/24/2011 5:05 PM ? Verónica Harden MD 08/24/2011 5:05 PM Number of Addenda: 0 Note Initiated On: 08/24/2011 2:26 PM PROVATION 08/24/2011 2:26 PM EDT Josué Huff MD GENERAL SURGICAL ORD ERABLES PROVATION documented in this encounter Visit Diagnoses Not on filedocumented in this encounter Active and Recently Administered Medications Care Teams Ager Operator Relationship Specialty Start Date End Date Josué Huff MD [address] [place] [id number] PCP - General 08/02/11 documented as of this encounter
--- OUTSIDE RECORDS SUMMARY | 2024-05-03 16:12 | XMS_ITS | Encounter Summary ---
Author Organization [facility] Address [facility] [place] [address] Care Team Providers Care Cdl Instructor Name Role Phone Josué Huff MD Primary Care Provider [phone] Reason for Visit * Reason Comments Simulation Tonsil Cancer Encounter Details Date Type Department Care Team (Latest Contact Info) Description 09/06/2011 4:00 PM EDT Ancillary Appointment [place] [address] Jacoby Gaines MD [facility] [place] [address] Squamous cell carcinoma of tonsil (Primary Dx) [...] Progress Notes * Jacoby Gaines MD - 09/07/2011 4:16 PM EDT Simulation was performed in anticipation of radiotherapy for squamous cell carcinoma of the head and neck. The consent was reviewed with the physician and signed by both the patient and physician. His port was accessed in anticipation of contrast administration. The patient was then brought to the simulation room and a time-out was performed per protocol. he was then placed on the simulation table and a custom cushion as well as a custom bite block was constructed. A custom aquaplast mask was then created. The simulation CT scan was performed with contrast, images were reviewed and approved by the physician, and tattoos were created by the therapy staff as indicated. The patient tolerated the procedure without difficulty, and was given a time to return to start radiotherapy. documented in this encounter Procedure Notes * Provider, Scanning - 09/11/2011 3:45 PM EDTAssociated Order(s): SCAN DOC: SURGICAL PATHOLOGY * Provider, Scanning - 09/11/2011 2:26 PM EDTAssociated Order(s): SCAN DOC: DIAGNOSTIC RADIOLOGY documented in this encounter Plan of Treatment Not on file documented as of this encounter Procedures Procedure Name Priority Date/Time Associated Diagnosis Comments SURGICAL PATHOLOGY SCAN 09/11/2011 3:45 PM EDT DIAGNOSTIC RADIOLOGY SCAN 09/11/2011 2:26 PM EDT documented in this encounter Results * SCAN DOC: SURGICAL PATHOLOGY (09/11/2011 3:45 PM EDT) Narrative 09/11/2011 3:45 PM EDT Procedure Note Provider, Scanning - 09/11/2011 3:45 PM EDT Scanning Provider MEDIA MGR SCAN EXT O RDR/RSLT * SCAN DOC: DIAGNOSTIC RADIOLOGY (09/11/2011 2:26 PM EDT) Anatomical Region Laterality Modality Other Narrative 09/11/2011 4:08 PM EDT Procedure Note Provider, Scanning - 09/11/2011 2:26 PM EDT Scanning Provider MEDIA MGR SCAN EXT O RDR/RSLT documented in this encounter Visit Diagnoses Diagnosis Squamous cell carcinoma of tonsil- Primary Malignant neoplasm of tonsil documented in this encounter Care Teams Cdl Instructor Relationship Specialty Start Date End Date Josué Huff MD [address] [place] [address] PCP - General 08/02/11 documented as of this encounter
--- OUTSIDE RECORDS SUMMARY | 2024-05-03 16:12 | XMS_ITS | Encounter Summary ---
Author Organization [facility] [place] [address] Care Team Providers Care Chimney Builder Name Role Phone Josué Huff MD Primary Care Provider [phone] Reason for Visit * Reason Comments Chemotherapy Cisplatin, week 5, c oncurrent with xrt Encounter Details Date Type Department Care Team (Late st Contact Info) Description 10/17/2011 12:00 PM EDT Office Visit Hematology Oncology at [address] [phone] Squamous cell carcinoma of tonsil Social History [...] of this encounter Progress Notes * Aster Hathaway RN - 10/17/2011 12:58 PM EDT INFUSION THERAPY ADMINISTRATION NOTES TIME TREATMENT STARTED: 1200 TIME TREATMENT ENDED: 1625 DIAGNOSIS: Tonsil Cancer PROTOCOL: no CYCLE #: Week 5 (concurrent with xrt) REASON FOR VISIT: Cisplatin infusion SUBJECTIVE Oliverio Salazar Jr. offers no complaints. OBJECTIVE LAB DATA: Labs reviewed and found adequate for treatment. IF PAIN IS >5, INTERVENTION AND EFFECTIVENESS: n/a HYDRATION, RATE, START TIME, STOP TIME NS @ KVO, Pre administration: Chemotherapy orders independently verified for drug name, route, and dosage per patient's height, weight and BSA by Aster Hathaway RN and Odalis Copeland RN. REACTIONS (DESCRIPTION, TIME, INTERVENTION AND EFFECTIVENESS) none ASSESSMENT Oliverio Salazar Jr. was awake, alert and he tolerated treatment well. PLAN Return to clinic next week for consideration of week 6 of chemotherapy, concurrent with xrt. documented in this encounter Plan of Treatment Not on file documented as of this encounter Visit Diagnoses Diagnosis Squamous cell carcinoma of tonsil Malignant neoplasm of tonsil documented in this encounter Administered Medications Inactive Administered Medications - up to 3 most recent administrations Medication Order MAR Action Action Date Dose Rate Site CISplatin (PLATINOL) 88 mg in sodium chloride 0.9% 1,088 mL chemo infusion 88 mg, Intravenous, ONCE, 1 dose, On Sat10/17/11 at 1200, Administer over 60 Minutes New Bag 10/17/2011 3:05 PM EDT 88 mg 1088 mL/hr dexamethasone sodium (PF) 10 mg in sodium chloride 0.9% 51 mL IVPB Intravenous, at 204 mL/hr, ONCE, On Sat10/17/11 at 1200, 1 dose Given 10/17/2011 2:25 PM EDT 204 mL/hr dextrose 5% and sodium chloride 0.9% 1,000 mL with potassium chloride 20 mEq, magnesium sulfate 2 g infusion at 500 mL/hr, Intravenous, ONCE, 1 dose, On Sat10/17/11 at 1200, Start pre cisplatin New Bag 10/17/2011 12:16 PM EDT 500 mL/hr palonosetron (ALOXI) injection 0.25 mg 0.25 mg, Intravenous, ONCE, 1 dose, On Sat10/17/11 at 1200, Pre chemo, Routine Given 10/17/2011 2:22 PM EDT 0.25 mg documented in this encounter Care Teams Chimney Builder Relationship Specialty Start Date End Date Josué Huff MD [address] [place] [id number] PCP - General 08/02/11 documented as of this encounter
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
--- OUTSIDE RECORDS SUMMARY | 2024-05-03 16:12 | XMS_ITS | Encounter Summary ---
Author Organization [facility] Address [facility] [place] [address] Care Team Providers Care Biology Laboratory Assistant Name Role Phone Josué Huff MD Primary Care Provider [phone] Reason for Visit * Reason Comments Tonsil Cancer due for week 6 of ci splat Encounter Details Date Type Department Care Team (Late st Contact Info) Description 10/24/2011 11:00 AM EDT Follow-Up Hematology Oncology at [address] [phone] [facility] HEMATOLOGY/[place] [address] Head and neck cancer (Primary Dx) Discharge [...] Sign Reading Time Taken Comments Blood Pressure 122/65 10/24/2011 10:51 AM EDT Pulse 79 10/24/2011 10:51 AM EDT Temperature 36.6 ??C (97.9 ??F) 10/24/2011 1 0:51 AM EDT Respiratory Rate 18 10/24/2011 10:5 1 AM EDT Oxygen Saturation 96% 10/24/2011 10: 51 AM EDT Inhaled Oxygen Concentration - - Weight 96.5 kg (212 lb 11.9 oz) 012 10:51 AM EDT Height 177 cm (5' 9.69) 10/24/2011 10: 51 AM EDT Body Mass Index 30.8 10/24/2011 10:51 AM EDT documented in this encounter Progress Notes * Joel Miller MD - 10/24/2011 11:39 AM EDT Problem list #1 head and [...] for his cisplatin this will be dose #6, his first dose was given September 19, 2011. He will complete radiation November 08. He is doing okay but is having more symptoms, specifically persistent mouth pain and anorexia. He thinks she's pushing enough food through his G-tube but he is becoming more cachectic appearing has had some weight loss. But he is getting through this without any serious complications. Review of systems Constitutional positive for poor [...] Physical exam Vital signs reviewed blood pressure 120/65 weight 96 kg, note he started out at 104 kg this represents a 8 kg weight loss over 5 weeks Rest exam unchanged from last week Mouth white exudate consistent with thrush some [...] This [facility] He is now walking with a cane. 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 He has 2 daughters one [place]. He was a [place] grew up in [facility]. His father was labeling machine operator. Labs White count 2.15 hemoglobin 10.0 platelets 103 ANC 1.57 Creatinine 1.3 up from baseline 1.0 BUN 31 up from baseline of 15 albumin 3.4 total protein 7.1 potassium 3.5 Assessment This is a 61-year-old white male who has completed 5-1/2 weeks of radiation for head and neck cancer, along with low-dose weekly cis-ekuk total dose 88 mg. Final dose of radiation to be given November 08. Overall is doing adequately but having the typical symptoms of someone going to radiation with cis-ekuk. However his neutrophils are somewhat low and I think it would be prudent to hold the cisplatin today but give him a liter of fluid because by labs he somewhat prerenal and hypovolemic. Plan #1 hold today's cis-ekuk due to neutropenia #2 1 L normal saline with 4 g of mag sulfate and 20 mEq of potassium over one hour #3 see me next week with CBC and CMP This note was created using [employer] voice recognition software. It was reviewed for major content. However, there may be multiple small discrepancies and errors due to the voice recognition aspects of the software. I documented in this encounter Procedure Notes * Provider, Scanning - 10/25/2011 10:39 AM EDTAssociated Order(s): SCAN DOC: CHEMOTHERAPY documented in this encounter Plan of Treatment Not on file documented as of this encounter Procedures Procedure Name Priority Date/Time Associated Diagnosis Comments CHEMOTHERAPY SCAN 10/25/2011 10: 39 AM EDT documented in this encounter Results * SCAN DOC: CHEMOTHERAPY (10/25/2011 10:39 AM EDT) Narrative 10/25/2011 10:39 AM EDT Procedure Note Provider, Scanning - 10/25/2011 10:39 AM EDT Scanning Provider MEDIA MGR SCAN EXT O RDR/RSLT documented in this encounter Visit Diagnoses Diagnosis Head and neck cancer- Primary Malignant neoplasm of head, face, and neck documented in this encounter Care Teams Biology Laboratory Assistant Relationship Specialty Start Date End Date Josué Huff MD [address] [place] [id number] PCP - General 08/02/11 documented as of this encounter
--- OUTSIDE RECORDS SUMMARY | 2024-05-03 16:12 | XMS_ITS | Encounter Summary ---
Author Organization [facility] [place] [address] Care Team Providers Care Industrial Diamond Polisher Name Role Phone Josué Huff MD Primary Care Provider [phone] Encounter Details Date Type Department Care Team (Late st Contact Info) Description 10/19/2011 11:30 AM EDT Ancillary Appointment Hematology Oncology at [address] [phone] [facility] [place] [address] Social History Tobacco Use Types Packs/Day Years [...] Progress Notes * William Petit RD - 10/19/2011 1:07 PM EDT [facility] Dietitian Follow Up Seen By: Monet Petit MS, RD, LD Referred by: H/N team, Guanako Garrido RD at [place] Reason for visit: Patient and diagnosis: 1 [...] Oncology Vitals 09/20/2011 Height 177 cm Wt: 98.431 kg 1% weight decrease in one week, Minimal Previous weight: 218 lbs /99.38 kg Previous Wt: 223 lbs -> 227 [...] time he eats. PO: Water ~ 32 + ounces, sips water all day long. Tried [...] protein. Also hydrating with 1000 ccs BID. Supplements/Frequency: None ___ Ensure/Plus ___ Boost/Plus ___ [...] take care of him during treatment cell [phone] Economic Issues: [place] Physical Activity: walks dog daily, gets out at least 3-4 times daily for walks, about 10-15 minutes/time. 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 Current g-tube intake is not meeting calorie demands as evidenced by continued weight loss 7% body weight. Per last week's recommendations, he's doing one can Fibersource H/N between feedings. This provides an additional 300 kcals and 13.5 gm protein. Recommend supplementing TF with Benecal to provide an additional 330 kcals and 7 g protein for weight stabilization. Encouraged his to try eating by mouth 10-15 minutes after taking BML. Current TF: 7 cans Jevity 1.5/day to provide 2485 kcals, 106 grams protein and 1260 cc water. Recommend 3 scoops protein powder a day to meet protein needs(one scoop provides 6 grams protein and 25 kcals). This regimen provides a total of 2560 and protein at 124 g protein. 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 Educational Handouts provided: -- G-tube/J-tube [...] on filedocumented in this encounter Care Teams Industrial Diamond Polisher Relationship Specialty Start Date End Date Josué Huff MD [address] [place] [id number] PCP - General 08/02/11 documented as of this encounter
--- OUTSIDE RECORDS SUMMARY | 2024-05-03 16:12 | XMS_ITS | Encounter Summary ---
Author Organization [facility] Address [facility] [place] [address] Care Team Providers Care Chip Tester Name Role Phone Josué Huff MD Primary Care Provider [phone] Reason for Visit * Reason Comments Mass Encounter Details Date Type Department Care Team (Latest Contact Info) Description 08/24/2011 11:00 AM EDT [place] [phone] aTvares Harden MD [facility] [place] [address] Squamous cell carcinoma of tonsil (Primary Dx); Thoracic lymphadenopathy; Cervical lymphadenopathy Discharge Disposition: Home Social History Tobacco Use [...] Sign Reading Time Taken Comments Blood Pressure 119/71 08/24/2011 10:27 AM EDT Pulse 58 08/24/2011 10:27 AM EDT Temperature - - Respiratory Rate 16 08/24/2011 10:27 AM EDT Oxygen Saturation 98% 08/24/2011 10:27 AM EDT Inhaled Oxygen Concentration - - Weight 100.2 kg (221 lb) 08/24/2011 10:27 AM EDT Height 177.8 cm (5' 10) 08/24/2011 10:27 AM EDT Body Mass Index 31.71 08/24/2011 10:27 AM EDT documented in this encounter Progress Notes * Tavares Harden MD - 08/24/2011 12:11 PM EDT I have seen the patient and reviewed the resident's above history and I agree with the details as written. The assessment and plan were formulated in discussion with me and I agree with them as documented. Hx cancer with PET pos LN in the high paratracheal region with bone lesions High concern for cancer Will undergo bronch with EBUS with cytology present * Fish Champagne MD - 08/24/2011 8:41 AM EDT OUTPATIENT PULMONARY CONSULTATION REASON FOR CONSULTATION: I was asked by Dr. Boothe to evaluate this patient for biopsy of left pretracheal node. I have reviewed the available records, interviewed, and examined the patient. 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 Patient noted a swelling of the right neck in 04/2011. He was evaluated by Dr. Lisa Robledo in the ENT clinic at the [facility]. An biopsy of the neck mass in 06/2011 demonstrated malignant cells. A flexible laryngoscopic exam demonstrated a fullness of the right tonsil but with normal overlying mucosa. Bilateral tonsillectomy was completed in late 06/2011, with the right tonsil positive for squamous cell carcinoma, basaloid subtype. Computed tomography of the neck demonstrated no other suspicious nodes, but CT of the thorax was notable for an enlarged 1L lymph node and a T9 vertebral body lesion. Given that the latter would be difficult to sample, and the potential for significant treatment modality difference between Stage Mathew (curative intent) and Stage IVc (palliative) cancer, further tissue was requested from the pretracheal node. Today, the patient reports that he feels fairlywell. He acknowledges rare, intermittent dyspnea both at rest and with exertion, which occasionallyawakens him from sleep. He denies cough, sputum production, and hemoptysis. He feels his appetite has returned since his surgery and he denies odynophagia, but his dysgeusia persists, which frustrates him. He thinks his thrush is still present. He denies nausea and vomiting. He acknowledges night sweats, fatigue, and weight loss of fifteen pounds since 06/2011, which he is gradually regaining. He quit smoking two months ago and is doing well. He otherwise has no complaints. PAST MEDICAL HISTORY: # Squamous cell carcinoma, basaloid subtype, right tonsil diagnosed 06/2011, [id number], at least StageIVa. -Noticed R neck swelling and stiffness 04/2011 -FNA of R lymph node: Positive for malignancy, tumor stained for cytokeratin AE1/3, did not stain for LCA, synaptophysin or CD56, consistent with metastatic carcinoma from the head and neck, basaloidtype. -CT neck 06/2011: 2.8-cm x 2.3-cm and 1.6-cm x 1.4-cm enlarged level 2 lymph nodes; stranding in thefat in the right carotid space and standing into the submandibular region with thickening of the platysma on the right; abnormal thickening of the right tonsillar pillar with enlargement and loss of normal contours; nasopharynx and larynx normal. -s/p Tonsillectomy 06/2011: Bilateral with right demonstrating 1-cm right basiloid SCC; infiltrates full thickness of tonsil, and focally invades underlying skeletal muscle and fibroadipose tissue; left tonsil and base of tongue without tumor. -CT thorax 07/2011: Pretracheal 1.5 cm thoracic inlet lymph node; T9 vertebral body ill-defined sclerotic lesion, concerning for metastatic disease. # Low back pain # Osteoarthritis # PTSD # Hx alcoholism # Hx anxiety # s/p Lumbar spine surgery, reports being paraplegic at the time of this surgery REVIEW OF SYSTEMS: GENERAL: Denies fevers, chills, anorexia. Positive for night sweats, fatigue, and weight loss. SKIN: Denies itching, rashes, sores, lumps, changing moles. HEENT: Denies trauma, headache, visual changes, tearing, tinnitus, earache, sneezing, allergies, rhinorrhea, epistaxis, bleeding gums, hoarseness, sore throat. Positive for neck swelling. RESPIRATORY: Denies orthopnea, wheeze, cough, sputum production, hemoptysis, tuberculosis exposure.Positive for intermittent dyspnea at rest, dyspnea on exertion, paroxysmal nocturnal dyspnea. CARDIOVASCULAR: Denies chest pain, chest pressure, palpitations, edema, claudication. GASTROINTESTINAL: Denies abdominal pain, nausea, vomiting, constipation, diarrhea, reflux, dysphagia, odynophagia, hematemesis, hematochezia, melena. GENITOURINARY: Denies frequency, urgency, dysuria, polyuria, nocturia, incontinence, discharge, sores. MUSCULOSKELETAL: Denies weakness, joint instability, redness, swelling, myalgias. Positive for joint stiffness, arthralgias in back. NEUROLOGIC: Denies numbness, tingling, tremors, weakness, paralysis, loss of consciousness, memory loss, seizures, incoordination. ENDOCRINE: Denies heat intolerance, cold intolerance, excessive sweating, polyuria, polydipsia, polyphagia. PSYCHIATRIC: Denies depressed mood, anxiety. FAMILY HISTORY: Father of HCC at age 82. Mother alive at age 8 with Alzheimer's disease. Sister alive at age 59, healthy. Three brothers alive at ages 50 (healthy), 53 (healthy), and 61 (thrombocytopenia). Two daughters alive and well at ages 38 and 42. SOCIAL HISTORY: three years ago. Lives with his brother. Has a dog at home. No cigarettes since 06/2011, but smoked two packs daily for 44-years. Served in the [employer], in [place] [phone]; as injured (blown up) there and has residual lower extremity weakness. 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 History of heavy alcohol use but none since 1996. Denies exposures to asbestos, silica, coal, radon, chemicals other than Agent Thayer. PHYSICAL EXAMINATION: HR-58 BP-119/71 RR-16 SpO2-98%RA GEN-Appears well. HEENT-NCAT, EOMI, PERRL. Ears clear with TMs visible bilaterally. OP clear, tongue with thick white-green coating. Mallampati III. Neck-Supple, no thyromegaly, trachea midline. Lymph-Enlarged right cervical node, approximately 5-cm in diameter. Otherwise, no submandibular, supraclavicular ZOILA. CV-Reg reg rhythm nl S1 S2 no m/r/g. RESP-Scattered wheezes in the right and left mid that cleared with deep breathing. ABD-Soft nt nd +BS no HSM. EXTR-No c/c/e, DP 2+ b/l. Skin-Warm, dry, no rash, no bruising. Neuro-Gait antalgic. MEDICATIONS: via [facility] ([facility]) 1) DOCUSATE NA 100MG CAP TAKE ONE CAPSULE BY MOUTH TWICE A DAY TO SOFTEN STOOL TO HELP BULK UP STOOLS AND PREVENT CONSTIPATION 2) IBUPROFEN 800MG TAB TAKE ONE TABLET BY MOUTH EVERY EIGHT HOURS NEEDED TAKE WITH FOOD; FOR PAIN/INFLAMMATION/SWELLING 3) LIDOCAINE HCL 2% VISCOUS LIQUID TAKE 1 TEASPOONFUL BY MOUTH EVERY TWO HOURS; GARGLE AND SWALLOW 4) MORPHINE SO4 2MG/ML SOLN,ORAL TAKE 5 MLS (10MG) BY MOUTH EVERY FOUR HOURS FOR PAIN 5) NICOTINE 21MG/24HR PATCH APPLY ONE PATCH TOPICALLY EVERY DAY TO STOP TOBACCO USE USE DAILY TO HELP QUIT SMOKING 6) NICOTINE 2MG GUM CHEW 1 PIECE IN MOUTH EVERY ONE HOUR NEEDED FOR NICOTINE REPLACEMENT 7) NICOTINE 4MG GUM CHEW 1 PIECE IN MOUTH EVERY FOUR HOURS NEEDED FOR NICOTINE REPLACEMENT 8) NICOTINE POLACRILEX 2MG LOZENGE DISSOLVE 1 LOZENGE IN MOUTH EVERY ONE HOUR NEEDED TO PREVENT NICOTINE WITHDRAWAL SYMPTOMS 9) NYSTATIN 995086 UNT/ML SUSP TAKE 5ML BY MOUTH FOUR TIMES A DAY FOR FUNGAL INFECTIONS 10) OXYBUTYNIN CHLORIDE 10MG SA TAB TAKE ONE TABLET BY MOUTH EVERY DAY FOR BLADDER INSTABILITY 11) OXYCODONE 5MG TAB TAKE 1 TO 2 TABLETS BY MOUTH EVERY FOUR HOURS NEEDED FOR PAIN 12) OXYCODONE 5MG/ACETAM 325MG TAB TAKE ONE TABLET BY MOUTH EVERY SIX HOURS NEEDED FOR PAIN 13) TERAZOSIN HCL 10MG CAP TAKE ONE CAPSULE BY MOUTH AT BEDTIME FOR PROSTATE - DO NOT TAKE WITHIN FOUR HOURS OF VARDENAFIL 14) FLUCONAZOLE 100MG TAB TAKE ONE TABLET BY MOUTH EVERY DAY FOR FUNGAL INFECTION DIAGNOSTICS: I reviewed the chest CT described above. LABS: Via [facility] ([facility]): INR 0.9 08/14/11, platelets 236 08/07/11. 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 His initial oncology plan included chemotherapy and radiation therapy with curative intent; however, given the pretracheal node noted on computed tomography of the thorax, tissue was requested to ensure accurate treatment goals. We will proceed today with EBUS-TBNA of the 1L pretracheal node under general anesthesia. RECOMMENDATIONS: -EBUS-TBNA with bedside pathology. Thank you for this interesting consultation. This patient was seen and evaluated with Dr. Tavares Harden. Fish Champagne MD Fellow, Pulmonary & Critical Care Medicine documented in this encounter Plan of Treatment Not on file documented as of this encounter Visit Diagnoses Diagnosis Squamous cell carcinoma of tonsil- Primary Malignant neoplasm of tonsil Thoracic lymphadenopathy Enlargement of lymph nodes Cervical lymphadenopathy Enlargement of lymph nodes documented in this encounter Care Teams Chip Tester Relationship Specialty Start Date End Date Josué Huff MD [address] [place] [id number] PCP - General 08/02/11 documented as of this encounter
--- OUTSIDE RECORDS SUMMARY | 2024-05-03 16:12 | XMS_ITS | Encounter Summary ---
[place] [address] Care Team Providers Care Supervisor Smoke Control Name Role Phone Josué Huff MD Primary Care Provider [phone] Reason for Visit * Reason Onset Date Comments Medication Refill 10/22/2011 Encounter Details Date Type Department Care Team (Late st Contact Info) Description 10/22/2011 Refill [place] [address] Meseret Trujillo, RN Thrush, oral (Primary Dx) Social History Tobacco Use Types [...] as of this encounter Visit Diagnoses Diagnosis Thrush, oral- Primary Candidiasis of mouth documented in this encounter Care Teams Supervisor Smoke Control Relationship Specialty Start Date End Date Josué Huff MD [address] [place] [id number] PCP - General 08/02/11 documented as of this encounter
--- OUTSIDE RECORDS SUMMARY | 2024-05-03 16:12 | XMS_ITS | Encounter Summary ---
Author Organization [facility] [place] [address] Care Team Providers Care Director Reactor Projects Name Role Phone Josué Huff MD Primary Care Provider [phone] Encounter Details Date Type Department Care Team (Late st Contact Info) Description 10/09/2011 Orders Only Radiation Oncology at [address] [phone] Jacoby Gaines MD [facility] [place] [address] Head and neck cancer (Primary Dx) Social [...] neck documented in this encounter Care Teams Director Reactor Projects Relationship Specialty Start Date End Date Josué Huff MD [address] [place] [id number] PCP - General 08/02/11 documented as of this encounter
--- OUTSIDE RECORDS SUMMARY | 2024-05-03 16:12 | XMS_ITS | Encounter Summary ---
Author Organization [facility] [address] Care Team Providers Care Cosmetic Dentist Name Role Phone Josué Huff MD Primary Care Provider [phone] Reason for Visit * Reason Comments Radiation Treatment Encounter Details Date Type Department Care Team (Late st Contact Info) Description 09/28/2011 10:30 AM EDT Follow-Up Radiation Oncology at [address] [phone] Jacoby Gaines MD [facility] [place] [address] Squamous cell carcinoma of tonsil (Primary Dx) [...] Sign Reading Time Taken Comments Blood Pressure - - Pulse 53 09/28/2011 11:16 AM EDT Temperature 36.6 ??C (97.9 ??F) 09/28/2011 11:16 AM E DT Respiratory Rate 16 09/28/2011 11:16 AM EDT Oxygen Saturation 92% 09/28/2011 11:16 AM EDT Inhaled Oxygen Concentration - - Weight 103 kg (227 lb) 09/28/2011 11:16 AM EDT Height - - Body Mass Index 32.87 09/26/2011 8:30 AM EDT documented in this encounter Progress Notes * Jacoby Gaines MD - 09/28/2011 11:25 AM EDT ON TREATMENT VISIT NOTE Primary MD: JOSUÉ HUFF MD Referring MD: Mick Other Involved Physicians: Venkatesh Boothe MD Focused Problem List: ?? Squamous cell carcinoma of the tonsil, [id number] ?? Presentation: ?? Onset neck stiffness 04/2011 [...] isno definite evidence of lymph node sampling. Identification: Oliverio Brandy Salazar Jr. is currently undergoing radiation therapy at [facility]. Current treatment dose: 14 Gy in 7 fractions. Anticipated total dose: 70 Gy in 35 fractions. Evaluation of Port Verification Films: done Changes in medical condition: Skin: Comments: No erythema noted Current Regimen: Jeans cream/Aquaphor BID 0 1 2 3 4 No change from baseline Follicular, faint or dull erythema/ epilation/dry desquamation/ decreased sweating Tender or bright erythema, patchy moist desquamation/ moderate edema Confluent, moist desquamatiom other than skin folds, pitting edema Ulceration, hemorrhage, necrosis Xerostomia: Comments: dysgeusia 0 1 2 3 4 No change from baseline Sx without dietary alteration Moderate to complete dryness; thick, sticky saliva; markedly altered taste Inability to aliment orally, TPN or PEG indicated NA Mucositis: Comments: Current Pain Regimen: 0 1 2 3 4 No change from baseline Injection/ may experience mild pain not requiring analgesic Patchy mucositis & analgesia indicated, altered po intake Confluent mucosits; severe pain, unable to adequatelytake nutrition po Life threatening consequences Dysphagia: Alimentation: 1. By mouth: 2. via PE 1 2 3 4 No change from baseline Sx without dietary alteration Moderate sx, altered oral intake Inability toaliment orally, TPN or PEG indicated NA Weight : 231 lbs initial Change: 231 => 227 Larynx: Comments: 0 1 2 3 4 No change from baseline Mild or intermittent voice change; fully understandable, self- resolves Moderate or persistent voice change, able to vocalize; otalgia/ sore throat not requiring narcotic Whispered speech, throat pain/otalgia requiring narcotic Marked dyspnea, stridor or hemoptysis with trach or intubation necessary Other: ?? Impression: ?? Minimal toxicity, treatment started within the last week, but dysgeusia has become an issue rapidly and is preventing him from eating. Plan: ?? Continue RT per prescription ?? Pain control: none needed at this time ?? Skin: Jeans cream QD ?? Mucositis: ?? Pain control: see above ?? Oral hygiene consisting of baking soda/salt rinse at least 8 times daily ?? Alimentation: rnp following ?? Weight decreased, primarily due to dysgeusia. Discussed strategies to increase oral intake, willimplement TF if weight loss continues. documented in this encounter Plan of Treatment Not on file documented as of this encounter Visit Diagnoses Diagnosis Squamous cell carcinoma of tonsil- Primary Malignant neoplasm of tonsil documented in this encounter Care Teams Cosmetic Dentist Relationship Specialty Start Date End Date Josué Huff MD [address] [place] [id number] PCP - General 08/02/11 documented as of this encounter
--- OUTSIDE RECORDS SUMMARY | 2024-05-03 16:12 | XMS_ITS | Encounter Summary ---
Author Organization [facility] [place] [address] Care Team Providers Care Group Home Manager Name Role Phone Josué Huff MD Primary Care Provider [phone] Encounter Details Date Type Department Care Team (Late st Contact Info) Description 10/22/2011 12:00 PM EDT Follow-[place] [phone] NURSE, RADIATION ONCOLOGY RADIATION ONCOLOGY [facility] Squamous cell carcinoma of tonsil; Hx of CT scan Discharge Disposition: Home Social History Tobacco Use [...] Procedure Name Priority Date/Time Associated Diagnosis Comments CREATININE STAT 10/22/2011 12:30 PM EDT Squamous cell carcinoma of tonsil Hx of CT scan documented in this encounter Results * Creatinine, serum (10/22/2011 12:30 PM EDT) [facility] Creatinine 1.20 0.80 - 1.50 mg/dL [facility] Comment: Please note that the pediatric reference intervals supplied above were not validated at [facility]. Results from pediatric patients should be interpreted in conjunction to the patient's age, height and muscle mass. Est Glomerular Filtration Rate >60 >=60 [facility] Comment: The National Kidney Disease Education [...] with diabetic kidney disease. References: http://nkdep.nih.gov/resources/NKDEP_Suggestn4Labs_0606_508.pdf http://www.kidney.org/professionals/kls/pdf/faq_gfr.pdf Guyata K, Stephanie NA, Ana M AK, Florencio TS, Lisa AD, Sharon ENID. Relative performance of the MDRD and CKD-EPI equations for estimating glomerular filtration rate among patients with varied clinical presentations. Clin J Am Soc Nephrol;6:1963-72. Blood specimen (specimen) 10/22/2011 12:30 PM EDT 10/22/2011 12:49 PM EDT Narrative Resulting Agency Comment Spec In Lab Jacoby Gaines MD CHEMISTRY ORDERABLES [facility] documented in this encounter Visit Diagnoses Diagnosis Squamous cell carcinoma of tonsil Malignant neoplasm of tonsil Hx of CT scan Other specified personal history presenting hazards to health documented in this encounter Care Teams Group Home Manager Relationship Specialty Start Date End Date Josué Huff MD [address] [place] [id number] PCP - General 08/02/11 documented as of this encounter
--- OUTSIDE RECORDS SUMMARY | 2024-05-03 16:12 | XMS_ITS | Encounter Summary ---
Author Organization [facility] [place] [address] Care Team Providers Care Wrapper Layer Name Role Phone Josué Huff MD Primary Care Provider [phone] Encounter Details Date Type Department Care Team (Late st Contact Info) Description 10/05/2011 11:30 AM EDT Ancillary Appointment Hematology Oncology at [address] [phone] [facility] [address] Social History Tobacco Use Types Packs/Day Years [...] Progress Notes * William Petit RD - 10/05/2011 12:01 PM EDT [facility] Dietitian Follow Up Seen By: Monet Petit MS, RD, LD Referred by: H/N team, Guanako Garrido RD at [place] Reason for visit: Patient and diagnosis: 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 Assessment: HPI: He is now completed the 2nd week of 7 weeks of radiation. He is having no difficulties at thispoint specifically no nausea vomiting problems with weight or diarrhea or sore mouth. He has noted that his taste is off things taste metallic but he states that this started before he had radiation or chemotherapy, he attributes it to a yeast infection he had back in June. Currently on week 3 of chemo. Meds: reviewed Labs: NNL Ht: Oncology Vitals 09/20/2011 Height 177 cm Wt: 223 lbs Previous Wt: 227 lbs. Oncology Vitals 09/20/2011 Weight 103 kg Wt Hx: UBW: 220 lbs % UBW: IBW: 160 +/- 10 % ( 80 kg) % IBW: 128.75% BMI:32.9 ___ Edema ___ Ascites ___Muscle wasting Calorie needs: 25 -30 @ 80 k - 2400 kcals Protein needs: 1.5 @ 80 k kg Food Intake: Nausea with every time he eats. PO: Water ~ 32 ounces, coffee, milk G-tube: continues to flush daily with water, 8 cans TID, of Fibersource H/N. Flushing with 60 ccs before and after each feeding. Supplements/Frequency: None ___ Ensure/Plus ___ Boost/Plus ___ CIB ___ Other: G-tube: flushing BID Teas, vitamins, or other nutritional supplements: none Food allergies or avoidances: nkfa Appetite: low/10 scale :no longer has appetite or urge to eat Nausea: + Vomiting: with food Chewing: denies Dentition: upper dentures, bottom partial Swallowing: evidently painful with swallowing, throat feels sore Mouth sores: none, but red Xerostomia: +, doin soda/salt rinses at least 8 times/day, has biotene and oasis spray on board Taste Changes: +, metallic tastes Bowels: regular, has softeners on board Food availability/purchasing, meal planning and preparation: Brother on board, Oliverio prepares meals. Says he won't eat brother's food. Social Support: Nathaniel brother is helping to take care of him during treatment cell [phone] Economic Issues: [place] Physical Activity: walks dog daily, gets out at least 3-4 times daily for walks, about 10-15 minutes/time. Level of Motivation/Readiness to Change: He's in the action stage for weight loss prevention Nutrition Diagnosis: Involuntary weight loss related to increased calorie needs for [employer] and disease as evidenced by 2 kgweight loss in one week's time and impaired intake per 24 hour recall. Current regimen: 8 cans Fibersource H/N. [facility] will sent; received it this week: 7 cans Jevity 1.5/day to provide 2485 kcals, 106 grams proteinand 1260 cc water. Recommend 3 scoops protein powder a day to meet protein needs(one scoop provides6 grams protein and 25 kcals). Recommend gravity feeding method: 2 cans per feeding, spaced every 2-3 hours, with 60 ccs flush before and after each feeding. He will need an additional 580 cc's of fluids either via tube or taken p.o. May be experiencing anticipatory nausea as everything he attempts to take down makes him gag or want to vomit. Also, needs to increase his fluid/water intake. Isabella Garcia RN and I discussed timingwith compazine and p.o. Intake for nauseau. Also to increase fluid intake and 1 L of additional water through the tube to replenish fluid needs. Nutrition Intervention: Increase caloric And protein needs:see above Increase frequency of meals and snacks: g-tube recommendations, as much p.o. As tolerable Need for supplements: Nutrition Goals: Weight maintenance and LBM preservation for [employer]. Educational Handouts provided: -- G-tube/J-tube feeding booklet [...] on filedocumented in this encounter Care Teams Wrapper Layer Relationship Specialty Start Date End Date Josué Huff MD [address] [place] [id number] PCP - General 08/02/11 documented as of this encounter
--- OUTSIDE RECORDS SUMMARY | 2024-05-03 16:12 | XMS_ITS | Encounter Summary ---
Author Organization [facility] [place] [address] Care Team Providers Care Fusion Analyst Name Role Phone Josué Huff MD Primary Care Provider Reason for Visit * Reason Comments Tonsil Cancer weekly cisplat first dose concurrent with radiation Encounter Details Date Type Department Care Team (Late st Contact Info) Description 09/20/2011 9:00 AM EDT Office Visit Hematology Oncology at [address] [phone] CLINIC, DR MOLINA HEM/ONC Chaim Lema MD [address] [place] [address] Tonsil cancer (Primary Dx) Discharge Disposition: Home Social [...] Sign Reading Time Taken Comments Blood Pressure 130/65 09/20/2011 8:50 AM EDT Pulse 56 09/20/2011 8:50 AM EDT Temperature 36.3 ??C (97.3 ??F) 09/20/2011 8:50 AM ED T Respiratory Rate 18 09/20/2011 8:50 AM EDT Oxygen Saturation 98% 09/20/2011 8:50 AM EDT Inhaled Oxygen Concentration - - Weight 103 kg (227 lb 1.2 oz) 09/20/2011 8:50 AM EDT Height 177 cm (5' 9.69) 09/20/2011 8:50 AM EDT Body Mass Index 32.88 09/20/2011 8:50 AM EDT documented in this encounter Progress Notes * Odalis Copeland RN - 09/20/2011 1:51 PM EDT INFUSION THERAPY ADMINISTRATION NOTES TIME TREATMENT STARTED: 839 TIME TREATMENT ENDED: 1234 DIAGNOSIS: Tonsil cancer PROTOCOL:na CYCLE #: week # 1 REASON FOR VISIT: Cisplatin concurrent with radiation SUBJECTIVE Oliverio Nava Salazar Tamiko offers no complaints. OBJECTIVE LAB DATA: Labs reviewed and found adequate for treatment. Pre administration: Chemotherapy orders independently verified for drug name, route, and dosage per patient's height, weight and BSA by Franco Copeland RN and William Stokes RN. Reviewed discharge instructions per yellow discharge booklet with patient. All phone numbers reviewed and questions answered. Patient receiving prescriptions for ativan and compazine from [place] they have not arrived yet expecting them any time. REACTIONS (DESCRIPTION, TIME, INTERVENTION AND EFFECTIVENESS) none ASSESSMENT Oliverio Salazar Jr. was awake, alert and he tolerated treatment well. PLAN Return to clinic tomorrow for more radiation and next week for more chemotherapy. documented in this encounter Procedure Notes * Provider, Scanning - 09/20/2011 3:00 PM EDTAssociated Order(s): SCAN DOC: CHEMOTHERAPY * Provider, Scanning - 09/20/2011 3:00 PM EDTAssociated Order(s): SCAN DOC: CHEMOTHERAPY documented in this encounter Plan of Treatment Not on file documented as of this encounter Procedures Procedure Name Priority Date/Time Associated Diagnosis Comments CHEMOTHERAPY SCAN 09/20/2011 3:0 0 PM EDT CHEMOTHERAPY SCAN 09/20/2011 3:0 0 PM EDT documented in this encounter Results * SCAN DOC: CHEMOTHERAPY (09/20/2011 3:00 PM EDT) Narrative 09/20/2011 3:00 PM EDT Procedure Note Provider, Scanning - 09/20/2011 3:00 PM EDT Scanning Provider MEDIA MGR SCAN EXT O RDR/RSLT * SCAN DOC: CHEMOTHERAPY (09/20/2011 3:00 PM EDT) Narrative 09/20/2011 3:00 PM EDT Procedure Note Provider, Scanning - 09/20/2011 3:00 PM EDT Scanning Provider MEDIA MGR SCAN EXT O RDR/RSLT documented in this encounter Visit Diagnoses Diagnosis Tonsil cancer- Primary Malignant neoplasm of tonsil documented in this encounter Administered Medications Inactive Administered Medications - up to 3 most recent administrations Medication Order MAR Action Action Date Dose Rate Site CISplatin (PLATINOL) 88 mg in sodium chloride 0.9% 1,088 mL chemo infusion 88 mg, Intravenous, ONCE, 1 dose, On Maite 09/20/11 at 0900, Administer over 60 Minutes New Bag 09/20/2011 11:13 AM EDT 88 mg 1088 mL/hr dexamethasone sodium (PF) 10 mg in sodium chloride 0.9% 51 mL IVPB Intravenous, at 204 mL/hr, ONCE, On Maite 09/20/11 at 0900, 1 dose Given 09/20/2011 10:55 AM EDT 204 mL/hr dextrose 5% and sodium chloride 0.9% 1,000 mL with potassium chloride 20 mEq, magnesium sulfate 2 g infusion at 500 mL/hr, Intravenous, ONCE, 1 dose, On Maite 09/20/11 at 0900 New Bag 09/20/2011 9:00 AM EDT 500 mL/hr LORazepam (ATIVAN) tablet 1 mg 1 mg, Oral, ONCE, 1 dose, On Maite 09/20/11 at 1100, Routine Given 09/20/2011 9:35 AM EDT 1 mg palonosetron (ALOXI) injection 0.25 mg 0.25 mg, Intravenous, ONCE, 1 dose, On Maite 09/20/11 at 0900, Routine Given 09/20/2011 10:50 AM EDT 0.25 mg documented in this encounter Care Teams Fusion Analyst Relationship Specialty Start Date End Date Josué Huff MD [address] [place] [id number] PCP - General 08/02/11 documented as of this encounter
--- OUTSIDE RECORDS SUMMARY | 2024-05-03 16:12 | XMS_ITS | Encounter Summary ---
Author Organization [facility] [place] [address] Care Team Providers Care Administrative Services Coordinator Name Role Phone Josué Huff MD Primary Care Provider [phone] Encounter Details Date Type Department Care Team (Late st Contact Info) Description 10/09/2011 Orders Only Radiation Oncology at [address] [phone] [facility] [place] [address] Head and neck cancer (Primary Dx) Social [...] neck documented in this encounter Care Teams Administrative Services Coordinator Relationship Specialty Start Date End Date Josué Huff MD [address] [place] [id number] PCP - General 08/02/11 documented as of this encounter
--- OUTSIDE RECORDS SUMMARY | 2024-05-03 16:12 | XMS_ITS | Encounter Summary ---
Author Organization [facility] [place] [address] Care Team Providers Care Independent Consultant Name Role Phone Josué Huff MD Primary Care Provider [phone] Encounter Details Date Type Department Care Team (Late st Contact Info) Description 10/24/2011 Orders Only [place] [phone] Meseret Trujillo, RN Social History Tobacco Use Types Packs/Day Years [...] on filedocumented in this encounter Care Teams Independent Consultant Relationship Specialty Start Date End Date Josué Huff MD [address] [place] [id number] PCP - General 08/02/11 documented as of this encounter
--- OUTSIDE RECORDS SUMMARY | 2024-05-03 16:12 | XMS_ITS | Encounter Summary ---
[place] [address] Care Team Providers Care Mate Fourth Name Role Phone Josué Huff MD Primary Care Provider [phone] Reason for Visit * Reason Comments Simulation Head & Neck Cancer Encounter Details Date Type Department Care Team (Late st Contact Info) Description 10/22/2011 1:00 PM EDT Initial consult [place] [phone] Social History Tobacco Use Types Packs/Day Years [...] Sign Reading Time Taken Comments Blood Pressure 87/58 10/22/2011 1:10 PM EDT Pulse 74 10/22/2011 1:10 PM EDT Temperature 37.1 ??C (98.8 ??F) 10/22/2011 1:10 PM ED T Respiratory Rate 20 10/22/2011 1:10 PM EDT Oxygen Saturation 98% 10/22/2011 1:10 PM EDT Inhaled Oxygen Concentration - - Weight - - Height - - Body Mass Index - - documented in this encounter Plan of Treatment Not on file documented as of this encounter Visit Diagnoses Not on filedocumented in this encounter Care Teams Mate Fourth Relationship Specialty Start Date End Date Josué Huff MD [address] [place] [id number] PCP - General 08/02/11 documented as of this encounter
--- OUTSIDE RECORDS SUMMARY | 2024-05-03 16:12 | XMS_ITS | Encounter Summary ---
Author Organization [facility] [place] [address] Care Team Providers Care Intelligence Operations Name Role Phone Josué Huff MD Primary Care Provider [phone] Reason for Visit * Reason Comments Radiation Treatment Encounter Details Date Type Department Care Team (Late st Contact Info) Description 10/05/2011 10:30 AM EDT Follow-Up Radiation Oncology at [address] [phone] Joel Crowell MD Tonsil cancer (Primary Dx) Discharge Disposition: Home [...] Sign Reading Time Taken Comments Blood Pressure 96/57 10/05/2011 11:20 AM EDT Pulse 56 10/05/2011 11:20 AM EDT Temperature 36.8 ??C (98.2 ??F) 10/05/2011 11:20 AM E DT Respiratory Rate 16 10/05/2011 11:20 AM EDT Oxygen Saturation 96% 10/05/2011 11:20 AM EDT Inhaled Oxygen Concentration - - Weight 101.2 kg (223 lb) 10/05/2011 11:20 AM EDT Height - - Body Mass Index 32.29 09/26/2011 8:30 AM EDT documented in this encounter Progress Notes * Joel Crowell MD - 10/05/2011 3:32 PM EDT 10/05/2011 ON TREATMENT VISIT: PATIENT STATUS: Squamous cell carcinoma of the tonsil, [id number] . TREATMENT PLAN: RADIATION: Site Technique Dose/ Fraction Fraction Number MeV p e TOTAL DOSE Treatment Dates PTV 56 VMAT 160 35 p 5600 0/03 to PTV 63 180 35 p 6300 PTV 70 200 35 p 7000 DOSE to DATE: 2400 cGy in 12 FX RADIATION TREATMENT IMAGING: matches original approved images ON TREATMENT EVALUATION: MEDICAL: wt down 2 kg ( about 5 # in one week everything makes him nauseated and doesn't eat. Gr 2-3 odynophagia CONTROLLED WITH PERCOCET), no dysphagia, chest pain, or vomiting PHYSICAL: portal areas with brisk erythema only--is creaming. Signs of early dehydration.. AIDS: given compazine, infusion and long discussion with nurse and polytechnic teacher LABS: TOXICITY:2+ REFER TO SET O TYPE OPERATOR & NURSES UPDATED NOTES RESPONSE TO TREATMENT:GUARDED MANAGEMENT PLAN: CONTINUE TREATMENT PLANNED: XX CHANGE TREATMENT HOLD TREATMENT STOP TREATMENT Discussion time with patient (face to face) 15 min. documented in this encounter Plan of Treatment Not on file documented as of this encounter Visit Diagnoses Diagnosis Tonsil cancer- Primary Malignant neoplasm of tonsil documented in this encounter Care Teams Intelligence Operations Relationship Specialty Start Date End Date Josué Huff MD [address] [place] [id number] PCP - General 08/02/11 documented as of this encounter
--- OUTSIDE RECORDS SUMMARY | 2024-05-03 16:12 | XMS_ITS | Encounter Summary ---
Author Organization [facility] Address [facility] [place] [address] Care Team Providers Care Zipper Trimmer Hand Name Role Phone Josué uHff MD Primary Care Provider [phone] Reason for Visit * Reason Comments Chemotherapy Encounter Details Date Type Department Care Team (Late st Contact Info) Description 09/26/2011 10:00 AM EDT Office Visit Hematology Oncology at [address] [phone] CLINIC, DR MOLINA HEM/ONC Joel Miller MD [facility] HEMATOLOGY/[place] [address] Tonsillar cancer (Primary Dx) Discharge Disposition: Home [...] as of this encounter Progress Notes * Vicki Stokes RN - 09/26/2011 10:02 AM EDT TIME TREATMENT STARTED: 915 TIME TREATMENT ENDED: 1350 Oliverio Salazar Jr., 61 y.o. male with diagnosis of tonsillar cancer is here for chemotherapy infusion of cisplatin. PROTOCOL: no CYCLE: weekly, concurrent WEEK: 2 S: Pt. offers no complaints. O: Chemotherapy orders independently verified for drug name, route and dosage per patient's height,weight and BSA by Odalis Copeland, RN and Vicki Stokes RN. REACTIONS (DESCRIPTION, TIME, INTERVENTION AND EFFECTIVENESS) none A: Pt. Tolerated treatment well. Oliverio Nava Martin García confirms that all questions and issues have been addressed. P: Return to clinic as scheduled. documented in this encounter Plan of Treatment [...] 88 mg, Intravenous, ONCE, 1 dose, On Sat09/26/11 at 1000, Administer over 60 Minutes New Bag 09/26/2011 12:31 PM EDT 88 mg 1088 mL/hr dexamethasone sodium (PF) 10 mg in sodium chloride 0.9% 51 mL IVPB Intravenous, at 204 mL/hr, ONCE, On Sat09/26/11 at 1000, 1 dose Given 09/26/2011 11:45 AM EDT 204 mL/hr dextrose 5% and sodium chloride 0.9% 1,000 mL with potassium chloride 20 mEq, magnesium sulfate 2 g infusion at 500 mL/hr, Intravenous, ONCE, 1 dose, On Sat09/26/11 at 1000 New Bag 09/26/2011 9:30 AM EDT 500 mL/hr palonosetron (ALOXI) injection 0.25 mg 0.25 mg, Intravenous, ONCE, 1 dose, On Sat09/26/11 at 1000, Routine Given 09/26/2011 11:41 AM EDT 0.25 mg documented in this encounter Care Teams Zipper Trimmer Hand Relationship Specialty Start Date End Date Josué Huff MD [address] [place] [id number] PCP - General 08/02/11 documented as of this encounter
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
--- OUTSIDE RECORDS SUMMARY | 2024-05-03 16:12 | XMS_ITS | Encounter Summary ---
Author Organization [facility] Address [facility] [place] [address] Care Team Providers Care Field Account Manager Name Role Phone Josué Huff MD Primary Care Provider [phone] Reason for Visit * Reason Comments Head And Neck Cancer Encounter Details Date Type Department Care Team (Late st Contact Info) Description 10/10/2011 9:00 AM EDT Follow-Up Hematology Oncology at [address] [phone] Joel Miller MD [facility] HEMATOLOGY/[place] [address] Head and neck cancer (Primary Dx) Discharge [...] Sign Reading Time Taken Comments Blood Pressure 109/61 10/10/2011 8:57 AM EDT Pulse 58 10/10/2011 8:57 AM EDT Temperature 36.8 ??C (98.2 ??F) 10/10/2011 8:57 AM ED T Respiratory Rate 16 10/10/2011 8:57 AM EDT Oxygen Saturation 95% 10/10/2011 8:57 AM EDT Inhaled Oxygen Concentration - - Weight 100 kg (220 lb 7.4 oz) 10/10/2011 8:57 AM EDT Height 177 cm (5' 9.69) 10/10/2011 8:57 AM EDT Body Mass Index 31.92 10/10/2011 8:57 AM EDT documented in this encounter Progress Notes * Joel Miller MD - 10/10/2011 9:10 AM EDT Problem list #1 head and [...] traumatic back injury with chronic pain [place] Medication list #1 terazocin 10 mg at bedtime #2 oxybutynin #3 trazodone #4 melatonin #5 oxycodone History of present illness He is here today for his cisplatin this will be dose #4, his first dose was given September 19, 2011. He is not having mucositis yet but he is getting mild soreness of his mouth, but he is having problems eating because of food tastes so bad makes him sick to stomach when he tries to eat. He has beenusing his PEG tube without difficulty and maintaining his nutritional status. Overall he is tolerating this fairly well. 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 [...] treatment. He has 2 daughters one in [place] one in [place]. He was a [place] war grew up in [facility]. His father was clearing hand. Labs White count 3.28 hemoglobin 13 platelets 168 creatinine 1.0 BUN 23 calcium 8.9 albumin 3.7 total protein 7.2 Assessment This is a 61-year-old white male who has completed 3-1/2 weeks of radiation for head and neck cancer, along with low-dose weekly cis-kletsel dehe wintun total dose 88 mg. He is having mostly problems with taste. He isn't having much trouble with radiation mucositis yet although he is beginning as early symptoms his biggest problem is food tastes bad and actually made him throughout when he tried some peach.He is feeding himself through his PEG tube and is working well he has an albumin of 3.7. Final dose of radiation to be given November 08 Plan #1 continue low-dose weekly cis-kletsel dehe wintun 88 mg See me next week, no labs This note was created using [employer] voice recognition software. It was reviewed for [...] neck documented in this encounter Care Teams Field Account Manager Relationship Specialty Start Date End Date Josué Huff MD [address] [place] [id number] PCP - General 08/02/11 documented as of this encounter
--- OUTSIDE RECORDS SUMMARY | 2024-05-03 16:12 | XMS_ITS | Encounter Summary ---
Author Organization [facility] [place] [address] Care Team Providers Care Chair Car Attendant Name Role Phone Josué Huff MD Primary Care Provider [phone] Reason for Visit * Reason Comments Simulation head & neck cancer Encounter Details Date Type Department Care Team (Latest Contact Info) Description 10/22/2011 1:00 PM EDT Ancillary Appointment [place] [address] Jacoby Gaines MD [facility] [place] [address] Squamous cell carcinoma of tonsil (Primary Dx); Hx of CT scan Social History Tobacco Use Types Packs/Day Years [...] Progress Notes * Jacoby Gaines MD - 10/24/2011 7:43 AM EDT Simulation was performed in anticipation of adaptive radiotherapy for squamous cell carcinoma of the head and neck because of significant weight loss. An intravenous line was placed in anticipation of contrast administration. The patient was then brought to the simulation room and a time-out was performed per protocol. he was then placed on the simulation table and a new custom cushion was constructed for his neck. A custom aquaplast mask was then created. The simulation CT scan was performed with contrast, images were reviewed and approved by the physician. The patient tolerated the procedure without difficulty. * Ronnie Meseret Manuel RN - 10/22/2011 12:18 PM EDT Section of Radiation Oncology Contrast Information Safety Questions 1. Has the patient ever had an x-ray study before which involved injection of a contrast agent or x-ray dye? yes If yes, did the patient have any reaction to the injection? no If yes, please describe the reaction: 2. Is the patient allergic to any foods, medicines, or other substances? no No Known Allergies 3. Has the patient received any contrast within the past 48 hours? no 4. Does the patient have any procedures scheduled in the next 48 hours? no 5. Does the patient have a history of kidney disease or kidney problems? no 6. Does the patient have a history of asthma? no 7. Does the patient have a history of multiple myeloma? no 8. Does the patient have diabetes? no 9. Is the patient currently taking or have they ever taken glucophage or metformin? [x} No If yes, when was last dose taken? 10. Has the patient had a creatinine level drawn within the past 30 day? no No results found for this basename: creatinine If no, when will it be drawn? Today when port is accessed. Result is 1.20 11. If patient is on glucophage or metformin, have they been instructed to stop it for the next [address] simulation and have repeat creatinine drawn prior to restarting? n/a Was creatinine ordered? n/a Where will creatinine be drawn? CT Contrast Simulation Nursing Note: Oliverio Salazar Jr. [id number] 08/14/1988 IV ACCESS: power port GAUGE: 22 BLOOD RETURN: yes CT simulation of: Head & neck MD present for contrast injection: Dr. Gaines Contrast material: Omnipaque 300mgI/ml Volume of Contrast Injected: 100 ml's Volume of Contrast wasted: 0 ml's Procedure done in Radiation Oncology CT Simulator Room _x_: No Reaction Any S/Sx of Infiltration/Extravasation: none IV discontinued: yes, Power Port flushed with 500 units of heparin and munoz needle removed, site covered with bandaid. __: Reaction: Specify : Comments: documented in this encounter Plan of Treatment Not on file documented as of this encounter Results * Creatinine, serum (10/22/2011 12:30 PM EDT) [facility] Signature Creatinine 1.20 0.80 - 1.50 mg/dL [facility] Comment: Please note that the pediatric reference intervals supplied above were not validated at [facility]. Results from pediatric patients should be interpreted in conjunction to the patient's age, height and muscle mass. Est Glomerular Filtration Rate >60 >=60 [facility] Comment: The National Kidney Disease Education Program [...] Gaines MD CHEMISTRY ORDERABLES Performing Organization Address City/State/[facility] Co de Phone Number [facility] documented in this encounter Visit Diagnoses Diagnosis Squamous cell carcinoma of tonsil- Primary Malignant neoplasm of tonsil Hx of CT scan Other specified personal history presenting hazards to health documented in this encounter Care Teams Chair Car Attendant Relationship Specialty Start Date End Date Josué Huff MD [address] [place] [id number] PCP - General 08/02/11 documented as of this encounter
--- OUTSIDE RECORDS SUMMARY | 2024-05-03 16:12 | XMS_ITS | Encounter Summary ---
Author Organization [facility] [place] [address] Care Team Providers Care Boom Storage Name Role Phone Josué Huff MD Primary Care Provider [phone] Encounter Details Date Type Department Care Team (Late st Contact Info) Description 09/12/2011 Orders Only Hematology Oncology at [address] [phone] Odalis Copeland RN Tonsil cancer (Primary Dx) Social History Tobacco [...] tonsil documented in this encounter Care Teams Boom Storage Relationship Specialty Start Date End Date Josué Huff MD [address] [place] [phone] PCP - General 08/02/11 documented as of this encounter
--- OUTSIDE RECORDS SUMMARY | 2024-05-03 16:12 | XMS_ITS | Encounter Summary ---
Author Organization [facility] [place] [address] Care Team Providers Care Induction Heating Equipment Setter Name Role Phone Josué Huff MD Primary Care Provider [phone] Encounter Details Date Type Department Care Team (Late st Contact Info) Description 09/20/2011 Notes Only Hematology Oncology at [address] [phone] Mary Mcdermott, [facility] OFFICE OF CARE MANAGEMENT Social History Tobacco Use Types Packs/Day Years [...] as of this encounter Progress Notes * Mary Mcdermott MSW - 09/20/2011 1:28 PM EDT Reason for Referral - Brief assessment of social/emotional needs. Met with pt during infusion today. Social Supports - Pt is . His in 2008. He has 2 daus from his first marriage and they live in [place] and [place]. Pt's had 4 children and pt remains close to her son Oscar. Pt has 3 brothers and 1 sister who live in the area. His brother Nathaniel lives with pt. Pt's mother also lives in the area. She has dementia but is able to live in her own home with family as caregivers. Pt's father is . Living Situation/Daily Activities/Transportation - Pt lives near the cancer center. His brother lives with him. Pt manages his daily activities. He does have a cleaning lady that comes 1x week. Pt loves to garden and can. His brother is going to maintain their garden this summer. Pt does drive. Hisbrother is available to transport pt to appointments. Work/Finances/Insurance Issues - Pt is on disabled . He lives on SS and [facility] from [facility]. He has Medicare and a secondary insurance. He gets his [facility]. He indicated he manages his financial obligations. Advance Directives - Pt reports they are done and in place. Adjustment to Illness - Pt indicated he is coping as best he can. He did share his 's long contreras with cancer. He feels well supported by his family. Assessment/Plan - Starting treatments. Has family support. Informed pt of my availability and will plan to follow to assist with resources and support. documented in this encounter Plan of Treatment Not on file documented as of this encounter Visit Diagnoses Not on filedocumented in this encounter Care Teams Induction Heating Equipment Setter Relationship Specialty Start Date End Date Josué Huff MD [address] [place] [address] PCP - General 08/02/11 documented as of this encounter
--- OUTSIDE RECORDS SUMMARY | 2024-05-03 16:12 | XMS_ITS | Encounter Summary ---
Author Organization [facility] [place] [address] Care Team Providers Care Group Captain Name Role Phone Josué Huff MD Primary Care Provider [phone] Reason for Visit * Reason Comments Chemotherapy Cisplatin Week 4 (co ncurrent with xrt) Encounter Details Date Type Department Care Team (Late st Contact Info) Description 10/10/2011 10:00 AM EDT Office Visit Hematology Oncology at [address] [phone] CLINIC, DR MOLINA HEM/ONC Squamous cell carcinoma of tonsil Social History [...] Progress Notes * Aster Hathaway RN - 10/10/2011 11:28 AM EDT INFUSION THERAPY ADMINISTRATION NOTES TIME TREATMENT STARTED: 919 TIME TREATMENT ENDED: 1414 DIAGNOSIS: Tonsil Cancer PROTOCOL: no CYCLE #: week 4 (concurrent with xrt) REASON FOR VISIT: Cisplatin infusion SUBJECTIVE Oliverio Salazar Jr. offers no complaints. OBJECTIVE LAB DATA: Labs reviewed and found adequate for treatment. IF PAIN IS >5, INTERVENTION AND EFFECTIVENESS: n/a HYDRATION, RATE, START TIME, STOP TIME NS @ KVO, 0935 Pre administration: Chemotherapy orders independently verified for drug name, route, and dosage per patient's height, weight and BSA by Asetr Hathaway RN and Vicki Vazquez RN. REACTIONS (DESCRIPTION, TIME, INTERVENTION AND EFFECTIVENESS) none ASSESSMENT Oliverio Salazar Jr. was awake, alert and he tolerated treatment well. PLAN Return to clinic next week for consideration of week 5 cisplatin documented in this encounter Plan of Treatment [...] 88 mg, Intravenous, ONCE, 1 dose, On Sat10/10/11 at 1000, Administer over 60 Minutes New Bag 10/10/2011 12:39 PM EDT 88 mg 1088 mL/hr dexamethasone sodium (PF) 10 mg in sodium chloride 0.9% 51 mL IVPB Intravenous, at 204 mL/hr, ONCE, On Sat10/10/11 at 1000, 1 dose Given 10/10/2011 11:51 AM EDT 204 mL/hr dextrose 5% and sodium chloride 0.9% 1,000 mL with potassium chloride 20 mEq, magnesium sulfate 2 g infusion at 500 mL/hr, Intravenous, ONCE, 1 dose, On Sat10/10/11 at 1000, Start pre cisplatin New Bag 10/10/2011 9:35 AM EDT 500 mL/hr palonosetron (ALOXI) injection 0.25 mg 0.25 mg, Intravenous, ONCE, 1 dose, On Sat10/10/11 at 1000, Pre chemo, Routine Given 10/10/2011 11:48 AM EDT 0.25 mg documented in this encounter Care Teams Group Captain Relationship Specialty Start Date End Date Josué Huff MD [address] [place] [id number] PCP - General 08/02/11 documented as of this encounter
--- OUTSIDE RECORDS SUMMARY | 2024-05-03 16:12 | XMS_ITS | Encounter Summary ---
Author Organization [facility] Address [facility] [place] [address] Care Team Providers Care Competency Evaluated Nurse Aide Name Role Phone Josué Huff MD Primary Care Provider [phone] Encounter Details Date Type Department Care Team (Late st Contact Info) Description 10/01/2011 Orders Only Hematology Oncology at [address] [phone] Joel Miller MD [facility] DR HEMATOLOGY/[place] [address] Social History Tobacco Use Types Packs/Day Years [...] Diagnosis Comments FILM LIBRARY STORAGE ONLY CT HEAD AND SPINE Routine 10/01/2011 10:00 AM EDT documented in this encounter Results * FILM LIBRARY- STORAGE ONLY CT HEAD AND SPINE (10/01/2011 10:00 AM EDT) 10/01/2011 10:0 0 AM EDT Narrative [facility] - 10/28/2013 3:00 PM EDT This is a non-reportable exam. Procedure Note Alex Muñoz - 10/28/2013 This is a non-reportable exam. Joel Miller MD IM FILM LIBRARY ORD ERABLES RAD [id number] [place] [address] documented in this encounter Visit Diagnoses Not on filedocumented in this encounter Care Teams Competency Evaluated Nurse Aide Relationship Specialty Start Date End Date Josué Huff MD [address] [place] [id number] PCP - General 08/02/11 documented as of this encounter
--- OUTSIDE RECORDS SUMMARY | 2024-05-03 16:12 | XMS_ITS | Encounter Summary ---
Author Organization [facility] Address [facility] [place] [address] Care Team Providers Care Lace And Textiles Restorer Name Role Phone Josué Huff MD Primary Care Provider [phone] Encounter Details Date Type Department Care Team (Late st Contact Info) Description 08/24/2011 2:30 PM EDT - 08/24/2011 4:00 PM EDT Surgery [place] [address] Verónica Kellogg MD [facility] [place] [address] ENDOBRONCHIAL ULTRASOUND (EBUS) Social History Tobacco Use Types Packs/Day Years [...] Saturday -Saturday, 8:00am to 5:00pm, . The alumni secretary will need your name, medical problem, and date of bronchoscopy. All other hours call [phone] and ask to speak to the pulmonary doctor destination specialist. * Attachments The following attachments cannot be sent through Care Everywhere. * BRONCHOSCOPY: WHAT TO EXPECT AT HOME (INDONESIAN) documented in this encounter Medications at Time [...] encounter Miscellaneous Notes * Miscellaneous - Provider, Yasir - 08/25/2011 6:29 AM EDT * Miscellaneous - Provider, Scanning - 08/24/2011 2:19 PM EDT documented in this encounter Plan of Treatment Not on file documented as of this encounter Procedures Procedure Name Priority Date/Time Associated Diagnosis Comments NON-PHYSICAL THERAPIST ASSISTANT FINAL REPORT Routine 08/24/2011 5:49 PM EDT CYTOPATHOLOGY NON-GYNECOLOGICAL Routine 08/24/2011 4:40 PM EDT ENDOBRONCHIAL ULTRASOUND (EBUS) 08/24/2011 3:12 PM EDT Squamous cell carcinoma ENDOBRONCHIAL ULTRASOUND (EBUS) Routine 08/24/2011 2:26 PM EDT documented in this encounter Results * NON-PHYSICAL THERAPIST ASSISTANT FINAL REPORT (08/24/2011 5:49 PM EDT) Non-Fitness And Wellness Instructor Final Report ? [facility] ? Provider: ?? VERÓNICA KELLOGG ? Pt. Name: ?? OLIVERIO NICOLE JR ? Acc #: ?[id number] ?Pt. ? Col Date: ?? 08/24/2011 ?/Sex: [...] ? Total number of passes: ??5 ? [facility] ? Provider: ?? VERÓNICA KELLOGG ? Pt. Name: ?? OLIVERIO NICOLE JR ? Acc #: ?[id number] ?Pt. ? Col Date: ?? 08/24/2011 ?/Sex: [...] diagnostic comments for completed ? interpretation. [facility] 08/24/2011 5:49 PM EDT Verónica Kellogg MD PATHOLOGY/CYTOLOGY O ROBERTO Performing Organization Address [facility] Co de Phone Number [facility] * Cytopathology Non-Gynecological (08/24/2011 4:40 PM EDT) AP Specimen 08/24/2011 4:40 PM EDT 08/24/2011 4:[address] PM ED[address] [facility] - 08/24/2011 4:40 PM EDT Specimen requisition ordered. ??Separate Pathology report to follow Verónica Kellogg MD PATHOLOGY/CYTOLOGY O ROBERTO Performing Organization Address [facility] Co de Phone Number [facility] * ENDOBRONCHIAL ULTRASOUND (EBUS) (08/24/2011 2:26 PM EDT) EBUS [facility] Bronchoscopy Patient Name: Oliverio Nicole ? Procedure Date: 08/24/2011 2:26 PM ? Age: 61 ? Procedure: ?Ebus Indications: ?Pretracheal adenopathy Providers: ?Verónica Kellogg MD, Fish Alba ?MD Mahi (Fellow), Mary [...] above. Recommendation: ? Await test results. Verónica Kellogg MD 08/24/2011 5:05 PM ? Verónica Kellogg MD 08/24/2011 5:05 PM Number of Addenda: 0 Note Initiated On: 08/24/2011 2:26 PM [employer] 08/24/2011 2:26 PM EDT Josué Huff MD GENERAL SURGICAL ORD ERABLES Performing Organization Address City/State/[facility] Co de Phone Number [employer] documented in this encounter Visit Diagnoses Diagnosis Squamous cell carcinoma Other malignant neoplasm without specification of site documented in this encounter Active and Recently Administered Medications Care Teams Lace And Textiles Restorer Relationship Specialty Start Date End Date Josué Huff MD [address] [place] [address] PCP - General 08/02/11 documented as of this encounter
--- OUTSIDE RECORDS SUMMARY | 2024-05-03 16:12 | XMS_ITS | Encounter Summary ---
Author Organization [facility] [place] [address] Care Team Providers Care Electronic Parts Salesperson Name Role Phone Josué Huff MD Primary Care Provider [phone] Encounter Details Date Type Department Care Team (Late st Contact Info) Description 09/28/2011 11:00 AM EDT Ancillary Appointment Hematology Oncology at [address] [phone] [facility] [place] [address] Social History Tobacco Use Types Packs/Day Years [...] Progress Notes * William Petit RD - 09/28/2011 12:24 PM EDT [facility] Dietitian Follow Up Seen By: Monet Petit MS, RD, LD Referred by: H/N team, Guanako Garrido RD at OR Reason for visit: Patient and diagnosis: 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 Assessment: HPI: He is now completed the first week [...] yeast infection he had back in June Meds: reviewed Labs: noted Ht: Oncology Vitals 09/20/2011 Height 177 cm Wt: Oncology Vitals 09/20/2011 Weight 103 kg Wt Hx: UBW: 220 lbs % UBW: IBW: 160 +/- 10 % ( 80 kg) % IBW: 128.75% BMI:32.9 ___ Edema ___ Ascites ___Muscle wasting Calorie needs: 25 -30 @ 80 k - 2400 kcals Protein needs: 1.5 @ 80 k kg Food Intake: Able to get a few sips of Ensure in, but tastes horrible and may come back up because of this. One can takes a couple of hours to take. PO: oatmeal, cream of wheat, milk G-tube: continues to flush daily with water Supplements/Frequency: None __X_ Ensure/Plus ___ Boost/Plus ___ CIB ___ Other: G-tube: flushing BID Teas, vitamins, or other nutritional supplements: none Food allergies or avoidances: nkfa Appetite: low/10 scale : I want to eat, but it isn't because I feel hungry. Nausea: denies Vomiting: denies, but had some regurgitation Chewing: denies Dentition: upper dentures, bottom partial Swallowing: denies Mouth sores: denies Xerostomia: +, doin soda/salt rinses, has biotene and oasis spray on board Taste Changes: +, metallic tastes Bowels: regular, has softeners on board Food availability/purchasing, meal planning and preparation: Brother on board, Oliverio prepares meals. Says he won't eat brother's food. Social Support: Nathaniel, brother is helping to take care of him during treatment cell [phone] Economic Issues: [place] Physical Activity: walks dog daily, gets out at least 3-4 times daily for walks, about 10-15 minutes/time. 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 We discussed tube feedings, formula, amount, additional fluid needs and I demonstrated the method of delivery with a gravity bag. Left voice message with Guanako Garrido RD at OR regarding TF and supplement recommendations. Will need [...] Weight maintenance and LBM preservation for MARINE SERVICE MANAGER. Educational Handouts provided: -- G-tube/J-tube feeding booklet Other Recommendations: none Monitoring and Evaluation: Will [...] on filedocumented in this encounter Care Teams Electronic Parts Salesperson Relationship Specialty Start Date End Date Josué Huff MD [address] [place] [phone] PCP - General 08/02/11 documented as of this encounter
--- OUTSIDE RECORDS SUMMARY | 2024-05-03 16:12 | XMS_ITS | Encounter Summary ---
Author Organization [facility] Address [facility] [place] [address] Care Team Providers Care Trimmer Loader Name Role Phone Josué Huff MD Primary Care Provider [phone] Reason for Visit * Reason Comments Chemotherapy Encounter Details Date Type Department Care Team (Charito st Contact Info) Description 10/03/2011 11:30 AM EDT Office Visit Hematology Oncology at [address] [phone] Eva Palmer MD [facility] [place] [address] CLINIC, DR MOLINA HEM/ONC Tonsillar cancer (Primary Dx) Discharge Disposition: Home [...] Sign Reading Time Taken Comments Blood Pressure 112/64 10/03/2011 11:30 AM EDT Pulse 55 10/03/2011 11:30 AM EDT Temperature 36.7 ??C (98.1 ??F) 10/03/2011 11:30 AM E DT Respiratory Rate 16 10/03/2011 11:30 AM EDT Oxygen Saturation 98% 10/03/2011 11:30 AM EDT Inhaled Oxygen Concentration - - Weight - - Height - - Body Mass Index - - documented in this encounter Progress Notes * Vicki Stokes RN - 10/03/2011 4:26 PM EDT TIME TREATMENT STARTED: 1130 TIME TREATMENT ENDED: 1600 Oliverio Salazar Jr., 61 y.o. male with diagnosis of tonsillar cancer is here for chemotherapy infusion of cisplatin. PROTOCOL: no CYCLE: wejann, osmar WEEK: 3 S: Pt. offers no complaints. O: Chemotherapy orders independently verified for drug name, route and dosage per patient's height,weight and BSA by Odalis Copeland RN and Vicki Stokes RN. REACTIONS (DESCRIPTION, TIME, INTERVENTION AND EFFECTIVENESS) none A: Pt. Tolerated treatment well. Oliverio Salazar Jr. confirms that all questions and issues have [...] 88 mg, Intravenous, ONCE, 1 dose, On Sat10/03/11 at 1130, Administer over 60 Minutes New Bag 10/03/2011 2:50 PM EDT 88 mg 1088 mL/hr dexamethasone sodium (PF) 10 mg in sodium chloride 0.9% 51 mL IVPB Intravenous, at 204 mL/hr, ONCE, On Sat10/03/11 at 1130, 1 dose Given 10/03/2011 2:00 PM EDT 204 mL/hr dextrose 5% and sodium chloride 0.9% 1,000 mL with potassium chloride 20 mEq, magnesium sulfate 2 g infusion at 500 mL/hr, Intravenous, ONCE, 1 dose, On Sat10/03/11 at 1130, Start pre cisplatin New Bag 10/03/2011 11:30 AM EDT 500 mL/hr palonosetron (ALOXI) injection 0.25 mg 0.25 mg, Intravenous, ONCE, 1 dose, On Sat10/03/11 at 1130, Pre chemo, Routine Given 10/03/2011 1:45 PM EDT 0.25 mg documented in this encounter Care Teams Trimmer Loader Relationship Specialty Start Date End Date Josué Huff MD [address] [place] [id number] PCP - General 08/02/11 documented as of this encounter
--- OUTSIDE RECORDS SUMMARY | 2024-05-03 16:12 | XMS_ITS | Encounter Summary ---
Author Organization [facility] [address] [place] [address] Care Team Providers Care Phlebotomy Services Technician Name Role Phone Josué Huff MD Primary Care Provider [phone] Reason for Visit * Reason Comments Radiation Treatment Encounter Details Date Type Department Care Team (Late st Contact Info) Description 10/12/2011 10:30 AM EDT Follow-Up Radiation Oncology at [address] [phone] Jacoby Gaines MD [facility] [place] [address] Squamous cell carcinoma of tonsil (Primary Dx) [...] Sign Reading Time Taken Comments Blood Pressure 92/47 10/12/2011 11:22 AM EDT Pulse 61 10/12/2011 11:22 AM EDT Temperature 36.9 ??C (98.4 ??F) 10/12/2011 11:22 AM E DT Respiratory Rate 16 10/12/2011 11:22 AM EDT Oxygen Saturation 98% 10/12/2011 11:22 AM EDT Inhaled Oxygen Concentration - - Weight 99.3 kg (219 lb) 10/12/2011 11:22 AM EDT Height - - Body Mass Index 31.71 10/10/2011 8:57 AM EDT documented in this encounter Progress Notes * Jacoby Gaines MD - 10/12/2011 11:08 AM EDT ON TREATMENT VISIT NOTE Primary MD: JOSUÉ HUFF MD Referring MD: Self Other Involved Physicians: Venkatesh Boothe MD Focused Problem List: ?? Squamous cell carcinoma of the tonsil, [id number] ?? Presentation: ?? Onset neck stiffness 04/2011 [...] Jr. is currently undergoing radiation therapy at [facility]. Current treatment dose: 34 Gy in 17 fractions. Anticipated total dose: 70 Gy in 35 fractions. Evaluation of Port Verification Films: done Changes in medical condition: Skin: Comments: Mild erythema noted Current Regimen: Jeans cream/Aquaphor BID [...] TPN or PEG indicated NA Mucositis: Comments: increased pain, primarily with swallowing Current Pain Regimen: Percocet 5 mg prn (using 4x/day). 0 1 2 3 4 No change from baseline Injection/ may experience mild pain not requiring analgesic Patchy mucositis & analgesia indicated, altered po intake Confluent mucosits; severe pain, unable to adequatelytake nutrition po Life threatening consequences Dysphagia: Alimentation: 1. By mouth: sips water, taking medicine. Unable to take anything by mouth because of taste. 2. via PE-8 cans/day 0 1 2 3 4 No change from baseline Sx without dietary alteration Moderate sx, altered oral intake Inability toaliment orally, TPN or PEG indicated NA Weight : 231 lbs initial Change: 227=> 219 Larynx: Comments: 0 1 2 3 4 No change from baseline Mild or intermittent voice change; fully understandable, self- resolves Moderate or persistent voice change, able to vocalize; otalgia/ sore throat not requiring narcotic Whispered speech, throat pain/otalgia requiring narcotic Marked dyspnea, stridor or hemoptysis with trach or intubation necessary Other: ?? Impression: ?? Moderate toxicity, primarily dysgeusia limiting oral intake complicated by gagging. Diminished oral intake has led to consistent weight loss, director strategic account management discussing feeding strategies via G tube. Skin toxicity and mucositis moderate. Plan: ?? Continue RT per prescription ?? Pain control: ?? D/C percocet, ADD Oxycodone prn ?? Skin: Jeans cream BID ?? Mucositis: ?? Pain control: see above ?? Oral hygiene consisting of baking soda/salt rinse at least 8 times daily ?? ADD BMX ?? Alimentation: director strategic account management following ?? Weight decreased, primarily due to dysgeusia. Discussed strategies to increase oral intake =>will attempt prior zofran, benzonatate, and BMX prior to eating. ?? Dysphagia: recent Rx for benzonatate to assist with gagging, not yet using b[facility] documented in this encounter Plan of Treatment Not on file documented as of this encounter Visit Diagnoses Diagnosis Squamous cell carcinoma of tonsil- Primary Malignant neoplasm of tonsil documented in this encounter Care Teams Phlebotomy Services Technician Relationship Specialty Start Date End Date Josué Huff MD [address] [place] [address] PCP - General 08/02/11 documented as of this encounter
--- OUTSIDE RECORDS SUMMARY | 2024-05-03 16:12 | XMS_ITS | Encounter Summary ---
Author Organization [facility] [place] [address] Care Team Providers Care Child And Adolescent Therapist Name Role Phone Jw Huff MD Primary Care Provider [phone] Reason for Visit * Reason Comments Simulation Tonsil Cancer Encounter Details Date Type Department Care Team (Late st Contact Info) Description 09/06/2011 3:00 PM EDT Follow-[place] [address] NURSE, RADIATION ONCOLOGY RADIATION ONCOLOGY [facility] Jacoby Gaines MD [facility] [place] [address] Squamous cell carcinoma of tonsil (Primary Dx) [...] Sign Reading Time Taken Comments Blood Pressure 88/55 09/06/2011 3:56 PM EDT Pulse 64 09/06/2011 3:56 PM EDT Temperature 36.4 ??C (97.6 ??F) 09/06/2011 3:56 PM ED T Respiratory Rate 18 09/06/2011 3:56 PM EDT Oxygen Saturation 97% 09/06/2011 3:56 PM EDT room air Inhaled Oxygen Concentration - - Weight - - Height - - Body Mass Index - - documented in this encounter Patient Instructions * Patient Instructions* Neda Moss RN - 09/06/2011 6:27 PM EDT Section of Radiation Oncology Your team members are: Dr. Jacoby Moss RN, BSN, ANGELN Radha Marshall Private Investigator TOSIN Garcia Our normal business hours are- Saturday - Saturday 8 AM to 5 PM If you have questions about your radiation appointments please ask to speak to your health underwriter. If you have questions for your nurse about radiation treatments, radiation side effects or you are not feeling well it is best to call early in the day. This allows your nurse to return your call by 5 PM the same day. If you call after 4 PM, your nurse will return your call by 5 PM the following day. If you experience any of the following you need to seek emergency care immediately by calling 911 1. Sudden and unexpected breathing difficulty without any exertion 2. Sudden onset of chest pain 3. Sudden onset of severe pain or uncontrolled pain 4. Sudden onset of severe weakness and/or unable to ambulate 5. Sudden new onset of a seizure 6. Fall resulting in injury A Radiation Oncology doctor is research consultant after our normal hours and on weekends. To call for urgent medical issues from radiation treatments that can not wait until normal business hours, please call and have the network control operator page the Radiation Oncologist in call. documented in this encounter Progress Notes * Neda Moss RN - 09/06/2011 6:34 PM EDT Radiation Oncology Simulation Note Oliverio Martin is here for radiation planning , undergoing a simulation to the oral cavity head and neck for tonsil cancer treatment . Usual radiation oncology routines and purpose of on treatment visits were explained. Site to be treated: Head and neck Anticipatory Guidance: Instructions for Management of Radiation Side Effects for Head and Neck Cancer Patient People present for instruction: Patient and Friend Method of instruction: Verbal and Written Materials Given: _x _[facility] Radiation Oncology general information packet, _x _copy of Recommended Supply and To-do List for Head and Neck Cancer Radiation Therapy Patients, _x _brochures on mouth care and xerostomia from [employer] [place] [employer] Importance of clearance from dentist discussed: Yes patient already has clearance and [employer] Trays Equipment to consider obtaining: x_ _Humidifier _x _Water Pic _x _Suction machine if needed once well into treatment. Mouth care supplies: _x _Recipe given for salt and baking soda and water as follows, 1 teaspoon of salt and baking soda mixed in 1 quart bottle. May leave at room temperature if covered, may refrigerate. _ _Demonstration of 15 second vigorous mouth rinse. Skin care supplies: _x _Unscented soaps in the radiation field, rinse well, pat dry. _x _Wear natural fiber clothing that does not rub at the neck. Avoid friction. _ x_Use skin care products that have no aluminum, petroleum, or scent. Expected side effects: _x _Reviewed: Dysphagia, dysgeusia, anorexia, salivary changes, xerostomia, nausea, skin side effects, fatigue, deconditioning, hair loss at occipital region, submental lymphedema, Medications to manage side effects: _ x_Mouth rinses _x _Antiemetics _x _Analgesics _x _Stressed of the use of antiemetic and analgesic medications to increase the likelihood patient will continue to take nourishment by mouth, improve quality of life. _x _For concurrent chemoradiation patients, medical oncology will manage anti- emetic and analgesic medications. Ancillary therapies during and after treatment outlined: _ x_Speech therapist for swallow evaluation initially, at mid treatment and post treatment, prn as well. _x _Physical therapy while on treatment for light conditioning to conserve lean muscle mass. Manuallymphatic drainage post treatment will be needed. Weekly appointments: _x _Radiation oncologist Dr. Gaines and radiation oncology nurse _x _Dietician _ x_Medical oncology as he is receiving concurrent chemoradiation in [facility] Daily to do list given: _x _Mouth care: 8 times/day rinsing, _x _Brushing teeth 3 times, _x _Small, frequent meals, _x _Maintain weight. _x _Place list in visible place in home. Comments: spent 30 minutes discussing side effects with patient. Literature Given: yes Barriers to Treatment/ Compliance issues identified:none at this time Patient confirms they can have no difficulties lying flat/plan if needed with pre- medication made:Patient may need medication for anxiety and history of back pain Referrals: [facility] Follow up with Speech Therapy a swallowing study, insurance biller,a G-tube placement and a social science manager. * Neda Moss RN - 09/06/2011 4:08 PM EDT Section of Radiation Oncology Contrast Information Safety Questions 1. Has the patient ever had an x-ray study before which involved injection of a contrast agent or x-ray dye? yes If yes, did the patient have any reaction to the injection? no If yes, please describe the reaction: na 2. Is the patient allergic to any [...] If yes, when was last dose taken? na 10. Has the patient had a creatinine level drawn within the past 30 day? yes No results found for this basename: creatinine If no, when will it be drawn? 08/28/11 creatinine 0.9 11. If patient is on glucophage or metformin, have they been instructed to stop it for the next [address] simulation and have repeat creatinine drawn prior to restarting? [x} No Was creatinine ordered? [x} No Where will creatinine be drawn? Na Diagnosis: Tonsil Cancer IV Access: Power port mediport accessed and deaccessed by IV Team/Vascular Access Team per [facility] policy Gauge: Blood Return: Yes CT Simulation of: head and neck for tonsil cancer Objective: Pre-contrast qustionnaire completed prior to IV insertion Simulation store team leader assessed IV line patency prior to IV contrast dye MD and RN present for contrast injection and 5 minutes after: yes Volume of Contrast injected: 100ml of Omnipaque Volume of Contrast wasted: none Procedure done in Radiation Oncology 2K CT Simulator Room. Reaction: none: No adverse reaction / Patient tolerated procedure well Signs and symptoms or infiltration/extravastion: None IV discontinued: Yes Comments: Patient is aware to drink 2 liters of water in the next 48 hours and to report any reactions * Jacoby Gaines MD - 09/06/2011 3:04 PM EDT Radiation Oncology Follow Up Note Primary MD: JW HUFF MD Referring MD: Mick Other Involved Physicians: Venkatesh Boothe MD Focused Problem List: ?? Squamous cell carcinoma of the tonsil, [id number] ?? Presentation: ?? Onset neck stiffness 04/2011 [...] no definite evidence of lymph node sampling. Interval History: Oliverio Salazar Jr. returns for routine follow up having last been seen ~1 month ago. Since his last visit he underwent chest imaging which revealed a level 1 thoracic lymph node at1.5 cm, concerning for metastatic disease. He underwent an EBUS-guided biopsy and the node was feltto have diminished in size such that it was difficult to sample; pathology revealed no evidence of malignancy but also no definitive evidence of lymph node sampling. He was discussed at [place] tumor board, and it was felt that he should proceed with therapy. Currently he notes the following symptoms: Symptom Description Ongoing Intervention Odynophagia Minimal Dysphagia Denies Trismus Denies Otalgia/ Hearing changes Denies Xerostomia Denies Skin changes Denies Neck fibrosis Denies Dysgeusia Denies Weight Loss Denies he denies new onset DE LA O, n/v, unilateral changes in strength/sensation or cognitive changes. No Known Allergies Patient's Medications New Prescriptions No medications on file Previous Medications DOCUSATE CALCIUM (STOOL SOFTENER ORAL) Take 2 tablets by mouth 2 times daily. FLUCONAZOLE ORAL Take 1 tablet by mouth daily. IBUPROFEN (ADVIL;MOTRIN) 800 MG TABLET Take 800 mg by mouth every 6 hours as needed. MELATONIN 3 MG TAB Take by mouth. MORPHINE 10 MG/5 ML SOLUTION Take 10 mg by mouth every 4 hours as needed. OXYCODONE-ACETAMINOPHEN (PERCOCET) 5-325 MG PER TABLET Take 1 tablet by mouth every 4 hours as needed. TERAZOSIN 10 MG TAB Take 10 mg by mouth daily. TRAZODONE (DESYREL) 50 MG TABLET Take 25 mg by mouth nightly. Modified Medications No medications on file Discontinued Medications No medications on file Past Medical History Diagnosis Date ??? Cancer of head, face, and neck ??? Arthritis ??? Depression PTSD ??? Claustrophobia Past Surgical History Procedure Date ??? Spine surgery Disc ??? Tonsillectomy 2011 ??? Back surgery ??? Endobronchial u/s add-on 08/24/2011 ENDOBRONCHIAL ULTRASOUND (EBUS) performed by VERÓNICA KELLOGG at [facility] Physical Examination: Filed Vitals: 09/06/11 1556 BP: 88/55 Pulse: 64 Temp: 36.4 ??C (97.6 ??F) TempSrc: Oral Resp: 18 SpO2: 97% Physical Exam Constitutional: He is well-developed, well-nourished, and in no distress. HENT: Head: Normocephalic and atraumatic. Visual inspection of oral cavity and oropharynx reveals irregularity of the R tonsillar fossa without any evidence of involvement of the R oral tongue or soft palate. No other suspicious masses or lesions noted. Dentition in good repair. Good moisture. Eyes: EOM are normal. Pupils are equal, round, and reactive to light. Neck: Normal range of motion. No tracheal deviation present. 2 cm lymph node level II R, 2 cm lymph node level III R. No other palpable adenopathy in cervical ,SCLV, ICLV lashanda basins. Cardiovascular: Normal rate, regular rhythm and normal heart sounds. Pulmonary/Chest: Effort normal. He has no wheezes. He has no rales. Interval Imaging: Flexible laryngoscopy was performed. The right naris was anesthetized with aerosolized lidocaine, and the laryngoscope was passed with some difficulty. The nasopharynx was visualized and was without masses or lesions. The larynx, and piriform sinuses were visualized and were without masses or lesions. The vocal cords apposed without difficulty. The BOT did not appear to have any malignant involvement, nor did the lateral pharyngeal wall. Assessment: Oliverio Salazar presents to discuss chemoradiotherapy as definitive therapy for histonsillar cancer. In the interval since his last visit he has had chest imaging, which revealed an ~ 1.5 cm level I thoracic lymph node, which was unable to be sampled by EBUS guided bronchoscopic biopsy. He was also noted to have a sclerotic vertebral lesion. After the bx attempt, he was discussedin the [place] tumor board, and the consensus was that the sclerotic lesion was non-specific and that further investigation would likely be futile and delay therapy. With respect to the lymph node, personal communication by the pulmonary team indicated that the node had significantly decreased in size, and thus was hard to sample. As such, it was felt to be reactive in nature. I discussed these issueswith Mr. Salazar, noting that there is still some uncertainty with respect to the possibility of metastatic disease, but at this point we would favor proceeding with definitive therapy. We again discussed the rationale, logistics (including simulation, planning, and treatment) and efficacy of definitive chemoradiotherapy. We discussed the risks of therapy, including but not limited to short term sequelae (fatigue, skin erythema, mucositis, dysphagia, ageusia, xerostomia, weight loss) and terminologist sequelae (skin fibrosis, detention dysphagia potentially requiring a permanent feeding tube, xerostomia, osteoradionecrosis, esophageal stricture, and the low probability of significant damage to soft tissue, bone or skin requiring surgical or medical intervention). Mr. Salazar expressed an understanding of these risks and wished to proceed with therapy. The patient and his family had a number of questions regarding optimal therapy, the utility of surgery in conjunction with chemoradiotherapy,and potential side effects. These questions were answered to their satisfaction. Plan: ?? Further Staging: none required ?? Dental Issues: he saw his dentist recently, and states that he discussed XRT with him. Will obtain records and ensure that he's clear for RT. [facility] will need [facility] to make fluoride trays. ?? Enteral Nutrition: prophylactic PEG tube discussed with pt, he is amenable. ?? Treatment: Definitive chemoradiotherapy: ?? Simulation using IV contrast ?? Radiation therapy at standard fractionation to 70 Gy w/ concurrent chemotherapy per medical oncology ?? Referral to Speech/Swallow Pathology ?? Referral to Plumbing Contractor Plan: ?? FU: follow up with radiation oncology per NCC[facility] algorithm documented in this encounter Plan of Treatment Not on file documented as of this encounter Visit Diagnoses Diagnosis Squamous cell carcinoma of tonsil- Primary Malignant neoplasm of tonsil documented in this encounter Care Teams Child And Adolescent Therapist Relationship Specialty Start Date End Date Jw Huff MD [address] [place] [id number] PCP - General 08/02/11 documented as of this encounter
--- OUTSIDE RECORDS SUMMARY | 2024-05-03 16:12 | XMS_ITS | Encounter Summary ---
Author Organization [facility] [place] [address] Care Team Providers Care Machine Chocolate Molder Name Role Phone Josué Huff MD Primary Care Provider [phone] Reason for Visit * Reason Comments Radiation Treatment Encounter Details Date Type Department Care Team (Late st Contact Info) Description 10/19/2011 10:45 AM EDT Follow-Up Radiation Oncology at [address] [id number] Jacoby Gaines MD [facility] [place] [address] Thrush, oral; Carcinoma of head and neck Discharge Disposition: Home Social History Tobacco Use [...] Sign Reading Time Taken Comments Blood Pressure 96/52 10/19/2011 11:11 AM EDT Pulse 64 10/19/2011 11:11 AM EDT Temperature 37.1 ??C (98.8 ??F) 10/19/2011 11:11 AM E DT Respiratory Rate 16 10/19/2011 11:11 AM EDT Oxygen Saturation 95% 10/19/2011 11:11 AM EDT Inhaled Oxygen Concentration - - Weight 98.4 kg (217 lb) 10/19/2011 11:11 AM EDT Height - - Body Mass Index 31.42 10/17/2011 11:17 AM EDT documented in this encounter Progress Notes * Jacoby Gaines MD - 10/19/2011 11:50 AM EDT ON TREATMENT VISIT NOTE Primary MD: JOSUÉ HUFF MD Referring MD: Self Other Involved Physicians: Venkatesh Boothe MD Focused Problem List: ?? Squamous cell carcinoma of the tonsil, [id number] ?? Presentation: ?? Onset neck stiffness 04/2011 [...] Jr. is currently undergoing radiation therapy at [facility]. Current treatment dose: 42 Gy in 21 fractions. Anticipated total dose: 70 Gy in [...] TPN or PEG indicated NA Mucositis: Comments: stable pain, primarily with swallowing, but controlled with pain medication Physical Exam: Patchy mucositis posterior oral cavity. No thrush evident. Current Pain Regimen: Percocet 5 mg prn [...] NA Weight : 231 lbs initial Change: 219=> 217 Larynx: Comments: 0 1 2 3 4 No change from baseline Mild or intermittent voice change; fully understandable, self- resolves Moderate or persistent voice change, able to vocalize; otalgia/ sore throat not requiring narcotic Whispered speech, throat pain/otalgia requiring narcotic Marked dyspnea, stridor or hemoptysis with trach or intubation necessary Other: ?? Impression: ?? Moderate toxicity, primarily dysgeusia limiting oral intake complicated by gagging, but also increasing pain. He was noted to have severe thrush and was started on Monistat orally in lieu of nystatin as [facility]. Diminished oral intake has led to consistent weight loss, engineering vice president working with him extensively. Skin toxicity and mucositis moderate. Will resimulate on Saturday because of weight loss. Plan: ?? Continue RT per prescription ?? Pain control: ?? Oxycodone prn ?? Skin: Jeans cream BID ?? Mucositis: ?? Pain control: see above ?? Oral hygiene consisting of baking soda/salt rinse at least 8 times daily ?? BMX prn ?? Alimentation: engineering vice president following ?? Weight decreased, primarily due to dysgeusia and dysphagia related to gagging. Using benzonatatebut has not noticed a profound benefit. He is to eating again as he has stayed away from solid foods over the past week, and has not tried any since benzonatate. ?? Thrush: on , but is to start Nystatin Saturday QID documented in this encounter Plan of Treatment Not on file documented as of this encounter Visit Diagnoses Diagnosis Thrush, oral Candidiasis of mouth Carcinoma of head and neck Malignant neoplasm of head, face, and neck documented in this encounter Care Teams Machine Chocolate Molder Relationship Specialty Start Date End Date Josué Huff MD [address] [place] [id number] PCP - General 08/02/11 documented as of this encounter
--- OUTSIDE RECORDS SUMMARY | 2024-05-03 16:12 | XMS_ITS | Encounter Summary ---
Author Organization [facility] [place] [address] Care Team Providers Care Cake Tester Name Role Phone Josué Huff MD Primary Care Provider [phone] Encounter Details Date Type Department Care Team (Late st Contact Info) Description 10/09/2011 Notes Only Radiation Oncology at [address] [phone] Joel Crowell MD Social History Tobacco Use Types Packs/Day Years [...] as of this encounter Progress Notes * Isabella Garcia RN - 10/09/2011 11:05 AM EDT RTT asked that the patient be seen. Patient is reporting that he will not be able to tolerate the radiation treatment if it is long again like yesterday (patient has to have a daily CBCT). Patient and RTT asking if patient would benefit from an additional Lorazepam dose for anxiety. Patient presently take 1 mg po before each treatment. Dr Crowell consulted and advised to give patient and additional 1 mg dose of Lorazepam prior to his treatment. Plan going forward is that patient will take 2 mg of Lorazepam prior to each treatment in which he will have to have a CBCT performed. Patient agreed to plan and verbalized understanding of information given. documented in this encounter Plan of Treatment Not on file documented as of this encounter Visit Diagnoses Not on filedocumented in this encounter Care Teams Cake Tester Relationship Specialty Start Date End Date Josué Huff MD [address] [place] [id number] PCP - General 08/02/11 documented as of this encounter
[2024-05-03 16:44] VITALS: BP 118/57; PULSE 64; RESP 18; O2SAT 98
== END 2024-05-03 16:46 | disposition home or self-care (01) ==
PROVIDERS: Emergency Provider Physician Assistant
DX: M25.532 Pain in left wrist (principal); G56.02 Carpal tunnel syndrome, left upper limb; R22.32 Localized swelling, mass and lump, left upper limb; R20.2 Paresthesia of skin
CPT/HCPCS: 29125; 80053; 85652; 99283; 73110; 84550; 85025; 86140